=== PATIENT | female | born 1970 | race Two or more races ===

== ENCOUNTER 2018-04-19 11:31 | Inpatient (IN) | payer OTHER ==
[~2018-04-19] VITALS: Ht 167.6 cm; Wt 111.6 kg
[2018-04-19] MEDS ORDERED: IBUPROFEN 200 MG TABLET PO PRN (14:00)
[2018-04-19] MEDS ORDERED: ACETAMINOPHEN ES 500 MG TABLET PO PRN (14:00)
[2018-04-19] MEDS ORDERED: ZOLPIDEM TARTRATE 10 MG TABLET PO PRN (14:00)
[2018-04-19] MEDS ORDERED: MAGNESIUM HYDROXIDE 30 ML UDC PO PRN (14:00)
[2018-04-19] MEDS ORDERED: MAG HYDROX/AL HYDROX/SIMETH 30 ML UDC PO PRN (14:00)
[2018-04-19] MEDS ORDERED: LORAZEPAM 1 MG TABLET FOR AGITATION PO PRN (14:00)
--- NOTE | 2018-04-19 15:00 | NUR ---
MS RN NOTES ADMITTED 48 YEAR OLD FEMALE FROM OFFICE OF Dr. HERZOG. PATIENT AWAKE, ALERT AND ORIENTED X 4, VERBALLY RESPONSIVE AND RESPONDS TO VERBAL AND TACTILE STIMULI. BREATHING EVEN AND UNLABORED. DENIES ANY PAIN OR DISCOMFORT. NO CHANGES IN LOC NOTED AT THIS TIME. PATIETN CALM AND RELAXED. PATIENT FOR CLINICAL TRIAL, ADMITTED UNDER MEDICAL SUPERVISION OF DR. HERZOG, MADE AWARE OF PATIENT ARRIVAL. ADMITTING ORDERS NOTED AND CARRIED OUT. PATIENT ORIENTED TO UNIT, STAFF, ROOM, MEDICATIONS, MEAL TIME, MENU SYSTEM, PLAN OF CARE AND VERBALIZED UNDERSTANDING. 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 RISKS AND BENEFITS EXPLAINED BUT TO NO AVAIL. PATIENT VERBALIZED THAT HOSPITAL WILL NOT BE ACCOUNTABLE IF HER MONEY GETS MISSING. CHARGE NURSE AWARE. WILL CONTINUE TO MONITOR. BED LOCKED AND IN LOW POSITION. BILATERAL UPPER SIDE RAILS UP AND LOCKED. CALL LIGHT WITHIN EASY REACH
[2018-04-19] MEDS ORDERED: HYDR25TA4 PO (15:35)
[2018-04-19] MEDS ORDERED: AMLO10TA7 PO (15:35)
[2018-04-19 16:00] VITALS: BP 139/85
--- NOTE | 2018-04-19 19:04 | NUR ---
MS RN NOTES PATIENT RESTING INSIDE ROOM. AWAKE, ALERT AND ORIENTED, VERBALLY RESPONSIVE AND RESPONDS TO VERBAL AND TACTILE STIMULI. BREATHING EVEN AND UNLABORED. DENIES ANY PAIN OR DISCOMFORT. ALL NURSING NEEDS ATTENDED AND MET. PATIENT KEPT CLEAN, DRY AND COMFORTABLE. WILL ENDORSE TO INCOMING SHIFT FOR STEVE. BED LOCKED AND IN LOW POSITION. BILATERAL UPPER SIDE RAILS UP AND LOCKED. CALL LIGHT WITHIN EASY REACH
--- NOTE | 2018-04-19 19:35 | NUR ---
MS RN NOTES received PATIENT RESTING INSIDE ROOM. AWAKE, ALERT AND ORIENTED, VERBALLY RESPONSIVE AND RESPONDS TO VERBAL AND TACTILE STIMULI. BREATHING EVEN AND UNLABORED. DENIES ANY PAIN OR DISCOMFORT. ALL NURSING NEEDS ATTENDED AND MET. PATIENT KEPT CLEAN, DRY AND COMFORTABLE. BED LOCKED AND IN LOW POSITION. BILATERAL UPPER SIDE RAILS UP AND LOCKED. CALL LIGHT WITHIN EASY REACH. WILL CONTINUE TO MONITOR ACCORDINGLY.
[2018-04-19 20:23] VITALS: BP 112/72
--- NOTE | 2018-04-20 07:30 | NUR ---
received pt. this am alert and oriented x4-a little anxious.
--- NOTE | 2018-04-20 07:55 | NUR ---
RN NOTES ENDORSE TO AM NURSE FOR CONTINUITY OF CARE. NO DISTRESS THROUGHOUT THE SHIFT.
[2018-04-20 08:00] VITALS: BP 132/91
[2018-04-20] MEDS: NORVASC 10 MG PO SCH (09:27)
[2018-04-20] MEDS: HCTZ 25 MG PO SCH (09:28)
--- NOTE | 2018-04-20 11:30 | NUR ---
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 consent signed.
[2018-04-20 16:00] VITALS: BP 141/90
--- NOTE | 2018-04-20 17:00 | NUR ---
relocated to rm. 319.
--- NOTE | 2018-04-20 18:50 | NUR ---
up at desk-looking for radio message router.states she has no radio message router for her phone.
[2018-04-20 20:00] VITALS: BP 127/82
--- NOTE | 2018-04-20 20:00 | NUR ---
MS RN NOTES RECEIVED PATIENT AWAKE IN BED AND WATCHING TV WITH NO DISTRESS NOTED. NO C/O PAIN OR DISCOMFORT. PATIENT CALM AND COOPERATIVE. BED IN LOW LOCK SETTING. ROOM FREE OF CLUTTER AND BELONGINGS KEPT NEAR BEDSIDE. WILL CONTINUE TO MONITOR.
--- NOTE | 2018-04-21 06:04 | NUR ---
MS RN NOTES PATIENT ASLEEP IN BED. NO DISTRESS NOTED. NO C/O PAIN OR DISCOMFORT. PATIENT REMAINED CALM AND COMPLIANT WITH ALL NURSING CARE. ENCOURAGED USE OF CALL LIGHT FOR ASSISTANCE AND VERBALIZED GOOD UNDERSTANDING. BED IN LOW LOCK SETTING. ALL BELONGINGS KEPT NEAR BEDSIDE. WILL ENDORSE TO ONCOMING SHIFT.
--- NOTE | 2018-04-21 07:57 | NUR ---
RN NOTES PATIENT ASLEEP, BUT EASILY AWAKEN, BREATHING EVEN AND UNLABORED, NO DISTRESS NOTED, NEEDS ATTENDED, CALL LIGHT WITHIN REACH, WILL CONTINUE TO MONITOR.
[2018-04-21 08:00] VITALS: BP 116/78
[2018-04-21] MEDS: NORVASC 10 MG PO SCH (09:10)
[2018-04-21] MEDS: HCTZ 25 MG PO SCH (09:10)
[2018-04-21 16:00] VITALS: BP 121/68
--- NOTE | 2018-04-21 18:15 | NUR ---
RN NOTES PATIENT WITH NO SIGNIFICANT CHANGE, NO DISTRESS NOTED, DENIES HALLUCINATION, DENIES SI/HI AT THIS TIME. NEEDS ATTENDED AND MET, DENIES PAIN. CALL LIGHT WITHIN REACH, WILL ENDORSE TO DRAFTING LAYOUT WORKER FOR STEVE.
--- NOTE | 2018-04-21 19:50 | NUR ---
MS RN NOTES/CLINICAL TRIAL RECEIVED ON BED A/O,NO SALINE LOCK PER PSYCHIATRIC PROTOCOL.CALM,BALE TO VERBALIZED NEEDS,MEDS COMPLIANT.CALL LIGHT IN REACH,NEEDS ANTICIPATED.
[2018-04-21 20:00] VITALS: BP 130/75
--- NOTE | 2018-04-22 07:21 | NUR ---
MS RN NOTES CALM AND QUIET THRU OUT SHIFT,SLEPT WELL WITH NO PHARMACOLOGICAL INTERVENTION.ENDORSED.
--- NOTE | 2018-04-22 07:30 | NUR ---
MS RN Opening Notes 319 Patient awake, resting in bed. Alert and oriented x4. Respirations even and unlabored on room air, no acute distress noted. No peripheral IV access, MD aware per psychiatric protocol. Denies hallucinations, SI or HI at this time. Updated patient on current plan of care and safety measures. Safety and fall precautions in place: bed in lowest and locked position, side rails up x2, bed alarm on, call light and personal possessions within reach. Patient verbalized understanding. Will continue to monitor and intervene as needed.
[2018-04-22 08:11] VITALS: BP 139/82
[2018-04-22] MEDS: HCTZ 25 MG PO SCH (08:12)
[2018-04-22] MEDS: NORVASC 10 MG PO SCH (08:12)
[2018-04-22 08:25] VITALS: BP 139/82
[2018-04-22 15:54] VITALS: BP 126/85
--- NOTE | 2018-04-22 18:57 | NUR ---
MS RN Closing Notes 319 Patient awake, resting in bed. Alert and oriented x4. Respirations even and unlabored on room air, no acute distress noted. No peripheral IV access, MD aware per psychiatric protocol. Denies hallucinations, SI and HI at this time. Updated patient on current plan of care and safety measures. No acute changes and all needs attended to. Breaks taken as needed and patient accompanied to breaks as needed. Safety and fall precautions in place: bed in lowest and locked position, side rails up x2, bed alarm on, call light and personal possessions within reach. Patient verbalized understanding. Will endorse to evening or night nurse supervisor RN for continuity of care.
--- NOTE | 2018-04-22 19:30 | NUR ---
MS CLINICAL TRIAL RN NOTES RECEIVED SITTING ON EDGE OF BED,A/O X4,MED COMPLIANT,CALL LIGHT IN REACH,NEEDS ANTICIPATED.
[2018-04-22 20:00] VITALS: BP 122/72
--- NOTE | 2018-04-22 20:00 | NUR ---
MS RN NOTES WENT DOWN TO SMOKE ACCOMPANIED BY ANUJ RETANA.
[2018-04-22 20:55] VITALS: BP 122/72
--- NOTE | 2018-04-23 06:40 | NUR ---
MS RN NOTES SLEPT WELL AT NIGHT.INVESTIGATIONAL MED WILL START ON 04/27.GOES DOWN TO SMOKE.WILL ENDORSE TO DAY NURSE FOR STEVE.
--- NOTE | 2018-04-23 07:24 | NUR ---
RN OPENING NOTE/CLINICAL TRIAL PT WAS RECEIVED SLEEPING IN BED AT LOWEST AND LOCKED POSITION WITH SIDE RAILS UP X2, A/O X4, BREATHING EVEN AND UNLABORED ON RA, NO S/S OF PAIN OR DISTRESS CURRENTLY NOTED, NO IV NOTED PER PROTOCOL MD ARE AWARE, SAFETY PRECAUTIONS IN PLACE, CALL LIGHT WITHIN REACH, WILL MONITOR ACCORDINGLY.
[2018-04-23 08:00] VITALS: BP 145/96
[2018-04-23] MEDS: HCTZ 25 MG PO SCH (08:01)
[2018-04-23] MEDS: NORVASC 10 MG PO SCH (08:01)
[2018-04-23 16:00] VITALS: BP 114/63
--- NOTE | 2018-04-23 18:16 | NUR ---
RN CLOSING NOTE/CLINICAL TRIAL PT IN BED AT LOWEST AND LOCKED POSITION WITH SIDE RAILS UP X2, A/O X4, BREATHING EVEN AND UNLABORED ON RA, NO S/S OF PAIN OR DISTRESS CURRENTLY NOTED, NO IV NOTED PER PROTOCOL, ALL NEEDS ATTENDED TO, SAFETY PRECAUTIONS IN PLACE, CALL LIGHT WITHIN REACH, WILL ENDORSE TO CASE FINISHER FOR STEVE.
--- NOTE | 2018-04-23 19:35 | NUR ---
RN NOTES RECEIVED PATIENT AWAKE IN BED AT LOWEST AND LOCKED POSITION WITH SIDE RAILS UP X2, A/O X4, BREATHING EVEN AND UNLABORED ON RA, NO S/S OF PAIN OR DISTRESS CURRENTLY NOTED, NO IV NOTED PER PROTOCOL MD ARE AWARE, SAFETY PRECAUTIONS IN PLACE, CALL LIGHT WITHIN REACH, WILL MONITOR ACCORDINGLY.
[2018-04-23 20:00] VITALS: BP 135/72
[2018-04-23 20:40] VITALS: BP 135/72
--- NOTE | 2018-04-24 07:15 | NUR ---
RN NOTES PATIENT ASLEEP IN BED AT LOWEST AND LOCKED POSITION WITH SIDE RAILS UP X2, A/O X4, BREATHING EVEN AND UNLABORED ON RA, NO S/S OF PAIN OR DISTRESS CURRENTLY NOTED, NO IV NOTED PER PROTOCOL MD ARE AWARE, SAFETY PRECAUTIONS IN PLACE, CALL LIGHT WITHIN REACH, ENDORSED TO AM NURSE FOR CONTINUITY OF CARE.
--- NOTE | 2018-04-24 07:42 | NUR ---
MS/RN OPENING NOTE PATIENT IN BED IN STABLE CONDITION. A/O X 4. NO SIGNS OF ACUTE DISTRESS. NO COMPLAIN OF PAIN OR DISCOMFORT. ALL NEEDS ATTENDED TO. CALL LIGHT WITHIN REACH. WILL CONTINUE TO MONITOR TO ENSURE SAFETY.
[2018-04-24 08:00] VITALS: BP 126/78
[2018-04-24] MEDS: HCTZ 25 MG PO SCH (08:24)
[2018-04-24] MEDS: NORVASC 10 MG PO SCH (08:24)
[2018-04-24 16:00] VITALS: BP 140/82
--- NOTE | 2018-04-24 18:23 | NUR ---
MS/RN CLOSING NOTE PATIENT IN BED IN STABLE CONDITION. A/O X 4. NO SIGNS FO ACUTE DISTRESS. NO COMPLAIN OF PAIN OR DISCOMFORT. ALL NEEDS ATTENDED TO. CALL LIGHT WITHIN REACH. WILL ENDORSE TO NEXT SHIFT FOR CONTINUITY OF CARE.
[2018-04-24 20:00] VITALS: BP 120/74
--- NOTE | 2018-04-25 07:38 | NUR ---
MS RN OPENING NOTES RECEIVED PT LAYING IN BED, SLEEPING COMFORTABLY AND EASILY AROUSABLE. PT IS A/O X4, AFEBRILE. RESPIRATIONS ARE EVEN AND UNLABORED, NOT IN ANY ACUTE DISTRESS NOTED. DENIES ANY CHEST PAIN, SOB, N/V.NO IV ACCESS. SAFETY MEASURES ARE IN PLACE. INSTRUCTED PT TO USE CALL LIGHT WHEN ASSISTANCE IS NEEDED, CALL LIGHT IS LEFT WITHIN REACH. WILL MONITOR THROUGHOUT SHIFT FOR CONTINUITY OF CARE.
[2018-04-25 08:00] VITALS: BP 132/91
[2018-04-25] MEDS: HCTZ 25 MG PO SCH (09:52)
[2018-04-25] MEDS: NORVASC 10 MG PO SCH (09:52)
--- NOTE | 2018-04-25 13:31 | NUR ---
MS RN NOTES-- PT NOT IN ANY APPARENT DISTRESS NOTED. NEEDS MET. WILL CONTINUE TO MONITOR.
[2018-04-25 16:00] VITALS: BP 128/81
--- NOTE | 2018-04-25 18:38 | NUR ---
MS RN CLOSING NOTES NEEDS MET AND RENDERED. PT IS A/O X4, AFEBRILE. RESPIRATIONS ARE EVEN AND UNLABORED, NOT IN ANY ACUTE DISTRESS NOTED. PT DENIES ANY PAIN, DENIES ANY SOB, N/V. NO IV ACCESS NOTED. SAFETY MEASURES ARE IN PLACE. REMINDED PT TO USE CALL LIGHT WHEN ASSISTANCE IS NEEDED, CALL LIGHT IS LEFT WITHIN REACH. WILL ENDORSE TO NEXT SHIFT FOR CONTINUITY OF CARE.
[2018-04-25 20:00] VITALS: BP 126/84
--- NOTE | 2018-04-25 20:40 | NUR ---
RN INITIAL NOTES: RECEIVED RPEORT FROM JODI REDMOND, PT IS A CLINICAL TRIAL PT, UNDER DR VIDALES. NO IV ACCESS PER MD. PT AMBULATORY, A/O X3, DENIES ANY HALLUCINATION OR DELUSION, DENIES ANY PLANS OF HURTING HERSELF. BROUGHT TO [place] 2 ROOM 208-2, ALL BELONGING SENT WITH PT UPON TRANSFER. PER MD TO HOLD ATIVAN TOMORROW 04/26 AT 2200, AND MAY RESUME ON 04/27 AT 12NOON, PT WILL BE STARTED ON INVESTIGATIONAL MEDS ON 04/27. PT AWARE. COOPERATIVE, WITH SMOKING PRIVILEGES. SAFETY PRECAUTIONS FOR FALL INITIATED, CALL LIGHT IN REACH, WILL CONTINUE MONITORING PT.
[2018-04-25 21:00] VITALS: BP 126/84
--- NOTE | 2018-04-26 07:24 | NUR ---
RN CLOSING NOTES: PT REMAINS COOPERATIVE, CALM, DENIES ANY PLANS OF HURTING HERSELF. SLEPT FOR A TOTAL OF 6HRS. SAFETY PRECAUTIONS FOR FALL REMAINS ENGAGED, CALL LIGHT IN REACH, WILL ENDORSE TO DAY RN FOR STEVE.
--- NOTE | 2018-04-26 07:56 | NUR ---
MS RN NOTES PATIENT RECEIVED RESTING INSIDE ROOM, SLEEPING, EASILY AROUSABLE THROUGH VERBAL AND TACTILE STIMULI. BREATHING EVEN AND UNLABORED. NO ACUTE DISTRESS. DENIES ANY PAIN OR DISCOMFORT AT THIS TIME. PATIENT CALM AND RELAXED. NO CHANGES IN LOC NOTED. WILL CONTINUE TO MONITOR. BED LOCKED AND IN LOW POSITION. BILATERAL UPPER SIDE RAILS UP AND LOCKED. CALL LIGHT WITHIN EASY REACH
[2018-04-26] MEDS: NORVASC 10 MG PO SCH (08:08)
[2018-04-26] MEDS: HCTZ 25 MG PO SCH (08:08)
[2018-04-26 08:17] VITALS: BP 147/83
[2018-04-26 16:00] VITALS: BP 124/75
--- NOTE | 2018-04-26 19:07 | NUR ---
MS RN NOTES PATIENT RESTING INSIDE ROOM. AWAKE, ALERT AND ORIENTED, VERBALLY RESPONSIVE AND RESPONDS TO VERBAL AND TACTILE STIMULI. BREATHING EVEN AND UNLABORED. NO ACUTE DISTRESS AT THIS TIME. ALL NURSING NEEDS ATTENDED AND MET. PATIENT KEPT CLEAN, DRY AND COMFORTABLE. WILL ENDORSE TO INCOMING SHIFT FOR STEVE. BED LOCKED AND IN LOW POSITION. BILATERAL UPPER SIDE RAILS UP AND LOCKED. CALL LIGHT WITHIN EASY REACH
--- NOTE | 2018-04-26 19:45 | NUR ---
RN NOTES RECEIVED REPORT FROM [facility] NYLA MERINO. FOUND Pt AWAKE, RESTING IN BED. Pt IS A/OX4, VERBAL ABLE TO MAKE NEEDS KNOW. NO S/S OF ACUTE DISTRESS OR SOB NOTED. RESPIRATIONS ARE EVEN AND UNLABORED. NO IV ACCESS DUE TO CLINICAL TRIAL. SAFETY MEASURES IN PLACE. BED LOW, LOCKED, HOB ELEVATED, SIDE RAILS UP, CALL LIGHT AND BEDSIDE TABLE WITHIN REACH. WILL CONTINUE TO MONITOR Pt's CONDITION AND SAFETY THROUGHOUT THE NIGHT.
[2018-04-26 20:00] VITALS: BP 121/77
--- NOTE | 2018-04-26 20:00 | NUR ---
RN NOTES Pt HAS GONE DOWN WITH STAFF FOR A SMOKE.
--- NOTE | 2018-04-27 06:55 | NUR ---
RN CLOSING NOTES NO SIGNIFICANT CHANGES IN Pt's CONDITION. Pt REMAINS STABLE AT THIS TIME. Pt RESTING IN BED. RESPIRATIONS EVEN AND UNLABORED. NO S/S OF ACUTE DISTRESS OR SOB NOTED DURING THE NIGHT. ALL NEEDS MET AND ATTENDED TO. SAFETY MEASURES IN PLACE. BED LOW, LOCKED, HOB ELEVATED, SIDE RAILS UP, CALL LIGHT AND BEDSIDE TABLE WITHIN REACH. WILL ENDORSE TO DAYSHIFT RN FOR Pt's STEVE.
[2018-04-27 08:00] VITALS: BP 129/83
--- NOTE | 2018-04-27 08:00 | NUR ---
MS RN NOTES PATIENT RESTING INSIDE ROOM. AWAKE, ALERT AND ORIENTED, VERBALLY RESPONSIVE AND RESPONDS TO VERBAL AND TACTILE STIMULI. BREATHING EVEN AND UNLABORED. NO ACUTE DISTRESS AT THIS TIME. PATIENT KEPT CLEAN, DRY AND COMFORTABLE. BED LOCKED AND IN LOW POSITION. BILATERAL UPPER SIDE RAILS UP AND LOCKED. CALL LIGHT WITHIN EASY REACH
[2018-04-27] MEDS: NORVASC 10 MG PO SCH (08:52)
[2018-04-27] MEDS: HCTZ 25 MG PO SCH (08:53)
[2018-04-27] MEDS ORDERED: LORAZEPAM 1 MG TABLET FOR AGITATION PO PRN (12:00)
[2018-04-27 16:00] VITALS: BP 130/78
[2018-04-27] MEDS: INVESTIGATIONAL MED RGH-MD-24 1 CAP PO SCH (17:57)
--- NOTE | 2018-04-27 19:25 | NUR ---
PT RESTING IN BED DENYING ANY PAIN OR DISTRESS.CALL LIGHT PLACED WITHIN REACH.
--- NOTE | 2018-04-27 19:45 | NUR ---
MS RN NOTE RECEIVED PT IN A&O X4, ABLE TO MAKE NEEDS KNOWN. PT CURRENTLY IN BED WATCHING TV. NO SIGNS OF SOB OR DISTRESS. SAFETY MEASURES IN PLACE: BED LOW, LOCKED, UPPER RAILS IN PLACE AND CALL LIGHT WITHIN REACH. WILL CONT TO MONITOR.
[2018-04-27 20:00] VITALS: BP 125/82
--- NOTE | 2018-04-28 06:24 | NUR ---
MS RN NOTE PT IN STABLE CONDITION A&O X4, ABLE TO MAKE NEEDS KNOWN. PT CURRENTLY IN BED, RESTING. NO SIGNS OF SOB OR DISTRESS. SAFETY MEASURES IN PLACE: BED LOW, LOCKED, UPPER RAILS IN PLACE AND CALL LIGHT WITHIN REACH. WILL CONT TO MONITOR AND ENDORSE TO NEXT SHIFT FOR STEVE.
[2018-04-28 08:00] VITALS: BP 137/76
--- NOTE | 2018-04-28 08:00 | NUR ---
PATIENT IS A & O X4. PATIENT SHOWS NO SIGN OF SOB OR DISTRESS. PATIENT CLEAN, DRY, AND COMFORTABLE. SAFETY MEASURES ARE IN PLACE: BED LOW, LOCKED, UPPER RAILS IN PLACE, AND CALL LIGHT WITHIN REACH. ALL CURRENT NEEDS ARE MET AND WILL CONTINUE TO MONITOR.
[2018-04-28] MEDS: NORVASC 10 MG PO SCH (09:22)
[2018-04-28] MEDS: HCTZ 25 MG PO SCH (09:22)
--- NOTE | 2018-04-28 15:09 | NUR ---
PATIENT IS A & O X4. PATIENT SHOWS NO SIGN OF SOB OR DISTRESS. PATIENT CLEAN, DRY, AND COMFORTABLE. SAFETY MEASURES ARE IN PLACE: BED LOW, LOCKED, UPPER RAILS IN PLACE, AND CALL LIGHT WITHIN REACH. ALL CURRENT NEEDS ARE MET AND WILL CONTINUE TO MONITOR AND ENDORSE TO NEXT SHIFT FOR STEVE.
[2018-04-28 16:00] VITALS: BP 113/73
[2018-04-28] MEDS: INVESTIGATIONAL MED RGH-MD-24 1 CAP PO SCH (17:09)
--- NOTE | 2018-04-28 17:48 | NUR ---
PATIENT IS ALERT AND ORIENTED x4. NO SIGNS OF SOB, RESPIRATIONS ARE EVEN AND UNLABORED. PATIENT REMAINS STABLE AT THIS TIME. PATIENT HAS BEEN COOPERATIVE AND SOCIALIZING, ALL BEHAVIORS ARE APPROPRIATE. PATIENT IS RESTING IN BED AND ALL NEEDS HAVE BEEN MET AND ATTENDED TO. SAFETY MEASURES IN PLACE: BED LOW, LOCKED, HOB ELEVATED, SIDE RAILS UP, CALL LIGHT AND BEDSIDE TABLE WITHIN REACH. WILL ENDORSE TO HAND [employer] FOOD MAKER RN FOR Pt's STEVE.
--- NOTE | 2018-04-28 19:30 | NUR ---
MS RN NOTE RECEIVED PT IN STABLE CONDITION A&O X4, ABLE TO MAKE NEEDS KNOWN. NO SIGNS OF SOB OR DISTRESS. PT WITH STEADY GAIT, WALKING UP AND DOWN HALLWAY. NO NEGATIVE BEHAVIOR NOTED. SAFETY PRECAUTIONS IN PLACE: BED LOW, LOCKED, UPPER RAILS UP, AND CALL LIGHT WITHIN REACH. WILL CONT TO MONITOR.
[2018-04-28 20:36] VITALS: BP 139/89
--- NOTE | 2018-04-29 06:13 | NUR ---
MS RN NOTE PT REMAINS IN STABLE CONDITION A&O X4, ABLE TO MAKE NEEDS KNOWN. NO SIGNS OF SOB OR DISTRESS. PT WITH STEADY GAIT, WALKING UP AND DOWN HALLWAY. NO NEGATIVE BEHAVIOR NOTED. SAFETY PRECAUTIONS IN PLACE: BED LOW, LOCKED, UPPER RAILS UP, AND CALL LIGHT WITHIN REACH. WILL CONT TO MONITOR AND ENDORSE TO NEXT SHIFT FOR STEVE.
[2018-04-29 08:00] VITALS: BP 132/75
--- NOTE | 2018-04-29 08:00 | NUR ---
MS RN NOTES PATIENT RESTING INSIDE ROOM. AWAKE, ALERT AND ORIENTED, VERBALLY RESPONSIVE AND RESPONDS TO VERBAL AND TACTILE STIMULI. BREATHING EVEN AND UNLABORED. NO ACUTE DISTRESS AT THIS TIME. PATIENT KEPT CLEAN, DRY AND COMFORTABLE. BED LOCKED AND IN LOW POSITION.AMBULATES IN THE HALLWAY WITH SMOKING PRIVILEGES.COMPLIANT WITH MEDS AND PLEASANT WITH STAFF.CALL LIGHT WITHIN EASY REACH
[2018-04-29] MEDS: HCTZ 25 MG PO SCH (08:49)
[2018-04-29] MEDS: NORVASC 10 MG PO SCH (08:50)
--- NOTE | 2018-04-29 15:45 | NUR ---
PT'S HOME MEDS NORVASC 10 MG AND HCTZ 25 MG ARE ALREADY FINISHED AND NEEDS TO BE REFILLED.CALLED DR HERZOG AND MADE AWARE AND SPOKE TO RYAN OF DR HERZOG'S OFFICE WHO STATED THAT DR HERZOG WILL REFILL THEM AFTER SEEING THE PT.
[2018-04-29 15:48] VITALS: BP 114/56
[2018-04-29] MEDS: INVESTIGATIONAL MED RGH-MD-24 1 CAP PO SCH (17:25)
[2018-04-29] MEDS ORDERED: SENNOSIDES/DOCUSATE SODIUM 1 TAB TABLET PO PRN (19:00)
--- NOTE | 2018-04-29 19:25 | NUR ---
MS/RN NOTES RECEIVED PT. LYING IN BED. PT. IS CALM, AWAKE, ALERT AND ORIENTED X4. BREATHING EVEN AND UNLABORED ON ROOM AIR. NO SOB, RESPIRATORY DISTRESS OR COMPLAINTS OF PAIN NOTED AT THIS TIME. PT. REMAINS WITH NO IV ACCESS AT THIS TIME, MD AWARE. BED LOCKED AND IN LOWEST POSITION, SIDE RAILS UP X2, CALL LIGHT WITHIN REACH, WILL CONTINUE TO MONITOR.
[2018-04-29 20:00] VITALS: BP 137/88
--- NOTE | 2018-04-30 06:22 | NUR ---
MS/RN NOTES PT. IS LYING IN BED RESTING BREATHING EVEN AND UNLABORED ON ROOM AIR. NO SOB, RESPIRATORY DISTRESS OR COMPLAINTS OF PAIN NOTED AT THIS TIME AND THROUGHOUT SHIFT. PT. REMAINS WITH NO IV ACCESS AT THIS TIME, MD AWARE. ALL PT. NEEDS MET. BED LOCKED AND IN LOWEST POSITION, SIDE RAILS UP X2, CALL LIGHT WITHIN REACH, WILL ENDORSE TO DAYSHIFT NURSE FOR CONTINUITY OF CARE.
--- NOTE | 2018-04-30 07:25 | NUR ---
MS RN OPENING NOTES RECEIVED PT AWAKE IN BED IN NO ACUTE SIGNS OF DISTRESS. A/O X4. ABLE TO MAKE NEEDS KNOWN, NO C/O PAIN OR DISCOMFORTS VOICED AT THIS TIME. ON ROOM AIR, BREATHING EVEN AND UNLABORED. SAFETY MEASURES IN PLACE. BED IN LOW LOCKED POSITION WITH UPPER RAILS UP. CALL LIGHT WITHIN REACH. WILL CONTINUE TO MONITOR.
[2018-04-30 07:58] VITALS: BP 134/88
[2018-04-30] MEDS: HCTZ 25 MG PO SCH (08:25)
[2018-04-30] MEDS: NORVASC 10 MG PO SCH (08:26)
[2018-04-30 16:00] VITALS: BP 135/80
[2018-04-30] MEDS: INVESTIGATIONAL MED RGH-MD-24 1 CAP PO SCH (17:15)
--- NOTE | 2018-04-30 19:10 | NUR ---
MS RN CLOSING NOTES PT AWAKE IN BED WATCHING TV. A/O X4. ABLE TO MAKE NEEDS KNOWN. NO INAPPROPRIATE BEHAVIOR EXHIBITED ALL THROUGHOUT SHIFT. ALL NEEDS AND CARE ATTENDED WELL. ON ROOM AIR, BREATHING EVEN AND UNLABORED. SAFETY MEASURES IN PLACE. BED IN LOW LOCKED POSITION WITH UPPER RAILS UP. CALL LIGHT WITHIN REACH. WILL ENDORSE TO DIRECTOR REVENUE NURSE FOR STEVE.
--- NOTE | 2018-04-30 19:15 | NUR ---
MS/RN NOTES RECEIVED PT. SITTING UP IN BED. PT. IS CALM, AWAKE, ALERT AND ORIENTED X4. BREATHING EVEN AND UNLABORED ON ROOM AIR. NO SOB, RESPIRATORY DISTRESS OR COMPLAINTS OF PAIN NOTED AT THIS TIME. PT. REMAINS WITH NO IV ACCESS AT THIS TIME, MD AWARE. BED LOCKED AND IN LOWEST POSITION, SIDE RAILS UP X2, CALL LIGHT WITHIN REACH, WILL CONTINUE TO MONITOR.
[2018-04-30 20:00] VITALS: BP 138/77
--- NOTE | 2018-05-01 06:55 | NUR ---
MS/RN NOTES PT. IS LYING IN BED RESTING, EASILY AROUSABLE TO NAME. PT. IS CALM, AWAKE, ALERT AND ORIENTED X4. BREATHING EVEN AND UNLABORED ON ROOM AIR. NO SOB, RESPIRATORY DISTRESS OR COMPLAINTS OF PAIN NOTED AT THIS TIME. PT. REMAINS WITH NO IV ACCESS AT THIS TIME, MD AWARE. ALL PT. NEEDS MET. BED LOCKED AND IN LOWEST POSITION, SIDE RAILS UP X2, CALL LIGHT WITHIN REACH, WILL ENDORSE TO DAYSHIFT NURSE FOR CONTINUITY OF CARE.
--- NOTE | 2018-05-01 07:45 | NUR ---
RN OPENING NOTE PT WAS RECEIVED IN BED AT LOWEST AND LOCKED POSITION WITH SIDE RAILS UP X2, A/O X4, NOTED TO BE ON CLINICAL TRIAL, BREATHING IS EVEN AND UNLABORED, NO CURRENT COMPLAINTS OF PAIN, HAS NO IV SITE MD AWARE AND PER PROTOCOL, SAFETY PRECAUTIONS IN PLACE, CALL LIGHT WITHIN REACH, WILL MONITOR ACCORDINGLY.
[2018-05-01 08:00] VITALS: BP 124/80
[2018-05-01] MEDS: HCTZ 25 MG PO SCH (08:55)
[2018-05-01] MEDS: NORVASC 10 MG PO SCH (08:55)
[2018-05-01 16:00] VITALS: BP 119/83
[2018-05-01] MEDS: INVESTIGATIONAL MED RGH-MD-24 1 CAP PO SCH (16:26)
--- NOTE | 2018-05-01 18:40 | NUR ---
RN CLOSING NOTE PT IN BED AT LOWEST AND LOCKED POSITION WITH SIDE RAILS UP X2, A/O X4, BREATHING EVEN AND UNLABORED, NO CURRENT COMPLAINTS OF PAIN, SAFETY PRECAUTIONS IN PLACE, CALL LIGHT WITHIN REACH, WILL ENDORSE TO DRY ROOM ATTENDANT RN FOR STEVE.
[2018-05-01 20:00] VITALS: BP 133/71
--- NOTE | 2018-05-02 06:44 | NUR ---
MS RN NOTES AWAKE & RESPONSIVE. NOT IN ANY DISTRESS. NO SOB NOTED. DENIES ANY PAIN OR DISCOMFORT AT THIS TIME. MONITORED ACCORDINGLY. SLEPT FOR 5 HOURS. CALL LIGHT WITHIN REACH. BED IN LOWEST POSITION. SR UP X 2 FOR SAFETY. WILL ENDORSE TO NEXT SHIFT.
[2018-05-02 08:00] VITALS: BP 135/84
[2018-05-02] MEDS: NORVASC 10 MG PO SCH (09:28)
[2018-05-02] MEDS: HCTZ 25 MG PO SCH (09:29)
[2018-05-02 16:00] VITALS: BP 141/82
[2018-05-02] MEDS: INVESTIGATIONAL MED RGH-MD-24 1 CAP PO SCH (17:42)
--- NOTE | 2018-05-02 18:38 | NUR ---
RN CLOSING NOTES PATIENT IN STABLE CONDITION. ALL NEEDS ATTENDED AND PROVIDED. ALL DUE MEDICATIONS GIVEN ORDERED. ASSISTED WITH ADLS. KEPT PATIENT SAFE AND COMFORTABLE. BED IN LOW/LOCKED POSITION, SIDERAILS UP X2, CALL LIGHT IN REACH. WILL ENDORSED O NIGHT RN FOR STEVE.
--- NOTE | 2018-05-02 19:35 | NUR ---
RN OPENING NOTES PT WAS RECEIVED IN BED AT LOWEST AND LOCKED POSITION WITH SIDE RAILS UP X2, A/O X4, ON CLINICAL TRIAL, BREATHING IS EVEN AND UNLABORED, NO CURRENT COMPLAINTS OF PAIN, HAS NO IV SITE MD AWARE AND PER PROTOCOL, SAFETY PRECAUTIONS IN PLACE, CALL LIGHT WITHIN REACH, WILL MONITOR ACCORDINGLY.
[2018-05-02 20:38] VITALS: BP 133/76
--- NOTE | 2018-05-03 05:18 | NUR ---
RN NOTES: TRANSFERRED PT TO ROOM 317-2 ALL BELONGINGS SENT WITH THE PT UPON TRANSFER.
--- NOTE | 2018-05-03 06:46 | NUR ---
RN CLOSING NOTES: PT IN BED, SLEEPING, HRS OF SLEEP 8. REMAINS WITH NO IV ACCESS PER MD. FOR DC TODAY EXIT CARE COMPLETED. SAFETY PRECAUTIONS FOR FALL REMAINS ENGAGED, CALL LIGHT IN REACH. WILL ENDORSE TO DAY RN FOR CONTINUITY OF CARE.
[2018-05-03 08:00] VITALS: BP 136/98
[2018-05-03] MEDS: HCTZ 25 MG PO SCH (09:49)
[2018-05-03] MEDS: NORVASC 10 MG PO SCH (09:49)
--- NOTE | 2018-05-03 11:20 | NUR ---
pt given discharge instructions picked up by md office staff s/p clinical trials no pain no discomfort not in any distress, pt self responsible all needs met
== END 2018-05-03 12:06 | disposition home or self-care (01) | DRG 951 ==
LOC: MED 13:13 → MEDSG2 04-25 18:43 → MED 05-03 05:26
PROVIDERS: ADMIT Psychiatry & Neurology Psychiatry; ATTEND Psychiatry & Neurology Psychiatry
DX: Z00.6 Encounter for examination for normal comparison and control in clinical research program (principal); F20.0 Paranoid schizophrenia; I10 Essential (primary) hypertension; Z96.652 Presence of left artificial knee joint; J45.909 Unspecified asthma, uncomplicated; Z96.651 Presence of right artificial knee joint
CPT/HCPCS: 87081-TC; G0378

== ENCOUNTER 2019-01-12 12:46 | Inpatient (IN) | payer OTHER ==
[~2019-01-12] VITALS: Ht 170.2 cm; Wt 110.7 kg
[~2019-01-12 12:46] MED LIST: AMLO10TA7 PO; HYDR25TA4 PO
--- NOTE | 2019-01-12 15:00 | NUR ---
RN MS NOTES RECEIVED PT FOR CLINICAL TRIAL AT ROOM 320-2, AWAKE, ALERT AND ORIENTED, NO COMPLAINT OF PAIN, NOT IN DISTRESS, AMBULATES WITH STEADY GAIT, ASSISTED TO ROOM, ROOM SET UP ORIENTATION PROVIDED TO PT, VERBALIZED UNDERSTANDING, RECEIVED ADMITTING ORDERS FROM DR. HERZOG.
[2019-01-12] MEDS ORDERED: BENZTROPINE MESYLATE (1 MG) 1 MG TABLET PO PRN (15:30)
[2019-01-12] MEDS ORDERED: ACETAMINOPHEN ES 500 MG TABLET PO PRN (15:30)
[2019-01-12] MEDS ORDERED: MAGNESIUM HYDROXIDE 30 ML UDC PO PRN (15:30)
[2019-01-12] MEDS ORDERED: PROPRANOLOL HCL 10 MG TABLET PO PRN (15:30)
[2019-01-12] MEDS ORDERED: LORAZEPAM 1 MG TABLET FOR AGITATION PO PRN (15:30)
[2019-01-12] MEDS ORDERED: IBUPROFEN 200 MG TABLET PO PRN (15:30)
[2019-01-12] MEDS ORDERED: MAG HYDROX/AL HYDROX/SIMETH 30 ML UDC PO PRN (15:30)
[2019-01-12 16:00] VITALS: BP 128/100
--- NOTE | 2019-01-12 18:14 | NUR ---
RN MS NOTES PT IN BED, ASLEEP, EASY TO AROUSE, ALERT AND ORIENTED, DENIES PAIN, NOT IN DISTRESS, CALL LIGHT WITHIN REACH, ALL NEEDS ATTENDED.
--- NOTE | 2019-01-12 19:45 | NUR ---
MS RN OPENING NOTES RECEIVED PATIENT FROM MORNING SHIFT, ALERT AND ORIENTED X 4. BREATHING REGULAR AND UNLABORED ON ROOM AIR. NO IV ACCESS. NO COMPLAINTS OF PAIN/DISCOMFORT REPORTED OF THE TIME. AMBULATORY WITH BRP. BED LOW AND LOCKED ON SEMI FOWLERS POSITION. CALL LIGHT AND OTHER BELONGINGS IN REACH. WILL CONTINUE TO MONITOR.
[2019-01-12 19:56] VITALS: BP 143/94
[2019-01-12 22:00] VITALS: BP 143/94
--- NOTE | 2019-01-13 06:20 | NUR ---
MS RN CLOSING NOTES PATIENT IN BED ALERT AND ORIENTED X 3. AFEBRILE WITH NO S/S OF DISTRESS OBSERVED. NO COMPLAINTS OF PAIN/DISCOMFORT REPORTED WITHIN THE SHIFT. BED LOW AND LOCKED ON SEMI FOWLERS POSITION. CALL LIGHT IN REACH. WILL ENDORSE TO MORNING SHIFT FOR STEVE.
--- NOTE | 2019-01-13 07:30 | NUR ---
MS REDMOND AM NOTES RECEIVED PATIENT IN BED, ALERT AND ORIENTED X 4. BREATHING REGULAR AND UNLABORED ON ROOM AIR. NO IV ACCESS. NO COMPLAINTS OF PAIN/DISCOMFORT REPORTED OF THE TIME. AMBULATORY WITH BRP. BED LOW AND LOCKED ON SEMI FOWLERS POSITION. CALL LIGHT AND OTHER BELONGINGS IN REACH. WILL CONTINUE TO MONITOR.
[2019-01-13 08:00] VITALS: BP_SYST 160; BP_SYST 168; BP_DIAS 87
[2019-01-13] MEDS: HCTZ 25 MG PO SCH (09:03)
[2019-01-13] MEDS: NORVASC 10 MG PO SCH (09:03)
--- NOTE | 2019-01-13 09:30 | NUR ---
RN NOTES DUE MEDS GIVEN
[2019-01-13 16:00] VITALS: BP_SYST 155; BP_DIAS 101; BP_DIAS 90
--- NOTE | 2019-01-13 18:46 | NUR ---
MS RN CLOSING NOTES PATIENT RESTING IN BED, ALERT AND ORIENTED X 4. BREATHING REGULAR AND UNLABORED ON ROOM AIR. NO IV ACCESS. NO COMPLAINTS OF PAIN/DISCOMFORT REPORTED DURING THE WHOLE SHIFT. AMBULATORY WITH BRP. BED LOW AND LOCKED ON SEMI FOWLERS POSITION. CALL LIGHT AND OTHER BELONGINGS IN REACH. ALL NEEDS MET. WILL ENDORSE TO NEXT SHIFT FOR STEVE.
[2019-01-13 20:00] VITALS: BP 136/101
--- NOTE | 2019-01-13 20:30 | NUR ---
RN NOTES RECEIVED PT. FORM ANOTHER NURSE ... PT. IS CALM AND COOPERATIVE, CALL LIGHT WITHIN REACH, [id number], CONTINUE TO MONITOR
--- NOTE | 2019-01-14 06:44 | NUR ---
RN NOTES , CALM AND COOPERATIVE, NOT IN DISTRESS, PT. NEEDS ATTENDED
--- NOTE | 2019-01-14 07:32 | NUR ---
MS RN OPENING NOTES RECEIVED PATIENT IN BED RESTING COMFORTABLY IN MODERATE HIGH BACK REST, ALERT AND ORIENTED X 4. NOT IN ANY SIGNS OF DISTRESS. NO IV ACCESS. SAFETY MEASURES IN PLACE, BED IN LOW AND LOCKED POSITION. CALL LIGHT WITHIN REACH. WILL CONTINUE TO MONITOR.
[2019-01-14 08:00] VITALS: BP 148/100
[2019-01-14] MEDS: HCTZ 25 MG PO SCH (08:24)
[2019-01-14] MEDS: NORVASC 10 MG PO SCH (08:24)
[2019-01-14 16:00] VITALS: BP 131/84
--- NOTE | 2019-01-14 18:41 | NUR ---
MS RN CLOSING NOTES PATIENT IN BED RESTING COMFORTABLY IN MODERATE HIGH BACK REST, ALERT AND ORIENTED X 4. NOT IN ANY SIGNS OF DISTRESS THROUGHOUT THE SHIFT. NO IV ACCESS. SAFETY MEASURES IN PLACE, BED IN LOW AND LOCKED POSITION. CALL LIGHT WITHIN REACH. WILL ENDORSE TO [employer] MANAGER NURSE FOR STEVE.
--- NOTE | 2019-01-14 19:10 | NUR ---
RN NOTES: RECEIVED AWAKE ON BED, A/OX4, SHE IS USING HER LAP TOP LISTENING TO MUSIC, VERY COMFORTABLE NO PAIN OR DISCOMFORT, NO IV ACCESS, ON ROOM AIR.ORIENTED TO UNIT AND STAFF, FALL AND SAFETY PRECAUTION OBSERVED, SHE ASKED WHAT TIME SHE CAN GO DOWN TO SMOKE, PRODUCTION CONTROL COORDINATING CLERK HAVE GIVEN INSTRUCTION, BED LOW AND LOCKED, CALL LIGHT WITHIN EASY REACH.
[2019-01-14 20:00] VITALS: BP_SYST 124; BP_SYST 142; BP_DIAS 79
--- NOTE | 2019-01-15 01:34 | NUR ---
RN NOTES: AT 2030 ACCOMPANIED BY ANUJ TO GO DOWN AND CAME BACK. SHE CONTINUE TO USE HER LAPTOP AT AROUND 0100 ABLE TO SLEEP AND REST.
--- NOTE | 2019-01-15 07:17 | NUR ---
RN NOTES: SLEEP WELL IN THE NIGHT, NO SANCHEZ MADE, STABLE, ENDORSE FOR CONTINUITY OF CARE.
[2019-01-15 08:00] VITALS: BP 128/85
[2019-01-15] MEDS: HCTZ 25 MG PO SCH (08:15)
[2019-01-15] MEDS: NORVASC 10 MG PO SCH (08:15)
[2019-01-15 16:17] VITALS: BP 119/75
--- NOTE | 2019-01-15 18:47 | NUR ---
MS RN CLOSING NOTES PATIENT IN BED RESTING COMFORTABLY IN MODERATE HIGH BACK REST, ALERT AND ORIENTED X 4. NOT IN ANY SIGNS OF DISTRESS. NO IV ACCESS. SAFETY MEASURES IN PLACE, BED IN LOW AND LOCKED POSITION. CALL LIGHT WITHIN REACH. WILL ENDORSE TO ASW SPECIALIST NURSE FOR STEVE.
--- NOTE | 2019-01-15 19:05 | NUR ---
MS RN NOTES RECEIVED PT WALKING LAPS AROUND UNIT IN STABLE CONDITION. PT A/O X3 AND ABLE TO MAKE NEEDS KNOWN. PT WITH NO S/S OF ACUTE DISTRESS OR SOB NOTED. NO IV ACCESS AT THIS TIME. SAFETY MEASURES IN PLACE WITH BED IN LOWEST LOCKED POSITION WITH SIDE RAILS UP X2. CALL LIGHT WITHIN REACH. WILL CONTINUE TO MONITOR.
[2019-01-15 20:00] VITALS: BP 128/75
--- NOTE | 2019-01-16 07:40 | NUR ---
MS RN NOTES PT WALKING LAPS AROUND UNIT IN STABLE CONDITION. PT A/O X3 AND ABLE TO MAKE NEEDS KNOWN. PT WITH NO S/S OF ACUTE DISTRESS OR SOB NOTED THROUGHOUT SHIFT. PT BED CLEANED AND ITEMS CHANGED. NO IV ACCESS AT THIS TIME. SAFETY MEASURES IN PLACE WITH BED IN LOWEST LOCKED POSITION WITH SIDE RAILS UP X2. CALL LIGHT WITHIN REACH. WILL ENDORSE TO ONCOMING NURSE FOR STEVE.
[2019-01-16 08:11] VITALS: BP 137/93
[2019-01-16] MEDS: NORVASC 10 MG PO SCH (09:40)
[2019-01-16] MEDS: HCTZ 25 MG PO SCH (09:41)
[2019-01-16 16:05] VITALS: BP 129/71
--- NOTE | 2019-01-16 18:29 | NUR ---
MS RN CLOSING NOTES PATIENT IN BED RESTING COMFORTABLY IN MODERATE HIGH BACK REST, ALERT AND ORIENTED X 4. NOT IN ANY SIGNS OF DISTRESS. NO IV ACCESS. SAFETY MEASURES IN PLACE, BED IN LOW AND LOCKED POSITION. CALL LIGHT WITHIN REACH. WILL ENDORSE TO CLAY ROASTER NURSE FOR STEVE.
--- NOTE | 2019-01-16 19:05 | NUR ---
MS RN NOTES RECEIVED PT WALKING AROUND UNIT IN STABLE CONDITION. PT A/O X3 AND ABLE TO MAKE NEEDS KNOWN. PT WITH NO S/S OF ACUTE DISTRESS OR SOB NOTED. NO IV ACCESS AT THIS TIME. NO COMPLAINTS OF PAIN AT THIS TIME. SAFETY MEASURES IN PLACE WITH BED IN LOWEST LOCKED POSITION WITH SIDE RAILS UP X2. CALL LIGHT WITHIN REACH. WILL ENDORSE TO ONCOMING NURSE FOR STEVE.
[2019-01-16 20:00] VITALS: BP 130/83
[2019-01-17] MEDS: HCTZ 25 MG PO SCH (09:54)
[2019-01-17] MEDS: NORVASC 10 MG PO SCH (09:54)
[2019-01-17 16:00] VITALS: BP 134/95
--- NOTE | 2019-01-17 18:48 | NUR ---
MS RN CLOSING NOTES PATIENT IN BED RESTING COMFORTABLY IN MODERATE HIGH BACK REST, ALERT AND ORIENTED X 4. NOT IN ANY SIGNS OF DISTRESS. NO IV ACCESS. SAFETY MEASURES IN PLACE, BED IN LOW AND LOCKED POSITION. CALL LIGHT WITHIN REACH. WILL ENDORSE TO MACHINE MADE SHOE UNIT WORKER NURSE FOR STEVE.
--- NOTE | 2019-01-17 19:30 | NUR ---
MS RN OPENING NOTE RECEIVED PATIENT IN BED. A/O X3. TOLERATING ROOM AIR. RESPIRATIONS ARE EVEN AND UNLABORED. NO S/S SOB NOTED. DENIES PAIN AT THIS TIME. NO IV ACCESS, MD AWARE. BED IS LOW AND LOCKED, SIDE RAILS UP X2, HOB ELEVATED 45 DEGREES. CALL LIGHT WITHIN REACH. WILL CONTINUE TO MONITOR.
[2019-01-17 20:00] VITALS: BP 151/97
--- NOTE | 2019-01-18 06:49 | NUR ---
MS RN CLOSING NOTE PATIENT IN BED. A/O X3. REMAINS TOLERATING ROOM AIR. RESPIRATIONS REMAIN EVEN AND UNLABORED. NO SOB NOTED. NO C/O PAIN THROUGHOUT SHIFT. REMAINS WITH NO IV ACCESS, MD AWARE. BED REMAINS LOW AND LOCKED, SIDE RAILS UP X2, HOB ELEVATED 10 DEGREES. CALL LIGHT WITHIN REACH. WILL ENDORSE TO NEXT SHIFT
--- NOTE | 2019-01-18 07:30 | NUR ---
m/s tube drawer: initial assessment received pt in bed asleep with no distress noted. call light within reach. will continue to monitor.
[2019-01-18 10:00] VITALS: BP 132/65
--- NOTE | 2019-01-18 10:00 | NUR ---
m/s insemination worker: notes awake at this time. up and about. no c/o pain or any discomfort.
[2019-01-18] MEDS: NORVASC 10 MG PO SCH (10:57)
[2019-01-18] MEDS: HCTZ 25 MG PO SCH (10:58)
--- NOTE | 2019-01-18 12:00 | NUR ---
m/s game attendant: notes lunch served at this time. instructed to call for assistance.
[2019-01-18 16:00] VITALS: BP 139/91
--- NOTE | 2019-01-18 16:00 | NUR ---
m/s bookkeeping machine operator: notes ambulating in hallway. no distress noted.
--- NOTE | 2019-01-18 18:00 | NUR ---
m/s credit cashier: notes having dinner. needs attended. no distress noted.
--- NOTE | 2019-01-18 19:00 | NUR ---
m/s pension examiner: notes report given to lisseth (rn) for continuity of care.
--- NOTE | 2019-01-18 19:15 | NUR ---
MS CLINICAL TRIAL RN NOTES RECEIVED WALKING IN THE HALLWAYS WITH STEADY GAIT,A/O X4,ABLE TO MAKE NEEDS KNOWN,NO IV ACCESS.WILL CONTINUE TO MONITOR BEHAVIOR.
--- NOTE | 2019-01-18 20:00 | NUR ---
MS RN NOTES BLOOD PRESSURE ELEVATED THIS TIME,PATIENT JUST FINISHED PLENTY ROUND OF WALKING ON THE HALLWAYS.WILL RE CHECK IN AN HOUR
[2019-01-18 20:26] VITALS: BP 131/106
[2019-01-18 21:00] VITALS: BP 127/83
--- NOTE | 2019-01-18 21:00 | NUR ---
MS RN NOTES BLOOD PRESSURE RECHECK 127/83 THIS TIME
--- NOTE | 2019-01-18 21:26 | NUR ---
MS RN NOTES WENT DOWN TO SMOKE ACCOMPANIED BY ANUJ CROWDER
--- NOTE | 2019-01-19 06:50 | NUR ---
MS RN NOTES NO SIGNIFICANT CHANGE IN BEHAVIOR,FOLLOW SIMPLE INSTRUCTION.CLINICAL TRIALS MEDICATION WILL START 01/25.
--- NOTE | 2019-01-19 07:15 | NUR ---
MS RN RECEIVED ON BED, AWAKE,ALERT,ORIENTED X4,NOT IN ANY FORM OF DISTRESS, RESPIRATIONS EVEN AND UNLABORED,NO SOB NOTED, LUNGS ARE CLEAR,ABDOMEN SOFT,POSITIVE BOWEL SOUNDS, CLINICAL TRIAL PATIENT,DENIES PAIN AT THIS TIME,ALL NEEDS ATTENDED.
[2019-01-19 08:00] VITALS: BP 142/90
[2019-01-19] MEDS: NORVASC 10 MG PO SCH (09:15)
[2019-01-19] MEDS: HCTZ 25 MG PO SCH (09:16)
--- NOTE | 2019-01-19 10:00 | NUR ---
ms mills breakfast served, due meds given,tolerated well.
--- NOTE | 2019-01-19 15:30 | NUR ---
ms rn was seen by dr. page, no order at this time.
[2019-01-19 16:00] VITALS: BP 116/90
--- NOTE | 2019-01-19 17:59 | NUR ---
ms rn inside room,all needs attended.
--- NOTE | 2019-01-19 19:15 | NUR ---
MS RN PM NOTE REPORT RECIEVED FROM [place] PT RECEIVED IN BED, AWAKE,ALERT,ORIENTED X4,NOT IN ANY FORM OF APPARENT DISTRESS. RESPIRATIONS EVEN AND UNLABORED,NO APPARENT SOB, . PT REPORTS HAVING REGULAR BOWEL MOVEMENTS AND NO DIFFICULTY GOING TO BATHROOM PT HERE FOR CLINICAL TRIAL. DENIES PAIN AT THIS TIME. WILL CONT TO MONITOR.
[2019-01-19 20:00] VITALS: BP 110/79
--- NOTE | 2019-01-20 07:32 | NUR ---
RN OPENING NOTES RECEIVED PATIENT IN BED ASLEEP WITHOUT ANY FORM OF DISTRESS. RESPIRATIONS EVEN AND UNLABORED. NO IV ACCESS. A CLINICAL TRIAL PATIENT. SAFETY MEASURES IMPLEMENTED. BED IN LOW/LOCKED PSOITION, SIDERAILS UP X 2, CALL LIGHT IN REACH. WILL CONT TO MONIOTR ACCORDINGLY.
[2019-01-20 08:00] VITALS: BP 147/82
[2019-01-20] MEDS: HCTZ 25 MG PO SCH (08:49)
[2019-01-20] MEDS: NORVASC 10 MG PO SCH (08:50)
[2019-01-20 16:00] VITALS: BP 132/86
--- NOTE | 2019-01-20 19:00 | NUR ---
MS RN OPENING NOTES RECEIVED PATIENT SITTING UP IN BED, ALERT, ORIENTED X 4. BREATHING EVEN AND UNLABORED. NOT IN ANY DISTRESS. NO IV ACCESS. A CLINICAL TRIAL PATIENT. SAFETY MEASURES IN PLACE. CALL LIGHT WITHIN REACH. BED IN LOW, LOCKED POSITION. WILL CONTINUE TO MONITOR ACCORDINGLY
--- NOTE | 2019-01-20 19:04 | NUR ---
RN CLOSING NOTES PATIENT IN STABLE CONDITION. ALL NEEDS ATTENDED AND PROVIDED. ALL DUE MEDICATION GIVEN ORDERED. KEPT PATIENT SAFE AND COMFORTABLE. BED IN LOW/LOCKED POSITION. SIDERAILS UPX2, CALL LIGHT IN REACH. ENDORSED TO NIGHT RN FOR STEVE.
[2019-01-20 20:00] VITALS: BP 133/89
--- NOTE | 2019-01-21 02:00 | NUR ---
RN NOTES PATIENT SLEEPING- APPEARS COMFORTABLE
--- NOTE | 2019-01-21 06:30 | NUR ---
MS RN CLOSING NOTES PATIENT STILL SLEEPING IN BED. REMAINS STABLE. ALL NEEDS ATTENDED AND PROVIDED. KEPT PATIENT SAFE AND COMFORTABLE. PATIENT SLEPT FOR ABOUT 8 HRS. BED IN LOW/LOCKED POSITION. SIDE RAILS UPX2, CALL LIGHT IN REACH. WILL ENDORSE STEVE TO ONCOMING RN.
[2019-01-21 08:00] VITALS: BP 146/83
--- NOTE | 2019-01-21 08:00 | NUR ---
MS RN OPENING NOTES Received Patient awake and resting in bed. A/O x 4. VS stable with no acute distress. Breathing even and unlabored on room air with no respiratory distress. Denies pain. Safety precautions in place. Bed locked and set to lowest position. All needs rendered at this time. Call light within reach. Will continue to monitor.
[2019-01-21] MEDS: NORVASC 10 MG PO SCH (09:07)
[2019-01-21] MEDS: HCTZ 25 MG PO SCH (09:08)
[2019-01-21 16:00] VITALS: BP 131/83
--- NOTE | 2019-01-21 18:58 | NUR ---
MS RN CLOSING NOTES Patient awake and watching TV. A/O x 4. VS stable with no acute distress. Breathing even and unlabored on room air with no respiratory distress. Denies pain. Safety precautions in place. Bed locked and set to lowest position. All needs rendered at this time. Call light within reach. Will endorse plan of care to oncoming shift.
--- NOTE | 2019-01-21 19:43 | NUR ---
RECEIVE PT IN BED WATCHING TV A/O X 4 STABLE AND NOT IN DISTRESS. WILL CONT TO MTR
[2019-01-21 20:00] VITALS: BP 139/87
--- NOTE | 2019-01-22 06:08 | NUR ---
PT STABLE AND NOT IN DISTRESS, SLEPT WELL. NEEDS ATTENDED AND ANTICIPATED, KEPT CLEAN AND COMFORTABLE AT ALL TIMES. NO PSYCHIATRIC INSTABILITY. WILL ENDORSE POC.
[2019-01-22 08:00] VITALS: BP 138/85
[2019-01-22] MEDS: HCTZ 25 MG PO SCH (08:43)
[2019-01-22] MEDS: NORVASC 10 MG PO SCH (08:43)
[2019-01-22 16:00] VITALS: BP 132/90
--- NOTE | 2019-01-22 18:39 | NUR ---
Patient awake and watching TV. A/O x 4. VS stable with no acute distress. Breathing even and unlabored on room air with no respiratory distress. Safety precautions in place. Bed locked and set to lowest position. All needs attended. Call light within reach. Will endorse to next shift for STEVE .
--- NOTE | 2019-01-22 19:23 | NUR ---
RECEIVE PT AWAKE SITTING A/O X 4 STABLE AND NOT IN DISTRESS. WILL CONT TO MTR
[2019-01-22 20:00] VITALS: BP 135/85
--- NOTE | 2019-01-23 06:22 | NUR ---
ASLEEP AND EASILY AWAKEN, PT STABLE AND NOT IN DISTRESS, NO C/O OF PAIN, NEEDS ATTENDED AND ANTICIPATED. KEPT CLEAN, DRY & COMFORTABLE. NO PSYCHIATRIC INSTABILITY. ENDORSE NEXT SHIFT POC.
[2019-01-23 08:00] VITALS: BP 135/90
[2019-01-23] MEDS: HCTZ 25 MG PO SCH (08:38)
[2019-01-23] MEDS: NORVASC 10 MG PO SCH (08:39)
[2019-01-23 16:00] VITALS: BP 130/86
--- NOTE | 2019-01-23 18:41 | NUR ---
Patient awake and resting in bed. A/O x 4. VS stable with no acute distress. Breathing even and unlabored on room air with no respiratory distress. Safety precautions in place. Bed locked and set to lowest position. All needs attended. Call light within reach. Will endorse to next shift for STEVE .
--- NOTE | 2019-01-23 19:30 | NUR ---
MS RN NOTES RECEIVED PATIENT AWAKE IN BED WITH NO DISTRESS NOTED. CALL LIGHT WITHIN REACH. NO C/O PAIN OR DISCOMFORT. ENCOURAGED USE OF CALL LIGHT FOR ASSISTANCE AND VERBALIZED GOOD UNDERSTANDING. BED IN LOW LOCK SETTING. ROOM FREE OF CLUTTER AND BELONGINGS KEPT NEAR BEDSIDE. WILL CONTINUE TO MONITOR.
--- NOTE | 2019-01-23 20:10 | NUR ---
MS RN OPENING NOTES RECEIVED PATIENT ALERT AND ORIENTED X 4. AMBULATORY, VERBALLY RESPONSIVE AND ABLE TO FOLLOW DIRECTIONS. BREATHING REGULAR AND UNLABORED ON ROOM AIR. NO IV ACCESS. NO COMPLAINTS OF PAIN/DISCOMFORT REPORTED OF THE TIME. CALL LIGHT IN REACH. BED LOW AND LOCKED. WILL CONTINUE TO MONITOR.
[2019-01-23 20:22] VITALS: BP 125/78
--- NOTE | 2019-01-23 21:00 | NUR ---
MS RN NOTES WENT DOWN TO SMOKE, ACCOMPANIED BY HOT ROLLER. CAME BACK AFTER 15MINS ON STABLE CONDITION. WILL CONTINUE TO MONITOR.
[2019-01-23 22:00] VITALS: BP 125/78
--- NOTE | 2019-01-24 07:36 | NUR ---
MS RN NOTES PATIENT RECEIVED RESTING INSIDE ROOM. AWAKE, ALERT AND ORIENTED X 4, NO ACUTE DISTRESS. NO CHANGES IN LOC NOTED. PATIENT CALM AND RELAXED. DENIES SI/HI. SAFETY PRECAUTIONS IN PLACE. WILL CONTINUE TO MONITOR. BED LOCKED AND IN LOW POSITION. BILATERAL UPPER SIDE RAILS UP AND LOCKED. CALL LIGHT WITHIN EASY REACH
[2019-01-24 08:00] VITALS: BP 121/79
[2019-01-24] MEDS: HCTZ 25 MG PO SCH (09:49)
[2019-01-24] MEDS: NORVASC 10 MG PO SCH (09:49)
[2019-01-24 16:00] VITALS: BP 129/100
--- NOTE | 2019-01-24 18:41 | NUR ---
MS RN NOTES PATIENT RESTING INSIDE ROOM. AWAKE, ALERT AND ORIENTED X 4, NO ACUTE DISTRESS. NO CHANGES IN LOC NOTED. PATIENT DENIES SI/HI. WILL ENDORSE TO INCOMING SHIFT FOR STEVE. BED LOCKED AND IN LOW POSITION. BILATERAL UPPER SIDE RAILS UP AND LOCKED. CALL LIGHT WITHIN EASY REACH
--- NOTE | 2019-01-24 19:10 | NUR ---
MS/RN NOTES RECEIVED PT. LYING IN BED. PT. IS AWAKE, ALERT AND ORIENTED X4. BREATHING EVEN AND UNLABORED ON ROOM AIR. NO SOB, RESPIRATORY DISTRESS OR COMPLAINTS OF PAIN NOTED AT THIS TIME. PT. REMAINS WITH NO IV ACCESS, MD AWARE. PATIENT DENIES SI/HI AT THIS TIME. PT. WILL BE NPO AFTER 2100. PT. VERBALIZED UNDERSTANDING. BED LOCKED AND IN LOWEST POSITION, SIDE RAILS UP X2, CALL LIGHT WITHIN REACH, WILL CONTINUE TO MONITOR.
[2019-01-24 20:00] VITALS: BP 117/84
--- NOTE | 2019-01-25 06:50 | NUR ---
MS/RN NOTES PT. IS LYING IN BED RESTING. BREATHING EVEN AND UNLABORED ON ROOM AIR. NO SOB, RESPIRATORY DISTRESS OR COMPLAINTS OF PAIN NOTED AT THIS TIME AND THROUGHOUT SHIFT. PT. REMAINS WITH NO IV ACCESS, MD AWARE. PT. REMAINS NPO SINCE 2100 AWAITING LABS TO BE DRAWN. ALL PT. NEEDS MET. BED LOCKED AND IN LOWEST POSITION, SIDE RAILS UP X2, CALL LIGHT WITHIN REACH, WILL ENDORSE TO DAYSHIFT NURSE FOR CONTINUITY OF CARE.
--- NOTE | 2019-01-25 07:30 | NUR ---
ms rn patient not in the room at this time, they went to clinic for blood draw.
[2019-01-25] MEDS ORDERED: LORAZEPAM 1 MG TABLET PO PRN (12:00)
--- NOTE | 2019-01-25 12:30 | NUR ---
ms rn patient came back, awake,alert,not in any form of distress, due meds given,tolerated well.
[2019-01-25] MEDS: HCTZ 25 MG PO SCH (13:37)
[2019-01-25] MEDS: NORVASC 10 MG PO SCH (13:37)
[2019-01-25 16:00] VITALS: BP 133/83
--- NOTE | 2019-01-25 18:53 | NUR ---
ms rn no distress noted.
--- NOTE | 2019-01-25 19:35 | NUR ---
MS/RN NOTES RECEIVED PT. LYING IN BED. PT. IS AWAKE, ALERT AND ORIENTED X4. BREATHING EVEN AND UNLABORED ON ROOM AIR. NO SOB, RESPIRATORY DISTRESS OR COMPLAINTS OF PAIN NOTED AT THIS TIME. PT. REMAINS WITH NO IV ACCESS, MD AWARE. PATIENT DENIES SI/HI AT THIS TIME. BED LOCKED AND IN LOWEST POSITION, SIDE RAILS UP X2, CALL LIGHT WITHIN REACH, WILL CONTINUE TO MONITOR.
[2019-01-25 20:00] VITALS: BP 147/86
[2019-01-25] MEDS: [UNRECOGNIZED DRUG - OTHER] PO SCH (21:58)
--- NOTE | 2019-01-26 06:30 | NUR ---
MS/RN NOTES PT. IS LYING IN BED RESTING. BREATHING EVEN AND UNLABORED ON ROOM AIR. NO SOB, RESPIRATORY DISTRESS OR COMPLAINTS OF PAIN NOTED AT THIS TIME. PT. REMAINS WITH NO IV ACCESS, MD AWARE. PATIENT DENIES SI/HI AT THIS TIME. ALL PT. NEEDS MET. BED LOCKED AND IN LOWEST POSITION, SIDE RAILS UP X2, CALL LIGHT WITHIN REACH, WILL ENDORSE TO DAYSHIFT NURSE FOR CONTINUITY OF CARE.
--- NOTE | 2019-01-26 07:50 | NUR ---
MS RN RECEIVED ON BED, SLEEPING,CLINICAL TRIAL PATIENT, NOT IN ANY FORM OF DISTRESS, RESPIRATIONS EVEN AND UNLABORED,NO SOB NOTED, WILL MONITOR PATIENT.
[2019-01-26 08:00] VITALS: BP 141/84
[2019-01-26] MEDS: HCTZ 25 MG PO SCH (09:09)
[2019-01-26] MEDS: NORVASC 10 MG PO SCH (09:09)
--- NOTE | 2019-01-26 09:50 | NUR ---
MS NYLA HOROWITZ SERVED,DUE MEDS GIVEN,TOLERATED WELL.
[2019-01-26 16:00] VITALS: BP 140/70
--- NOTE | 2019-01-26 16:00 | NUR ---
ms rn was seen by ashlyn genao, no order at this time.
--- NOTE | 2019-01-26 19:00 | NUR ---
MS RN opening NOTES RECEIVED PATIENT SITTING UP IN BED. PATIENT IS AWAKE, ALERT AND ORIENTED X 4. BREATHING EVEN AND UNLABORED ON ROOM AIR. NO SOB, RESPIRATORY DISTRESS OR COMPLAINTS OF PAIN NOTED AT THIS TIME. PATIENT REMAINS WITH NO IV ACCESS, MD AWARE. PATIENT DENIES SI/HI AT THIS TIME. BED LOCKED AND IN LOWEST POSITION, SIDE RAILS UP X2, CALL LIGHT WITHIN REACH. WILL CONTINUE TO MONITOR ACCORDINGLY.
--- NOTE | 2019-01-26 19:02 | NUR ---
ms rn inside room, no distress noted.
[2019-01-26 20:00] VITALS: BP 140/81
[2019-01-26] MEDS: [UNRECOGNIZED DRUG - OTHER] PO SCH (23:09)
--- NOTE | 2019-01-27 06:42 | NUR ---
MS RN CLOSING NOTES PATIENT STILL SLEEPING IN BED. REMAINS STABLE. ALL NEEDS ATTENDED AND PROVIDED. KEPT PATIENT SAFE AND COMFORTABLE. PATIENT SLEPT well. BED IN LOW/LOCKED POSITION. SIDE RAILS UPX2, CALL LIGHT IN REACH. WILL ENDORSE STEVE TO ONCOMING RN.
[2019-01-27 08:00] VITALS: BP 121/85
--- NOTE | 2019-01-27 08:00 | NUR ---
ms rn received on bed, sleeping, no distress noted, patient does not want to be bothered till she is awake.
--- NOTE | 2019-01-27 09:00 | NUR ---
ms rn still sleeping a this time.
--- NOTE | 2019-01-27 11:00 | NUR ---
ms rn still sleeping at this time.
--- NOTE | 2019-01-27 12:20 | NUR ---
ms rn patient just woke up ,due meds given,tolerated well.
[2019-01-27] MEDS: NORVASC 10 MG PO SCH (12:23)
[2019-01-27] MEDS: HCTZ 25 MG PO SCH (12:24)
--- NOTE | 2019-01-27 14:30 | NUR ---
ms rn went down to smoke.
[2019-01-27 16:03] VITALS: BP 123/83
--- NOTE | 2019-01-27 17:35 | NUR ---
ms rn inside room, no distress noted.
--- NOTE | 2019-01-27 19:00 | NUR ---
RN medsurrogelio opening notes Received Pt from morning nurse. Pt is alert and orientedX4. Respiration is normal. No SOB. No nausea or vomiting. Pt denies any pain pain or discomfort. Pt does not IV have access. Pt denies SI/HI at this time. Instructed to call. Safety precautions is maintained. Bed at low position, brakes locked, side rails upx2 and call light is within reach. Will continue to monitor.
[2019-01-27 20:00] VITALS: BP 139/76
--- NOTE | 2019-01-27 20:44 | NUR ---
RN medsur notes Pt went down with ANUJ Urena to get some snack and smoke. Will continue to monitor.
--- NOTE | 2019-01-27 21:15 | NUR ---
RN filomena notes Pt is back and in the room. No S/S of distress noted. Instructed to call. Will continue to monitor.
[2019-01-27] MEDS: [UNRECOGNIZED DRUG - OTHER] PO SCH (21:31)
--- NOTE | 2019-01-28 07:00 | NUR ---
RN medsurg closing notes Pt is resting in bed comfortably. Awaken easily. Respiration is Normal. No SOB. No S/s of distress noted. Routine meds was given as ordered. Kept Pt clean, dry, warm and comfortable. Instructed to call. Safety precautions is maintained. Bed at low position, brakes locked, side rails upX2 and call light is within reach. Will endorse to morning nurse for STEVE.
--- NOTE | 2019-01-28 07:15 | NUR ---
MS RN OPENING NOTES RECEIVED PATIENT ASLEEP IN BED, AROUSABLE TO VERBAL AND TACTILE STIMULI. ON CLINICAL TRAILS WITHOUT ASE OBSERVED. BED IN LOWEST POSITION, LOCKED. CALL LIGHT WITHIN REACH. ABLE TO VERBALIZE NEEDS.
[2019-01-28] MEDS: HCTZ 25 MG PO SCH (08:14)
[2019-01-28] MEDS: NORVASC 10 MG PO SCH (08:14)
[2019-01-28 16:00] VITALS: BP 126/74
--- NOTE | 2019-01-28 18:55 | NUR ---
MS RN CLOSING NOTES PATIENT RESTING COMFORTABLY IN BED. AMBULATED ON UNIT WITH STEADY GAIT. DENIES ANY C/O PAIN NOR DISCOMFORT. NO SOB. ON CLINICAL TRIALS WITHOUT S/S OF COMPLICATIONS. IN NO APPARENT DISTRESS. BED IN LOWEST POSITION, LOCKED. CALL LIGHT WITHIN REACH. ABLE TO VERBALIZE NEEDS.
[2019-01-28 20:00] VITALS: BP 127/76
--- NOTE | 2019-01-28 20:00 | NUR ---
MSRN FULLY AWAKE, DENIES ANY DISCOMFORTS. BEHAVIOR GOOD. WENT DOWN WITH STAFF.
--- NOTE | 2019-01-28 21:00 | NUR ---
MSRN DUE MEDS ADMINISTERED ORDERED.
[2019-01-28] MEDS: [UNRECOGNIZED DRUG - OTHER] PO SCH (22:04)
--- NOTE | 2019-01-29 06:30 | NUR ---
MSRN REMAINS STABLE, NO OTHER NEEDS MADE.
--- NOTE | 2019-01-29 07:30 | NUR ---
ASLEEP-RESP. EVEN AND UNLABORED.DOES NOT WANT TO BE AWAKENED FOR VS OR FOOD. WILL MONITOR,AND RECHECK BP FOR MED ADM.SKIN WARM AND DRY.
[2019-01-29 10:00] VITALS: BP 139/100
[2019-01-29] MEDS: NORVASC 10 MG PO SCH (10:47)
[2019-01-29] MEDS: HCTZ 25 MG PO SCH (10:48)
[2019-01-29 16:00] VITALS: BP 144/99
[2019-01-29 20:00] VITALS: BP 116/86
--- NOTE | 2019-01-29 20:06 | NUR ---
RN NOTES PATIENT IN ROOM, UP ON THE CHAIR, ALERT AND ORIENTED X4, NO DISTRESS, CALM, REQUESTING TO SMOKE, AMBULATORY, INDEPENDENT WITH SELF CARE, WILL CONTINUE TO MONITOR
[2019-01-29 20:17] VITALS: BP 116/86
[2019-01-29] MEDS: [UNRECOGNIZED DRUG - OTHER] PO SCH (21:22)
--- NOTE | 2019-01-30 06:31 | NUR ---
RN NOTES PATIENT ALERT AND ORIENTED X4, ROOM AIR, INDEPENDENT WITH SELF CARE, AMBULATORY, ON CLINICAL TRIAL, MEDICATION GIVEN AT BEDTIME, NO BEHAVIOR DISTURBANCE, PLEASANT AND COMPLIANT WITH POLICIES, SMOKER, GOOD APPETITE. CONTINUE PLAN CARE, SEE SCHEDULE OF TREATMENT.
[2019-01-30 08:00] VITALS: BP 144/86
--- NOTE | 2019-01-30 08:00 | NUR ---
MS RN NOTES PATIENT SLEEPING UPON ARRIVAL. PATIENT ON ROOM AIR. NO SIGNS OF DISTRESS AND OR PAIN. VITAL SIGNS - BP: 144/86 HR: 74 RR: 18 TEMP: 98.0 SPO2: 98. WILL CONTINUE TO MONITOR.
[2019-01-30] MEDS: NORVASC 10 MG PO SCH (09:52)
[2019-01-30] MEDS: HCTZ 25 MG PO SCH (09:52)
--- NOTE | 2019-01-30 13:00 | NUR ---
MS RN NOTES PATIENT IN BED WATCHING TV. NO COMPLAINTS OF PAIN/DISCOMFORT. CALL LIGHT WITHIN PATIENT'S REACH. WILL CONTINUE TO MONITOR.
[2019-01-30 16:00] VITALS: BP 126/90
--- NOTE | 2019-01-30 18:36 | NUR ---
MS RN CLOSING NOTES PATIENT RESTING IN BED WATCHING TV. PATIENT ON ROOM AIR. NO SIGNS OF DISTRESS AND NO COMPLAINTS OF PAIN. CALL LIGHT WITHIN PATIENT'S REACH. WILL ENDORSE TO HISTORY DEPARTMENT CHAIR NURSE TO FOLLOW PLAN OF CARE.
--- NOTE | 2019-01-30 19:31 | NUR ---
MS RN NOTES PATIENT IS IN BED, ALERT AND ORIENTED X 4. BREATHING EVEN AND UNLABORED, PATIENT IN ROOM AIR. NO SIGNS ACUTE DISTRESS, NO COMPLAINTS OF PAIN. SAFETY PRECAUTIONS ON PLACE. BED LOWEST POSITION, LOCKED, AND CALL LIGHT KEPT WITHIN REACH. WILL CONTINUE TO MONITOR.
[2019-01-30 20:00] VITALS: BP_SYST 122; BP_DIAS 80; BP_DIAS 86
[2019-01-30] MEDS: [UNRECOGNIZED DRUG - OTHER] PO SCH (22:31)
--- NOTE | 2019-01-31 06:50 | NUR ---
MS RN NOTES PATIENT IN BED, ASLEEP, ALERT AND ORIENTED X 4. BREATHING EVEN AND UNLABORED. SHOWS NO SIGNS OF ACUTE DISTRESS, NO COMPLAINTS OF PAIN. NO IV. ATTENDED PATIENT NEEDS. SAFETY PRECAUTION IN PLACE. BED IN LOWEST POSITION, LOCKED, AND CALL LIGHT KEPT WITHIN REACH. WILL ENDORSE TO MORNING NURSE.
--- NOTE | 2019-01-31 07:45 | NUR ---
MS RN OPENING NOTES PATIENT SLEEPING IN BED, EASY TO AWAKEN. NO SIGNS OF DISTRESS OR COMPLAINTS OF PAIN. CALL LIGHT WITHIN PATIENT'S REACH. WILL CONTINUE TO MONITOR.
[2019-01-31 08:00] VITALS: BP 117/68
[2019-01-31 08:13] VITALS: BP 117/68
[2019-01-31] MEDS: NORVASC 10 MG PO SCH (10:26)
[2019-01-31] MEDS: HCTZ 25 MG PO SCH (10:26)
[2019-01-31 15:39] VITALS: BP 119/73
--- NOTE | 2019-01-31 18:53 | NUR ---
MS RN CLOSING NOTES PATIENT RESTING IN BED WATCHING TV. PATIENT ON ROOM AIR. NO SIGNS OF DISTRESS AND NO COMPLAINTS OF PAIN. CALL LIGHT WITHIN PATIENT'S REACH. WILL ENDORSE TO HUMAN RESOURCE STATISTICIAN NURSE TO FOLLOW PLAN OF CARE
[2019-01-31 19:30] VITALS: BP 139/86
--- NOTE | 2019-01-31 19:30 | NUR ---
MS RN NOTES PATIENT IN BED WATCHING TV. ALERT AND ORIENTED X 4. BREATHING EVEN AND UNLABORED RESPIRATIONS ON ROOM AIR. PATIENT DENIES ANY ACUTE PAIN, NO ACUTE RESPIRATORY DISTRESS. NO IV. SAFETY PRECAUTION IN PLACE. BED IN LOWEST POSITION, LOCKED, AND KEPT CALL LIGHT WITHIN REACH. WILL CONTINUE TO MONITOR.
[2019-01-31 20:00] VITALS: BP 139/86
[2019-01-31] MEDS: [UNRECOGNIZED DRUG - OTHER] PO SCH (22:08)
--- NOTE | 2019-02-01 06:17 | NUR ---
MS RN NOTES PATIENT IN BED, ASLEEP, ALERT AND ORIENTED X 4. BREATHING EVEN AND UNLABORED, ON ROOM AIR. PATIENT DENIES NO ACUTE RESPIRATORY DISTRESS, NO ACUTE PAIN. NO IV. SAFETY PRECAUTIONS IN PLACE. ATTENDED TO PATIENTS NEEDS. SAFETY PRECAUTION IN PLACE. BED IN LOWEST POSITION LOCKED, AND CALL LIGHT KEPT WITHIN REACH. WILL ENDORSE TO ONCOMING NURSE.
[2019-02-01 08:00] VITALS: BP 158/105
[2019-02-01] MEDS: NORVASC 10 MG PO SCH (09:02)
[2019-02-01] MEDS: HCTZ 25 MG PO SCH (09:04)
--- NOTE | 2019-02-01 09:10 | NUR ---
PT. TAKEN BY ONE OF DR. HERZOG'S EMPLOYEES TO HIS OFFICE.PLANS FOR PT. TO BE THERE FOR SEVERAL HRS.BP ELEVATED GIVEN MEDS BEFORE LEAVING.
[2019-02-01 16:00] VITALS: BP 127/83
--- NOTE | 2019-02-01 16:00 | NUR ---
NO UNUSUAL BEHAVIOR. SHIFT UNEVENTFUL.OFF FLOOR SEVERAL TIMES TO SMOKE.
--- NOTE | 2019-02-01 17:37 | NUR ---
DR. HERZOG IN TO VISIT.
--- NOTE | 2019-02-01 18:00 | NUR ---
OFFERED ATIVAN SEVERAL TIMES,PT. REFUSED.
--- NOTE | 2019-02-01 19:50 | NUR ---
MS RN NOTES PATIENT AWAKE AND CALM IN BED. NO DISTRESS NOTED. NO C/O PAIN OR DISCOMFORT. BED IN LOW LOCK SETTING. ROOM FREE OF CLUTTER AND BELONGINGS KEPT NEAR BEDSIDE. WILL CONTINUE TO MONITOR
[2019-02-01 20:00] VITALS: BP 107/57
[2019-02-01] MEDS: [UNRECOGNIZED DRUG - OTHER] PO SCH (21:57)
[2019-02-02] MEDS: ZOLPIDEM TARTRATE 10 MG TABLET PO PRN ×2 (00:54→23:20)
--- NOTE | 2019-02-02 06:57 | NUR ---
MS RN NOTES PATIENT ASLEEP IN BED WITH NO DISTRESS NOTED. CALL LIGHT WITHIN REACH. NO C/O PAIN OR DISCOMFORT. ALL DUE MEDS GIVEN ORDERED WITH NO ASE. NO CHANGES IN LOC. LAC PERIPHERAL LINE OCCLUDED AND WITH SWELLING, LINE REPLACED WITH RFA #22 GAUGE AND TOLERATED WELL. BED IN LOW LOCK SETTING. BELONGINGS NEAR BEDSIDE. BED ALARM ON AND FUNCTIONING PROPERLY. WILL ENDORSE TO ONCOMING SHIFT. Addendum: 02/02/19 at 0658 by KIMBERLY PEREZ RN ERROR, WRONG PATIENT
--- NOTE | 2019-02-02 06:59 | NUR ---
ME RN NOTES PATIENT ASLEEP IN BED WITH NO DISTRESS NOTED. CALL LIGHT WITHIN REACH. PATIENT CALM WITH NO BEHAVIORAL ISSUES NOTED DURING SHIFT. ALL DUE MEDS GIVEN ORDERED WITH NO ASE. AMBIEN GIVEN PER PATIENT REQUEST AND EFFECTIVE. BED IN LOW LOCK SETTING. ROOM FREE OF CLUTTER AND BELONGINGS KEPT NEAR BEDSIDE. WILL ENDORSE TO ONCOMING SHIFT
--- NOTE | 2019-02-02 07:31 | NUR ---
RN NOTES Patient remains on room air, no sob noted. Patient asleep comfortably in her room at this time. Bed at the lowest setting, call light within reach, side rails up x2.
[2019-02-02 08:00] VITALS: BP 122/76
[2019-02-02] MEDS: HCTZ 25 MG PO SCH (09:26)
[2019-02-02] MEDS: NORVASC 10 MG PO SCH (09:26)
[2019-02-02 16:00] VITALS: BP 130/70
--- NOTE | 2019-02-02 17:52 | NUR ---
RN closing notes Patient remains on room air, no sob noted, patient denies pain at this time. Patient comfortable in the unit, seen walking around in a good mood. Patient smokes occasionally. Bed at the lowest setting, call light within reach, side rails up x2. Patient's clinical trial medication delivered and is in the cassette. Will give report to NOC RN for STEVE bedside.
--- NOTE | 2019-02-02 19:20 | NUR ---
RN OPENING NOTES PATIENT AWAKE AND CALM IN BED. NO SIGNS OF RESPIRATORY DISTRESS. NO COMPLAINTS OF PAIN OR DISCOMFORT AT THIS TIME. INFORMED PATIENT TO CALL FOR THE DESIGNATED THERAPY TECH IF SHE WANTS TO GO DOWNSTAIRS, PATIENT UNDERSTANDS. SAFETY PRECAUTIONS IMPLEMENTED; CALL LIGHT WITHIN REACH, BED LOWEST POSITION, BED LOCKED, BILATERAL UPPER SIDE RAILS UP. ROOM FREE OF CLUTTER AND BELONGINGS KEPT NEAR BED SIDE. WILL CONTINUE TO MONITOR PATIENT.
[2019-02-02 20:00] VITALS: BP 135/82
[2019-02-02] MEDS: [UNRECOGNIZED DRUG - OTHER] PO SCH (21:26)
--- NOTE | 2019-02-03 06:24 | NUR ---
RN CLOSING NOTES PATIENT CURRENTLY ASLEEP, EASILY AROUSABLE TO VOICE. NO SIGNS OF RESPIRATORY DISTRESS. PATIENT REMAINS CALM WITH NO BEHAVIORAL ISSUES NOTED DURING THE SHIFT. PATIENT SEEN HAPPY, IN A GOOD MOOD WHEN AMBULATING AROUND THE UNIT AND GOING DOWNSTAIRS WITH LEGAL RECOVERY SPECIALIST. PATIENT REQUESTED AMBIEN LAST NIGHT FOR INSOMNIA, SLEPT FOR MOST OF THE NIGHT. ALL MEDICATION GIVEN ORDERED, NO ASE NOTED. ROOM FREE OF CLUTTER AND BELONGINGS KEPT NEAR BED SIDE. SAFETY PRECAUTIONS IMPLEMENTED; CALL LIGHT WITHIN REACH, BED LOWEST POSITION, BED LOCKED, BILATERAL UPPER SIDE RAILS UP. WILL CONTINUE TO MONITOR AND THEN WILL ENDORSE TO DAYSHIFT NURSE FOR CONTINUITY OF CARE.
--- NOTE | 2019-02-03 07:10 | NUR ---
MS/RN Patient received Patient received from manager shift, sleeping soundly, appears in no distress or discomfort. Safety measures in place, call light within reach. Will continue to monitor and ensure safety.
[2019-02-03 08:00] VITALS: BP 141/73
[2019-02-03 08:19] VITALS: BP 141/73
[2019-02-03] MEDS: NORVASC 10 MG PO SCH (08:24)
[2019-02-03] MEDS: HCTZ 25 MG PO SCH (08:24)
[2019-02-03 16:00] VITALS: BP 126/78
[2019-02-03 16:29] VITALS: BP 126/78
--- NOTE | 2019-02-03 18:19 | NUR ---
MS/RN End note Patient remains in stable condition, cooperative with paln of care and study rules. No behavior outbursts or need for any prn medications. 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
--- NOTE | 2019-02-03 19:33 | NUR ---
MS RN RECEIVE PT IN BED A/O X4, STABLE AND NOT IN DISTRESS, SAFETY MEASURES AT ALL TIMES. WILL CONT TO MTR.
[2019-02-03 20:00] VITALS: BP 124/75
[2019-02-03] MEDS: [UNRECOGNIZED DRUG - OTHER] PO SCH (21:16)
--- NOTE | 2019-02-04 06:22 | NUR ---
PT ASLEEP AND EASILY AWAKEN, SLEPT WELL 9 HOURS. RESPIRATIONS EVEN AND UNLABORED, NO C/O OF PAIN. NO PSYCHIATRIC INSTABILITY. NO S/S OF DISTRESS, KEPT CLEAN, DRY AND COMFORTABLE. SAFETY MEASURES AT ALL TIMES. WILL ENDORSE NEXT SHIFT POC.
[2019-02-04 08:00] VITALS: BP 130/76
--- NOTE | 2019-02-04 08:00 | NUR ---
MS RN NOTES PATIENT IN BED RESTING NO SOB OR ACUTE DISTRESS NOTED. BED IN LOW LOCKED POSITION. CALL LIGHT WITHIN REACH WILL CONTINUE TO MONITOR.
[2019-02-04] MEDS: HCTZ 25 MG PO SCH (09:54)
[2019-02-04] MEDS: NORVASC 10 MG PO SCH (09:54)
[2019-02-04 16:00] VITALS: BP 132/70
--- NOTE | 2019-02-04 18:21 | NUR ---
MS RN NOTES PATIENT IN BED RESTING NO SOB OR ACUTE DISTRESS NOTED. PATIENT CALM AND COOPERATIVE. SLEPT FOR 3 HOURS. PATIENT DID NOT ASK FOR ANY PRN MEDICATIONS. WILL ENDORSE CARE TO PM SHIFT.
[2019-02-04 20:00] VITALS: BP 115/74
--- NOTE | 2019-02-04 20:04 | NUR ---
MS/RN OPENING NOTES RECEIVED PATIENT IN BED, AWAKE, ALERT X3 WATCHING TV AND HAVING SOME SNACKS. ABLE TO AMBULATE AND DO SELF CARE. COMPLIANT TO MEDICATION FOR CLINICAL TRIAL . RECEIVED REPORT TO F/U WITH MD FOR MEDICATION HUMERA AM FOR NEXT DOSING. PATIENT MADE AWARE.
[2019-02-04] MEDS: [UNRECOGNIZED DRUG - OTHER] PO SCH (21:57)
--- NOTE | 2019-02-04 23:30 | NUR ---
MS/RN NOTES PATIENT OBSERVE WITH SOME MOOD BEHAVIOR CHANGE WHEN SHE COULD NOT GO FOR SMOKE BREAK AT LATER TIME. MADE AWARE OF TIME SCHEDULES.
--- NOTE | 2019-02-05 | NUR ---
MS/RN NOTES PATIENT PACING ACTING OUT AND SLAMMING DOOR TWICE. , PATIENT EXHIBITING BEHAVIOR DUE TO UNABLE TO FOLLOW SWAPNA PRIVELANICOLAS CHARGE NURSE DISCUSSED WITH PATIENT.UNABLE TO FOLLOW.
--- NOTE | 2019-02-05 01:14 | NUR ---
MS/RN NOTES' PATIENT KICKING DOOR AND THROWING FOOD IN FLOOR, PACING AND SLAMMING DOOR, CALLED SECURITY AND PATIENT WAS IN THE ROOM, ABLE TO CONROL SELF BUT REQUIRE MONITORING TO DISCUSS CARE WITH AM MD.
--- NOTE | 2019-02-05 06:42 | NUR ---
MS/RN NOTES PATIENT IN ROOM, ASLEEP AND ABLE TO VERBALIZE NEEDS, ABLE TO DO SELF CARE, WITH SMOKING PRIVILEGES, INSTRUCTED TO FOLLOW SCHEDULES, WITH SOME BEHAVIOR OBSERVED DURING THE SHIFT , WILL ENDORSE TO AM RN FOR STEVE.
--- NOTE | 2019-02-05 07:34 | NUR ---
MS REDMOND OPENING NOTE PATIENT IN BED RESTING COMFORTABLY. PATIENT IN NO ACUTE DISTRESS. NO SOB NOTED. PATIENT BREATHING IS EVEN AND UNLABORED. PATIENT NEEDS AND CONCERNS MET. PATIENT BED ALARM IS ON. SAFETY PRECAUTIONS IN PLACE. PATIENT BED IS LOCKED AND IN LOWEST POSITION. CALL LIGHT WITHIN REACH. WILL CONTINUE TO MONITOR. Addendum: 02/05/19 at 1832 by CANDY WOODRUFF RN NO NEED FOR BED ALARM, PATIENT AMBULATES WITH STEADY GAIT.
[2019-02-05 07:58] VITALS: BP 130/76
[2019-02-05] MEDS: HCTZ 25 MG PO SCH (08:05)
[2019-02-05] MEDS: NORVASC 10 MG PO SCH (08:05)
[2019-02-05 16:00] VITALS: BP 123/83
--- NOTE | 2019-02-05 18:30 | NUR ---
MS RN CLOSING NOTE PATIENT IN BED WATCHING TV. PATIENT IN NO ACUTE DISTRESS. NO SOB NOTED. PATIENT BREATHING IS EVEN AND UNLABORED. PATIENT NEEDS AND CONCERNS ADDRESSED. SAFETY PRECAUTIONS IN PLACE. PATIENT COOPERATIVE AND COMPLIANT. PATIENT BED IS LOCKED AND IN LOWEST POSITION. CALL LIGHT WITHIN REACH. Addendum: 02/05/19 at 1832 by CANDY WOODRUFF RN WILL ENDORSE CARE TO PM SHIFT FOR STEVE.
--- NOTE | 2019-02-05 19:38 | NUR ---
MS/RN OPENING NOTES RECEIVED PATIENT IN BED ASLEEP, RESTING COMFORTABLY IN BED, RECEIVED REPORT FROM AM RN FOR NO CHANGES IN BEHAVIOR, COMPLIANT TO CARE AND ABLE TO HAVE SMOKING PRIVILEGES , WILL MONITOR. FOR ANY CHANGES.
[2019-02-05 19:49] VITALS: BP 102/70
[2019-02-05 20:00] VITALS: BP 102/70
--- NOTE | 2019-02-06 06:43 | NUR ---
MS/RN CLOSING NORES PATIENT ALERT, ORIENTED X4 ABLE TO DO SELF CARE AND INDEPENDENT WITH AMBULATION, COMPLIANT TO CARE AND ADHERED TO SMOKING SCHEDULE. PROVIDED SNACK AND MONITORED FOR ANY CHANGES. WILL ENDORSE TO AM RN FOR STEVE.
--- NOTE | 2019-02-06 07:25 | NUR ---
MS/RN NOTE THE PATIENT IS ALERT AND ORIENTED X4. DENIES SOB. RESPIRATION REGULAR AND UNLABORED. THE PATIENT IS IN ROOM AIR. DENIES PAIN. PATIENT DENIES SI/HI. DENIES ANY TYPE OF HALLUCINATIONS. NO IV LINE. PATIENT IN NO APPARENT DISTRESS. WILL CONTINUE TO MONITOR.
[2019-02-06 08:00] VITALS: BP_SYST 128; BP_SYST 142; BP_DIAS 85; BP_DIAS 89
[2019-02-06] MEDS: HCTZ 25 MG PO SCH (09:06)
[2019-02-06] MEDS: NORVASC 10 MG PO SCH (09:06)
[2019-02-06 16:00] VITALS: BP 118/75
--- NOTE | 2019-02-06 18:04 | NUR ---
MS/RN NOTE THE PATIENT IS ALERT AND ORIENTED X4. PATIENT DENIES PAIN AT THIS TIME. IN ROOM AIR AND DENIES SOB. RESPIRATION REGULAR AND UNLABORED. PATIENT IN STABLE CONDITION. PATIENT DENIES VISUAL OR AUDITORY HALLUCINATIONS. DENIES SI, DENIES HI. PATIENT HAS NO IV LINE. WILL ENDORSE TO TOBACCO WAREHOUSE AGENT.
[2019-02-06 20:02] VITALS: BP 139/67
[2019-02-06 22:00] VITALS: BP 139/67
--- NOTE | 2019-02-07 07:40 | NUR ---
MS RN OPENING NOTES RECEIVED PATIENT IN BED RESTING COMFORTABLY IN MODERATE HIGH BACK REST, ALERT AND ORIENTED X 4. NO SIGNS OF DISTRESS NOTED AT THIS TIME. NO IV ACCESS. AMBULATORY WITH BRP. BED LOW AND LOCKED ON SEMI FOWLERS POSITION. CALL LIGHT AND OTHER BELONGINGS IN REACH. WILL CONTINUE TO MONITOR.
[2019-02-07 08:00] VITALS: BP 144/99
[2019-02-07] MEDS: HCTZ 25 MG PO SCH (08:04)
[2019-02-07] MEDS: NORVASC 10 MG PO SCH (08:04)
[2019-02-07 16:00] VITALS: BP 136/96
--- NOTE | 2019-02-07 18:32 | NUR ---
MS RN CLOSING NOTES PATIENT IN BED ALERT AND ORIENTED X4. NO S/S OF DISTRESS OBSERVED THROUGHOUT THE SHIFT. NO IV ACCESS. SAFETY MEASURES IN PLACE, BED LOW AND LOCKED ON SEMI FOWLERS POSITION. CALL LIGHT IN REACH. WILL ENDORSE TO INSTRUMENT AND CONTROL TECHNICIAN FOR STEVE.
--- NOTE | 2019-02-07 19:20 | NUR ---
MS RN OPENING NOTES RECEIVED PATIENT FROM MORNING SHIFT, ALERT AND ORIENTED X 4. VERBALLY RESPONSIVE AND ABLE TO FOLLOW DIRECTIONS. BREATHING REGULAR AND UNLABORED ON ROOM AIR. NO IV ACCESS. NO COMPLAINTS OF PAIN/DISCOMFORT REPORTED OF THE TIME. AMBULATORY WITH BRP. BED LOW AND LOCKED ON SEMI FOWLERS POSITION. CALL LIGHT AND OTHER BELONGINGS IN REACH. WILL CONTINUE TO MONITOR.
[2019-02-07 20:00] VITALS: BP 130/91
[2019-02-07 20:37] VITALS: BP 130/91
--- NOTE | 2019-02-08 07:25 | NUR ---
RN OPENING NOTES PATIENT IS SLEEPING AT THIS MOMENT. EASILY AWAKEN. NO SIGNS OF DISTRESS. PATIENT ON ROOM AIR BREATHING EVENLY WITH NO SOB. SAFETY MEASURES IN PLACE: BED IN LOW POSITION, CALL LIGHT WITHIN REACH, RAILS UP X 2.
[2019-02-08 08:00] VITALS: BP 123/67
[2019-02-08] MEDS: HCTZ 25 MG PO SCH (09:08)
[2019-02-08] MEDS: NORVASC 10 MG PO SCH (09:08)
--- NOTE | 2019-02-08 14:33 | NUR ---
RN NOTES RECEIVED CALL FROM PHARMACY TO INFORM PT THAT HER HOME MEDS HCTZ 25MG AND NORVASC 10MG HAS FEW TABLETS LEFT IN THEIR POSSESSION. INFORMED PT AND STATED THAT SHE WILL F/U WITH HER PRIMARY CARE PHYSICIAN FOR REFILL. WILL ENDORSE TO INCOMING NURSE.
[2019-02-08 16:00] VITALS: BP_SYST 125; BP_SYST 136; BP_DIAS 71; BP_DIAS 84
--- NOTE | 2019-02-08 18:42 | NUR ---
MS RN CLOSING NOTES PATIENT IN BED AWAKE AND WATCHING TV AT THIS TIME. ALERT AND ORIENTED X 4. ON ROOM AIR, NO S/S OF DISTRESS NOTED. PT REMAINS ON CLINICAL TRIAL, NO INAPPROPRIATE BEHAVIOR NOTED THROUGHOUT THE DAY. .NO COMPLAINTS OF PAIN/DISCOMFORT REPORTED DURING THE SHIFT. CALL LIGHT IN REACH. WILL ENDORSE TO FARMWORKER DAIRY NURSE FOR STEVE.
--- NOTE | 2019-02-08 19:24 | NUR ---
MS/RN CLINICAL TRIAL NOTES RECEVED PATIENT AWAKE, ALERT,AMBULATORY, CALM AND COOPERATIVE TO CARE, ABLE TO VERBALIZE NEEDS, RESPIRATIONS EVEN AND UNLABORED, DISCUSSED REFILL NEEDED FOR CLINICAL TRIAL MEDS WITH MD AND REPORTED WILL F/U HUMERA FOR REFILL. BED LOCKED, CALL LIGHTS WITHIN REACH. COMPLIANT TO CARE. WILL MONITOR.
[2019-02-08 20:00] VITALS: BP_SYST 129; BP_DIAS 77; BP_DIAS 78
[2019-02-08] MEDS: [UNRECOGNIZED DRUG - OTHER] PO SCH (22:28)
--- NOTE | 2019-02-09 07:32 | NUR ---
MS RN OPENING NOTE RECEIVED PATIENT IN BED SLEEPING COMFORTABLY. PATIENT IN NO ACUTE DISTRESS. NO SOB NOTED. PATIENT BREATHING IS EVEN AND UNLABORED. PATIENT BED IS LOCKED AND IN LOWEST POSITION. CALL LIGHT WITHIN REACH. WILL CONTINUE TO MONITOR.
[2019-02-09 08:00] VITALS: BP 113/75
[2019-02-09] MEDS: HCTZ 25 MG PO SCH (08:55)
[2019-02-09] MEDS: NORVASC 10 MG PO SCH (08:55)
[2019-02-09 16:00] VITALS: BP 113/70
--- NOTE | 2019-02-09 18:48 | NUR ---
MS RN CLOSING NOTE PATIENT IN BED RESTING COMFORTABLY, WATCHING TV. PATIENT IN NO ACUTE DISTRESS. NO SOB NOTED. PATIENT BREATHING IS EVEN AND UNLABORED. NEEDS AND CONCERNS ADDRESSED.PATIENT BED IS LOCKED AND IN LOWEST POSITION. CALL LIGHT WITHIN REACH. WILL ENDORSE CARE TO PM SHIFT FOR STEVE.
--- NOTE | 2019-02-09 19:00 | NUR ---
MS RN OPENING NOTES RECEIVED PATIENT ALERT AND ORIENTED X 4. VERBALLY RESPONSIVE AND ABLE TO FOLLOW DIRECTIONS. BREATHING REGULAR AND UNLABORED ON ROOM AIR. NO IV ACCESS. NO COMPLAINTS OF PAIN OR DISCOMFORT AT THIS TIME. AMBULATORY WITH BRP. SAFETY MEASURES IN PLACE; CALL LIGHT WITHIN REACH, BED LOW AND LOCKED POSITION. WILL CONTINUE TO MONITOR ACCORDINGLY.
[2019-02-09 20:00] VITALS: BP 118/68
[2019-02-09] MEDS: [UNRECOGNIZED DRUG - OTHER] PO SCH (22:10)
--- NOTE | 2019-02-10 02:00 | NUR ---
RN NOTES PATIENT SLEEPING COMFORTABLE IN BED. NO S/S OF DISTRESS NOTED
--- NOTE | 2019-02-10 06:58 | NUR ---
MS RN CLOSING NOTE PATIENT IN BED SLEEPING COMFORTABLY. PATIENT IN NO ACUTE DISTRESS. NO SOB NOTED. PATIENT BREATHING IS EVEN AND UNLABORED. NEEDS AND CONCERNS ADDRESSED. NO INAPPROPRIATE BEHAVIOR THROUGHOUT THE SHIFT. SAFETY MEASURES IN PLACE; BED IN LOWEST, LOCKED POSITION, CALL LIGHT WITHIN REACH. WILL ENDORSE STEVE TO ONCOMING RN
--- NOTE | 2019-02-10 07:50 | NUR ---
MS/RN NOTE THE PATIENT IS RECEIVED IN BED. ALERT AND ORIENTED X4. IN ROOM AIR AND DENIES SOB. RESPIRATION REGULAR AND UNLABORED. DENIES PAIN. THE PATIENT IN NO APPARENT DISTRESS. NO IV ACCESS. BED LOW AND LOCKED. SIDE RAILS UP X2. CALL LIGHT WITHIN REACH.WILL CONTINUE TO MONITOR.
[2019-02-10 08:00] VITALS: BP 142/78
[2019-02-10] MEDS: NORVASC 10 MG PO SCH (08:47)
[2019-02-10] MEDS: HCTZ 25 MG PO SCH (08:47)
--- NOTE | 2019-02-10 18:18 | NUR ---
MS/RN NOTE THE PATIENT IS ALERT AND ORIENTED X4. DENIES SOB. RESPIRATION REGULAR AND UNLABORED. PATIENT IS IN ROOM AIR. DENIES PAIN. THE PATIENT DENIES SI OR HI. DENIES VISUAL AND AUDITORY HALLUCINATIONS. THE PATIENT IS IN NO APPARENT DISTRESS. BED LOW AND LOCKED. SIDE RAILS UP X2. CALL LIGHT WITHIN REACH. WILL ENDORSE TO OBSERVER ELECTRICAL PROSPECTING.
--- NOTE | 2019-02-10 19:10 | NUR ---
CHANGE OF SHIRT REPORT Patient in bed, awake, A/O x4. Tolerating room air. Behavior calm, denies SI/HI. Independent with mobility. Instruction to use call light for assistance, verbalized understanding.
[2019-02-10 20:00] VITALS: BP 129/75
[2019-02-10 20:14] VITALS: BP 129/78
[2019-02-10] MEDS: [UNRECOGNIZED DRUG - OTHER] PO SCH (21:43)
--- NOTE | 2019-02-11 06:32 | NUR ---
END OF SHIFT REPORT Patient in bed, A/O x4 tolerating RA. Independent with activities, behavior calm. Denies SI/HI. Remains on Clinical Trial study under Dr. Will.
--- NOTE | 2019-02-11 07:34 | NUR ---
MS/RN Opening note Patient received resting bed, A/O x4, showing no signs of acute distress or SOB. Bed is in lowest position, side rails x2 in upright position, call light is within reach and patient is aware of how to call for assistance when needed. Patient is on Clinical Trial study with Dr. Will. Will continue with plan of care.
[2019-02-11 08:00] VITALS: BP 133/71
[2019-02-11] MEDS: HCTZ 25 MG PO SCH (09:17)
[2019-02-11] MEDS: NORVASC 10 MG PO SCH (09:17)
[2019-02-11 18:08] VITALS: BP 135/75
--- NOTE | 2019-02-11 19:15 | NUR ---
MS/RN Closing note Patient is resting in bed, showing no signs of acute distress or SOB. Vitals signs WNL. All patient needs met, all due meds given. Patient will continue with clinical trial with Dr. Will. Will endorse to security shift supervisor.
[2019-02-11 20:00] VITALS: BP 128/89
--- NOTE | 2019-02-11 20:00 | NUR ---
RN NOTES PATIENT ALERT AND ORIENTED X4, ROOM AIR, NO COMPLAIN OF PAIN, CLINICAL TRIAL FOR NEW MEDICATION. WILL CONTINUE TO MONITOR
[2019-02-11] MEDS: [UNRECOGNIZED DRUG - OTHER] PO SCH (21:30)
--- NOTE | 2019-02-12 06:46 | NUR ---
RN NOTES PATIENT ALERT AND ORIENTED X4, NO BEHAVIOR DISTURBANCE, STAYED IN ROOM DURING SHIFT.
[2019-02-12] MEDS: HCTZ 25 MG PO SCH (09:00)
[2019-02-12] MEDS: NORVASC 10 MG PO SCH (09:56)
--- NOTE | 2019-02-12 09:59 | NUR ---
MS RN NOTE PER PATIENT UNABLE TO RETRIEVE HOMEMED REFILL OF HCTZ TO BRING TO HOSPITAL. NOTIFIED PHARMACY. PER PHARMACY WILL CONTACT DR. HERZOG IF HOSPITAL CAN PROVIDE.
[2019-02-12 10:00] VITALS: BP 127/96
--- NOTE | 2019-02-12 11:48 | NUR ---
MS RN NOTE CONTACT DR. HERZOG MEDICAL OFFICES TO PAGE HIM FOLLOWING UP ON THE HCTZ REFILL. OFFICES CLOSED PER CALL, LEFT VOICEMAIL.
[2019-02-12 16:00] VITALS: BP 117/69
--- NOTE | 2019-02-12 18:23 | NUR ---
MS RN CLOSING NOTE PATIENT IN BED RESTING COMFORTABLY, WATCHING TV. PATIENT IN NO ACUTE DISTRESS. NO SOB NOTED. PATIENT BREATHING IS EVEN AND UNLABORED. PATIENT NEEDS AND CONCERNS ADDRESSED. PATIENT IS MED COMPLIANT. PATIENT KEPT CLEAN AND DRY. PATIENT BED IS LOCKED AND IN LOWEST POSITION. CALL LIGHT WITHIN REACH. WILL ENDORSE CARE TO PM SHIFT FOR STEVE.
--- NOTE | 2019-02-12 19:05 | NUR ---
RN OPENING NOTES RECEIVED PATIENT AWAKE IN BED. ALERT AND ORIENTED X 4. TOLERATING ROOM AIR. PATIENT IS CALM, DENIES SI/HI. PATIENT FULLY AMBULATORY STEADY GAIT. ON CLINICAL TRIAL STUDY UNDER DR. HERZOG. SAFETY PRECAUTIONS IMPLEMENTED; CALL LIGHT WITHIN REACH, BED LOCKED, BED LOWEST POSITION, BILATERAL UPPER SIDE RAILS UP. WILL CONTINUE TO MONITOR.
[2019-02-12 20:00] VITALS: BP 156/98
[2019-02-12 20:13] VITALS: BP 156/98
[2019-02-12] MEDS: [UNRECOGNIZED DRUG - OTHER] PO SCH (21:32)
--- NOTE | 2019-02-13 06:38 | NUR ---
RN CLOSING NOTES PATIENT IS CURRENTLY ASLEEP IN BED. PATIENT ALERT AND ORIENTED X 4 WHEN AWAKE, ABLE TO STATE NEEDS CLEARLY. NO BEHAVIOR PROBLEMS, PATIENT IS CALM, DENIES SI/HI. PATIENT REMAINS ON CLINICAL TRIAL STUDY. ALL MEDS GIVEN ORDERED. PATIENT KEPT SAFE. SAFETY PRECAUTIONS IMPLEMENTED; CALL LIGHT WITHIN REACH, BED LOCKED, BED LOWEST POSITION, BILATERAL UPPER SIDE RAILS UP. WILL CONTINUE TO MONITOR AND WILL ENDORSE TO DAYSHIFT NURSE FOR CONTINUITY OF CARE.
[2019-02-13 08:00] VITALS: BP 131/88
[2019-02-13] MEDS ORDERED: HYDROCHLOROTHIAZIDE 25 MG TABLET PO ONE (08:30)
[2019-02-13] MEDS: HCTZ 25 MG PO SCH (09:00)
[2019-02-13] MEDS: NORVASC 10 MG PO SCH (09:18)
--- NOTE | 2019-02-13 09:19 | NUR ---
MS RN NOTE PATIENT GIVEN [facility] HCTZ ONE TIME, SAME DOSE PATIENTS HOME MED. PATIENT WAS UNABLE TO PROVIDE REFILL FOR MEDICATION. PATIENT BP STEADILY RISING. CALLED DR. HERZOG AND NO RESPONSE TO PROVIDE UPDATE, LEFT VOICEMAIL AND PAGED.
[2019-02-13 16:00] VITALS: BP 130/80
--- NOTE | 2019-02-13 19:16 | NUR ---
MS RN CLOSING NOTE PATIENT IN BED RESTING COMFORTABLY, WATCHING TV. PATIENT IN NO ACUTE DISTRESS. NO SOB NOTED. PATIENT BREATHING IS EVEN AND UNLABORED. PATIENT NEEDS AND CONCERNS ADDRESSED. PATIENT IS MED COMPLIANT.INVESTIGATIONAL MED IN [facility], CHECKED WITH GRACE REDMOND. PATIENT KEPT CLEAN AND DRY. PATIENT BED IS LOCKED AND IN LOWEST POSITION. CALL LIGHT WITHIN REACH. WILL ENDORSE CARE TO PM SHIFT FOR STEVE.
[2019-02-13 20:00] VITALS: BP 110/67
[2019-02-13 21:25] VITALS: BP 110/67
[2019-02-13] MEDS: [UNRECOGNIZED DRUG - OTHER] PO SCH (21:44)
--- NOTE | 2019-02-14 06:41 | NUR ---
RN CLOSING NOTES PATIENT IS CURRENTLY ASLEEP IN BED. PATIENT ALERT AND ORIENTED X 4 WHEN AWAKE, ABLE TO STATE NEEDS CLEARLY. NO BEHAVIOR PROBLEMS, PATIENT IS CALM, DENIES SI/HI. PATIENT REMAINS ON CLINICAL TRIAL STUDY. ALL MEDS GIVEN ORDERED. PATIENT KEPT SAFE. PATIENT SLEPT WELL THROUGHOUT THE SHIFT. SAFETY PRECAUTIONS IMPLEMENTED; CALL LIGHT WITHIN REACH, BED LOCKED, BED LOWEST POSITION, BILATERAL UPPER SIDE RAILS UP. WILL CONTINUE TO MONITOR AND WILL ENDORSE TO DAYSHIFT NURSE FOR CONTINUITY OF CARE.
--- NOTE | 2019-02-14 07:24 | NUR ---
RN OPENING NOTES Patient remains in room at this time and does not want to be bothered. Will check again later. Bed at the lowest setting, call light within reach, side rails up x2.
[2019-02-14 08:00] VITALS: BP 117/70
[2019-02-14] MEDS: HCTZ 25 MG PO SCH (09:00)
[2019-02-14] MEDS: NORVASC 10 MG PO SCH (09:12)
--- NOTE | 2019-02-14 10:22 | NUR ---
rn notes HCTZ not available at this time. Pharmacy notified.
[2019-02-14 16:00] VITALS: BP 127/86
--- NOTE | 2019-02-14 18:12 | NUR ---
RN CLOSING NOTES Patient remains on room air, no sob noted, patient stated that she is comfortable at this time. All needs given and met. Patient seen walking around the hallway comfortably. Bed at the lowest setting, call light within reach and side rails up x2. Will give report to NOC RN for STEVE bedside.
[2019-02-14 20:00] VITALS: BP 125/76
--- NOTE | 2019-02-14 20:00 | NUR ---
Received alert and watching TV. speech clear requisting a sandwitch no c/o offered. smiling and is cooperative
[2019-02-14] MEDS: [UNRECOGNIZED DRUG - OTHER] PO SCH (22:28)
--- NOTE | 2019-02-15 05:54 | NUR ---
Closing Notes: Slept thru the night. Checked on Q2 hours and was asleep. She changes her own position. Friendly and cooperative.
--- NOTE | 2019-02-15 07:31 | NUR ---
MS/RN - Assessment Patient is alert and oriented x 4, denies pain, no apparent distress, calm and cooperative with care, ambulatory with steady gait, independent with ADLs. Patient here for clinical trial under the care of Dr. Will for Schizophrenia. Skin assessment done, no skin breakdown noted. Will continue to monitor and intervene as needed.
[2019-02-15 08:00] VITALS: BP 134/93
[2019-02-15] MEDS: NORVASC 10 MG PO SCH (08:24)
[2019-02-15] MEDS: HCTZ 25 MG PO SCH (08:24)
[2019-02-15 16:44] VITALS: BP 125/90
--- NOTE | 2019-02-15 17:28 | NUR ---
MS/RN - End of shift summary No new events seen, resting comfortably, no behavioral issues noted at this time. Will continue to monitor closely and endorse to night nurse accordingly.
--- NOTE | 2019-02-15 19:40 | NUR ---
MS/RN NOTES RECEIVED PT. SITTING IN BED. PT. IS AWAKE, ALERT AND ORIENTED X4. BREATHING EVEN AND UNLABORED ON ROOM AIR. NO SOB, RESPIRATORY DISTRESS OR COMPLAINTS OF PAIN NOTED AT THIS TIME. NO SI/HI NOTED AT THIS TIME. NO BEHAVIORAL ISSUES NOTED AT THIS TIME. BED LOCKED AND IN LOWEST POSITION, SIDE RAILS UP X2, CALL LIGHT WITHIN REACH, WILL CONTINUE TO MONITOR.
[2019-02-15 20:39] VITALS: BP 114/87
[2019-02-15] MEDS: [UNRECOGNIZED DRUG - OTHER] PO SCH (21:45)
--- NOTE | 2019-02-16 06:25 | NUR ---
MS/RN NOTES PT. IS LYING IN BED RESTING. BREATHING EVEN AND UNLABORED ON ROOM AIR. NO SOB, RESPIRATORY DISTRESS OR COMPLAINTS OF PAIN NOTED AT THIS TIME. NO BEHAVIORAL ISSUES NOTED AT THIS TIME. ALL PT. NEEDS MET. BED LOCKED AND IN LOWEST POSITION, SIDE RAILS UP X2, CALL LIGHT WITHIN REACH, WILL ENDORSE TO DAYSHIFT NURSE FOR CONTINUITY OF CARE.
--- NOTE | 2019-02-16 07:57 | NUR ---
MS RN NOTES PATIENT RECEIVED RESTING INSIDE ROOM. AWAKE, ALERT AND ORIENTED X 4. VERBALLY RESPONSIVE AND RESPONDS TO VERBAL AND TACTILE STIMULI. BREATHING EVEN AND UNLABORED. NO ACUTE DISTRESS. NO CHANGES IN LOC NOTED. PATIENT DENIES SI/HI AT THIS TIME. SAFETY PRECAUTIONS IN PLACE. WILL CONTINUE TO MONITOR. BED LOCKED AND IN LOW POSITION. BILATERAL UPPER SIDE RAILS UP AND LOCKED. CALL LIGHT WITHIN EASY REACH
[2019-02-16 08:00] VITALS: BP 120/85
[2019-02-16] MEDS: HCTZ 25 MG PO SCH (08:49)
[2019-02-16] MEDS: NORVASC 10 MG PO SCH (08:49)
[2019-02-16 16:00] VITALS: BP 148/98
--- NOTE | 2019-02-16 18:10 | NUR ---
MS RN NOTES PATIENT RESTING INSIDE ROOM. AWAKE, ALERT AND ORIENTED X 4. VERBALLY RESPONSIVE AND RESPONDS TO VERBAL AND TACTILE STIMULI. BREATHING EVEN AND UNLABORED. NO CHANGES IN LOC NOTED. DENIES SI/HI AT THIS TIME. WILL ENDORSE TO INCOMING SHIFT FOR STEVE. BED LOCKED AND IN LOW POSITION. BILATERAL UPPER SIDE RAILS UP AND LOCKED. CALL LIGHT WITHIN EASY REACH
[2019-02-16 21:24] VITALS: BP 116/72
--- NOTE | 2019-02-16 21:30 | NUR ---
MS RN NOTES PT UNABLE TO FIND IN OMNICELL/PYXIS. NOTIFIED RN SUP, IT, ADMITTING & PHARMACY. UNABLE TO FIX IT. MEDS TO BE OVERRIDDEN PER RN PMO MANAGER. WILL NOTIFY PHARMACY IN AM.
[2019-02-16] MEDS ORDERED: ACETAMINOPHEN ES 500 MG TABLET ONE (21:38)
[2019-02-16] MEDS: [UNRECOGNIZED DRUG - OTHER] PO SCH (21:39)
--- NOTE | 2019-02-16 21:39 | NUR ---
MS RN Notes pt c/o back pain, R flank pain. Tylenol given as ordered. Will continue to monitor.
[2019-02-17] MEDS ORDERED: IBUPROFEN 200 MG TABLET ONE (02:42)
--- NOTE | 2019-02-17 06:58 | NUR ---
MS RN NOTES AWAKE & RESPONSIVE. NOT IN ANY DISTRESS. NO SOB NOTED. DENIES ANY PAIN OR DISCOMFORT AT THIS TIME. SLEPT FOR 8 HOURS. MONITORED ACCORDINGLY. CALL LIGHT WITHIN REACH. BED IN LOWEST POSITION. SR UP X 2 FOR SAFETY. WILL ENDORSE TO NEXT SHIFT.
--- NOTE | 2019-02-17 07:52 | NUR ---
CLINICAL TRIAL PATIENT IN BED RESTING. BED IN LOW LOCKED POSITION, CALL LIGHT WITHIN REACH. PATIENT COOPERATIVE WILL CONTINUE TO MONITOR.
[2019-02-17 08:00] VITALS: BP 140/96
[2019-02-17] MEDS: NORVASC 10 MG PO SCH (08:57)
[2019-02-17] MEDS: HCTZ 25 MG PO SCH (08:57)
[2019-02-17 16:00] VITALS: BP 124/81
[2019-02-17] MEDS: IBUPROFEN 600 MG TABLET PO PRN (18:13)
[2019-02-17] MEDS ORDERED: IBUPROFEN 200 MG TABLET PO PRN (18:30)
--- NOTE | 2019-02-17 19:04 | NUR ---
MS RN NOTES PATIENT IN BED RESTING NO DISTRESS NOTED. PATIENT IS COOPERATIVE. NO BEHAVIORAL CHANGES.
--- NOTE | 2019-02-17 19:20 | NUR ---
RN NOTES/ASSESSMENT: PT RESTING, A/O X4, DENIES ANY PLANS OF HURTING HERSELF, DENIES ANY SI/HI. DENIES ANY PAIN OR DISCOMFORT AT THIS TIME, RESPIRATIONS EVEN AND UNLABORED. SAFETY PRECAUTIONS FOR FALL INITIATED, CALL LIGHT IN REACH, WILL CONTINUE MONITORING PT.
[2019-02-17 20:00] VITALS: BP 113/75
[2019-02-17 20:29] VITALS: BP 113/75
[2019-02-17] MEDS: [UNRECOGNIZED DRUG - OTHER] PO SCH (21:43)
--- NOTE | 2019-02-18 06:46 | NUR ---
RN CLOSING NOTES: PT SLEPT A TOTAL OF 6HRS. DENIES ANY SI/HI. REMAINS COOPERATIVE, CALM AND TAKEN MEDICATION SCHEDULED. SAFETY PRECAUTIONS FOR FALL REMAINS ENGAGED, CALL LIGHT IN REACH, WILL ENDORSE TO DAY RN FOR CONTINUITY OF CARE.
--- NOTE | 2019-02-18 07:25 | NUR ---
MS2/RN OPENING NOTES RECEIVED PATIENT IN BED SLEEPING COMFORTABLY. EASILY AROUSABLE. NO PAIN OR ACUTE DISTRESS AT THIS TIME. RESPIRATION EVEN AND UNLABORED. SKIN IS DRY WARM TO TOUCH. PATIENT IS ALERT AND ORIENTED X4, DENIES ANY PLANS OF HURTING HERSELF, DENIES ANY SI/HI. ALL NEEDS ANTICIPATED. CALL LIGHT WITHIN REACHED. BED LOCKED AND IN LOWEST POSITION. SAFETY MAINTAINED. PLAN OF CARE DISCUSSED WITH PATIENT. WILL CONTINUE TO MONITOR CLOSELY.
[2019-02-18 08:00] VITALS: BP 138/73
[2019-02-18] MEDS: NORVASC 10 MG PO SCH (08:32)
[2019-02-18] MEDS: HCTZ 25 MG PO SCH (08:32)
[2019-02-18 16:00] VITALS: BP 123/76
--- NOTE | 2019-02-18 19:15 | NUR ---
MS2/RN CLOSING NOTES PATIENT CONTINUES TO REMAIN IN STABLE CONDITION THROUGHOUT THE SHIFT. PROVIDED COMFORT AND SAFETY. PATIENT ABLE TO TOLERATE MEALS AND MEDS WELL. DENIES ANY PLANS OF HURTING HERSELF, DENIES ANY SI/HI. ALL NEEDS ANTICIPATED. CALL LIGHT WITHIN REACHED. BED LOCKED AND IN LOWEST POSITION. SAFETY MAINTAINED. WILL CONTINUE TO MONITOR CLOSELY. ENDORSED TO PM NURSE FOR STEVE.
--- NOTE | 2019-02-18 19:41 | NUR ---
MS RN RECEIVE PT IN BED WATCHING TV A/O X 3, NO C/O OF PAIN. STABLE AND NOT IN DISTRESS, SAFETY MEASURES AT ALL TIMES. WILL CONT TO MONITOR
[2019-02-18 20:00] VITALS: BP 126/87
[2019-02-18] MEDS: [UNRECOGNIZED DRUG - OTHER] PO SCH (21:30)
--- NOTE | 2019-02-19 06:29 | NUR ---
RN NOTES PT SLEPT WELL WELL 9 HOURS. NO SIGNIFICANT CHANGES THROUGHOUT THE SHIFT. PT COMPLIANT WITH MEDICATION NEEDS ATTENDED AND ANTICIPATED, NO C/O OF PAIN. KEPT CLEAN, DRY AND COMFORTABLE AT ALL TIMES. NO PSYCHIATRIC INSTABILITY NOTED.
[2019-02-19 07:56] VITALS: BP 142/77
[2019-02-19 08:00] VITALS: BP 142/77
[2019-02-19] MEDS: NORVASC 10 MG PO SCH (08:10)
[2019-02-19] MEDS: HCTZ 25 MG PO SCH (08:10)
[2019-02-19 16:00] VITALS: BP 117/75
--- NOTE | 2019-02-19 18:55 | NUR ---
MS RN END OF SHIFT SUMMARY Pt is a/ox4, afebrile. Respirations are even and unlabored, not in any acute distress noted. Pt denies any pain during shift, no c/o sob, n/v. pupils are reactive to light, bilateral hand sports equipment racker are strong and equal. Abdomen is soft and nondistended, bowel sounds are present in all 4 quadrants upon auscultation. Denies any bladder discomfort. No IV access. No skin issues noted. Tolerating po well. Denies any si/hi. Pt is ambulatory, able to make needs known. Safety measures are in place. Reminded pt to use call light when assistance is needed, call light is left within reach. Will endorse to next shift for STEVE.
--- NOTE | 2019-02-19 19:16 | NUR ---
MS RN RECEIVE PT IN BED A/O X 3, STABLE AND NOT IN DISTRESS, SAFETY MEASURES AT ALL TIMES. WILL CONT TO MONITOR.
[2019-02-19 20:00] VITALS: BP 119/72
[2019-02-19] MEDS: [UNRECOGNIZED DRUG - OTHER] PO SCH (21:03)
--- NOTE | 2019-02-20 06:18 | NUR ---
RN NOTES PT SLEPT WELL. NO CHANGES THROUGHOUT THE SHIFT. NO PSYCHIATRIC INSTABILITY. NO C/O PAIN AT THIS TIME. NEEDS ATTENDED AND ANTICIPATED, KEPT CLEAN, DRY AND COMFORTABLE AT ALL TIMES. SAFETY MEASURES AT ALL TIMES. WILL ENDORSE TO NEXT SHIFT POC.
--- NOTE | 2019-02-20 07:32 | NUR ---
RN OPENING NOTES RECEIVED PATIENT ON BED ASLEEP, EASILY AROUSABLE, A/O X4, RESPONSIVE TO ALL STIMULI. NO SOB NOTED. DENIES PAIN/DISCOMFORT. SKIN WARM TO TOUCH AND DRY. ABDOMEN SOFT AND NON DISTENDED WITH ACTIVE BOWEL SOUNDS, CONTINENT B&B, WITH BRP. NO IV SITE. ON CLINICAL TRIAL UNTIL 03/06/19. SMOKER. WILL CONTINUE TO MONITOR.
[2019-02-20 07:56] VITALS: BP 127/75
[2019-02-20] MEDS: HCTZ 25 MG PO SCH (08:27)
[2019-02-20] MEDS: NORVASC 10 MG PO SCH (08:27)
--- NOTE | 2019-02-20 08:30 | NUR ---
RN NOTES PT STILL ASLEEP STATED SHE "FEELS VERY TIRED:, WILL EAT BREAKFAST IN A WHILE. PT TOOK MEDICATION AND FEEL BACK TO SLEEP. WILL MONITOR.
--- NOTE | 2019-02-20 10:35 | NUR ---
RN NOTES PT SEEN AWAKE CLEANING HER THINGS IN THE ROOM. ATE BREAKFAST. NO S/SX SI/HI AND AH/VH. WILL CONTINUE TO MONITOR.
[2019-02-20 16:00] VITALS: BP 124/83
--- NOTE | 2019-02-20 18:32 | NUR ---
RN CLOSING NOTES PATIENT IN CLINICAL TRIAL. PT A/O X 4, RESPONSIVE TO ALL STIMULI. RESPIRATION EVEN AND NON LABORED WITH NO ACUTE RESPIRATORY DISTRESS. ABDOMEN SOFT AND NON DISTENDED WITH ACTIVE BOWEL SOUNDS. DENIES PAIN AND DISCOMFORT. SKIN WARM TO TOUCH AND DRY. BEHAVIOR CALM, NO PRESENCE OF SI/HI, AV/VH NOTED. COMPLIANT WITH MEDICATION. ALL CONCERNS ATTENDED. CALL LIGHT WITHIN REACH. ENDORSED PT CARE TO NEXT SHIFT.
[2019-02-20] MEDS: IBUPROFEN 600 MG TABLET PO PRN (20:12)
[2019-02-20 21:23] VITALS: BP 119/73
[2019-02-20] MEDS: [UNRECOGNIZED DRUG - OTHER] PO SCH (22:15)
[2019-02-20] MEDS ORDERED: ZOLPIDEM TARTRATE 10 MG TABLET ONE (22:41)
--- NOTE | 2019-02-20 22:41 | NUR ---
MS RN NOTES PT'S PROFILE MEDS NOT TRANSMITTING IN [employer]. NOTIFIED CRACKER DOUGH MIXER. MEDS OVERRIDDEN PER PT'S REQUEST. WILL NOTIFY PHARMACY IN AM.
[2019-02-20] MEDS: ZOLPIDEM TARTRATE 10 MG TABLET PO PRN (22:42)
--- NOTE | 2019-02-21 06:51 | NUR ---
MS RN NOTES AWAKE & RESPONSIVE. NOT IN ANY DISTRESS. NO SOB NOTED. DENIES ANY PAIN OR DISCOMFORT AT THIS TIME. MONITORED ACCORDINGLY. SLEPT FOR 8 HOURS. CALL LIGHT WITHIN REACH. BED IN LOWEST POSITION. SR UP X 2 FOR SAFETY. WILL ENDORSE TO NEXT SHIFT.
--- NOTE | 2019-02-21 07:15 | NUR ---
MS RN NOTES PATIENT IN BED EYES CLOSED, EASY TO AROUSE. RESPOND TO VERBAL AND TACTILE STIMULI. NO ACUTE DISTRESS NOTED. BREATHING UNLABORED. SAFETY MEASURES IN PLACE. CALL LIGHT WITHIN REACH. WILL CONTINUE TO MONITOR ACCORDINGLY.
[2019-02-21 08:00] VITALS: BP 120/81
[2019-02-21] MEDS: HCTZ 25 MG PO SCH (08:30)
[2019-02-21] MEDS: NORVASC 10 MG PO SCH (08:31)
[2019-02-21 16:00] VITALS: BP 126/86
--- NOTE | 2019-02-21 18:48 | NUR ---
MS RN NOTES PATIENT IN BED ALERT ORIENTED X 3. NO ACUTE DISTRESS NOTED. BREATHING UNLABORED. DUE MEDICATIONS GIVEN, NO ASE NOTED. NEEDS ATTENDED AND ANTICIPATED. SAFETY MEASURES IN PLACE. CALL LIGHT WITHIN REACH. WILL ENDORSE TO NIGHT NURSE FOR CONTINUITY OF CARE.
--- NOTE | 2019-02-21 19:45 | NUR ---
RN OPENING NOTES RECEIVED REPORT FROM KILO MORENO RN. Pt IS A CLINICAL TRIAL Pt. FOUND Pt ASLEEP, RESTING IN BED. EASILY AWAKENED BY NAME. NO S/S OF ACUTE DISTRESS OR SOB NOTED. RESPIRATIONS EVEN AND UNLABORED, WITH EQUAL CHEST RISE AND FALL. Pt IS A/OX4, VERBAL, ABLE TO MAKE NEEDS KNOWN. NO IV ACCESS DUE TO CLINICAL TRIAL PROTOCOL. SAFETY MEASURES IN PLACE. WILL CONTINUE TO MONITOR Pt's CONDITION AND SAFETY THROUGHOUT THE NIGHT.
[2019-02-21 20:00] VITALS: BP 107/61
--- NOTE | 2019-02-21 20:35 | NUR ---
RN NOTES WAS INFORMED BY COMMUNITY MARKETING MANAGER THAT Pt WAS FINE WITH NOT GOING DOWN FOR A SMOKE BREAK AT THIS TIME. INFORMED Pt TO CLARIFY THAT THERE WILL BE NO MORE SMOKE BREAKS AFTER 2029, THAT THIS IS THE LAST CALL FOR A SMOKE BREAK BEFORE BEDTIME, Pt UNDERSTOOD AND SAID THAT IS FINE, AND THAT SHE WAS TIRED ANYWAYS AND WANTS TO SLEEP.
[2019-02-21 20:49] VITALS: BP 107/61
[2019-02-21] MEDS: [UNRECOGNIZED DRUG - OTHER] PO SCH (21:42)
--- NOTE | 2019-02-22 08:10 | NUR ---
RN OPENING NOTE CLINICAL TRIAL PT WAS RECEIVED ASLEEP IN BED AT LOWEST AND LOCKED POSITION WITH SIDE RAILS UPX2, A/O X4 BREATHING EVEN AND UNLABORED ON RA WITH S/S OF ANY DISTRESS OR PAIN, AMBULATORY, NO IV IN PLACE, SAFETY PRECAUTIONS IN PLACE, CALL LIGHT IN REACH, WILL MONITOR ACCORDINGLY
[2019-02-22 08:35] VITALS: BP 128/72
[2019-02-22] MEDS: NORVASC 10 MG PO SCH (08:35)
[2019-02-22] MEDS: HCTZ 25 MG PO SCH (08:35)
[2019-02-22 16:00] VITALS: BP 110/66
--- NOTE | 2019-02-22 18:50 | NUR ---
RN CLOSING NOTE PT IN BED AT LOWEST AND LOCKED POSITION WITH SIDE RAILS UPX2, A/O X4 BREATHING EVEN AND UNLABORED ON RA WITH NO S/S OF ANY DISTRESS OR PAIN, AMBULATORY, NO IV IN PLACE, SAFETY PRECAUTIONS IN PLACE, CALL LIGHT IN REACH, ALL NEEDS ATTENDED TO, WILL ENDORSE TO NIGHT RN FOR STEVE.
--- NOTE | 2019-02-22 19:15 | NUR ---
RN NOTES/ASSESSMENT: PT RESTING, A/O X4, DENIES ANY PAIN OR DISCOMFORT AT THIS TIME, RESPIRATIONS EVEN AND UNLABORED. DENIES ANY PLANS OF HURTING HERSELF, DENIES ANY SI/HI.SAFETY PRECAUTIONS FOR FALL INITIATED, CALL LIGHT IN REACH, WILL CONTINUE MONITORING PT.
[2019-02-22 20:00] VITALS: BP 106/71
[2019-02-22] MEDS: [UNRECOGNIZED DRUG - OTHER] PO SCH (21:34)
--- NOTE | 2019-02-23 06:46 | NUR ---
RN CLOSING NOTES: NO SIGNIFICANT CHANGE NOTED. PT REMAINS COMPLIANT WITH MEDICATION. DENIES ANY PLAN OF HURTING HERSELF, DENIES ANY SE/AE FROM INVESTIGATIONAL MEDS. VS REMAINS STABLE, NEEDS ATTENDED. SAFETY PRECAUTIONS FOR FALL REMAINS ENGAGED, CALL LIGHT IN REACH, WILL ENDORSE TO DAY RN FOR CONTINUITYOF CARE.
[2019-02-23 08:00] VITALS: BP 130/96
[2019-02-23] MEDS: HCTZ 25 MG PO SCH (08:33)
[2019-02-23] MEDS: NORVASC 10 MG PO SCH (08:33)
[2019-02-23 15:54] VITALS: BP 136/80
--- NOTE | 2019-02-23 18:45 | NUR ---
RN CLOSING NOTES: NO SIGNIFICANT CHANGE NOTED. PT REMAINS COMPLIANT WITH MEDICATION. DENIES ANY PLAN OF HURTING HERSELF, DENIES ANY SE/AE FROM INVESTIGATIONAL MEDS. VS REMAINS STABLE, NEEDS ATTENDED. SAFETY PRECAUTIONS FOR FALL REMAINS ENGAGED, CALL LIGHT IN REACH, WILL ENDORSE TO DAY RN FOR CONTINUITY OF CARE.
--- NOTE | 2019-02-23 19:20 | NUR ---
MS/RN NOTES RECEIVED PT. SITTING UP IN BED. PT. IS AWAKE, ALERT AND ORIENTED X4. BREATHING EVEN AND UNLABORED ON ROOM AIR. NO SOB, RESPIRATORY DISTRESS OR COMPLAINTS OF PAIN NOTED AT THIS TIME. PT. DENIES ANY SI/HI THOUGHTS AT THIS TIME. NO BEHAVIORAL ISSUES NOTED AT THIS TIME. PT. HAS NO IV ACCESS MD AWARE. BED LOCKED AND IN LOWEST POSITION, SIDE RAILS UP X2, CALL LIGHT WITHIN REACH, WILL CONTINUE TO MONITOR.
[2019-02-23 20:00] VITALS: BP 111/65
[2019-02-23] MEDS: [UNRECOGNIZED DRUG - OTHER] PO SCH (22:40)
--- NOTE | 2019-02-24 06:23 | NUR ---
MS/RN NOTES PT. IS LYING IN BED RESTING. BREATHING EVEN AND UNLABORED ON ROOM AIR. NO SOB, RESPIRATORY DISTRESS OR COMPLAINTS OF PAIN NOTED AT THIS TIME. PT. DENIES ANY SI/HI THOUGHTS AT THIS TIME. NO BEHAVIORAL ISSUES NOTED AT THIS TIME AND THROUGHOUT SHIFT. BED LOCKED AND IN LOWEST POSITION, SIDE RAILS UP X2, CALL LIGHT WITHIN REACH, WILL ENDORSE TO DAYSHIFT NURSE FOR CONTINUITY OF CARE.
--- NOTE | 2019-02-24 08:00 | NUR ---
ms rn received on bed, sleeping,not in any form of distress, respirations even and unlabored, no sob noted, clinical trial patient.will monitor patient's condition.
[2019-02-24 08:21] VITALS: BP 156/85
--- NOTE | 2019-02-24 09:40 | NUR ---
ms mills breakfast served,due meds given,tolerated well.
[2019-02-24] MEDS: NORVASC 10 MG PO SCH (09:45)
[2019-02-24] MEDS: HCTZ 25 MG PO SCH (09:45)
--- NOTE | 2019-02-24 16:00 | NUR ---
ms rn inside room, no distress noted.
[2019-02-24 17:07] VITALS: BP 117/72
--- NOTE | 2019-02-24 19:30 | NUR ---
MS RN OPENING NOTE RECEIVED PATIENT IN BED. A/O X4. TOLERATING ROOM AIR. RR EVEN AND UNLABORED. NO S/S SOB NOTED. DENIES PAIN AT THIS TIME. NO IV ACCESS NOTED. IN NO APPARENT DISTRESS. BED IS LOW AND LOCKED, HOB FLAT, SIDE RAILS UP X2, CALL LIGHT WITHIN REACH. WILL CONTINUE TO MONITOR.
[2019-02-24 19:59] VITALS: BP 110/69
[2019-02-24 20:00] VITALS: BP 110/69
[2019-02-24] MEDS: [UNRECOGNIZED DRUG - OTHER] PO SCH (22:18)
--- NOTE | 2019-02-25 06:41 | NUR ---
MS RN CLOSING NOTE PATIENT IN BED. A/O X4. REMAINS TOLERATING ROOM AIR. RR EVEN AND UNLABORED. NO SOB NOTED. DENIES PAIN. REMAINS WITH NO IV ACCESS. NO DISTRESS THROUGHOUT SHIFT. BED REMAINS LOW AND LOCKED, HOB FLAT, SIDE RAILS UP X2, CALL LIGHT WITHIN REACH. NO SIGNIFICANT MOOD/BEHAVIORAL CHANGES NOTED. WILL ENDORSE TO NEXT SHIFT.
--- NOTE | 2019-02-25 07:10 | NUR ---
MS RN NOTES PATIENT IN BED ALERT ORIENTED X 3. NO ACUTE DISTRESS NOTED. SAFETY MEASURES IN PLACE. CALL LIGHT WITHIN REACH. WILL CONTINUE TO MONITOR ACCORDINGLY.
[2019-02-25 08:03] VITALS: BP 118/62
[2019-02-25] MEDS: NORVASC 10 MG PO SCH (08:26)
[2019-02-25] MEDS: HCTZ 25 MG PO SCH (08:27)
[2019-02-25 16:19] VITALS: BP 113/70
--- NOTE | 2019-02-25 18:45 | NUR ---
MS RN NOTES PATIENT IN BED ALERT ORIENTED X 3. NO ACUTE DISTRESS NOTED. BREATHING UNLABORED. SAFETY MEASURES IN PLACE. CALL LIGHT WITHIN REACH. WILL ENDORSE TO NIGHT NURSE FOR CONTINUITY OF CARE.
[2019-02-25 20:00] VITALS: BP 112/77
[2019-02-25] MEDS: [UNRECOGNIZED DRUG - OTHER] PO SCH (21:45)
[2019-02-26 08:00] VITALS: BP 122/84
[2019-02-26 09:00] VITALS: BP 122/84
[2019-02-26] MEDS: HCTZ 25 MG PO SCH (09:28)
[2019-02-26] MEDS: NORVASC 10 MG PO SCH (09:28)
[2019-02-26 16:00] VITALS: BP 118/70
--- NOTE | 2019-02-26 19:00 | NUR ---
MS RN NOTES PATIENT IN BED ALERT ORIENTED X 3. NO ACUTE DISTRESS NOTED. SAFETY MEASURES IN PLACE. NEEDS ATTENDED AND ANTICIPATED. CALL LIGHT WITHIN REACH. WILL ENDORSE TO NIGHT NURSE FOR CONTINUITY OF CARE.
[2019-02-26 20:00] VITALS: BP 118/74
--- NOTE | 2019-02-26 20:24 | NUR ---
MS/RN ON INITIAL ROUNDING AT 1930, PATIENT WAS IN BED AWAKE, ALERT, ORIENTED, COMFORTABLE, NO DISTRESS NOTED, CALL LIGHT IN REACH. WILL MONITOR.
[2019-02-26] MEDS: [UNRECOGNIZED DRUG - OTHER] PO SCH (21:56)
--- NOTE | 2019-02-27 00:16 | NUR ---
MS/RN PATIENT IS SLEEPING AT THIS TIME, APPEAR COMFORTABLE, NO DISTRESS NOTED, CALL LIGHT IN REACH. WILL CONTINUE TO MONITOR.
--- NOTE | 2019-02-27 06:36 | NUR ---
MS/RN PATIENT IS STILL SLEEPING AT THIS TIME, COMFORTABLE, NO DISTRESS NOTED, ALL NEEDS ATTENDED AT THIS TIME, WILL CONTINUE TO MONITOR.
--- NOTE | 2019-02-27 07:30 | NUR ---
PATIENT RECEIVED RESTING COMFORTABLY IN BED. NO S/S OR C/O PAIN OR DISTRESS NOTED. SIDE RAILS UP X2, CALL LIGHT LEFT WITHIN REACH. WILL CONTINUE PLAN OF CARE.
[2019-02-27 08:00] VITALS: BP 113/67
[2019-02-27] MEDS: NORVASC 10 MG PO SCH (09:55)
[2019-02-27] MEDS: HCTZ 25 MG PO SCH (09:55)
[2019-02-27 16:00] VITALS: BP 115/70
--- NOTE | 2019-02-27 18:47 | NUR ---
CHANGE OF SHIFT REPORT PT RESTING COMFORTABLY IN BED. NO S/S OR C/O PAIN OR DISTRESS NOTED. SIDE RAILS UP X2, CALL LIGHT LEFT WITHIN REACH. PT KEPT CLEAN DRY AND COMFORTABLE. NO SIGNIFICANT CHANGES SINCE PREVIOUS SHIFT. WILL GIVE REPORT TO TITI REDMOND.
--- NOTE | 2019-02-27 19:05 | NUR ---
RN MS OPENING NOTES RECEIVED PATIENT IN BED AWAKE ALERT AND ORIENTED X4, RESPIRATIONS EVEN AND UNLABORED WITH EQUAL RISE AND FALL OF CHEST, NO IV SITE MD AWARE CLINICAL TRIAL,DENIES ANY PAIN OR DISCOMFORT AT THIS TIME, NO SI OR HI AT THIS TIME, ORIENTED TO STAFF AND CALL LIGHT AND KEPT WITHIN REACH, SAFETY PRECAUTIONS IN PLACE, LOW BED AND LOCKED, REMAINS COMFORTABLE AT THIS TIME, WILL CONTINUE TO MONITOR BEHAVIOR , REMAINS FREE OF ANY ADVERSE REACTIONS AT THIS TIME.
[2019-02-27 20:00] VITALS: BP 107/65
[2019-02-27 20:40] VITALS: BP 107/65
[2019-02-27] MEDS: [UNRECOGNIZED DRUG - OTHER] PO SCH (21:54)
--- NOTE | 2019-02-28 06:35 | NUR ---
RN MS CLOSING NOTES PATIENT IN BED SLEEPING BUT EASILY AROUSABLE , ALERT AND ORIENTED X4, RESPIRATIONS EVEN AND UNLABORED WITH EQUAL RISE AND FALL OF CHEST, NO IV SITE MD AWARE CLINICAL TRIAL,DENIES ANY PAIN OR DISCOMFORT AT THIS TIME, NO SI OR HI AT THIS TIME, FLUIDS AND SNACKS OFFERED, CALL LIGHT KEPT WITHIN REACH, SAFETY PRECAUTIONS IN PLACE, LOW BED AND LOCKED, REMAINS COMFORTABLE AT THIS TIME, WILL CONTINUE TO MONITOR BEHAVIOR , REMAINS FREE OF ANY ADVERSE REACTIONS AT THIS TIME WILL ENDORSE TO NEXT SHIFT.
--- NOTE | 2019-02-28 07:30 | NUR ---
RN OPENING NOTES RECEIVED PATIENT IN BED WITHOUT ANY FORM OF DISTRESS. RESPIRATIONS EVEN AND UNLABORED. NO IV ACCESS. A CLINICAL TRIAL PATIENT. SAFETY MEASURES IMPLEMENTED. BED IN LOW/LOCKED POSITION, SIDERAILS UP X 2, CALL LIGHT IN REACH. WILL CONT TO MONIOTR ACCORDINGLY.
[2019-02-28 08:00] VITALS: BP 134/76
[2019-02-28] MEDS: NORVASC 10 MG PO SCH (09:26)
[2019-02-28] MEDS: HCTZ 25 MG PO SCH (09:26)
[2019-02-28 16:00] VITALS: BP 131/87
--- NOTE | 2019-02-28 19:05 | NUR ---
RN MS OPENING NOTES RECEIVED PATIENT IN BED AWAKE ALERT AND ORIENTED X4, RESPIRATIONS EVEN AND UNLABORED WITH EQUAL RISE AND FALL OF CHEST, NO IV SITE MD AWARE CLINICAL TRIAL,DENIES ANY PAIN OR DISCOMFORT AT THIS TIME, NO SI OR HI AT THIS TIME, ORIENTED TO STAFF AND CALL LIGHT AND KEPT WITHIN REACH, SAFETY PRECAUTIONS IN PLACE, LOW BED AND LOCKED, REMAINS COMFORTABLE AT THIS TIME, WILL CONTINUE TO MONITOR BEHAVIOR.
[2019-02-28 20:00] VITALS: BP 141/88
[2019-02-28 20:31] VITALS: BP 141/88
[2019-02-28] MEDS: [UNRECOGNIZED DRUG - OTHER] PO SCH (21:53)
--- NOTE | 2019-03-01 06:53 | NUR ---
RN MS CLOSING NOTES PATIENT IN BED AWAKE ALERT AND ORIENTED X4, RESPIRATIONS EVEN AND UNLABORED WITH EQUAL RISE AND FALL OF CHEST, NO IV SITE MD AWARE CLINICAL TRIAL,DENIES ANY PAIN OR DISCOMFORT AT THIS TIME, NO SI OR HI AT THIS TIME,CALL LIGHT AND KEPT WITHIN REACH, SAFETY PRECAUTIONS IN PLACE, LOW BED AND LOCKED, REMAINS COMFORTABLE AT THIS TIME, WILL CONTINUE TO MONITOR AND ENDORSE TO NEXT SHIFT.
[2019-03-01 08:00] VITALS: BP 117/84
[2019-03-01] MEDS: HCTZ 25 MG PO SCH (08:59)
[2019-03-01] MEDS: NORVASC 10 MG PO SCH (08:59)
--- NOTE | 2019-03-01 08:59 | NUR ---
RN NOTE PT TAKEN TO EYE EXAM AT THIS TIME
--- NOTE | 2019-03-01 10:51 | NUR ---
RN NOTE PT BACK FROM EYE EXAM AT THIS TIME
[2019-03-01 20:00] VITALS: BP 121/81
[2019-03-01] MEDS: [UNRECOGNIZED DRUG - OTHER] PO SCH (21:16)
--- NOTE | 2019-03-02 07:52 | NUR ---
RN MS NOTES PT IN BED, ASLEEP, EASY TO AROUSE, ALERT AND ORIENTED, NO COMPLAINT AT THIS TIME, RESPIRATIONS NORMAL, WENT BACK TO SLEEP.
[2019-03-02 08:11] VITALS: BP 158/74
[2019-03-02] MEDS: HCTZ 25 MG PO SCH (08:48)
[2019-03-02] MEDS: NORVASC 10 MG PO SCH (08:49)
--- NOTE | 2019-03-02 12:12 | NUR ---
RN MS NOTES PT AWAKE, IN HER ROOM EATING LUNCH, NO BEHAVIOR PROBLEM NOTED, NEEDS ATTENDED, WALKS ALONG THE HALLWAY IN STEADY GAIT.
[2019-03-02 16:25] VITALS: BP 123/74
--- NOTE | 2019-03-02 18:14 | NUR ---
RN MS NOTES PT IN HER ROOM, EATING DINNER, NO BEHAVIOR PROBLEM, COMPLIANT WITH NURSING CARE, NEEDS ATTENDED.
--- NOTE | 2019-03-02 19:05 | NUR ---
RN NOTES/ASSESSMENT: PT WATCHING TV, A/O X4, DENIES ANY PAIN OR DISCOMFORT AT THIS TIME, RESPIRATIONS EVEN AND UNLABORED. DENIES ANY PLANS OF HURTING HERSELF, DENIES ANY SI/HI. DENIES ANY ADVERSE REACTION OR SE FROM INVESTIGATIONAL MEDS. SAFETY PRECAUTIONS FOR FALL INITIATED, CALL LIGHT IN REACH, WILL CONTINUE MONITORING PT.
[2019-03-02 20:00] VITALS: BP 113/63
[2019-03-02] MEDS: [UNRECOGNIZED DRUG - OTHER] PO SCH (21:48)
--- NOTE | 2019-03-02 21:49 | NUR ---
rn notes: due meds administered. made sure patient will drink the medication. was present during the time pt is taking the meds. asked pt to open her mouth and stick out her to tongue to make sure med was swallowed, and not being pocketed/hide. all clear. pt swallow the medication.
--- NOTE | 2019-03-03 06:52 | NUR ---
EOSS: PT REMAINS CALM AND COOPERATIVE. NO PRN MEDS ADMINISTERED. DENIES ANY AE OR E FROM INVESTIGATIONAL MEDS. DENIES ANY SI/HI AT THIS TIME. NO UNTOWARD BEHAVIOR NOTED THROUGHOUT THE SHIFT. VS REMAINS STABLE, NEEDS ATTENDED. SAFETY PRECAUTIONS FOR FALL REMAINS ENGAGED, CALL LIGHT IN REACH, WILL ENDORSE TO DAY RN FOR CONTINUITY OF CARE.
[2019-03-03 08:00] VITALS: BP 119/70
--- NOTE | 2019-03-03 08:00 | NUR ---
MS RN NOTES PATIENT IN BED SLEEPING. WILL CONTINUE TO MONITOR.
[2019-03-03] MEDS: NORVASC 10 MG PO SCH (09:15)
[2019-03-03] MEDS: HCTZ 25 MG PO SCH (09:15)
--- NOTE | 2019-03-03 18:32 | NUR ---
MS RN NOTES PATIENT IN BED RESTING NO SOB OR ACUTE DISTRESS NOTED. PATIENT ALERT, ORIENTED X 3. NO ACUTE CHANGES NOTED DURING SHIFT. ALL DUE MEDICATIONS ADMINISTERED. ALL NEEDS MET. PATIENT COOPERATIVE. WILL ENDORSE STEVE TO PM SHIFT.
--- NOTE | 2019-03-03 19:20 | NUR ---
MS RN OPENING NOTES Received patient awake on bed, on RA, no complaint made at this time. No s/sx of discomfort noted. Discussed the POC within the shift, patient verbalized understanding. Kept on bed clean, dry comfortable. On fall and aspiration precautions. Call light within easy reach. Will continue to monitor accordingly.
[2019-03-03 20:00] VITALS: BP_SYST 121; BP_SYST 138; BP_DIAS 68; BP_DIAS 79
[2019-03-03] MEDS: [UNRECOGNIZED DRUG - OTHER] PO SCH (20:57)
--- NOTE | 2019-03-04 06:38 | NUR ---
MS RN CLOSING NOTES Patient asleep in her room, on RA, no SOB/respiratory distress noted. Denies any discomfort at this time. No new complaints made within the shift. No new unusualities noted. Endorsed to the next shift.
--- NOTE | 2019-03-04 07:15 | NUR ---
MS RN NOTES PATIENT IN BED ALERT ORIENTED X 3. NO ACUTE DISTRESS NOTED. BREATHING UNLABORED. NO SOB NOTED. SAFETY MEASURES IN PLACE. CALL LIGHT WITHIN REACH. WILL CONTINUE TO MONITOR ACCORDINGLY.
[2019-03-04 08:42] VITALS: BP 110/71
[2019-03-04] MEDS: HCTZ 25 MG PO SCH (09:46)
[2019-03-04] MEDS: NORVASC 10 MG PO SCH (09:46)
--- NOTE | 2019-03-04 18:52 | NUR ---
MS RN NOTES PATIENT IN BED ALERT ORIENTED X 3. NO ACUTE DISTRESS NOTED. BREATHING UNLABORED. NO SOB NOTED. NEEDS ATTENDED AND ANTICIPATED. SAFETY MEASURES IN PLACE. CALL LIGHT WITHIN REACH. WILL ENDORSE TO NIGHT NURSE FOR CONTINUITY OF CARE.
--- NOTE | 2019-03-04 19:46 | NUR ---
MS RN OPENING NOTES PATIENT RECEIVED IN BED A/O X4. NO ACUTE DISTRESS NOTED. NO COMPLAINTS OF SOB. STABLE ON ROOM AIR WITH BREATHING EVEN AND UNLABORED. NO COMPLAINTS OF PAIN OR DISCOMFORT. SAFETY PRECAUTIONS IN PLACE WITH BED IN LOWEST POSITION, BREAKS ON, AND CALL LIGHT WITHIN REACH. WILL CONTINUE TO MONITOR.
[2019-03-04 20:53] VITALS: BP 144/86
[2019-03-04] MEDS: [UNRECOGNIZED DRUG - OTHER] PO SCH (21:37)
--- NOTE | 2019-03-05 06:16 | NUR ---
MS RN CLOSING NOTES PATIENT CURRENTLY RESTING IN BED, A/O X4. ABLE TO MAKE ALL NEEDS KNOWN. STABLE ON RA, NO SOB NOTED. NO ACUTE DISTRESS NOTED AND NO COMPLAINTS OF DISCOMFORT OR PAIN. PATIENT IS AMBULATORY. SAFETY PRECAUTIONS IN PLACE WITH BED IN LOWEST POSITION, BREAKS ON, AND CALL LIGHT WITHIN REACH. ALL NEEDS WERE ATTENDED THROUGHOUT THE NIGHT. NO BEHAVIORAL ISSUES NOTED THROUGHOUT THE NIGHT. PATIENT KEPT TO HER ROOM. WILL ENDORSE TO ONCOMING SHIFT ABOUT STEVE.
[2019-03-05 08:00] VITALS: BP 138/78
--- NOTE | 2019-03-05 08:02 | NUR ---
RN OPENING NOTES CLINICAL TRIAL RECEIVED PATIENT ON BED, A/OX 4. ASSESSED NO ACUTE RESPIRATORY DISTRESS. ABD SOFT AND NON DISTENDED, CONTINENT B&B WITH BRP. DENIES PAIN AND DISCOMFORT. SKIN WARM TO TOUCH AND DRY. NO IV SITE. PT WITH CALM AND COOPERATIVE BEHAVIOR, NO SI/HI, VH/AH NOTED. PT CONCERNS ATTENDED. CALL LIGHT WITHIN REACH FOR SAFETY AND NEED
[2019-03-05] MEDS: HCTZ 25 MG PO SCH (09:37)
[2019-03-05] MEDS: NORVASC 10 MG PO SCH (09:37)
[2019-03-05 16:00] VITALS: BP 127/86
--- NOTE | 2019-03-05 18:43 | NUR ---
RN CLOSING NOTES CLINICAL TRIAL PT A/OX 4. NO PRESENCE OF ACUTE RESPIRATORY DISTRESS. ABD SOFT AND NON DISTENDED, CONTINENT B&B WITH BRP. DENIES PAIN AND DISCOMFORT. SKIN WARM TO TOUCH AND DRY, INTACT WITH NO NEW OPEN SKIN BREAKDOWN. NO IV SITE. PT BEHAVIOR OF CALM AND COOPERATIVE, NO SI/HI, VH/AH NOTED. ALL CARE ATTENDED. CALL LIGHT WITHIN REACH AT ALL TIMES. ENDORSED PT CARE TO NEXT SHIFT.
--- NOTE | 2019-03-05 19:40 | NUR ---
MS RN NOTE: PATIENT RESTING IN BED, NO ACUTE DISTRESS NOTED. BREATHING EVEN AND UNLABORED, NO SOB NOTED. PATIENT CALM AND COOPERATIVE AT THIS TIME, NO BEHAVIORAL ISSUES NOTED. BED LOCKED AND IN LOWEST POSITION, CALL LIGHT IN REACH. WILL CONTINUE TO MONITOR.
[2019-03-05 20:20] VITALS: BP 141/88
[2019-03-05] MEDS: [UNRECOGNIZED DRUG - OTHER] PO SCH (22:08)
--- NOTE | 2019-03-06 02:30 | NUR ---
MS RN NOTE: PATIENT RESTING IN BED, WATCHING TV. BREATHING EVEN AND UNLABORED, NO SOB NOTED. PATIENT CALM AND COOPERATIVE AT THIS TIME, PATIENT DENIES ANY BEHAVIORAL ISSUES. BED LOCKED AND IN LOWEST POSITION, CALL LIGHT IN REACH. WILL CONTINUE TO MONITOR.
--- NOTE | 2019-03-06 06:05 | NUR ---
MS RN NOTE: PATIENT RESTING IN BED, NO ACUTE DISTRESS NOTED. BREATHING EVEN AND UNLABORED, NO SOB NOTED. PATIENT CALM AND COOPERATIVE THROUGHOUT SHIFT, PATIENT DENIES ANY BEHAVIORAL ISSUES. BED LOCKED AND IN LOWEST POSITION, CALL LIGHT IN REACH. WILL ENDORSE TO DAY NURSE TO CONTINUE WITH PLAN OF CARE.
[2019-03-06 08:00] VITALS: BP 134/95
[2019-03-06] MEDS: NORVASC 10 MG PO SCH (09:35)
[2019-03-06] MEDS: HCTZ 25 MG PO SCH (09:35)
--- NOTE | 2019-03-06 18:37 | NUR ---
PT A/OX 4. BREATHING UNLABORED AND EVEN . ALL NEEDS ATTENDED. SAFETY PRECAUTIONS IN PLACE. CALL LIGHT WITHIN REACH AT ALL TIMES. WILL ENDORSE TO NEXT SHIFT FOR STEVE.
[2019-03-06 19:27] VITALS: BP 133/89
[2019-03-06 20:00] VITALS: BP 133/89
[2019-03-06] MEDS: [UNRECOGNIZED DRUG - OTHER] PO SCH (22:04)
--- NOTE | 2019-03-07 07:45 | NUR ---
RN MS NOTES PT IN BED, ASLEEP, EASY TO AROUSE, ALERT AND ORIENTED, NO COMPLAINT OF PAIN, NOT IN DISTRESS, CALL LIGHT WITHIN REACH, BREAKFAST SERVED.
[2019-03-07 08:00] VITALS: BP 130/70
[2019-03-07] MEDS: HCTZ 25 MG PO SCH (08:29)
[2019-03-07] MEDS: NORVASC 10 MG PO SCH (08:30)
[2019-03-07 16:00] VITALS: BP 127/69
--- NOTE | 2019-03-07 19:00 | NUR ---
RN MS NOTES PT IN HER ROOM, AWAKE, ALERT AND ORIENTED, NO COMPLAINT OF PAIN, NOT IN DISTRESS, COMPLIANT WITH CARE AND INTERVENTION, NO BEHAVIOR PROBLEM NOTED DURING THE SHIFT, TOLERATING CURRENT DIET, NEEDS ATTENDED.
[2019-03-07 20:00] VITALS: BP 114/76
[2019-03-07] MEDS: [UNRECOGNIZED DRUG - OTHER] PO SCH (21:55)
--- NOTE | 2019-03-08 07:59 | NUR ---
MS RN OPENING NOTE RECEIVED PATIENT IN BED SLEEPING COMFORTABLY. PATIENT IN NO ACUTE DISTRESS. NO SOB NOTED. PATIENT BREATHING IS EVEN AND UNLABORED. NO FACIAL GRIMACING NOTED. SAFETY PRECAUTIONS IN PLACE. PATIENT BED IS LOCKED AND IN LOWEST POSITION. CALL LIGHT WITHIN REACH. WILL CONTINUE TO MONITOR.
[2019-03-08 08:00] VITALS: BP 93/71
[2019-03-08 09:46] VITALS: BP 111/69
[2019-03-08] MEDS: NORVASC 10 MG PO SCH (09:50)
[2019-03-08] MEDS: HCTZ 25 MG PO SCH (09:50)
[2019-03-08 16:00] VITALS: BP 103/70
--- NOTE | 2019-03-08 18:30 | NUR ---
MS RN CLOSING NOTE PATIENT IN BED RESTING COMFORTABLY. PATIENT IN NO ACUTE DISTRESS. NO SOB NOTED. PATIENT BREATHING IS EVEN AND UNLABORED. NO FACIAL GRIMACING NOTED. NEEDS AND CONCERNS ADDRESSED. PATIENT KEPT CLEAN, DRY, AND COMFORTABLE THROUGHOUT SHIFT. SAFETY PRECAUTIONS IN PLACE. PATIENT BED IS LOCKED AND IN LOWEST POSITION. CALL LIGHT WITHIN REACH. WILL ENDORSE CARE TO PM SHIFT FOR STEVE.
--- NOTE | 2019-03-08 19:05 | NUR ---
RN MS OPENING NOTES RECEIVED PATIENT IN BED AWAKE ALERT AND ORIENTED X4, RESPIRATIONS EVEN AND UNLABORED WITH EQUAL RISE AND FALL OF CHEST, DENIES ANY PAIN OR DISCOMFORT AT THIS TIME, DENIES ANY SI/HI. COMPLAINT, ORIENTED TO STAFF AND CALL LIGHT AND KEPT WITHIN REACH, SAFETY PRECAUTIONS RENDERED, FLUIDS OFFERED, ALL NEEDS ATTENDED WILL CONTINUE TO MONITOR. APPEARS CALM AND PLEASANT AT THIS TIME.
[2019-03-08 20:00] VITALS: BP 112/75
[2019-03-08 20:15] VITALS: BP 112/75
[2019-03-08] MEDS: [UNRECOGNIZED DRUG - OTHER] PO SCH (21:21)
--- NOTE | 2019-03-09 06:43 | NUR ---
RN MS CLOSING NOTES PATIENT IN BED AWAKE ALERT AND ORIENTED X4, RESPIRATIONS EVEN AND UNLABORED WITH EQUAL RISE AND FALL OF CHEST, DENIES ANY PAIN OR DISCOMFORT AT THIS TIME, DENIES ANY SI/HI. COMPLAINT, SLEPT WELL, PATIENT MOSTLY STAYS IN ROOM, INTERACTIVE WHEN ENGAGED, CALL LIGHT KEPT WITHIN REACH, SAFETY PRECAUTIONS RENDERED, FLUIDS OFFERED, ALL NEEDS ATTENDED WILL CONTINUE TO MONITOR AND ENDORSE TO NEXT SHIFT. APPEARS CALM AND PLEASANT AT THIS TIME.
[2019-03-09 09:32] VITALS: BP 116/71
[2019-03-09] MEDS: NORVASC 10 MG PO SCH (09:34)
[2019-03-09] MEDS: HCTZ 25 MG PO SCH (09:34)
[2019-03-09 16:00] VITALS: BP 117/72
--- NOTE | 2019-03-09 18:39 | NUR ---
MS RN CLOSING NOTE PATIENT IN BED RESTING COMFORTABLY. PATIENT IN NO ACUTE DISTRESS. NO SOB NOTED. PATIENT BREATHING IS EVEN AND UNLABORED. NO FACIAL GRIMACING NOTED. NEEDS AND CONCERNS ADDRESSED. PATIENT KEPT CLEAN, DRY, AND COMFORTABLE THROUGHOUT SHIFT. SAFETY PRECAUTIONS IN PLACE. PATIENT BED IS LOCKED AND IN LOWEST POSITION. CALL LIGHT WITHIN REACH. WILL ENDORSE CARE TO PM SHIFT FOR STEVE. Addendum: 03/09/19 at 1845 by CANDY WOODRUFF RN MS RN CLOSING NOTE PATIENT IN BED RESTING COMFORTABLY. PATIENT IN NO ACUTE DISTRESS. NO SOB NOTED. PATIENT BREATHING IS EVEN AND UNLABORED. NO FACIAL GRIMACING NOTED. NEEDS AND CONCERNS ADDRESSED. PATIENT KEPT CLEAN, DRY, AND COMFORTABLE THROUGHOUT SHIFT. PATIENT AWARE OF NPO STATUS AFTER 2100 TONIGHT. SAFETY PRECAUTIONS IN PLACE. PATIENT BED IS LOCKED AND IN LOWEST POSITION. CALL LIGHT WITHIN REACH. WILL ENDORSE CARE TO PM SHIFT FOR STEVE.
--- NOTE | 2019-03-09 19:00 | NUR ---
RN MS OPENING NOTES RECEIVED PATIENT IN BED AWAKE ALERT AND ORIENTED X4, RESPIRATIONS EVEN AND UNLABORED WITH EQUAL RISE AND FALL OF CHEST, DENIES ANY PAIN OR DISCOMFORT AT THIS TIME, DENIES ANY SI/HI. COMPLAINT, ORIENTED TO STAFF AND CALL LIGHT AND KEPT WITHIN REACH, SAFETY PRECAUTIONS RENDERED, FLUIDS OFFERED, ALL NEEDS ATTENDED WILL CONTINUE TO MONITOR. APPEARS CALM AND PLEASANT AT THIS TIME. AWARE OF NPO STATUS ORDERED BY MD, VERBALLY UNDERSTANDS.
[2019-03-09 20:00] VITALS: BP 107/54
[2019-03-09 20:02] VITALS: BP 107/54
[2019-03-09] MEDS: [UNRECOGNIZED DRUG - OTHER] PO SCH (21:01)
--- NOTE | 2019-03-10 06:45 | NUR ---
RN MS CLOSING NOTES PATIENT IN BED SLEEPING BUT EASILY AROUSABLE, ALERT AND ORIENTED X4, RESPIRATIONS EVEN AND UNLABORED WITH EQUAL RISE AND FALL OF CHEST, DENIES ANY PAIN OR DISCOMFORT AT THIS TIME, DENIES ANY SI/HI. COMPLAINT, CALL LIGHT KEPT WITHIN REACH, SAFETY PRECAUTIONS RENDERED,ALL NEEDS ATTENDED WILL CONTINUE TO MONITOR. APPEARS CALM AND PLEASANT AT THIS TIME. REMAINED NPO STATUS ORDERED BY MD, VERBALLY UNDERSTANDS. WILL ENDORSE TO NEXT SHIFT.
--- NOTE | 2019-03-10 07:30 | NUR ---
RN MS NOTES PT IN BED, AWAKE, ALERT AND ORIENTED, NO COMPLAINT OF PAIN OR ANY DISCOMFORT, NOT IN DISTRESS, FOR BLOOD DRAW THIS MORNING, NPO FOR NOW, PLAN OF CARE DISCUSSED WITH PT, VERBALIZED UNDERSTANDING, CALL LIGHT WITHIN REACH, NEEDS ATTENDED.
[2019-03-10 08:00] VITALS: BP 120/69
[2019-03-10] MEDS: HCTZ 25 MG PO SCH (09:00)
[2019-03-10] MEDS: NORVASC 10 MG PO SCH (09:00)
--- NOTE | 2019-03-10 09:00 | NUR ---
RN MS NOTES 9AM MEDS NOT GIVEN, PT NPO, FOR BLOOD DRAW THIS MORNING. BP 120/69 HR 66.
[2019-03-10] MEDS ORDERED: LORAZEPAM 1 MG TABLET FOR AGITATION PO PRN (13:00)
--- NOTE | 2019-03-10 13:00 | NUR ---
RN MS NOTES PT BACK FROM HER BLOOD DRAW, LUNCH SERVED, NO COMPLAINT AT THIS TIME, RESPIRATIONS NORMAL, CALL LIGHT WITHIN REACH, NEEDS ATTENDED.
[2019-03-10 16:00] VITALS: BP 118/80
--- NOTE | 2019-03-10 19:00 | NUR ---
RN MS NOTES PT IN BED, RESTING, NO BEHAVIOR PROBLEM NOTED, NO COMPLAINT OF PAIN OR ANY DISCOMFORT, NEEDS ATTENDED.
--- NOTE | 2019-03-10 19:55 | NUR ---
RN OPENING NOTES RECEIVED REPORT FROM [facility] NYLA MAYEN. FOUND Pt AWAKE, RESTING IN BED, WATCHING TV. Pt IS A/OX4, VERBAL, ABLE TO MAKE NEEDS KNOWN. NO S/S OF ACUTE DISTRESS OR SOB NOTED. NO C/O PAIN OR SEVERE DISCOMFORT AT THIS TIME. Pt IS A CLINICAL TRIAL. SAFETY MEASURES IN PLACE. BED LOW, LOCKED, HOB ELEVATED, SIDE RAILS UP, CALL LIGHT AND BED SIDE TABLE WITHIN REACH. WILL CONTINUE TO MONITOR Pt's CONDITION AND SAFETY THROUGHOUT THE NIGHT.
[2019-03-10] MEDS: [UNRECOGNIZED DRUG - OTHER] PO SCH (21:35)
[2019-03-10 22:17] VITALS: BP 116/69
--- NOTE | 2019-03-11 06:55 | NUR ---
RN CLOSING NOTES NO SIGNIFICANT CHANGES IN Pt's CONDITION. Pt REMAINED STABLE PER BASELINE. NO S/S OF ACUTE DISTRESS OR SOB NOTED DURING THE NIGHT. ALL NEEDS MET AND ATTENDED TO. NO BEHAVIORAL PROBLEMS DURING THE SHIFT. Pt IS MED COMPLIANT. SAFETY MEASURES IN PLACE. WILL ENDORSE TO DAYSHIFT RN FOR Pt's STEVE.
--- NOTE | 2019-03-11 07:30 | NUR ---
RN OPENING NOTES RECEIVED PATIENT IN BED ASLEEP WITHOUT ANY FORM OF DISTRESS. RESPIRATIONS EVEN AND UNLABORED. NO IV ACCESS. A CLINICAL TRIAL PATIENT. SAFETY MEASURES IMPLEMENTED. BED IN LOW/LOCKED POSITION, SIDERAILS UP X 2, CALL LIGHT IN REACH. WILL CONTINUE TO MONITOR ACCORDINGLY.
[2019-03-11 08:24] VITALS: BP 109/69
[2019-03-11] MEDS: NORVASC 10 MG PO SCH (08:35)
[2019-03-11] MEDS: HCTZ 25 MG PO SCH (08:35)
[2019-03-11 17:13] VITALS: BP 123/73
--- NOTE | 2019-03-11 19:21 | NUR ---
RN CLOSING NOTES PATIENT IN STABLE CONDITION. ALL NEEDS ATTENDED AND PROVIDED. ALL DUE MEDICATIONS GIVEN ORDERED. KEPT PATIENT SAFE AND COMFORTABLE. BED IN LOW/LOCKED POSITION, SIDERAILS UPX2, CALL LIGHT IN REACH. ENDORSED TO NIGHT RN FOR STEVE.
--- NOTE | 2019-03-11 19:50 | NUR ---
RN OPENING NOTES RECEIVED REPORT FROM [facility] NYLA POLANCO. FOUND Pt AWAKE, SITTING UP IN BED, WATCHING TV & EATING CEREAL. Pt IS A CLINICAL TRIAL. Pt IS A/OX4, VERBAL, ABLE TO MAKE NEEDS KNOWN. NO S/S OF ACUTE DISTRESS OR SOB NOTED. NO C/O PAIN OR SEVERE DISCOMFORT AT THIS TIME. NO BEHAVIORAL PROBLEMS REPORTED DURING DAYSHIFT. Pt IS VERY PLEASANT AND MED COMPLIANT. SAFETY MEASURES IN PLACE. BED LOW, LOCKED, HOB ELEVATED, SIDE RAILS UP, CALL LIGHT AND BED SIDE TABLE WITHIN REACH. WILL CONTINUE TO MONITOR Pt's CONDITION AND SAFETY THROUGHOUT THE NIGHT.
[2019-03-11 20:00] VITALS: BP 122/76
[2019-03-11 20:30] VITALS: BP 122/76
[2019-03-11] MEDS: [UNRECOGNIZED DRUG - OTHER] PO SCH (21:30)
[2019-03-12 08:00] VITALS: BP 126/92
[2019-03-12] MEDS: HCTZ 25 MG PO SCH (09:07)
[2019-03-12] MEDS: NORVASC 10 MG PO SCH (09:07)
--- NOTE | 2019-03-12 19:10 | NUR ---
MS RN NOTE RECEIVED PT IN STABLE CONDITION A/O X4, CURRENTLY IN ROOM WATCHING TV. NO SIGNS OF SOB OR DISTRESS NO COMPLAINTS OF PAIN OR N/V. PT COOPERATIVE, AND IN CALM DEMEANOR. ALL CURRENT NEEDS ATTENDED TO. BED LOW, LOCKED, UPPER RAILS UP, AND CALL LIGHT WITHIN REACH. WILL CONT. TO MONITOR.
[2019-03-12] MEDS: [UNRECOGNIZED DRUG - OTHER] PO SCH (21:18)
--- NOTE | 2019-03-12 23:00 | NUR ---
MS RN NOTE PT'S ROOM NOTED TO BE SMELLING OF [place], WHEN PT ASSESSED, PT MISSING FROM ROOM. SECURITY CALLED, BUSINESS OPERATIONS MANAGER NOTIFIED. PT NOTED TO BE WALKING OUTSIDE. SECURITY TO ESCORT PT BACK TO ROOM.
--- NOTE | 2019-03-13 06:12 | NUR ---
MS RN NOTE PT REMAINS IN STABLE CONDITION A/O X4, CURRENTLY NOTED RESTING IN BED. NO SIGNS OF SOB OR DISTRESS NO COMPLAINTS OF PAIN OR N/V. ALL CURRENT NEEDS ATTENDED TO. BED LOW, LOCKED, UPPER RAILS UP, AND CALL LIGHT WITHIN REACH. WILL CONT. TO MONITOR AND ENDORSE TO NEXT SHIFT FOR STEVE.
--- NOTE | 2019-03-13 07:25 | NUR ---
MS RN NOTES PATIENT IN BED ALERT ORIENTED X 4. NO ACUTE DISTRESS NOTED. BREATHING UNLABORED. SAFETY MEASURES IN PLACE. CALL LIGHT WITHIN REACH. WILL CONTINUE TO MONITOR ACCORDINGLY.
--- NOTE | 2019-03-13 07:25 | NUR ---
MS NYLA NOTES PATIENT IN BED ALERT ORIENTED X 4. NO ACUTE DISTRESS NOTED. BREATHING UNLABORED. IV ACCESS PATENT AND INTACT, NO REDNESS OR SWELLING NOTED. SAFETY MEASURES IN PLACE. CALL LIGHT WITHIN REACH. WILL CONTINUE TO MONITOR ACCORDINGLY. Addendum: 03/13/19 at 1709 by RENUKA PAREKH RN DISREGARD ABOVE NOTES, WRONG PATIENT
[2019-03-13] MEDS: NORVASC 10 MG PO SCH (08:16)
[2019-03-13] MEDS: HCTZ 25 MG PO SCH (08:16)
--- NOTE | 2019-03-13 19:00 | NUR ---
MS RN NOTES PATIENT IN BED ALERT ORIENTED X 4. NO ACUTE DISTRESS NOTED. BREATHING UNLABORED. NEEDS ATTENDED AND ANTICIPATED. SAFETY MEASURES IN PLACE. CALL LIGHT WITHIN REACH. WILL ENDORSE TO NIGHT NURSE FOR CONTINUITY OF CARE.
[2019-03-13 20:00] VITALS: BP 113/58
--- NOTE | 2019-03-13 20:00 | NUR ---
MS RN NOTES RECEIVED PATIENT AWAKE AND CALM IN BED WITH NO DISTRESS NOTED. CALL LIGHT WITHIN REACH. NO C/O PAIN OR DISCOMFORT. ENCOURAGED USE OF CALL LIGHT FOR ASSISTANCE AND VERBALIZED GOOD UNDERSTANDING. BED IN LOW LOCK SETTING. ROOM FREE OF CLUTTER AND BELONGINGS KEPT NEAR BEDSIDE. WILL CONTINUE TO MONITOR.
[2019-03-13] MEDS: IBUPROFEN 600 MG TABLET PO PRN (20:30)
[2019-03-13] MEDS: [UNRECOGNIZED DRUG - OTHER] PO SCH (21:47)
--- NOTE | 2019-03-14 06:05 | NUR ---
MS RN NOTES PATIENT ASLEEP IN BED WITH NO DISTRESS NOTED. CALL LIGHT WITHIN REACH. ALL DUE MEDS GIVEN ORDERED WITH NO ASE. NO C/O PAIN OR DISCOMFORT. NO BEHAVIORAL PROBLEMS NOTED DURING SHIFT. BED IN LOW LOCK SETTING. ROOM FREE OF CLUTTER AND BELONGINGS KEPT NEAR BEDSIDE. WILL ENDORSE TO ONCOMING SHIFT.
--- NOTE | 2019-03-14 07:15 | NUR ---
MS RN NOTES PATIENT IN BED ALERT ORIENTED X 3. NO ACUTE DISTRESS NOTED. BREATHING UNLABORED. SAFETY MEASURES IN PLACE. CALL LIGHT WITHIN REACH. WILL CONTINUE TO MONITOR ACCORDINGLY.
[2019-03-14 08:00] VITALS: BP 143/90
[2019-03-14] MEDS: NORVASC 10 MG PO SCH (09:09)
[2019-03-14] MEDS: HCTZ 25 MG PO SCH (09:09)
[2019-03-14 16:00] VITALS: BP 140/89
--- NOTE | 2019-03-14 19:15 | NUR ---
MS RN NOTES PATIENT IN BED ALERT ORIENTED X 3. NO ACUTE DISTRESS NOTED. BREATHING UNLABORED. NEEDS ATTENDED AND ANTICIPATED. KEPT CLEAN DRY AND COMFORTABLE.SAFETY MEASURES IN PLACE. CALL LIGHT WITHIN REACH. WILL ENDORSE TO NIGHT NURSE FOR CONTINUITY OF CARE.
[2019-03-14 20:00] VITALS: BP 106/65
[2019-03-14] MEDS: [UNRECOGNIZED DRUG - OTHER] PO SCH (22:25)
--- NOTE | 2019-03-15 06:28 | NUR ---
MS RN NOTES PATIENT ASLEEP IN BED WITH NO DISTRESS NOTED. CALL LIGHT WITHIN REACH. ALL DUE MEDS GIVEN ORDERED WITH NO ASE. NO C/O PAIN OR DISCOMFORT. BED IN LOW LOCK SETTING. ROOM FREE OF CLUTTER AND BELONGINGS KEPT NEAR BEDSIDE. WILL ENDORSE TO ONCOMING SHIFT.
[2019-03-15 08:00] VITALS: BP 120/63
[2019-03-15] MEDS: NORVASC 10 MG PO SCH (09:00)
[2019-03-15] MEDS: HCTZ 25 MG PO SCH (09:10)
[2019-03-15 16:00] VITALS: BP 119/82
--- NOTE | 2019-03-15 19:20 | NUR ---
MS RN NOTE RECEIVED PT IN STABLE CONDITION A/O X4, CURRENTLY IN ROOM EATING CEREAL. NO SIGNS OF ACUTE DISTRESS NO PAIN. PT COMPLIANT WITH CARE. REMINDED TO LET STAFF KNOW IF WANTING TO LEAVE FLOOR, VERBALIZED UNDERSTANDING. ALL CURRENT NEEDS ATTENDED TO. SAFETY MEASURES IN PLACE. WILL CONT TO MONITOR.
[2019-03-15] MEDS: [UNRECOGNIZED DRUG - OTHER] PO SCH (21:03)
[2019-03-15 21:24] VITALS: BP 116/74
--- NOTE | 2019-03-16 06:14 | NUR ---
MS RN NOTE PT REMAINS IN STABLE CONDITION A/O X4, CURRENTLY RESTING IN BED. NO SIGNS OF ACUTE DISTRESS NO PAIN. PT COMPLIANT WITH CARE THROUGHOUT SHIFT. ALL CURRENT NEEDS ATTENDED TO. SAFETY MEASURES IN PLACE. WILL CONT TO MONITOR AND ENDORSE TO NEXT SHIFT FOR STEVE.
--- NOTE | 2019-03-16 08:00 | NUR ---
MS RN OPENING NOTES MS RN NOTE RECEIVED PT IN BED, AWAKE, ALERT AND ORIENTED X4, CURRENTLY IN ROOM EATING HER BREAKFAST. NO SIGNS OF ACUTE DISTRESS NO PAIN. NO CARDIAC OR RESPIRATORY DISTRESS NOTED. PT COMPLIANT WITH CARE. CALM AND COOPERATIVE. NO BEHAVIORAL ISSUES NOTED. REMINDED TO LET STAFF KNOW IF WANTING TO LEAVE FLOOR, PT VERBALIZES UNDERSTANDING. ALL CURRENT NEEDS ATTENDED TO. SAFETY MEASURES IN PLACE. WILL CONT TO MONITOR
[2019-03-16] MEDS: HCTZ 25 MG PO SCH (09:10)
[2019-03-16] MEDS: NORVASC 10 MG PO SCH (09:11)
[2019-03-16 15:47] VITALS: BP 143/90
[2019-03-16 16:38] VITALS: BP 143/90
--- NOTE | 2019-03-16 18:05 | NUR ---
MS RN CLOSING NOTES PT IN BED. AWAKE ALERT AND ORIENTED X4. O CARDIAC OR RESPIRATORY DISTRESS NOTED. NO COMPLAINTS OF PAIN OR DISCOMFORT. PT IS CALM AND COOPERATIVE WITH TXS. NO BEHAVIORAL ISSUES NOTED.
[2019-03-16 19:30] VITALS: BP 135/71
--- NOTE | 2019-03-16 19:58 | NUR ---
MS RN NOTES PATIENT IN BED, AWAKE, ALERT AND ORIENTED X 4. BREATHING EVEN AND UNLABORED ON ROOM AIR. SHOWS NO SIGNS OF ACUTE RESPIRATORY DISTRESS, NO ACUTE PAIN. NO IV SITE NOTED. PATIENT IS CALM AND COOPERATIVE, AND NO CHANGED IN BEHAVIOR. SAFETY PRECAUTION IN PLACE. WILL CONTINUE TO MONITOR.
[2019-03-16 20:00] VITALS: BP 135/71
[2019-03-16] MEDS: [UNRECOGNIZED DRUG - OTHER] PO SCH (22:03)
--- NOTE | 2019-03-17 06:35 | NUR ---
MS RN NOTES PATIENT IN BED, ASLEEP, ALERT AND ORIENTED X 4. BREATHING EVEN AND UNLABORED ON ROOM AIR. SHOWS NO SIGNS OF ACUTE RESPIRATORY DISTRESS, NO ACUTE PAIN. NO IV SITE NOTED. PATIENT IS CALM AND COOPERATIVE, AND NO CHANGES IN BEHAVIOR. SAFETY PRECAUTION IN PLACE. WILL ENDORSE TO ONCOMING NURSE.
[2019-03-17 08:00] VITALS: BP 139/90
--- NOTE | 2019-03-17 08:00 | NUR ---
S RN OPENING NOTES RECEIVED PT IN BED, AWAKE, ALERT AND ORIENTED X4, CURRENTLY IN ROOM EATING HER BREAKFAST. NO SIGNS OF ACUTE DISTRESS NO PAIN. NO CARDIAC OR RESPIRATORY DISTRESS NOTED. PT COMPLIANT WITH CARE. CALM AND COOPERATIVE. NO BEHAVIORAL ISSUES NOTED. REMINDED TO LET STAFF KNOW IF WANTING TO LEAVE FLOOR, PT VERBALIZES UNDERSTANDING. ALL CURRENT NEEDS ATTENDED TO. SAFETY MEASURES IN PLACE. PT SCHEDULED TO D/C THIS AM. PER PT SHE'LL WASH HER ;AUNDRY FIRST AND THEN WILL GO D/C.
[2019-03-17] MEDS: NORVASC 10 MG PO SCH (08:06)
[2019-03-17] MEDS: HCTZ 25 MG PO SCH (08:06)
--- NOTE | 2019-03-17 09:15 | NUR ---
MS/RN - Discharge Patient is alert and oriented x 4, discharged home in stable condition, remain afebrile, denies chest pain, not in any form of distress, ambulatory with steady gait, denies SI/HI, no c/o auditory or visual hallucinations at this time. Reviewed discharge instructions with patient and she verbalized full understanding of all teachings including medications and follow up with Dr. Will as scheduled. Patient was also intructed to call 911 or go to the nearest ER if ever she feels like hurting herself or others or having thoughts about taking her own life. [place] Suicide Prevention Lifeline number was also given . All belongings with patient and she deny any missing items. Patient refused photos to be taken of skin, no breakdown. Patient signed discharge paperwork and copies were given per protocol. Patient going to Dr. Will's office today, accompanied by clinic staff.
[2019-03-17] MEDS ORDERED: LORAZEPAM 1 MG TABLET PO PRN (12:00)
== END 2019-03-17 09:30 | disposition home or self-care (01) | DRG 951 ==
LOC: MED 14:37 → MEDSG2 02-11 22:55
PROVIDERS: ADMIT Psychiatry & Neurology Psychiatry; ATTEND Psychiatry & Neurology Psychiatry
DX: Z00.6 Encounter for examination for normal comparison and control in clinical research program (principal); F20.0 Paranoid schizophrenia; I10 Essential (primary) hypertension; Z79.899 Other long term (current) drug therapy; Z96.653 Presence of artificial knee joint, bilateral
CPT/HCPCS: 87081-TC; G0378

== ENCOUNTER 2020-06-21 09:39 | Inpatient (IN) | payer OTHER ==
[~2020-06-21] VITALS: Ht 170.2 cm; Wt 117.9 kg
[~2020-06-21 09:39] MED LIST changes: +AMLO-213 PO; -AMLO10TA7 PO
[2020-06-21] MEDS ORDERED: MAG HYDROX/AL HYDROX/SIMETH 30 ML UDC PO PRN (15:00)
[2020-06-21] MEDS ORDERED: LORAZEPAM 1 MG TABLET FOR AGITATION/ANXIETY PO PRN (15:00)
[2020-06-21] MEDS ORDERED: IBUPROFEN 200 MG TABLET PO PRN (15:00)
[2020-06-21] MEDS ORDERED: ZOLPIDEM TARTRATE 10 MG TABLET PO PRN (15:00)
[2020-06-21] MEDS ORDERED: ACETAMINOPHEN ES 500 MG TABLET PO PRN (15:00)
[2020-06-21] MEDS ORDERED: MAGNESIUM HYDROXIDE 30 ML UDC PO PRN (15:00)
[2020-06-21 16:00] VITALS: BP 132/102
--- NOTE | 2020-06-21 16:00 | NUR ---
ms rn received a new clinical trial patient of dr. page,50 year old female,awake,alert,oriented x4,not in any form of distress, resprations even and unlabored,no sob noted, lungs are clear,abdomen soft,positive bowel sounds,denies pain at this time, will monitor patient.
[2020-06-21] MEDS ORDERED: MAGN400O6 PO (17:56)
[2020-06-21] MEDS ORDERED: CALC355O18 PO (17:56)
[2020-06-21] MEDS ORDERED: LORA-259 PO (17:56)
[2020-06-21] MEDS ORDERED: ACET-2605 PO (17:56)
[2020-06-21] MEDS ORDERED: IBUP-1953 PO (17:56)
[2020-06-21] MEDS ORDERED: ZOLP5TAB8 PO (17:56)
--- NOTE | 2020-06-21 18:07 | NUR ---
ms rn inside room, eating dinner.
--- NOTE | 2020-06-21 19:30 | NUR ---
MS ALVARO NOTES' SEEN PATIENT BACK TO HER ROOM JUST CAME BACK FROM DOWNSTAIRS. STATED SHE JUS GOT SOMETHING IN VENDI MACHINE. DENIES ANY PAIN OR ANY DISCOMFORT. KEPT HER WARM AND COMFORTABLE AT ALL TIMES. PLACE CALL LIGHT AT REACH. WILL CONTINUE MONITORING.
[2020-06-21 20:00] VITALS: BP 130/80
--- NOTE | 2020-06-22 07:01 | NUR ---
ms supervisor roller printing closing notes patient slept well , stable throughout the shift . kept her warm and comfortable at all times. endorse to am nurse for continuity of care.
--- NOTE | 2020-06-22 07:59 | NUR ---
RN OPENING NOTE RECEIVED PATIENT IN BED, AO X 4, ABLE TO RESPONDS ALL STIMULI. DENIES PAIN OR DISTRESS, SKIN IS WARM TO TOUCH, KEEP CLEAN/DRY INTACT IV SITE. RESPIRATORY EVEN AND UNLABORED ON ROOM AIR. PATIENT IS ON CLINICAL TRIAL, KEEP MONITOR FOR SAFETY. KEPT ELEVATED HOB FOR ENSURE AIRWAY AND ASPIRATION PRECAUTION, ALSO LOWEST BED POSITION. CALL LIGHT WITHIN REACH, WILL CONTINUE TO MONITOR.
[2020-06-22 08:00] VITALS: BP 153/109
[2020-06-22] MEDS: NORVASC 10 MG PO SCH (09:45)
[2020-06-22] MEDS: HYDROCHLOROTHIAZIDE 25 MG PO SCH (09:46)
[2020-06-22 16:00] VITALS: BP 127/91
--- NOTE | 2020-06-22 18:28 | NUR ---
RN CLOSING NOTE PATIENT IN BED, REMAINS AO X 4, ABLE TO RESPONDS ALL STIMULI. SKIN IS WARM TO TOUCH, KEEP CLEAN/DRY. RESPIRATORY EVEN AND UNLABORED ON ROOM AIR. KEPT ELEVATED HOB FOR ENSURE AIRWAY AND ASPIRATION PRECAUTION ALSO LOWEST BED POSITION FOR SAFETY. WILL ENDORSE ENROLLMENT MANAGEMENT MANAGER.
--- NOTE | 2020-06-22 19:30 | NUR ---
MS RN OPENING NOTE PATIENT IN BED, AWAKE, A/O X 3. PATIENT CALM AND COOPERATIVE AT THIS TIME. PATIENT IS A CLINICAL TRIAL PATIENT OF DR. HERZOG. PATIENT AMBULATES WITH A WALKER. TOLERATING ROOM AIR. NO C/O PAIN OR DISCOMFORT. SAFETY PRECAUTIONS IN PLACE. CALL LIGHT WITHIN REACH. ENCOURAGED PATIENT TO CALL IF IN NEED. WILL CONTINUE TO MONITOR CLOSELY.
[2020-06-22 20:06] VITALS: BP 123/74
--- NOTE | 2020-06-23 06:14 | NUR ---
MS RN CLOSING NOTE PATIENT IN BED, RESTING, A/O X 3. PATIENT CALM AND COOPERATIVE AT THIS TIME. ABLE TO MAKE NEEDS KNOWN. PATIENT IS A CLINICAL TRIAL PATIENT OF DR. HERZOG. PATIENT AMBULATES WITH A WALKER. TOLERATING ROOM AIR. NO C/O PAIN OR DISCOMFORT. SAFETY PRECAUTIONS MAINTAINED, CALL LIGHT WITHIN REACH. ENCOURAGED PATIENT TO CALL IF IN NEED. ALL NEEDS MET AND ATTENDED. WILL ENDORSE TO DAY SHIFT NURSE FOR STEVE.
--- NOTE | 2020-06-23 07:28 | NUR ---
MsRN OPENING NOTE PATIENT IN BED, AWAKE, A/O X 3. PATIENT CALM AND COOPERATIVE AT THIS TIME. PATIENT IS A CLINICAL TRIAL PATIENT OF DR. HERZOG. PATIENT AMBULATES WITH A WALKER. TOLERATING ROOM AIR. NO C/O PAIN OR DISCOMFORT. SAFETY PRECAUTIONS IN PLACE. CALL LIGHT WITHIN REACH. ENCOURAGED PATIENT TO CALL IF IN NEEDED.
--- NOTE | 2020-06-23 07:30 | NUR ---
MS RN OPENING NOTE PATIENT IN BED, RESTING AND EYES CLOSED, A/O X 3. AROUSED EASILY. PATIENT CALM AND COOPERATIVE AT THIS TIME. PATIENT IS A CLINICAL TRIAL PATIENT OF DR. HERZOG. PATIENT AMBULATES WITH A WALKER. TOLERATING ROOM AIR. NO C/O PAIN OR DISCOMFORT. SAFETY PRECAUTIONS IN PLACE. CALL LIGHT WITHIN REACH. ENCOURAGED PATIENT TO CALL IF IN NEED. WILL CONTINUE TO MONITOR CLOSELY. Addendum: 06/23/20 at 2014 by CHACORTA SHAW RN WRONG TIME
[2020-06-23 08:00] VITALS: BP 138/87
[2020-06-23] MEDS: HYDROCHLOROTHIAZIDE 25 MG PO SCH (08:52)
[2020-06-23] MEDS: NORVASC 10 MG PO SCH (08:52)
--- NOTE | 2020-06-23 18:04 | NUR ---
MsRN CLOSING NOTE PATIENT IN BED, AWAKE, A/O X 3. PATIENT CALM AND COOPERATIVE AT THIS TIME. PATIENT IS A CLINICAL TRIAL PATIENT OF DR. HERZOG. PATIENT AMBULATES WITH A WALKER. TOLERATING ROOM AIR. NO C/O PAIN OR DISCOMFORT. SAFETY PRECAUTIONS IN PLACE. CALL LIGHT WITHIN REACH. ENCOURAGED PATIENT TO CALL IF IN NEEDED.
--- NOTE | 2020-06-23 19:30 | NUR ---
MS RN OPENING NOTE PATIENT IN BED, RESTING AND EYES CLOSED, A/O X 3. AROUSED EASILY. PATIENT CALM AND COOPERATIVE AT THIS TIME. PATIENT IS A CLINICAL TRIAL PATIENT OF DR. HERZOG. PATIENT AMBULATES WITH A WALKER. TOLERATING ROOM AIR. NO C/O PAIN OR DISCOMFORT. SAFETY PRECAUTIONS IN PLACE. CALL LIGHT WITHIN REACH. ENCOURAGED PATIENT TO CALL IF IN NEED. WILL CONTINUE TO MONITOR CLOSELY.
[2020-06-23 20:00] VITALS: BP 128/61
--- NOTE | 2020-06-24 06:14 | NUR ---
MS RN CLOSING NOTE PATIENT IN BED, RESTING AND EYES CLOSED, A/O X 3. AROUSED EASILY. PATIENT CALM AND COOPERATIVE AT THIS TIME. PATIENT AMBULATES WITH A WALKER. CURRENTLY TOLERATING ROOM AIR. NO C/O PAIN OR DISCOMFORT. SAFETY PRECAUTIONS MAINTAINED. CALL LIGHT WITHIN REACH. ENCOURAGED PATIENT TO CALL IF IN NEED. ALL NEEDS MET AND ATTENDED. WILL ENDORSE TO DAY SHIFT NURSE FOR STEVE.
[2020-06-24 08:00] VITALS: BP 183/128
[2020-06-24] MEDS: HYDROCHLOROTHIAZIDE 25 MG PO SCH (08:04)
[2020-06-24] MEDS: NORVASC 10 MG PO SCH (08:04)
[2020-06-24 16:00] VITALS: BP 182/113
--- NOTE | 2020-06-24 19:30 | NUR ---
MS RN OPENING NOTE PATIENT IN BED, AWAKE, A/O X 3. PATIENT CALM AND COOPERATIVE AT THIS TIME. PATIENT IS A CLINICAL TRIAL PATIENT OF DR. HERZOG. PATIENT AMBULATES WITH A WALKER. TOLERATING ROOM AIR, BREATHING EVEN AND UNLABORED. NO C/O PAIN OR DISCOMFORT. SAFETY PRECAUTIONS IN PLACE. CALL LIGHT WITHIN REACH. ENCOURAGED PATIENT TO CALL IF IN NEED. WILL CONTINUE TO MONITOR CLOSELY.
[2020-06-24 20:00] VITALS: BP 133/91
--- NOTE | 2020-06-25 07:00 | NUR ---
MS RN CLOSING NOTE PATIENT IN BED, RESTING A/O X 3. PATIENT CALM AND COOPERATIVE AT THIS TIME. AROUSED EASILY. TOLERATING ROOM AIR, BREATHING EVEN AND UNLABORED. NO C/O PAIN OR DISCOMFORT. SAFETY PRECAUTIONS MAINTAINED. CALL LIGHT WITHIN REACH. ENCOURAGED PATIENT TO CALL IF IN NEED. ALL NEEDS MET AND ATTENDED. WILL ENDORSE TO DAY SHIFT NURSE FOR STEVE.
[2020-06-25] MEDS: NORVASC 10 MG PO SCH (08:06)
[2020-06-25] MEDS: HYDROCHLOROTHIAZIDE 25 MG PO SCH (08:06)
[2020-06-25 16:25] VITALS: BP 135/92
--- NOTE | 2020-06-25 19:30 | NUR ---
MS/RN OPENING NOTE RECEIVED PATIENT SITTING IN BED WATCHING TV. AWAKE, ALERT AND ORIENTED X 4. ABLE TO MAKE NEEDS KNOWN. NO COMPLAINTS OF PAIN AT THIS TIME. NO IV ACCESS NOTED. CONTINUES ON REGULAR DIET. CONTINUES ON HOME MEDICATIONS. CALL LIGHT WITHIN REACH. ASPIRATION, FALL AND SAFETY PRECAUTIONS MAINTAINED. WILL CONTINUE TO MONITOR.
[2020-06-25 20:00] VITALS: BP 132/83
--- NOTE | 2020-06-26 06:15 | NUR ---
MS/RN CLOSING NOTE PATIENT CURRENTLY RESTING IN BED. ALERT AND ORIENTED X 4. ABLE TO MAKE NEEDS KNOWN. NO IV ACCESS NOTED. NO COMPLAINTS OF PAIN AT THIS TIME. CONTINUES ON CLINICAL TRIAL. CONTINUES ON REGULAR DIET. INVESTIGATIONAL MEDICATION TO START 07/02. CALL LIGHT WITHIN REACH. ASPIRATION, FALL AND SAFETY PRECAUTIONS MAINTAINED. WILL ENDORSE PLAN OF CARE TO ONCOMING SHIFT
[2020-06-26 08:00] VITALS: BP 134/96
[2020-06-26] MEDS: NORVASC 10 MG PO SCH (10:00)
[2020-06-26] MEDS: HYDROCHLOROTHIAZIDE 25 MG PO SCH (10:01)
--- NOTE | 2020-06-26 18:23 | NUR ---
RN MS NOTES Patient alert and oriented, responsive to care. Walks with a walker around unit. No behavior problems this shift. Tolerating diet. Vital signs remain stable.
[2020-06-26 20:00] VITALS: BP 127/74
--- NOTE | 2020-06-26 20:17 | NUR ---
MS RN OPENING NOTE PATIENT IS CURRENTLY AWAKE IN BED. PT IS ALERT AND ORIENTED X3. PT IS ABLE TO MAKE HER NEEDS KNOWN. PATIENT IS ON ROOM AIR AND IN NO RESPIRATORY DISTRESS. SAFETY PRECAUTIONS IN PLACE: BED IS LOCKED AND CALL LIGHT IS WITHIN REACH. PT AMBULATES WITH A WALKER. WILL CONTINUE TO MONITOR THE PATIENT.
--- NOTE | 2020-06-27 07:58 | NUR ---
MS RN CLOSING NOTES PATIENT IS CURRENTLY AWAKE IN BED. PT IS ALERT AND ORIENTED X3. PT IS ABLE TO MAKE HER NEEDS KNOWN. PATIENT IS ON ROOM AIR AND IN NO RESPIRATORY DISTRESS. SAFETY PRECAUTIONS IN PLACE: BED IS LOCKED AND CALL LIGHT IS WITHIN REACH. PT AMBULATES WITH A WALKER. WILL CONTINUE TO MONITOR THE PATIENT.
[2020-06-27] MEDS: NORVASC 10 MG PO SCH (08:34)
[2020-06-27] MEDS: HYDROCHLOROTHIAZIDE 25 MG PO SCH (08:34)
[2020-06-27 09:00] VITALS: BP 136/68
--- NOTE | 2020-06-27 09:24 | NUR ---
MS RN OPENING NOTES. Patient in room awake and oriented. Calm and cooperative. Tolerating diet well. No complaints at this time.
--- NOTE | 2020-06-27 18:09 | NUR ---
MS RN CLOSING NOTES Patient awake, alert, and oriented. Tolerated diet, due medications, and plan of care. Noted to be up and walking around unit with walker -gait steady. No c/o pain or discomfort. Able to verbalize needs. All needs met by staff.
--- NOTE | 2020-06-27 19:52 | NUR ---
RECEIVED IN BED PRONE POSITION ASLEEP ROOM DARK RESP EVEN AND UNLABORED
[2020-06-27 20:14] VITALS: BP 135/62
[2020-06-27 20:18] VITALS: BP 135/62
--- NOTE | 2020-06-28 05:04 | NUR ---
ENDING NOTES: SLEPT 10 HOURS OF THIS 12 HOUR SHIFT CHANGING POSITIONS PRONE TO LYING ON SIDES SNORES LOUDLY APPEARS ASLEEP AT THIS TIME
--- NOTE | 2020-06-28 07:20 | NUR ---
MS OPENING NOTE PATIENT RESTING IN BED, A/O X 4. NO ACUTE DISTRESS OR SHORTNESS OF BREATH NOTED. PATIENT ABLE TO MAKE NEEDS KNOW. SAFETY PRECAUTIONS IN PLACE, BED LOCKED IN LOWEST POSITION AND CALL LIGHT WITHIN REACH. WILL CONTINUE TO MONITOR
[2020-06-28 08:00] VITALS: BP 140/89
[2020-06-28] MEDS: HYDROCHLOROTHIAZIDE 25 MG PO SCH (09:37)
[2020-06-28] MEDS: NORVASC 10 MG PO SCH (09:37)
[2020-06-28 16:00] VITALS: BP 118/79
--- NOTE | 2020-06-28 18:55 | NUR ---
MS RN CLOSING NOTE PATIENT RESTING IN ROOM, ALERT AND ORIENTED X 4. NO ACUTE DISTRESS OR SHORTNESS OF BREATH NOTED. PATIENT BEHAVIORS APPROPRIATE THROUGHOUT SHIFT. NEEDS ATTENDED AND ANTICIPATED. SAFETY MEASURES IN PLACE, BED LOCKED IN LOWEST POSITION AND CALL LIGHT WITHIN REACH. WILL ENDORSE TO SUPERVISOR BLASTING NURSE FOR CONTINUITY OF CARE
--- NOTE | 2020-06-28 19:48 | NUR ---
MS RN OPENING NOTES PATIENT IN BED, TALKING ON THE PHONE. A/OX4. NO S/S OF DISTRESS. NO C/O PAIN AT THE MOMENT. SAFETY IN PLACE: BED IN LOWEST, LOCKED POSITION. CALL LIGHT WITHIN REACH. WILL MONITOR PATIENT.
[2020-06-28 20:00] VITALS: BP 123/73
[2020-06-28 20:39] VITALS: BP 123/73
--- NOTE | 2020-06-29 06:46 | NUR ---
MS RN CLOSING NOTES PATIENT IN BED WITH EYES CLOSED. ABLE TO MAKE NEEDS KNOWN. NO S/S OF DISTRESS. NO C/O PAIN AT THE MOMENT. ALL NEEDS ATTENDED. NO INVESTIGATIONAL DRUGS WERE SCHEDULED JUST YET. SAFETY KEPT IN PLACE THE WHOLE SHIFT. BED IN LOWEST, LOCKED POSITION, CALL LIGHT WITHIN REACH. WILL ENDORSE CARE TO MORNING SHIFT NURSE.
[2020-06-29] MEDS: HYDROCHLOROTHIAZIDE 25 MG PO SCH (08:05)
[2020-06-29] MEDS: NORVASC 10 MG PO SCH (08:05)
[2020-06-29 08:08] VITALS: BP 163/108
--- NOTE | 2020-06-29 19:00 | NUR ---
MS RN CLOSING NOTE PATIENT RESTING IN ROOM, ALERT AND ORIENTED X 4. NO ACUTE DISTRESS OR SHORTNESS OF BREATH NOTED. PATIENT BEHAVIORS APPROPRIATE THROUGHOUT SHIFT. NEEDS ATTENDED AND ANTICIPATED. SAFETY MEASURES IN PLACE, BED LOCKED IN LOWEST POSITION AND CALL LIGHT WITHIN REACH. WILL ENDORSE TO X RAY DEVELOPING MACHINE OPERATOR NURSE FOR CONTINUITY OF CARE
[2020-06-29 20:00] VITALS: BP 119/76
[2020-06-30 00:15] VITALS: BP 112/76
--- NOTE | 2020-06-30 05:30 | NUR ---
RN notes In bed, awake alert and oriented. Verbally able to communicate needs. Temperature was high at 20:00 101.8. cooling measures provided. Went down to 98.7. Continuous monitoring done. Temperature went up again to 100.8. Tylenol given and went down to 99.7. Last temp taken was 99.5. Complaining of generalized pain, morphine 1 mg administered with a little relief. Patient is awake all night. Very anxious, always asking when the next dose will be. Gave 2 doses of ativan. Called MD and ordered to just give ativan every 4 hours. Being monitored for alcohol withdrawal. No episode of fall, injury or seizures. Kept clean and dry. Will endorse to next shift for continuity of care.
--- NOTE | 2020-06-30 05:44 | NUR ---
RN notes In bed resting, awake alert and oriented. Verbally able to communicate needs. No complaint of pain. Breathing even and unlabored. Room air well tolerated. Vital signs wnl. Patient is agitated and refused to do ADL. Offerred 3 x but becomes more angrier and agitated each time. Ambulatory. Uses bathroom. No significant change of condition. Will endorse to next shift for continuity of care.
[2020-06-30 08:00] VITALS: BP_SYST 132; BP_SYST 134; BP_DIAS 93
--- NOTE | 2020-06-30 08:37 | NUR ---
MS RN OPENING NOTES Patient visualized in room. Alert and oriented. VSS. Uses walker to walk around room. Able to make needs known.
[2020-06-30] MEDS: NORVASC 10 MG PO SCH (09:15)
[2020-06-30] MEDS: HYDROCHLOROTHIAZIDE 25 MG PO SCH (09:15)
[2020-06-30 16:00] VITALS: BP 136/97
--- NOTE | 2020-06-30 18:07 | NUR ---
MS RN closing notes Patient alert and oriented x4. Cooperative with care. No behaviors noted. Up and walking with walker. Good appetite. No c/o pain or discomfort.
[2020-06-30 20:00] VITALS: BP 141/92
--- NOTE | 2020-06-30 20:08 | NUR ---
MS RN OPENING NOTE - CLINICAL TRIAL PATIENT A/OX4; ABLE TO MAKE NEEDS KNOWN. ON ROOM AIR; TOLERATING WELL WITH NO SOB. DENIES PAIN OR DISCOMFORT AT THIS TIME. NO IV ACCESS NOTED. SAFETY MEASURES IN PLACE: BED IN LOWEST LOCKED POSITION, SIDE RAILS UP X2 CALL LIGHT WITHIN EASY REACH. WILL CONTINUE PLAN OF CARE.
--- NOTE | 2020-07-01 06:35 | NUR ---
MS RN CLOSING NOTE - CLINICAL TRIAL PATIENT A/OX4; ABLE TO MAKE NEEDS KNOWN. ON ROOM AIR; TOLERATING WELL WITH NO SOB. DENIES PAIN OR DISCOMFORT AT THIS TIME. NO IV ACCESS NOTED. SAFETY MEASURES IN PLACE: BED IN LOWEST LOCKED POSITION, SIDE RAILS UP X2, CALL LIGHT WITHIN EASY REACH. WILL ENDORSE PLAN OF CARE TO ONCOMING MORNING RN.
[2020-07-01 08:00] VITALS: BP 141/89
--- NOTE | 2020-07-01 08:00 | NUR ---
RN OPENING NOTE RECEIVED PATIENT IN BED SLEEPING, AO X 4, ABLE TO RESPONDS ALL STIMULI. SKIN IS WARM TO TOUCH, KEEP CLEAN/DRY, INTACT IV SITE. RESPIRATORY EVEN AND UNLABORED ON ROOM AIR. KEPT ELEVATED HOB FOR ENSURE AIRWAY AND ASPIRATION PRECAUTION, ALSO LOWEST BED POSITION FOR SAFETY. CALL LIGHT WITHIN REACH, WILL CONTINUE TO MONITOR.
[2020-07-01] MEDS: HYDROCHLOROTHIAZIDE 25 MG PO SCH (09:32)
[2020-07-01] MEDS: NORVASC 10 MG PO SCH (09:32)
--- NOTE | 2020-07-01 18:06 | NUR ---
RN CLOSE NOTE PATIENT IN ROOM, NO SI/HI OBSERVED DURING DAY SHIFT AND DOES NO APPEARS DISTRESS OR PAIN. SKIN IS WARM TO TOUCH, KEEP CLEAN/DRY. RESPIRATORY EVEN AND UNLABORED ON ROOM AIR. KEPT ELEVATED HOB FOR ENSURE AIRWAY AND ASPIRATION PRECAUTION AND LOWEST BED POSITION FOR SAFETY. CALL LIGHT WITHIN REACH, WILL CONTINUE TO MONITOR.
[2020-07-01 20:00] VITALS: BP 125/77
--- NOTE | 2020-07-01 20:09 | NUR ---
MS RN OPENING NOTE PATIENT A/OX4; ABLE TO MAKE NEEDS KNOWN. ON ROOM AIR; TOLERATING WELL WITH NO SOB. DENIES PAIN OR DISCOMFORT AT THIS TIME. NO IV ACCESS NOTED. SAFETY MEASURES IN PLACE: BED IN LOWEST LOCKED POSITION, SIDE RAILS UP X2 CALL LIGHT WITHIN EASY REACH. WILL CONTINUE PLAN OF CARE
--- NOTE | 2020-07-02 06:42 | NUR ---
MS RN OPENING NOTE PATIENT A/OX4; ABLE TO MAKE NEEDS KNOWN. ON ROOM AIR; TOLERATING WELL WITH NO SOB. DENIES PAIN OR DISCOMFORT AT THIS TIME. NO IV ACCESS NOTED. SAFETY MEASURES IN PLACE: BED IN LOWEST LOCKED POSITION, SIDE RAILS UP X2 CALL LIGHT WITHIN EASY REACH. WILL ENDORSE PLAN OF CARE TO ONCOMING MORNING RN.
--- NOTE | 2020-07-02 07:05 | NUR ---
MS RN OPENING NOTES RECEIVED PT AWAKE IN BED AT THIS TIME. AOX4. PT ABLE TO MAKE NEEDS KNOWN. NO SOB NOTED, NO C/O PAIN AT THIS TIME, NO S/O OF ANY ACUTE DISTRESS NOTED. PT IS STABLE ON RA. NO IV ACCESS NOTED. PT DENIES SI/HI. PT DENIES VISUAL/AUDITORY HALLUCINATION. SAFETY PRECAUTIONS IN PLACE AND MAINTAINED AT ALL TIMES. BED IN LOWEST LOCKED POSITION, HOB ELEVATED, SIDE RAILS UP X2, CALL LIGHT AND TABLE WITHIN REACH. WILL CONTINUE TO MONITOR
[2020-07-02 08:00] VITALS: BP 139/99
[2020-07-02] MEDS: HYDROCHLOROTHIAZIDE 25 MG PO SCH (09:16)
[2020-07-02] MEDS: NORVASC 10 MG PO SCH (09:16)
--- NOTE | 2020-07-02 19:06 | NUR ---
MS RN CLOSING NOTES PT AWAKE IN BED AT THIS TIME. PT REMAINED STABLE THROUGHOUT SHIFT. ALL CARE, NEEDS, MEDICATIONS AND TREATMENT ADMINISTERED ANTICIPATED PER ORDER. PT DENIES SI/HI. PT DENIES VISUAL/AUDITORY HALLUCINATIONS. SAFETY PRECAUTIONS IN PLACE AND MAINTAINED AT ALL TIMES. BED IN LOWEST LOCKED POSITION, HOB ELEVATED, SIDE RAILS UPX2, CALL LIGHT AND TABLE WITHIN REACH. WILL ENDORSE TO SENIOR NURSE MANAGER NURSE FOR STEVE
[2020-07-02 20:00] VITALS: BP 129/72
[2020-07-03 08:00] VITALS: BP 154/100
[2020-07-03] MEDS: NORVASC 10 MG PO SCH (08:57)
[2020-07-03] MEDS: HYDROCHLOROTHIAZIDE 25 MG PO SCH (08:57)
[2020-07-03] MEDS ORDERED: LORAZEPAM 1 MG TABLET FOR AGITATION/ANXIETY PO PRN (13:00)
--- NOTE | 2020-07-03 18:18 | NUR ---
MS RN OPENING NOTE PATIENT IS IN BED RESTING, PATIENT IS IN NO ACUTE DISTRESS. PATIENT IS ON ROOM AIR, TOLERATING WELL, NO SOB NOTED. SAFETY PRECAUTIONS ARE ON, BED IS LOCKED IN THE LOWEST POSITION, SIDE RAILS ARE UP, CALL LIGHT WITHIN REACH. WILL CONTINUE TO MONITOR CLOSELY.
--- NOTE | 2020-07-03 18:19 | NUR ---
MS RN CLOSING NOTE PATIENT IS IN BED RESTING, PATIENT IS IN NO ACUTE DISTRESS. PATIENT IS ON ROOM AIR, TOLERATING WELL, NO SOB NOTED. SAFETY PRECAUTIONS ARE ON, BED IS LOCKED IN THE LOWEST POSITION, SIDE RAILS ARE UP, CALL LIGHT WITHIN REACH. ENDORSE PATIENT TO MARKET ASSET PROTECTION MANAGER NURSE FOR STEVE.
[2020-07-03 20:00] VITALS: BP 137/94
[2020-07-04 08:00] VITALS: BP 152/95
[2020-07-04] MEDS: HYDROCHLOROTHIAZIDE 25 MG PO SCH (08:24)
[2020-07-04] MEDS: NORVASC 10 MG PO SCH (08:25)
[2020-07-04] MEDS: [UNRECOGNIZED DRUG - MIXTURE] PO SCH ×2 (09:54→22:29)
--- NOTE | 2020-07-04 18:10 | NUR ---
MS RN NOTE PATIENT RESTING IN BED. A/O X4. AMBULATORY WITH WALKER. ON ROOM AIR, TOLERATING WELL. NO SOB NOTED. NO S/S OF RESPIRATORY DISTRESS. DENIES ANY PAIN OR DISCOMFORT AT THIS TIME. REMINDED NOT TO EAT 1 HR BEFORE AND 2-3 HRS AFTER MEAL, MEDS MUST BE GIVEN ON AN EMPTY STOMACH. NO SIGNS OF [place] NOTED. ALL NEEDS HAVE BEEN MET AND ATTENDED. SAFETY MEASURES MAINTAINED. BED IN LOWEST POSITION, BRAKES LOCKED. SIDE RAILS UP X2. CALL LIGHT WITHIN REACH. WILL ENDORSE CONTINUITY OF CARE TO ONCOMING SHIFT.
--- NOTE | 2020-07-04 19:15 | NUR ---
MS RN: CONTINUITY OF CARE Patient is A/O x4. Independent with ADL's and mobility, no c/o pain. On Clinical Trial study drug. Patient is under the care of Dr. Will. Addendum: 07/04/20 at 2142 by [place]OR[place] DASILVA RN CLARIFICATION NOTES ABOVE: NYLA Galvan Error documentation placed under NYLA Burnham
[2020-07-04 20:00] VITALS: BP 133/82
--- NOTE | 2020-07-05 06:26 | NUR ---
END OF SHIFT REPORT Hours of sleep 7. Independent with ADL and mobility, no c/o pain. Calm and cooperative. Continue with Clinical Trial study drug as planned. Will endorse to oncoming RN.
[2020-07-05 08:00] VITALS: BP 149/66
--- NOTE | 2020-07-05 08:14 | NUR ---
RN-NOTES RECEIVED PATIENT SLEEPING WITH BREATHING EVEN AND NONLABORED EASILY AROUSED,NO ACUTE DISTRESS NOTED.
--- NOTE | 2020-07-05 08:35 | NUR ---
RN-NOTES PATIENT OFF THE UNIT FOR SMOKING.
--- NOTE | 2020-07-05 09:14 | NUR ---
RN-NOTES PATIENT BACK IN THE UNIT FROM SMOKING ,NO ACUTE DISTRESS NOTED.
[2020-07-05] MEDS: NORVASC 10 MG PO SCH (09:28)
[2020-07-05] MEDS: HYDROCHLOROTHIAZIDE 25 MG PO SCH (09:33)
--- NOTE | 2020-07-05 10:00 | NUR ---
RN-NOTES PATIENT OFF THE UNIT FOR SMOKING AMBULATORY USING WALKER.NO ACUTE DISTRESS NOTED.
[2020-07-05] MEDS: [UNRECOGNIZED DRUG - MIXTURE] PO SCH ×2 (10:42→22:18)
--- NOTE | 2020-07-05 11:02 | NUR ---
RN-NOTES PATIENT BACK IN THE UNIT FROM SMOKING ,NO ACUTE DISTRESS NOTED.
--- NOTE | 2020-07-05 11:03 | NUR ---
RN-NOTES PATIENT OFF THE UNIT FOR SMOKING AMBULATORY USING WALKER.NO ACUTE DISTRESS NOTED.
--- NOTE | 2020-07-05 14:15 | NUR ---
RN-NOTES PATIENT BACK IN THE UNIT ,NO ACUTE DISTRESS NOTED.
--- NOTE | 2020-07-05 15:30 | NUR ---
RN-NOTES PATIENT OFF THE UNIT FOR SMOKING AMBULATORY USING WALKER.NO ACUTE DISTRESS NOTED.
[2020-07-05 16:00] VITALS: BP 126/79
--- NOTE | 2020-07-05 16:30 | NUR ---
RN-NOTES PATIENT BACK IN THE UNIT ,NO ACUTE DISTRESS NOTED.
--- NOTE | 2020-07-05 18:47 | NUR ---
RN-CLOSING NOTES PATIENT SLEEPING IN BED WITH BREATHING EVEN AND NONLABORED ,EASILY AROUSED,NO ACUTE DISTRESS NOTED.PATIENT AMBULATORY WITH WALKER . DENIES ANY PAIN OR DISCOMFORT AT THIS TIME. ALL NEEDS ATTENDED AND MET. CALL LIGHT WITHIN REACH.WILL ENDORSE TO INCOMING NURSE FOR CONTINUITY OF CARE.
--- NOTE | 2020-07-05 19:00 | NUR ---
MS/RN OPENING NOTE RECEIVED PATIENT RESTING IN BED WATCHING TV. AWAKE, ALERT AND ORIENTED X 4. ABLE TO MAKE NEEDS KNOWN. NO COMPLAINTS OF PAIN AT THIS TIME. NO S/SX OF RESPIRATORY DISTRESS NOTED. NO IV ACCESS NOTED. CONTINUES ON CLINICAL TRIAL AND INVESTIGATIONAL MEDICATION. CALL LIGHT WITHIN REACH. ASPIRATION, FALL AND SAFETY PRECAUTIONS MAINTAINED. WILL CONTINUE TO MONITOR.
[2020-07-05 20:00] VITALS: BP 113/75
--- NOTE | 2020-07-06 06:43 | NUR ---
MS/RN CLOSING NOTE PATIENT CURRENTLY SLEEPING IN BED. ALERT AND ORIENTED X 4. ABLE TO MAKE NEEDS KNOWN. NO COMPLAINTS OF PAIN AT THIS TIME. NO S/SX OF RESPIRATORY DISTRESS NOTED. NO IV ACCESS NOTED. CONTINUES ON CLINICAL TRIAL AND INVESTIGATIONAL MEDICATION. CALL LIGHT WITHIN REACH. ASPIRATION, FALL AND SAFETY PRECAUTIONS MAINTAINED. WILL ENDORSE PLAN OF CARE TO ONCOMING SHIFT.
--- NOTE | 2020-07-06 07:59 | NUR ---
RN Opening Notes: Received pt. awake in her room, standing, responsive to staff no distress and no agitation noted. Breathing is even and unlabored and no pain reported. Will continue to monitor for safety.
[2020-07-06 08:00] VITALS: BP 133/95
[2020-07-06] MEDS: HYDROCHLOROTHIAZIDE 25 MG PO SCH (08:42)
[2020-07-06] MEDS: NORVASC 10 MG PO SCH (08:42)
[2020-07-06] MEDS: [UNRECOGNIZED DRUG - MIXTURE] PO SCH ×2 (10:08→22:02)
--- NOTE | 2020-07-06 13:03 | NUR ---
Pt. received a package of [employer]™. Gluing Crew Leader opened the package infront of the patient.
--- NOTE | 2020-07-06 14:45 | NUR ---
m/s coreroom foundry laborer: notes received pt pacing in her room and hallway. no distress noted. will continue to monitor.
--- NOTE | 2020-07-06 16:14 | NUR ---
m/s carburizing furnace operator: notes report given to andrés (rn) for continuity of care.
--- NOTE | 2020-07-06 18:49 | NUR ---
MS/RN CLOSING NOTE PATIENT CURRENTLY AWAKE IN BED. ALERT AND ORIENTED X 4. ABLE TO MAKE NEEDS KNOWN. NO COMPLAINTS OF PAIN AT THIS TIME. NO S/SX OF RESPIRATORY DISTRESS NOTED. NO IV ACCESS NOTED. CONTINUES ON CLINICAL TRIAL AND INVESTIGATIONAL MEDICATION. CALL LIGHT WITHIN REACH. ASPIRATION, FALL AND SAFETY PRECAUTIONS MAINTAINED. WILL ENDORSE PLAN OF CARE TO ONCOMING SHIFT.
[2020-07-06 20:00] VITALS: BP 109/63
--- NOTE | 2020-07-07 06:29 | NUR ---
MS RN CLOSING NOTE PATIENT A/OX4; ABLE TO MAKE NEEDS KNOWN. ON ROOM AIR; TOLERATING WELL WITH NO SOB. DENIES PAIN OR DISCOMFORT AT THIS TIME. NO IV ACCESS NOTED. SAFETY MEASURES IN PLACE: BED IN LOWEST LOCKED POSITION, SIDE RAILS UP X2, CALL LIGHT WITHIN EASY REACH. WILL ENDORSE PLAN OF CARE TO ONCOMING MORNING RN.
[2020-07-07 09:33] VITALS: BP 128/69
[2020-07-07] MEDS: NORVASC 10 MG PO SCH (10:29)
[2020-07-07] MEDS: HYDROCHLOROTHIAZIDE 25 MG PO SCH (10:29)
[2020-07-07] MEDS: [UNRECOGNIZED DRUG - MIXTURE] PO SCH ×2 (10:31→22:38)
[2020-07-07 20:00] VITALS: BP_SYST 125; BP_DIAS 77; BP_DIAS 99
--- NOTE | 2020-07-07 20:09 | NUR ---
RECEIVED PATIENT ALERT AND ORIENTATED CALL LIGHT WITHIN HER REACH
--- NOTE | 2020-07-08 04:31 | NUR ---
ENDING NOTES: >SLEPT THRU THE NIGHT. GOING TO BED 2300. >AMBULATES WITH THE WALKER STEADY ON HER LEGS >COOPERATIVE FRIENDLY >AWARE SHE NEEDS TO TAKE INVESTIGATIONAL DRUGS ON AN EMPTY STOMACH >NO HALLUCINATIONS
--- NOTE | 2020-07-08 07:35 | NUR ---
MSRN OPENING NOTE PATIENT A/OX4; ABLE TO MAKE NEEDS KNOWN. ON ROOM AIR; TOLERATING WELL WITH NO SOB. DENIES PAIN OR DISCOMFORT AT THIS TIME. NO IV ACCESS. SAFETY MEASURES IN PLACE: BED IN LOWEST LOCKED POSITION, SIDE RAILS UP X2, CALL LIGHT WITHIN EASY REACH.
[2020-07-08 08:00] VITALS: BP 136/83
[2020-07-08] MEDS: [UNRECOGNIZED DRUG - MIXTURE] PO SCH ×2 (10:28→22:50)
[2020-07-08] MEDS: HYDROCHLOROTHIAZIDE 25 MG PO SCH (10:29)
[2020-07-08] MEDS: NORVASC 10 MG PO SCH (10:29)
[2020-07-08 20:00] VITALS: BP 113/39
--- NOTE | 2020-07-08 20:00 | NUR ---
MS RN OPENING NOTES PATIENT ALERT & ORIENTED X 4. NO SIGNS OF DISTRESS OR SHORTNESS OF BREATH NOTED. PATIENT ON ROOM AIR AND TOLERATING WELL. NO REPORTS OF PAIN AT THIS TIME. PATIENT ABLE TO MAKE NEEDS KNOWN. SAFETY MEASURES IN PLACE, BED LOCKED IN LOWEST POSITION AND CALL LIGHT WITHIN REACH. WILL CONTINUE TO MONITOR
--- NOTE | 2020-07-09 06:42 | NUR ---
MS RN CLOSING NOTES PATIENT SLEEPING. NO SIGNS OF DISTRESS OR SHORTNESS OF BREATH NOTED. PATIENT ON ROOM AIR AND TOLERATING WELL. PATIENT ABLE TO MAKE NEEDS KNOWN. ALL MEDICATIONS GIVEN ORDERED. NEEDS ANTICIPATED AND ATTENDED TO. SAFETY MEASURES IN PLACE, BED LOCKED IN LOWEST POSITION AND CALL LIGHT WITHIN REACH. WILL ENDORSE TO DAY SHIFT NURSE FOR CONTINUITY OF CARE.
[2020-07-09 08:00] VITALS: BP 129/84
[2020-07-09] MEDS: NORVASC 10 MG PO SCH (10:02)
[2020-07-09] MEDS: HYDROCHLOROTHIAZIDE 25 MG PO SCH (10:02)
[2020-07-09] MEDS: [UNRECOGNIZED DRUG - MIXTURE] PO SCH ×2 (10:02→21:57)
--- NOTE | 2020-07-09 17:21 | NUR ---
MSRN CLOSING NOTE PATIENT A/OX4; ABLE TO MAKE NEEDS KNOWN. ON ROOM AIR; TOLERATING WELL WITH NO SOB. DENIES PAIN OR DISCOMFORT AT THIS TIME. NO IV ACCESS. SAFETY MEASURES IN PLACE: BED IN LOWEST LOCKED POSITION, SIDE RAILS UP X2, CALL LIGHT WITHIN EASY REACH.
--- NOTE | 2020-07-09 19:25 | NUR ---
MS RN OPENING NOTES: PATIENT WENT DOWNSTAIRS, AMBULATORY WITH THE WALKER, STEADY. NO S/S OF DISTRESS NOTED.
--- NOTE | 2020-07-09 21:45 | NUR ---
PATIENT IS NOT BACK YET FORM DOWNSTAIRS, INFORMED THE CHARGE NURSE SHERIE.
--- NOTE | 2020-07-09 21:53 | NUR ---
PATIENT CAME BACK FROM DOWNSTAIRS.
[2020-07-09 21:57] VITALS: BP 115/58
--- NOTE | 2020-07-10 07:15 | NUR ---
MS RN NOTES PATIENT IN BED ALERT ORIENTED X 4. NO ACUTE DISTRESS NOTED. BREATHING UNLABORED. NO SOB NOTED. SAFETY MEASURES IN PLACE. CALL LIGHT WITHIN REACH. WILL CONTINUE TO MONITOR ACCORDINGLY
[2020-07-10 08:00] VITALS: BP 140/98
[2020-07-10] MEDS: NORVASC 10 MG PO SCH (08:45)
[2020-07-10] MEDS: HYDROCHLOROTHIAZIDE 25 MG PO SCH (08:46)
[2020-07-10] MEDS: [UNRECOGNIZED DRUG - MIXTURE] PO SCH ×2 (10:53→21:55)
[2020-07-10 16:00] VITALS: BP 129/91
--- NOTE | 2020-07-10 19:00 | NUR ---
MS RN NOTES PATIENT IN BED ALERT ORIENTED X 4. NO ACUTE DISTRESS NOTED. BREATHING UNLABORED. NO SOB NOTED. NEEDS ATTENDED AND ANTICIPATED. SAFETY MEASURES IN PLACE. CALL LIGHT WITHIN REACH. WILL ENDORSE TO NIGHT NURSE FOR CONTINUITY OF CARE.
--- NOTE | 2020-07-10 19:56 | NUR ---
MS RN OPENING NOTE PATIENT NOT IN THE UNIT AT THIS TIME. WILL ASSESS PATIENT WHEN SHE COMES BACK TO ROOM.
[2020-07-10 20:00] VITALS: BP 122/85
--- NOTE | 2020-07-10 20:45 | NUR ---
MS RN NOTE PATIENT RETURNED FROM ROOM: PATIENT A/OX4; ABLE TO MAKE NEEDS KNOWN. ON ROOM AIR; TOLERATING WELL WITH NO SOB. DENIES PAIN OR DISCOMFORT AT THIS TIME. NO IV ACCESS NOTED. EDUCATED PATIENT NOT TO EAT BEFORE OR AFTER INVESTIGATIONAL MED. SAFETY MEASURES IN PLACE: BED IN LOWEST LOCKED POSITION, SIDE RAILS UP X2 CALL LIGHT WITHIN EASY REACH. WILL CONTINUE PLAN OF CARE
[2020-07-11] MEDS: ZOLPIDEM TARTRATE 10 MG TABLET PO PRN (00:16)
--- NOTE | 2020-07-11 00:16 | NUR ---
MS RN NOTE - SLEEP PATIENT C/O NOT BEING ABLE TO FALL ASLEEP. ADMINISTERED AMBIEN ORDERED. WILL CONTINUE TO ASSESS PATIENT FOR SLEEP.
[2020-07-11 08:00] VITALS: BP 147/97
[2020-07-11] MEDS: NORVASC 10 MG PO SCH (08:30)
[2020-07-11] MEDS: HYDROCHLOROTHIAZIDE 25 MG PO SCH (08:30)
[2020-07-11] MEDS: [UNRECOGNIZED DRUG - MIXTURE] PO SCH ×2 (10:07→21:32)
[2020-07-11 16:00] VITALS: BP 111/87
--- NOTE | 2020-07-11 18:38 | NUR ---
MS RN CLOSING NOTE PATIENT A/OX4; ABLE TO MAKE NEEDS KNOWN. ON ROOM AIR; TOLERATING WELL WITH NO SOB. DENIES PAIN OR DISCOMFORT AT THIS TIME. NO IV ACCESS NOTED. PATIENT IS ON CLINICAL TRIAL WITH DR HERZOG. PATIENT TOOK MEDICATION AND LABS WERE DRAWN. SAFETY MEASURES IN PLACE: BED IN LOWEST LOCKED POSITION, SIDE RAILS UP X2, CALL LIGHT WITHIN EASY REACH. WILL ENDORSE PLAN OF CARE TO ONCOMING MORNING RN.
--- NOTE | 2020-07-11 19:10 | NUR ---
PATIENT IS NOT IN THE ROOM AT THIS TIME.
[2020-07-11 20:00] VITALS: BP 126/76
--- NOTE | 2020-07-11 20:51 | NUR ---
PATIENT CAME BACK FROM DOWNSTAIRS. PATIENT REMINDED REGARDING THE BLOOD DRAW TONIGHT AT 2130, VERBALIZED UNDERSTANDING.
[2020-07-11] MEDS: LIDOCAINE 5% (PATCH) 1 EA PATCH TP PRN (21:32)
--- NOTE | 2020-07-12 00:05 | NUR ---
PATIENT CAME BACK FROM DOWNSTAIRS, AMBULATORY WITH THE WALKER, STEADY GAIT. NO COMPLAIN OF PAIN. WITH RIGHT SHOULDER LIDOCAIN PATCH, TO BE REMOVED TOMORROW MORNING, WILL ENDORSE TO THE NEXT SHIFT RN.
--- NOTE | 2020-07-12 07:30 | NUR ---
MS RN OPENING NOTES: RESIDENT WASNOT IN THE ROOM DURING ENDORSEMENT, CAME BACK AT 0830, PATIENT IS ALERT AND ORIENTE, NO COMPLAIN OF PAIN AND DISCOMFORT, NO SOB NOTED AND OBSERVED, PATIENT IS ABLE TO EXPRESS NEEDS, MEDICATION COMPLAINCE, WILL CONTINUE TO MONITOR.
[2020-07-12] MEDS: NORVASC 10 MG PO SCH (08:40)
[2020-07-12] MEDS: HYDROCHLOROTHIAZIDE 25 MG PO SCH (08:40)
[2020-07-12] MEDS: [UNRECOGNIZED DRUG - MIXTURE] PO SCH ×2 (10:06→22:11)
[2020-07-12 16:00] VITALS: BP 113/70
--- NOTE | 2020-07-12 18:14 | NUR ---
RN CLOSING NOTES: RESIDENT WAS IN THE ROOM, ALERT AND ORIENTED X 4, NO COMPLAIN OF PAIN AND DISCOMFORT, ABLE TO EXPRESS NEEDS, NO SIGN OF SOB, OR ANY RESP. DISTRESS, AMBULATORY WITH ASSISTANCE, ALL NEEDS MET, WILL ENDORSE IT TO THE MORNING SHIFT.
[2020-07-12 20:00] VITALS: BP 114/61
[2020-07-12] MEDS: ZOLPIDEM TARTRATE 10 MG TABLET PO PRN (22:16)
--- NOTE | 2020-07-13 06:00 | NUR ---
MS RN NOTES PT SLEEPING. EASILY AROUSABLE. NOT IN ANY DISTRESS. NO SOB NOTED. DENIES ANY PAIN OR DISCOMFORT AT THIS TIME. MONITORED ACCORDINGLY. CALL LIGHT WITHIN REACH. BED IN LOWEST POSITION. SR UP X2 FOR SAFETY. SLEPT FOR 8 HOURS. WILL ENDORSE TO NEXT SHIFT.
[2020-07-13 08:00] VITALS: BP 124/72
--- NOTE | 2020-07-13 08:05 | NUR ---
MS RN OPENING NOTE PATIENT IS IN BED SLEEPING, PATIENT IS NO ACUTE DISTRESS, PATIENT IS ON ROOM AIR TOLERATING WELL. SAFETY PRECAUTIONS ARE ON, BED IS LOCKED AND IN THE LOWEST POSITION, WITH SIDE RAILS UP, CALL LIGHT WITHIN REACH. WILL CONTINUE TO MONITOR THROUGHOUT THE SHIFT.
[2020-07-13] MEDS: NORVASC 10 MG PO SCH (08:58)
[2020-07-13] MEDS: HYDROCHLOROTHIAZIDE 25 MG PO SCH (08:58)
[2020-07-13] MEDS: [UNRECOGNIZED DRUG - MIXTURE] PO SCH ×2 (10:08→22:29)
[2020-07-13 16:00] VITALS: BP 126/70
--- NOTE | 2020-07-13 18:38 | NUR ---
MS RN CLOSING NOTE PATIENT IS IN BED RESTING, PATIENT IS NO ACUTE DISTRESS, PATIENT IS ON ROOM AIR TOLERATING WELL. SAFETY PRECAUTIONS ARE ON, BED IS LOCKED AND IN THE LOWEST POSITION, WITH SIDE RAILS UP, CALL LIGHT WITHIN REACH. ENDORSE PATIENT TO SENIOR PRODUCT ENGINEER NURSE FOR STEVE.
[2020-07-13 20:00] VITALS: BP 129/88
--- NOTE | 2020-07-13 20:04 | NUR ---
MS/TELE/RN PATIENT JUST CAME FROM DOWNSTAIRS, PATIENT IS AWAKE, ALERT, ORIENTED, COMFORTABLE, NO C/O PAIN, NO DISTRESS NOTED. PATIENT IS AWARE NOT TO EAT OR DRINK 2 HOURS BEFORE AND AFTER SHE TOOK THE INVESTIGATIONAL MEDICATION AT 2200. WILL MONITOR.
[2020-07-13] MEDS: LIDOCAINE 5% (PATCH) 1 EA PATCH TP PRN (22:42)
--- NOTE | 2020-07-14 06:27 | NUR ---
MS/TELE/RN PATIENT IS STILL SLEEPING AT THIS TIME, APPEAR COMFORTABLE, NO SIGNS OF DISTRESS NOTED, GOOD SLEEP NOTED DURING THE SHIFT, ALL NEEDS ATTENDED AT THIS TIME, WILL CONTINUE TO MONITOR.
--- NOTE | 2020-07-14 07:43 | NUR ---
MS RN OPENING NOTE RECEIVED PATIENT IN BED. A/O X4. ON ROOM AIR, TOLERATING WELL. NO SOB NOTED. IN NO APPARENT DISTRESS. DENIES ANY PAIN OR DISCOMFORT AT THIS TIME. SAFETY MEASURES MAINTAINED. BED IN LOWEST POSITION, BRAKES LOCKED. SIDE RAILS UP X2. CALL LIGHT WITHIN REACH. WILL CONTINUE PLAN OF CARE.
[2020-07-14 08:00] VITALS: BP 137/76
[2020-07-14] MEDS: NORVASC 10 MG PO SCH (08:24)
[2020-07-14] MEDS: HYDROCHLOROTHIAZIDE 25 MG PO SCH ×2 (08:24→09:59)
[2020-07-14] MEDS: [UNRECOGNIZED DRUG - MIXTURE] PO SCH ×2 (09:34→21:59)
--- NOTE | 2020-07-14 18:02 | NUR ---
MS RN CLOSING NOTE PATIENT IN BED. A/O X4. AMBULATORY WITH WALKER. ON ROOM AIR, SATURATING WELL AT 97. NO SOB NOTED. NO S/S OF RESPIRATORY DISTRESS. NO REPORTS OF PAIN OR DISCOMFORT AT THIS TIME. ALL MEDS WERE GIVEN ORDERED. ALL NEEDS HAVE BEEN MET AND ATTENDED. NO REPORTS OF [place] AND TREMORS. SAFETY MEASURES MAINTAINED. BED IN LOWEST POSITION, BRAKES LOCKED. SIDE RAILS UP X2. CALL LIGHT WITHIN REACH. WILL ENDORSE CONTINUITY OF CARE TO ONCOMING SHIFT.
[2020-07-14 20:00] VITALS: BP 135/99
--- NOTE | 2020-07-15 06:34 | NUR ---
MS/TELE/RN PATIENT IS STILL SLEEPING, APPEAR COMFORTABLE, NO SIGNS OF DISTRESS NOTED, ALL NEEDS ATTENDED AT THIS TIME, WILL CONTINUE TO MONITOR.
--- NOTE | 2020-07-15 07:48 | NUR ---
MS RN OPENING NOTES PATIENT RECEIVED AWAKE AND SITTING IN BED. A/O X4. ABLE TO MAKE NEEDS KNOWN, DENIES PAIN OR ANY DISCOMFORTS AT THIS TIME. ON ROOM AIR, TOLERATING WELL, NO SOB NOTED. SAFETY MEASURES IN PLACE: BED IS LOCKED AND IN THE LOWEST POSITION, SIDE RAILS UP X2 AND CALL LIGHT WITHIN REACH. WILL CONTINUE TO MONITOR THROUGHOUT THE SHIFT.
[2020-07-15 08:00] VITALS: BP 148/86
[2020-07-15] MEDS: HYDROCHLOROTHIAZIDE 25 MG PO SCH (09:03)
[2020-07-15] MEDS: NORVASC 10 MG PO SCH (09:03)
[2020-07-15] MEDS: [UNRECOGNIZED DRUG - MIXTURE] PO SCH ×2 (10:00→22:07)
[2020-07-15 16:00] VITALS: BP 138/75
--- NOTE | 2020-07-15 18:39 | NUR ---
MS RN CLOSING NOTES PATIENT WALKING IN THE HALLWAYS WITH HER WALKER AT THIS TIME. A/O X4. ABLE TO MAKE NEEDS KNOWN. ON ROOM AIR, TOLERATING WELL, NO SOB NOTED. ALL DUE MEDS GIVEN AND TOLERATED WITH NO ILL EFFECTS NOTED. NO INAPPROPRIATE BEHAVIOR EXHIBITED DURING THE DAY. ALL NEEDS ATTENDED WELL. WILL ENDORSE PLAN OF CARE TO MOTOR VEHICLE ESCORT DRIVER NURSE. .
--- NOTE | 2020-07-15 19:31 | NUR ---
MS RN NOTES PATIENT WALKING IN THE HALLWAYS WITH HER WALKER AT THIS TIME. A/O X4. ABLE TO MAKE NEEDS KNOWN.ON ROOM AIR, TOLERATING WELL WITH UNLABORED BREATHING AND EQUAL RISE AND FALL OF CHEST. NO RESPIRATORY DISTRESS NOTED OR REPORTED NO PAIN OR DISCOMFORT REPORTED OR NOTED AT THIS TIME. ALL NURSING NEEDS MET AT THIS TIME NEEDS ATTENDED AT THIS TIME. WILL CONTINUE TO MONITOR.
[2020-07-15 21:40] VITALS: BP 126/87
[2020-07-16 08:00] VITALS: BP 122/75
--- NOTE | 2020-07-16 08:06 | NUR ---
RN OPENING NOTES RECEIVED PT AWAKE IN BED AT THIS TIME. AOX4. PT ABLE TO COMMUNICATE NEEDS. NO SOB NOTED, NO C/O PAIN AT THIS TIME, NO S/S OF ANY APPARENT DISTRESS NOTED. PT IS STABLE ON RA. NO IV ACCESS NOTED. PT DENIES SI/HI. PT DENIES VISUAL/AUDITORY HALLUCINATION. SAFETY PRECAUTIONS IN PLACE AND MAINTAINED AT ALL TIMES. BED IN LOWEST LOCKED POSITION, HOB ELEVATED, SIDE RAILS UP X2, CALL LIGHT AND TABLE WITHIN REACH. WILL CONTINUE TO MONITOR
[2020-07-16] MEDS: NORVASC 10 MG PO SCH (09:49)
[2020-07-16] MEDS: HYDROCHLOROTHIAZIDE 25 MG PO SCH (09:49)
[2020-07-16] MEDS: [UNRECOGNIZED DRUG - MIXTURE] PO SCH ×2 (12:14→22:12)
--- NOTE | 2020-07-16 12:15 | NUR ---
MS RN NOTES ADMINISTERED INVESTIGATIONAL MED AT THIS TIME DUE TO PT NOT ON UNIT IN ROOM AT MED SCHEDULED TIME.
--- NOTE | 2020-07-16 12:30 | NUR ---
PATIENT TRANSPORTED FOR CARDIAC CATH BY BED AT THIS TIME BY TWO COUNTER CUTTER RNS WITH ACLS PROTOCOLS IN PLACE. WILL CONTINUE WITH PLAN OF CARE. Addendum: 07/16/20 at 1700 by MAYELIN BEYER RN DISREGARD NOTE ABOVE. ERROR-WRONG PATIENT.
[2020-07-16 16:00] VITALS: BP 126/85
--- NOTE | 2020-07-16 16:54 | NUR ---
PATIENT S/P CARDIAC CATH PROCEDURE. REPORT CALLED TO NYLA VELAZQUEZ AT ICU AT THIS TIME. Addendum: 07/16/20 at 1701 by MAYELIN BEYER RN DISREGARD-NOTES NOT MEANT FOR THIS PATIENT.
--- NOTE | 2020-07-16 19:05 | NUR ---
RN CLOSING NOTES PT AWAKE IN BED AT THIS TIME. PT REMAINED STABLE THROUGHOUT SHIFT. ALL NEEDS MET. PT DENIES SI/HI, VISUAL AND AUDITORY HALLUCINATION. SAFETY PRECAUTIONS IN PLACE AND MAINTAINED AT ALL TIMES. BED IN LOWEST LOCKED POSITION, HOB ELEVATED, SIDE RAILS UP X 2. CALL LIGHT AND TABLE WITHIN REACH. WILL ENDORSE TO PUBLICATIONS INSPECTOR NURSE FOR STEVE
--- NOTE | 2020-07-16 19:45 | NUR ---
MS RN OPENING NOTE PATIENT ALERT AND ORIENTED X 4. NO SIGNS OF DISTRESS OR SHORTNESS OF BREATH NOTED. PATIENT ABLE TO MAKE NEEDS KNOWN. NO REPORTS OF PAIN AT THIS TIME. SAFETY MEASURES IN PLACE, BED LOCKED IN LOWEST POSITION, SIDE RAILS UP X 2, AND CALL LIGHT WITHIN REACH. WILL CONTINUE TO MONITOR
[2020-07-16 20:00] VITALS: BP 150/94
--- NOTE | 2020-07-17 07:00 | NUR ---
MS RN CLOSING NOTE PATIENT SLEEPING IN ROOM, NO SIGNS OF DISTRESS OR SHORTNESS OF BREATH NOTED. MEDICATIONS GIVEN ORDERED. PATIENT NEEDS MET THROUGHOUT SHIFT. SAFETY MEASURES IN PLACE, BED LOCKED IN LOWEST POSITION AND CALL LIGHT WITHIN REACH. WILL ENDORSE TO DAY SHIFT NURSE FOR CONTINUITY OF CARE
--- NOTE | 2020-07-17 07:49 | NUR ---
MS JOHN Opening Note: Patient received in bed A&O x 4, patient on room air with no s/s of respiratory distress. Tremors noted, IV access intact and patent. Mild discomfort on right side noted, reposition for comfort. Skin warm and dry to touch. Safety precaution implemented with bed locked, bed in lowest position , bilateral side rails up and call light within easy reach. Will continue to monitor patient. Addendum: 07/17/20 at 0800 by MEGHANA KELLER LVN WRONG PATIENT NOTE, PLEASE DISREGARD
[2020-07-17 08:00] VITALS: BP 131/86
--- NOTE | 2020-07-17 08:02 | NUR ---
MS TOPPER PRESS OPERATOR Opening Note: Patient received in bed alert and orientated x4, on room air with no s/s of respiratory distress with even non-labored breathing. Skin warm and dry to touch, patient reports no pain or discomfort at this time. Safety precautions implemented with bed locked, bed in lowest position , bilateral side rails up and call light within easy reach. Will continue to monitor patient.
[2020-07-17] MEDS: NORVASC 10 MG PO SCH (09:00)
[2020-07-17] MEDS: HYDROCHLOROTHIAZIDE 25 MG PO SCH (09:00)
[2020-07-17] MEDS: [UNRECOGNIZED DRUG - MIXTURE] PO SCH ×2 (10:30→22:00)
[2020-07-17 10:37] VITALS: BP 105/58
--- NOTE | 2020-07-17 18:02 | NUR ---
MED SURG ARMATURE BALANCER CLOSING NOTES: PATIENT IS ALERT AND ORIENTATED X 4, PATIENT, PATIENT IS ON ROOM AIR AND SATURATED WELL THROUGHOUT SHIFT. MET ALL OF PATIENT'S NEEDS NO COMPLAINTS OF PAIN OR DISCOMFORT AT THIS TIME. SKIN KEPT CLEAN, WARM AND DRY TO TOUCH. SAFETY PRECAUTIONS IMPLEMENTED WITH BED LOCKED, BED IN LOWEST POSITION, BILATERAL SIDE RAILS UP AND CALL LIGHT WITHIN EASY REACH. WILL ENDORSE PLAN OF CARE TO UPCOMING RN.
--- NOTE | 2020-07-17 19:15 | NUR ---
RN ms opening notes Received Pt from morning nurse. Pt is sitting in bed comfortably talking on her cellphone. Pt is alert and orientedX4. Respiration is normal in room air. No SOB. No S/S of distress noted. Informed and explained about the important taking meds ontime at 2200. Pt verbalize understanding. Safety precautions is maintained. Bed at low position, brakes locked, side rails upX2, hob elevated and call light is within reach. Will continue to monitor.
[2020-07-17 20:00] VITALS: BP 111/79
--- NOTE | 2020-07-18 06:40 | NUR ---
RN ms closing notes Pt is resting in bed comfortably. Pt is alert and orientedX4. Respiration is normal in room air. No SOB. No S/S of distress noted. VS is stable. Afebrile. Kept Pt clean, dry and comfortable. All needs met and attended. Safety precautions is maintained. Bed at low position, brakes locked, side rails upX2, hob elevated and call light is within reach. Will endorse to morning nurse for STEVE.
--- NOTE | 2020-07-18 07:25 | NUR ---
ms rn received patient on bed, awake,alert,oriented x4, clinical trial patient,no distress noted, will monitor patient.
[2020-07-18 08:00] VITALS: BP 140/91
[2020-07-18] MEDS: NORVASC 10 MG PO SCH (09:00)
[2020-07-18] MEDS: HYDROCHLOROTHIAZIDE 25 MG PO SCH (09:00)
--- NOTE | 2020-07-18 09:00 | NUR ---
ms rn patient "s meds given, tolerated well.
[2020-07-18] MEDS: [UNRECOGNIZED DRUG - MIXTURE] PO SCH ×2 (10:00→22:00)
[2020-07-18 16:00] VITALS: BP 124/83
--- NOTE | 2020-07-18 18:06 | NUR ---
MS RN NOTES Patient is A&Ox4. At baseline. No adverse side effects from clinical trial medication. Patient reports no pain or discomfort. Patient able to verbalize needs. No issues.
--- NOTE | 2020-07-18 19:04 | NUR ---
MS RN OPENING NOTES PATIENT WAS SEEN AWAKE SITTING ON HER BED. PATIENT IS ALERT AND ORIENTED X3. PATIENT IS ON ROOM AIR WITH NO RESPIRATORY DISTRESS AT THIS TIME. PATIENT IS ABLE TO AMBULATE WITH A WALKER. SAFETY PRECAUTIONS ARE IN PLACE: BED IS LOCKED AND CALL LIGHT IS WITHIN REACH OF THE PATIENT. WILL CONTINUE TO MONITOR THE PATIENT.
[2020-07-18 20:00] VITALS: BP_SYST 138; BP_SYST 90; BP_DIAS 63; BP_DIAS 86
[2020-07-18] MEDS: ZOLPIDEM TARTRATE 10 MG TABLET PO PRN (22:12)
--- NOTE | 2020-07-19 07:47 | NUR ---
MS RN CLOSING NOTES PATIENT WAS SEEN SLEEPING ON HER BED. PATIENT IS ALERT AND ORIENTED X3. PATIENT IS ON ROOM AIR WITH NO RESPIRATORY DISTRESS AT THIS TIME. PATIENT IS ABLE TO AMBULATE WITH A WALKER. SAFETY PRECAUTIONS ARE IN PLACE: BED IS LOCKED AND CALL LIGHT IS WITHIN REACH OF THE PATIENT. ENDORSED CARE TO DAY SHIFT NURSE.
[2020-07-19 08:00] VITALS: BP 135/95
--- NOTE | 2020-07-19 08:00 | NUR ---
RN OPENING NOTE RECEIVED PATIENT IN BED, UNDER CT, AO X4, ABLE TO RESPONDS ALL STIMULI. SKIN IS WARM TO TOUCH, KEEP CLEAN/DRY. RESPIRATORY EVEN AND UNLABORED ON ROOM. KEPT ELEVATED HOB FOR ENSURE AIRWAY AND ASPIRATION PRECAUTION, ALSO LOWEST BED POSITION. CALL LIGHT WITHIN REACH, WILL CONTINUE TO MONITOR.
[2020-07-19] MEDS: HYDROCHLOROTHIAZIDE 25 MG PO SCH (10:09)
[2020-07-19] MEDS: NORVASC 10 MG PO SCH (10:09)
[2020-07-19] MEDS: [UNRECOGNIZED DRUG - MIXTURE] PO SCH ×2 (10:10→21:56)
--- NOTE | 2020-07-19 18:35 | NUR ---
RN CLOSING NOTE PATIENT IN BED RESTING, REMAINS AO X 4, DENIES PAIN OR DISCOMFORT. SKIN IS WARM TO TOUCH, KEEP CLEAN/DRY. RESPIRATORY EVEN AND UNLABORED ON ROOM AIR. KEPT ELEVATED HOB FOR ENSURE AIRWAY AND ASPIRATION PRECAUTION, ALSO LOWEST BED POSITION FOR SAFETY. CALL LIGHT WITHIN REACH, WILL ENDORSE COMIC BOOK DESIGNER
--- NOTE | 2020-07-19 19:35 | NUR ---
MS RN NOTES PATIENT IN BED RESTING, REMAINS AO X 4, DENIES PAIN OR DISCOMFORT. SKIN IS WARM TO TOUCH, KEEP CLEAN/DRY. RESPIRATORY EVEN AND UNLABORED ON ROOM AIR. KEPT ELEVATED HOB FOR ENSURE AIRWAY AND ASPIRATION PRECAUTION, ALSO LOWEST BED POSITION FOR SAFETY. CALL LIGHT WITHIN REACH, WILL CONTINUE TO MONITOR.
[2020-07-19 20:00] VITALS: BP 108/53
--- NOTE | 2020-07-19 23:05 | NUR ---
MS REDMOND NOTES PT EXPERIENCING EPISODE OF N/V MAALOX PROVIDED WILL CONTINUE TO MONITOR. Addendum: 07/19/20 at 2311 by CHRIS WELSH RN EMESIS X 1
--- NOTE | 2020-07-20 06:52 | NUR ---
MS RN NOTES PATIENT IN BED RESTING, REMAINS AO X 4, DENIES PAIN OR DISCOMFORT. SKIN IS WARM TO TOUCH, KEEP CLEAN/DRY. RESPIRATORY EVEN AND UNLABORED ON ROOM AIR. KEPT ELEVATED HOB FOR ENSURE AIRWAY AND ASPIRATION PRECAUTION, ALSO LOWEST BED POSITION FOR SAFETY. CALL LIGHT WITHIN REACH, WILL ENDORSE CARE TO DAY SHIFT NURSE.
--- NOTE | 2020-07-20 08:00 | NUR ---
RN OPENING NOTE RECEIVED PATIENT IN ROOM, AO X4, ABLE TO RESPONDS ALL STIMULI. DENIES DISTRESS OR DISCOMFORT AT THIS TIME. SKIN IS WARM TO TOUCH, KEEP CLEAN/DRY, INTACT IV SITE. RESPIRATORY EVEN AND UNLABORED ON ROOM. KEPT ELEVATED HOB FOR ENSURE AIRWAY AND ASPIRATION PRECAUTION, ALSO LOWEST BED POSITION. CALL LIGHT WITHIN REACH, WILL CONTINUE TO MONITOR.
[2020-07-20 08:01] VITALS: BP 140/74
[2020-07-20] MEDS: NORVASC 10 MG PO SCH (09:41)
[2020-07-20] MEDS: HYDROCHLOROTHIAZIDE 25 MG PO SCH (09:41)
[2020-07-20] MEDS: [UNRECOGNIZED DRUG - MIXTURE] PO SCH ×2 (11:16→21:56)
[2020-07-20 15:50] VITALS: BP 118/62
--- NOTE | 2020-07-20 18:29 | NUR ---
RN CLOSING NOTE PATIENT IN BED RESTING, REMAINS AO X 4. SKIN IS WARM TO TOUCH, KEEP CLEAN/DRY. RESPIRATORY EVEN AND UNLABORED ON ROOM AIR. KEPT ELEVATED HOB FOR ENSURE AIRWAY AND ASPIRATION PRECAUTION, ALSO LOWEST BED POSITION FOR SAFETY. REMINDER PATIENT TO BE EMPTY STOMACH ONE HOUR BEFORE OR 2-3 HOURS AFTER MEAL FOR TAKE MEDICATIONS. CALL LIGHT WITHIN REACH, WILL ENDORSE CYBER INSTRUCTOR.
[2020-07-20 20:00] VITALS: BP 111/81
--- NOTE | 2020-07-21 06:16 | NUR ---
MS RN CLOSING NOTES: PATIENT INSIDE THE BATHROOM. NO COMPLAIN OF PAIN DURING SHIFT. NO S/S OF DISTRESS NOTED. CALL LIGHT WITHIN REACH. BED IN LOWEST AND LOCKED POSITION. AMBULATORY.
--- NOTE | 2020-07-21 07:30 | NUR ---
PT IN BED RESTING AOX4 , SKIN IS WARM AND DRY TO TOUCH , BREATHING EVEN AND UNLABORED, KEEP HOB ELEVATED , BED LOWEST POSITION FOR SAFETY , REMIND PATIENT TO BE ON EMPTY STOMACH 1 HOUR BEFORE OR 2-3 HRS AFTER MEDS. CALL LIGHT WITHIN REACH
[2020-07-21 08:00] VITALS: BP 137/76
[2020-07-21] MEDS: HYDROCHLOROTHIAZIDE 25 MG PO SCH (08:17)
[2020-07-21] MEDS: NORVASC 10 MG PO SCH (08:17)
[2020-07-21] MEDS: [UNRECOGNIZED DRUG - MIXTURE] PO SCH ×2 (10:19→21:56)
[2020-07-21 16:00] VITALS: BP 126/76
--- NOTE | 2020-07-21 19:00 | NUR ---
MS RN OPENING NOTES: PATIENT WAS NOT IN THE ROOM AT THIS MOMENT. WILL CHECK AGAIN LATER.
[2020-07-21 20:00] VITALS: BP 117/71
[2020-07-21 22:00] VITALS: BP 117/71
[2020-07-22] MEDS: NORVASC 10 MG PO SCH (08:38)
[2020-07-22] MEDS: HYDROCHLOROTHIAZIDE 25 MG PO SCH (08:38)
[2020-07-22] MEDS: [UNRECOGNIZED DRUG - MIXTURE] PO SCH ×2 (11:05→22:00)
[2020-07-22 20:00] VITALS: BP 135/73
--- NOTE | 2020-07-22 20:00 | NUR ---
PATIENT RETURNED TO UNIT. REVIEWED CLINICAL TRIAL PLAN. PT CONFIRMED SHE WILL BE NPO UNTIL 2200 IN PREPARATION FOR STUDY MEDICATION.
--- NOTE | 2020-07-22 20:11 | NUR ---
REPORT RECIEVED FROM JULI REDMOND PATIENT OFF UNIT. PT CLINICAL TRIAL ALLOWED TO LEAVE UNIT UNSUPERVISED WILL AWAIT THEIR RETURN. Addendum: 07/22/20 at 2016 by SHAYNE VALENZUELA RN CORRECT TIME SHOULD BE 1930
--- NOTE | 2020-07-23 07:30 | NUR ---
RN OPENING NOTE PT IN BED RESTING AOX4. PATIENT IS ON ROOM AIR. BREATHING EVEN AND UNLABORED. PATIENT ON CLINICAL TRIAL. SAFETY PRECAUTIONS IMPLEMENTED, SIDE RAILS UP X2, BED LOCKED IN LOWEST POSITION. CALL LIGHT WITHIN REACH. PATIENT TO BE ON EMPTY STOMACH 1 HOUR BEFORE OR 2-3 HRS AFTER INVESTIGATIONAL MED. WILL CONTINUE TO MONITOR AND PROVIDE CARE THROUGHOUT SHIFT.
[2020-07-23 08:00] VITALS: BP 144/84
[2020-07-23] MEDS: NORVASC 10 MG PO SCH (09:00)
[2020-07-23] MEDS: HYDROCHLOROTHIAZIDE 25 MG PO SCH (09:00)
[2020-07-23] MEDS: [UNRECOGNIZED DRUG - MIXTURE] PO SCH ×2 (10:07→23:01)
--- NOTE | 2020-07-23 13:54 | NUR ---
investigational drug administered 2 hours after meal as prescribed.
[2020-07-23 16:00] VITALS: BP 137/84
--- NOTE | 2020-07-23 19:53 | NUR ---
RN CLOSING NOTE PT IN BED RESTING AOX4. PATIENT IS ON ROOM AIR. BREATHING EVEN AND UNLABORED. PATIENT ON CLINICAL TRIAL. SAFETY PRECAUTIONS IMPLEMENTED, SIDE RAILS UP X2, BED LOCKED IN LOWEST POSITION. CALL LIGHT WITHIN REACH. PATIENT TO BE ON EMPTY STOMACH 1 HOUR BEFORE OR 2-3 HRS AFTER INVESTIGATIONAL MED. WILL ENDORSE CARE TO UPCOMING SHIFT.
[2020-07-23 20:00] VITALS: BP 106/76
--- NOTE | 2020-07-23 22:19 | NUR ---
CLINICAL TRIAL MEDICATION NOT IN [place]ET[place]. VAT TENDER PHARMACIST PAGED TO DELIVER MEDICATION. DR. HERZOG CALLED AND LEFT VOICE MESSAGE TO CELL PHONE INFORMING HIM OF DELAY IN ADMINISTRATION. Addendum: 07/23/20 at 2237 by SHAYNE VALENZUELA RN DR. HERZOG CALLED BACK. INFORMED OF SITUATION THAT MEDCATION MISSING. THAT TAPE RULES PRINTING MACHINE OPERATOR IS AWARE. VAT TENDER PHARMACIST TO COME IT TO DISPENSE ANOTHER MEDICATION. DR. RIDER WANTS MEDICATION ADMINISTERED TONIGHT WHEN AVAILABLE. PATIENT INFOMRED OF SITUATION AND VERBALIZED SHE WILL REMAIN NPO UNTIL TAKING MEDICATION.
--- NOTE | 2020-07-23 23:01 | NUR ---
INVESTIGATIONAL MEDICATION ADMINISTERED. PT CONFIRMED NPO STATUS. Addendum: 07/24/20 at 0357 by SHAYNE VALENZUELA RN [id number] DYNAMOMETER TESTER PHARMACIST CAME AND SEARCHED MED ROOM SAID HE HAD NO MORE MEDICATION TO DISPENSE AND REVIEWED WHOM MEDICATION WAS ISSUED TO DURING THE DAY TIME. [id number] PREVIOUS NURSE MARIA M REDMOND CONTACTED AND CAME BACK TO THE UNIT AND SHOWED WHERE MEDICATION WAS HE FORGOT TO PLACE MEDICATION IN THE CASSETTE; MEDICATION WAS FOUND AND ADMINISTERED AT DOCUMENTED TIME ON EMAR.
--- NOTE | 2020-07-24 07:08 | NUR ---
RN OPENING NOTES RECEIVED PT RESTING IN BED AT THIS TIME. AOX4. PT ABLE TO MAKE NEEDS KNOWN. NO SOB NOTED, NO C/O PAIN AT THIS TIME, NO S/S OF ANY APPARENT DISTRESS NOTED. PT IS STABLE ON RA. NO IV ACCESS NOTED. PT DENIES SI/HI. PT DENIES VISUAL/AUDITORY HALLUCINATION. SAFETY PRECAUTIONS IN PLACE AND MAINTAINED AT ALL TIMES. BED IN LOWEST LOCKED POSITION, HOB ELEVATED, SIDE RAILS UP X2, CALL LIGHT AND TABLE WITHIN REACH. WILL CONTINUE TO MONITOR
[2020-07-24 08:00] VITALS: BP 140/100
[2020-07-24] MEDS: HYDROCHLOROTHIAZIDE 25 MG PO SCH (08:51)
[2020-07-24] MEDS: NORVASC 10 MG PO SCH (08:51)
--- NOTE | 2020-07-24 09:10 | NUR ---
RECEIVED ORDERS FROM DR HERZOG FOR ATIVAN 2MG PO TID, ORDERS READ BACK AND CARRIED OUT. WILL CONTINUE WITH PLAN OF CARE
[2020-07-24] MEDS: LORAZEPAM 1 MG TABLET PO SCH ×3 (09:45→17:00)
[2020-07-24] MEDS: [UNRECOGNIZED DRUG - MIXTURE] PO SCH ×2 (11:57→22:00)
[2020-07-24] MEDS ORDERED: LORAZEPAM 1 MG TABLET FOR AGITATION/ANXIETY PO PRN (13:00)
--- NOTE | 2020-07-24 19:13 | NUR ---
RN CLOSING NOTES PT OUT OF ROOM/DEPARTMENT AT THIS TIME. PT REMAINED STABLE THROUGHOUT SHIFT. ALL NEEDS, MEDICATIONS, AND CARE ADMINISTERED ANTICIPATED PER ORDER. PT DENIES SI/HI, VISUAL AND AUDITORY HALLUCINATION. SAFETY PRECAUTIONS IN PLACE AND MAINTAINED AT ALL TIMES. BED IN LOWEST LOCKED POSITION, HOB ELEVATED, SIDE RAILS UP X 2. CALL LIGHT AND TABLE WITHIN REACH. WILL ENDORSE TO METAL EXPEDITER NURSE FOR STEVE
--- NOTE | 2020-07-24 19:30 | NUR ---
MSRN PATIENT NOT IN THE ROOM. CLARIFIED WITH DR. HERZOG REGARDING NPO STATUS TONIGHT. STATED NOT NPO AND MAY RESUME USUAL MEDS ORDERED. PATIENT HAD HER BLOOD DRAWN EARLIER TODAY.
[2020-07-24 20:00] VITALS: BP 139/89
--- NOTE | 2020-07-24 20:10 | NUR ---
LYNN BACK TO HER ROOM. EATING LATE DINNER. REMINDED STUDY ELIZABETH OAKLEY.
--- NOTE | 2020-07-24 21:35 | NUR ---
MSRN GOES UP AND DOWN FOR SMOKE. ABLE TO TAKE HER STUDY MEDS ON TIME.
--- NOTE | 2020-07-25 06:29 | NUR ---
MSRN REMAINS UNCHANGED, STAYS IN HER ROOM MOST OF THE TIME POST MIDNIGHT.
--- NOTE | 2020-07-25 07:20 | NUR ---
ms rn patient still sleeping, no distress noted,will monitor patient.
[2020-07-25 08:00] VITALS: BP 128/69
--- NOTE | 2020-07-25 09:00 | NUR ---
ms gene warren served,due meds given,tolerated well.
[2020-07-25] MEDS: HYDROCHLOROTHIAZIDE 25 MG PO SCH (09:01)
[2020-07-25] MEDS: NORVASC 10 MG PO SCH (09:01)
[2020-07-25] MEDS: LORAZEPAM 1 MG TABLET PO SCH ×3 (09:03→17:04)
[2020-07-25] MEDS: [UNRECOGNIZED DRUG - MIXTURE] PO SCH ×2 (10:05→22:00)
[2020-07-25] MEDS ORDERED: ZOLPIDEM TARTRATE 10 MG TABLET PO PRN (13:00)
--- NOTE | 2020-07-25 16:00 | NUR ---
ms rn just came back from downstairs,no distress noted.
--- NOTE | 2020-07-25 19:50 | NUR ---
MS RN OPENING NOTES PATIENT WAS SEEN SLEEPING IN BED. PATIENT IS ALERT AND ORIENTED X3. PATIENT IS ABLE TO MAKE HER NEEDS KNOWN. PATIENT IS ON ROOM AIR WITH NO RESPIRATORY DISTRESS NOTED. SAFETY PRECAUTIONS IN PLACE: BED LOCKED, SIDE RAILS UP X2, AND CALL LIGHT WITHIN REACH OF THE PATIENT.
[2020-07-25 20:00] VITALS: BP 130/93
--- NOTE | 2020-07-26 07:34 | NUR ---
MS RN CLOSING NOTES PATIENT WAS SEEN AWAKE SITTING ON HER BED. PATIENT IS ALERT AND ORIENTED X3. PATIENT IS ABLE TO MAKE HER NEEDS KNOWN. PATIENT IS ON ROOM AIR WITH NO RESPIRATORY DISTRESS NOTED. SAFETY PRECAUTIONS IN PLACE: BED LOCKED, SIDE RAILS UP, AND CALL LIGHT WITHIN REACH OF THE PATIENT. ENDORSED CARE TO DAY SHIFT NURSE.
--- NOTE | 2020-07-26 07:40 | NUR ---
ms rn received on bed,sleeping,not in any form of distress, respirations even and unlabored,no sob noted, will monitor patient.
[2020-07-26 08:00] VITALS: BP 160/95
--- NOTE | 2020-07-26 09:00 | NUR ---
ms [facility] breakfast served,due meds given, refused breakfast at this time
[2020-07-26] MEDS: NORVASC 10 MG PO SCH (09:04)
[2020-07-26] MEDS: HYDROCHLOROTHIAZIDE 25 MG PO SCH (09:04)
[2020-07-26] MEDS: LORAZEPAM 1 MG TABLET PO SCH ×3 (09:05→17:03)
[2020-07-26] MEDS: [UNRECOGNIZED DRUG - MIXTURE] PO SCH ×2 (10:15→22:17)
--- NOTE | 2020-07-26 13:00 | NUR ---
ms rn on bed,due meds given.
[2020-07-26 16:00] VITALS: BP 136/93
--- NOTE | 2020-07-26 17:24 | NUR ---
ms rn patient went out at this time.
--- NOTE | 2020-07-26 19:30 | NUR ---
MS RN OPENING NOTE RECEIVED REPORT FROM MORNING RN. PATIENT IS NOT IN ROOM AT THE MOMENT.
--- NOTE | 2020-07-26 22:17 | NUR ---
MS RN NOTE CALLED PATIENT'S CELL PHONE TO RETURN TO ROOM FOR INVESTIGATIONAL MEDICATIONS X2, BUT NO RESPONSE. PATIENT RETURNED TO ROOM AROUND 2215. ADMINISTERED MEDICATION AT 2217 AND EDUCATED PATIENT TO RETURN TO ROOM PRIOR TO MEDICATION ADMINISTRATION AND NOT TO EAT PRIOR AND AFTER MEDICATIONS. PATIENT A/OX4; ABLE TO MAKE NEEDS KNOWN. TOLERATING ROOM WELL WITH NO SOB. CHARGE NURSE AWARE.
[2020-07-26 22:44] VITALS: BP 137/93
[2020-07-27 08:00] VITALS: BP 144/89
--- NOTE | 2020-07-27 09:40 | NUR ---
MS RN NOTES PATIENT NOT ON IN ROOM/UNIT TO GIVE INVESTIGATIONAL MEDICATION. WILL TRY AGAIN AT LATER TIME.
[2020-07-27] MEDS: HYDROCHLOROTHIAZIDE 25 MG PO SCH (09:48)
[2020-07-27] MEDS: NORVASC 10 MG PO SCH (09:49)
[2020-07-27] MEDS: LORAZEPAM 1 MG TABLET PO SCH ×4 (09:50→17:26)
[2020-07-27] MEDS: [UNRECOGNIZED DRUG - MIXTURE] PO SCH ×2 (11:31→22:19)
--- NOTE | 2020-07-27 11:32 | NUR ---
MS RN NOTES PATIENT BACK IN ROOM. INVESTIGATIONAL MED GIVEN, STRESSED IMPORTANCE OF TIME TO BE GIVEN AT SPECIFIC TIME.
[2020-07-27 16:00] VITALS: BP 145/95
--- NOTE | 2020-07-27 19:18 | NUR ---
MS RN NOTES REPORT GIVEN TO NYLA KELLER FOR CONTINUITY OF CARE.
--- NOTE | 2020-07-27 19:30 | NUR ---
RN OPENING NOTE PATIENT NOT IN THE ROOM AT THIS TIME, BUT IS WALKING AROUND THE UNIT WITH WALKER. PATIENT DOES NOT REPORT ANY PAIN AT THIS TIME, BREATHING EVEN AND UNLABORED. REMINDED PATIENT NOT TO DRINK OR EAT ANYTHING 2.5 HOURS BEFORE AND AFTER MED ADMINISTRATION. SAFETY MEASURES IMPLEMENTED. WILL MONITOR PATIENT CLOSELY.
[2020-07-27 20:00] VITALS: BP 148/94
--- NOTE | 2020-07-27 22:00 | NUR ---
PATIENT NOT IN THE ROOM AT THIS TIME, CHARGE NURSE CALLED PATIENT ON CELL PHONE AND LEFT VOICEMAIL. WILL GIVE INVESTIGATIONAL DRUG SOON PATIENT GETS BACK.
--- NOTE | 2020-07-28 07:10 | NUR ---
MS RN OPENING NOTE RECEIVED PATIENT IN BED. A/O X4. ON ROOM AIR, TOLERATING WELL. NO SOB NOTED. IN NO APPARENT DISTRESS. DENIES ANY PAIN OR DISCOMFORT AT THIS TIME. SAFETY PRECAUTIONS MAINTAINED. BED IN LOWEST POSITION, BRAKES LOCKED. CALL LIGHT WITHIN REACH. WILL CONTINUE PLAN OF CARE.
--- NOTE | 2020-07-28 07:32 | NUR ---
RN CLOSING NOTE NOT IN ANY APPARENT DISTRESS. NO COMPLAINS OF PAIN. ALL NEEDS MET AND ATTENDED. ENDORSED TO DAY SHIFT NURSE FOR STEVE.
[2020-07-28 08:00] VITALS: BP 109/83
[2020-07-28] MEDS: NORVASC 10 MG PO SCH (08:25)
[2020-07-28] MEDS: HYDROCHLOROTHIAZIDE 25 MG PO SCH (08:25)
[2020-07-28] MEDS: LORAZEPAM 1 MG TABLET PO SCH ×3 (08:25→17:00)
[2020-07-28] MEDS: [UNRECOGNIZED DRUG - MIXTURE] PO SCH ×2 (09:39→22:08)
[2020-07-28 16:00] VITALS: BP 110/64
--- NOTE | 2020-07-28 17:50 | NUR ---
MS RN NOTE PATIENT REFUSED ATIVAN 1 MG PO AT 1300 AND 1700. WHEN ASKED OF REASON FOR REFUSAL, PT SAID SHE WANTS TO SKIP WITH ATIVAN TODAY.
--- NOTE | 2020-07-28 18:22 | NUR ---
MS RN CLOSING NOTE PATIENT RESTING IN BED. A/O X4. ON ROOM AIR, TOLERATING WELL. NO SOB NOTED. NO S/S OF RESPIRATORY DISTRESS. STILL DENIES ANY PAIN OR DISCOMFORT AT THIS TIME. ALL DUE MEDS WERE GIVEN ORDERED. ALL NEEDS HAVE BEEN MET AND ATTENDED. NO REPORTS OF TREMORS AND AKATHISIA. SAFETY PRECAUTIONS MAINTAINED. BED IN LOWEST POSITION, BRAKES LOCKED. CALL LIGHT WITHIN REACH. WILL ENDORSE CONTINUITY OF CARE TO ONCOMING SHIFT.
--- NOTE | 2020-07-28 19:17 | NUR ---
pATIENT SIGNING THE BOOK TO GO OUT AT THIS TIME. ALERT AND ORIENTATED . STEADY GAIT SMILING GOOD EYE CONTACT WHEN SPEAKING
[2020-07-28 20:00] VITALS: BP_SYST 132; BP_DIAS 76; BP_DIAS 96
--- NOTE | 2020-07-29 04:30 | NUR ---
SHE STATED WHEN SHE GOES OUTSIDE SHE WATCHES THE TRAFFIC ON [employer] AND TALKS TO THE GUARDS. SHE WAS IN HER ROOM BY 10PM FOR THE MEDICATION ORDERED. SHE IS FREINDLY AND PLEASENT. SHE IS COOPERATIVE. NO UNUSUAL BEHAVIOR NOTED NO TRMORS. SHE ORDERED PIZZA AT 2330 LATER WENT TOT BED AT 0200
--- NOTE | 2020-07-29 07:18 | NUR ---
MS RN OPENING NOTES PATIENT RECEIVED ASLEEP IN BED, EASILY AROUSABLE. A/O X4. ABLE TO MAKE NEEDS KNOWN, DENIES PAIN OR ANY DISCOMFORTS AT THIS TIME. ON ROOM AIR, TOLERATING WELL, NO SOB NOTED. SAFETY MEASURES IN PLACE: BED IS LOCKED AND IN THE LOWEST POSITION, SIDE RAILS UP X2 AND CALL LIGHT WITHIN REACH. WILL CONTINUE TO MONITOR PT ACCORDINGLY.
[2020-07-29 08:00] VITALS: BP 129/103
[2020-07-29] MEDS: NORVASC 10 MG PO SCH (09:13)
[2020-07-29] MEDS: HYDROCHLOROTHIAZIDE 25 MG PO SCH (09:13)
[2020-07-29] MEDS: LORAZEPAM 1 MG TABLET PO SCH ×3 (09:14→17:00)
[2020-07-29] MEDS: [UNRECOGNIZED DRUG - MIXTURE] PO SCH ×2 (10:16→22:00)
--- NOTE | 2020-07-29 19:29 | NUR ---
CT RN CLOSING NOTES PATIENT STILL NOT BACK FROM SMOKING OUTSIDE, ENDORSED TO FABRIC AND TEXTILE FACTORY WORKER NURSE CLINT TO FOLLOW UP IF PATIENT IS NOT BACK YET AT 8PM.
--- NOTE | 2020-07-29 19:34 | NUR ---
RN NOTES PATIENT JUST CAME BACK TO UNIT FROM SMOKING. NIGHT NURSE GAURI AWARE.
[2020-07-29 20:00] VITALS: BP 118/82
--- NOTE | 2020-07-29 20:00 | NUR ---
MS RN OPENING NOTE RECEIVED PT AWAKE IN BED. A/O X4. PT IS STABLE ON ROOM AIR. NO SOB NOTED. NO S/S OF RESPIRATORY DISTRESS. PT IS AMBULATORY WITH [facility]. PT HAS NO C/O PAIN OR DISCOMFORT AT THIS TIME. NO IV ACCESS NOTED. SAFETY MEASURES MAINTAINED. BED IN LOWEST LOCKED POSITION, HOB ELEVATED, SIDE RAILS UP X2. CALL LIGHT AND TABLE WITHIN REACH. WILL CONTINUE WITH PLAN OF CARE.
--- NOTE | 2020-07-30 06:34 | NUR ---
MS RN CLOSING NOTE PT IS AWAKE IN BED AT THIS TIME. A/O X4. PT IS STABLE ON ROOM AIR. NO SOB NOTED. NO S/S OF RESPIRATORY DISTRESS. PT IS AMBULATORY WITH [facility]P. PT HAS NO C/O PAIN OR DISCOMFORT AT THIS TIME. NO IV ACCESS NOTED. ALL NEEDS HAVE BEEN MET. SAFETY MEASURES MAINTAINED AT ALL TIMES. BED IN LOWEST LOCKED POSITION, HOB ELEVATED, SIDE RAILS UP X2. CALL LIGHT AND TABLE WITHIN REACH. WILL ENDORSE TO ONCOMING NURSE FOR CONTINUITY OF CARE.
--- NOTE | 2020-07-30 07:01 | NUR ---
MS RN OPENING NOTE RECEIVED PT AWAKE IN BED. A/O X4. PT IS STABLE ON ROOM AIR. NO SOB NOTED. NO S/S OF RESPIRATORY DISTRESS. PT IS AMBULATORY WITH [facility]. PT HAS NO C/O PAIN OR DISCOMFORT AT THIS TIME. NO IV ACCESS NOTED. SAFETY MEASURES MAINTAINED. BED IN LOWEST LOCKED POSITION, HOB ELEVATED, SIDE RAILS UP X2. CALL LIGHT AND TABLE WITHIN REACH.
[2020-07-30 08:00] VITALS: BP 136/75
[2020-07-30] MEDS: NORVASC 10 MG PO SCH (10:11)
[2020-07-30] MEDS: [UNRECOGNIZED DRUG - MIXTURE] PO SCH ×2 (10:11→22:00)
[2020-07-30] MEDS: HYDROCHLOROTHIAZIDE 25 MG PO SCH (10:11)
[2020-07-30] MEDS: LORAZEPAM 1 MG TABLET PO SCH ×3 (10:13→16:05)
--- NOTE | 2020-07-30 12:28 | NUR ---
RN MS NOTE PT HAD INVESTIGATIONAL MEDICATION DUE AT [address] HERZOG , PT LEFT HOSPITAL AT 0900 NOT PRESENT IN ROOM. FOUND PATIENT. BROUGHT BACK TO ROOM AT 1030, INFORMED PATIENT MEDICATIONS NEED TO BE GIVEN WITHOUT DELAY EXACTLY ON TIME, MEDICATION ADMINISTERED.
--- NOTE | 2020-07-30 18:22 | NUR ---
MS RN CLOSING NOTE RECEIVED PT AWAKE IN BED. A/O X4. PT IS STABLE ON ROOM AIR. NO SOB NOTED. NO S/S OF RESPIRATORY DISTRESS. PT IS AMBULATORY WITH [facility]. PT HAS NO C/O PAIN OR DISCOMFORT AT THIS TIME. NO IV ACCESS NOTED. SAFETY MEASURES MAINTAINED. BED IN LOWEST LOCKED POSITION, HOB ELEVATED, SIDE RAILS UP X2. CALL LIGHT AND TABLE WITHIN REACH.
--- NOTE | 2020-07-30 19:30 | NUR ---
MS RN NOTE RECEIVED CALL FROM DR. HERZOG. PER DR. HERZOG PATIENT WILL HAVE AM LAB DRAW AT 9 AM, GIVE INVESTIGATIONAL MEDS AFTER LAB DRAW
--- NOTE | 2020-07-30 19:30 | NUR ---
MS RN NOTE PATIENT ALERT/ORIENTED X 4. PATIENT STABLE ON ROOM AIR, NO S/S OF DISTRESS OR SHORTNESS OF BREATH NOTED. PATIENT ABLE TO MAKE NEEDS KNOWN, NO COMPLAINTS OF PAIN AT THIS TIME. SAFETY MEASURES IN PLACE, BED LOCKED IN LOWEST POSITION, CALL LIGHT WITHIN REACH. WILL CONTINUE TO MONITOR, WILL CONTINUE PLAN OF CARE
[2020-07-30 20:00] VITALS: BP 121/74
--- NOTE | 2020-07-31 07:03 | NUR ---
MS RN CLOSING NOTES PATIENT SLEEPING IN BED. PATIENT STABLE ON ROOM AIR, NO S/S OF DISTRESS OR SHORTNESS OF BREATH NOTED. MEDICATIONS GIVEN ORDERED. PATIENT NEEDS MET THROUGHOUT SHIFT. SAFETY MEASURES IN PLACE, BED LOCKED IN LOWEST POSITION, CALL LIGHT WITHIN REACH. WILL ENDORSE TO DAY SHIFT NURSE FOR CONTINUITY OF CARE
--- NOTE | 2020-07-31 07:40 | NUR ---
MS/RN OPENING NOTE RECEIVED PT AWAKE IN BED. A/O X4. PT IS STABLE ON ROOM AIR. NO SOB NOTED. NO S/S OF RESPIRATORY DISTRESS. PT IS AMBULATORY WITH [facility]. PT HAS NO C/O PAIN OR DISCOMFORT AT THIS TIME. NO IV ACCESS NOTED. SAFETY MEASURES MAINTAINED. BED IN LOWEST LOCKED POSITION, HOB ELEVATED, SIDE RAILS UP X2. CALL LIGHT AND TABLE WITHIN REACH. WILL CONTINUE TO MONITOR.
[2020-07-31] MEDS: NORVASC 10 MG PO SCH (09:07)
[2020-07-31] MEDS: HYDROCHLOROTHIAZIDE 25 MG PO SCH (09:07)
[2020-07-31] MEDS: LORAZEPAM 1 MG TABLET PO SCH ×3 (09:10→17:19)
[2020-07-31] MEDS: [UNRECOGNIZED DRUG - MIXTURE] PO SCH ×2 (09:59→22:02)
--- NOTE | 2020-07-31 10:35 | NUR ---
MS/RN NOTES PATIENT OUT WITH THE SITTER FOR A LAB DRAW. PATIENT AMBULATORY WITH A WALKER.
--- NOTE | 2020-07-31 12:05 | NUR ---
MS/RN NOTES PER MD ORDER (DR. HERZOG) HOLD ATIVAN PO DOSE.
--- NOTE | 2020-07-31 19:23 | NUR ---
MS/RN CLOSING NOTE PATIENT IN BED AWAKE IN BED. A/O X4. PT IS STABLE ON ROOM AIR. PATIENT IS A CLINICAL TRIAL. NO SOB NOTED. NO S/S OF RESPIRATORY DISTRESS. PT IS AMBULATORY WITH [facility]. PT HAS NO C/O PAIN OR DISCOMFORT AT THIS TIME. NO IV ACCESS NOTED. SAFETY MEASURES MAINTAINED. BED IN LOWEST LOCKED POSITION, HOB ELEVATED, SIDE RAILS UP X2. CALL LIGHT AND TABLE WITHIN REACH. WILL ENDORSE TO THE NEXT SHIFT FOR CONTINUITY OF CARE.
--- NOTE | 2020-07-31 19:30 | NUR ---
MS RN OPENING NOTES PATIENT ALERT/ORIENTED X 4. PATIENT STABLE ON ROOM AIR, NO S/S OF DISTRESS OR SHORTNESS OF BREATH NOTED. PATIENT ABLE TO MAKE NEEDS KNOWN, NO COMPLAINTS OF PAIN AT THIS TIME. PATIENT AMBULATES WITH WALKER. SAFETY MEASURES IN PLACE, BED LOCKED IN LOWEST POSITION, CALL LIGHT WITHIN REACH. WILL CONTINUE TO MONITOR, WILL CONTINUE PLAN OF CARE
[2020-07-31 20:00] VITALS: BP 126/76
--- NOTE | 2020-08-01 07:35 | NUR ---
MS RN OPENING NOTES PATIENT RECEIVED ASLEEP COMFORTABLY IN BED, EASY TO AROUSE. ALERT AND ORIENTED X4. NO SIGNS OR SYMPTOMS OF DISTRESS NOTED. ABLE TO MAKE NEEDS KNOWN, DENIES PAIN OR ANY DISCOMFORTS AT THIS TIME. ON ROOM AIR, TOLERATING WELL, NO SOB NOTED. SAFETY MEASURES IN PLACE, BED IS LOCKED AND IN THE LOWEST POSITION, SIDE RAILS UP X2 AND CALL LIGHT WITHIN REACH. WILL CONTINUE TO MONITOR THROUGHOUT THE SHIFT.
[2020-08-01 08:00] VITALS: BP 111/76
[2020-08-01] MEDS: LORAZEPAM 1 MG TABLET PO SCH ×3 (09:02→17:56)
[2020-08-01] MEDS: HYDROCHLOROTHIAZIDE 25 MG PO SCH (09:02)
[2020-08-01] MEDS: NORVASC 10 MG PO SCH (09:02)
[2020-08-01] MEDS: [UNRECOGNIZED DRUG - MIXTURE] PO SCH ×2 (10:00→22:01)
--- NOTE | 2020-08-01 18:30 | NUR ---
MS RN CLOSING NOTES PATIENT SLEEPING IN BED. PATIENT STABLE ON ROOM AIR, NO SIGNS AND SYMPTOMS OF DISTRESS OR SHORTNESS OF BREATH NOTED. MEDICATIONS GIVEN ORDERED. PATIENT NEEDS MET THROUGHOUT SHIFT. SAFETY MEASURES IN PLACE, BED LOCKED IN LOWEST POSITION, CALL LIGHT WITHIN REACH. WILL ENDORSE TO [facility] SHIFT NURSE FOR CONTINUITY OF CARE
--- NOTE | 2020-08-01 19:46 | NUR ---
MS RN OPENING PATIENT NOT IN THE ROOM DURING STEVE REPORT.
[2020-08-01 20:00] VITALS: BP 144/88
--- NOTE | 2020-08-01 20:00 | NUR ---
MS RN NOTES PATIENT CAME BACK FROM UNIT, AMBULATING. A/OX4. REMINDED THE PATIENT ABOUT HER INVESTIGATIONAL DRUG @2200 PATIENT STATE ACKNOWLEDGEMENT. NO S/S OF DISTRESS. NO C/O PAIN AT THE MOMENT. SAFETY PRECAUTIONS IN PLACE: BED IN LOWEST, LOCKED POSITION. WILL CONTINUE TO MONITOR.
[2020-08-01 21:41] VITALS: BP 144/88
--- NOTE | 2020-08-01 21:47 | NUR ---
MS RN NOTES PATIENT'S ROOM SMELLS OF MARIJUANA. EYES RED SHUT. MADE CHARGE NURSE KNOWN.
--- NOTE | 2020-08-01 22:01 | NUR ---
MS RN NOTES PATIENT GIVEN INVESTIGATIONAL DRUG @[address]. JUST SCANNED 1 MIN LATE BECAUSE PATIENT LOST HER ID BAND.
--- NOTE | 2020-08-01 22:21 | NUR ---
MS RN NOTES PATIENT SIGNED OFF TO GO OUTSIDE. REMINDED PATIENT TO STAY WITHIN HOSPITAL PARAMETERS ONLY. STATED ACKNOWLEDGEMENT.
--- NOTE | 2020-08-02 06:31 | NUR ---
MS RN CLOSING 319 PATIENT IN. A/OX4. AMBULATORY WITH WALKER. NO S/S OF DISTRESS. NO C/O PAIN MESERET. INVESTIGATIONAL DRUG GIVEN ON TIME. PATIENT DID NOT EXHIBIT ANY S/S OF EPS, AKATHISIA, TREMORS. SAFETY KEPT IN PLACE THE WHOLE SHIFT: BED IN LOWEST, LOCKED POSITION; CALL LIGHT WITHIN REACH. WILL ENDORSE CARE TO MORNING RN.
--- NOTE | 2020-08-02 07:10 | NUR ---
MS RN OPENING NOTE RECEIVED PATIENT IN BED, ALERT AND ORIENTED X 4. PATIENT IS AMBULATORY WITH WALKER. PATIENT WITH EVEN AND UNLABORED BREATHING ON ROOM AIR WITH NO SIGNS OF DISTRESS. NO COMPLAINT OF PAIN OR DISCOMFORT AT THIS TIME. SAFETY MEASURES ENSURED AND COMFORT MEASURES PROVIDED. BED AT LOWEST BED POSITION AND LOCKED FOR SAFETY. CALL LIGHT AND TABLE WITHIN REACH AT ALL TIMES. PROVIDED WITH CALM AND QUIET ENVIRONMENT. WILL CONTINUE TO MONITOR PATIENT.
[2020-08-02 08:00] VITALS: BP 130/78
[2020-08-02] MEDS: LORAZEPAM 1 MG TABLET PO SCH ×3 (09:27→17:00)
[2020-08-02] MEDS: HYDROCHLOROTHIAZIDE 25 MG PO SCH (09:27)
[2020-08-02] MEDS: NORVASC 10 MG PO SCH (09:27)
[2020-08-02] MEDS: [UNRECOGNIZED DRUG - MIXTURE] PO SCH ×2 (10:01→22:00)
[2020-08-02 16:00] VITALS: BP 135/89
--- NOTE | 2020-08-02 17:42 | NUR ---
MS RN CLOSING NOTE PATIENT AWAKE ON BED ALERT AND ORIENTED. PATIENT DENIES ANY PAIN OR DISCOMFORT. WITH NO SIGNS OF DISTRESS THROUGHOUT THE SHIFT. COMFORT MEASURES PROVIDED. PROVIDED WITH CALM AND QUIET ENVIRONMENT. NO SIGNS AND SYMPTOMS OF AKATHISIA, TREMORS OR EPS NOTED THROUGHOUT THE SHIFT. BED MAINTAINED ON LOWEST POSITION AND LOCKED. CALL LIGHT AND BEDSIDE TABLE WITHIN REACH AT ALL TIMES. WILL ENDORSE TO MEDICAL CODER FOR CONTINUITY OF CARE.
--- NOTE | 2020-08-02 19:15 | NUR ---
MS/RN OPENING NOTE RECEIVED PATIENT SLEEPING IN BED. ALERT AND ORIENTED X 4. ABLE TO MAKE NEEDS KNOWN. NO COMPLAINTS OF PAIN AT THIS TIME. CONTINUES ON ROOM AIR WITH NO S/SX OF RESPIRATIONS DISTRESS NOTED. NO IV ACCESS NOTED. CONTINUES ON CLINICAL TRIAL AND INVESTIGATIONAL MEDICATION. CALL LIGHT WITHIN REACH. ASPIRATION, FALL AND SAFETY PRECAUTIONS MAINTAINED. WILL CONTINUE TO MONITOR.
--- NOTE | 2020-08-03 06:10 | NUR ---
MS/RN CLOSING NOTE PATIENT CURRENTLY SLEEPING IN BED. ALERT AND ORIENTED X 4. ABLE TO MAKE NEEDS KNOWN. NO COMPLAINTS OF PAIN AT THIS TIME. CONTINUES ON ROOM AIR WITH NO S/SX OF RESPIRATIONS DISTRESS NOTED. NO IV ACCESS NOTED. CONTINUES ON CLINICAL TRIAL AND INVESTIGATIONAL MEDICATION. CALL LIGHT WITHIN REACH. ASPIRATION, FALL AND SAFETY PRECAUTIONS MAINTAINED. WILL ENDORSE PLAN OF CARE TO ONCOMING SHIFT.
--- NOTE | 2020-08-03 07:44 | NUR ---
MS/RN OPENING NOTE RECEIVED PT AWAKE IN BED. A/O X4. IS A CLINICAL TRIAL PATIENT. PT IS STABLE ON ROOM AIR. NO SOB NOTED. NO S/S OF RESPIRATORY DISTRESS. PT IS AMBULATORY WITH BRP. PT HAS NO C/O PAIN OR DISCOMFORT AT THIS TIME. NO IV ACCESS NOTED. SAFETY MEASURES MAINTAINED. BED IN LOWEST LOCKED POSITION, HOB ELEVATED, SIDE RAILS UP X2. CALL LIGHT AND TABLE WITHIN REACH. WILL CONTINUE TO MONITOR.
[2020-08-03 08:00] VITALS: BP 114/87
[2020-08-03] MEDS: LORAZEPAM 1 MG TABLET PO SCH ×3 (08:24→17:53)
[2020-08-03] MEDS: HYDROCHLOROTHIAZIDE 25 MG PO SCH (08:24)
[2020-08-03] MEDS: NORVASC 10 MG PO SCH (08:25)
[2020-08-03] MEDS: [UNRECOGNIZED DRUG - MIXTURE] PO SCH ×2 (10:10→22:00)
--- NOTE | 2020-08-03 19:00 | NUR ---
MS/RN CLOSING NOTE PT IN BED. A/O X4. IS A CLINICAL TRIAL PATIENT. PT IS STABLE ON ROOM AIR. NO SOB NOTED. NO S/S OF RESPIRATORY DISTRESS. PT IS AMBULATORY WITH BRP. PT HAS NO C/O PAIN OR DISCOMFORT AT THIS TIME. NO IV ACCESS NOTED. SAFETY MEASURES MAINTAINED. BED IN LOWEST LOCKED POSITION, HOB ELEVATED, SIDE RAILS UP X2. CALL LIGHT AND TABLE WITHIN REACH. WILL ENDORSE TO THE NEXT SHIFT FOR CONTINUITY OF CARE.
--- NOTE | 2020-08-03 19:30 | NUR ---
MS/RN OPENING NOTES RECEIVED PATIENT IN BED RESTING. PATIENT IS ALERT AND ORIENTED X 4. PATIENT BREATHING IS EVEN AND UNLABORED, NO SIGNS OF RESPIRATORY DISTRESS NOTED. NO ACUTE DISTRESS NOTED. SAFETY MEASURES ARE IN PLACE, BED LOCKED AND PLACED IN LOW POSITION, SIDE RAIL UP X 2, CALL LIGHT WITHIN REACH. WILL CONTINUE WITH PATIENT PLAN OF CARE.
[2020-08-03 20:00] VITALS: BP 135/90
--- NOTE | 2020-08-04 06:50 | NUR ---
MS/RN CLOSING NOTES PATIENT IN BED RESTING. PATIENT IS ALERT AND ORIENTED X 4. PATIENT BREATHING IS EVEN AND UNLABORED, NO SIGNS OF RESPIRATORY DISTRESS NOTED. NO ACUTE DISTRESS NOTED. ALL NEEDS HAVE BEEN MET DURING SHIFT. SAFETY MEASURES ARE IN PLACE, BED LOCKED AND PLACED IN LOW POSITION, SIDE RAIL UP X 2, CALL LIGHT WITHIN REACH. WILL ENDORSE CARE TO DAY SHIFT NURSE.
--- NOTE | 2020-08-04 08:00 | NUR ---
RN OPENING NOTE PT AWAKE IN BED RESTING. A/O X3 AND TAJIK SPEAKING. NO COMPLAINT OF PAIN OR NAUSEA. CURRENTLY ON RA WITH NO SOB OR RESPIRATORY DISTRESS PRESENT. SELF AMBULATORY WITH WALKER ASSIST AND BATHROOM PRIVILEGES. SMOKE BREAKS ALLOWED. SKIN IS INTACT. NO EDEMA PRESENT. NO IV LINES PRESENT. INVESTIGATIONAL MED RECEIVED. SAFETY MEASURES IN PLACE. SIDE RAILS RAISED. BED LOWERED. CALL LIGHT WITHIN REACH. WILL CONTINUE TO MONITOR.
[2020-08-04] MEDS: LORAZEPAM 1 MG TABLET PO SCH ×4 (08:46→16:06)
[2020-08-04] MEDS: NORVASC 10 MG PO SCH (08:46)
[2020-08-04] MEDS: HYDROCHLOROTHIAZIDE 25 MG PO SCH (08:46)
[2020-08-04] MEDS: [UNRECOGNIZED DRUG - MIXTURE] PO SCH ×2 (10:00→22:09)
--- NOTE | 2020-08-04 10:00 | NUR ---
RN NOTE PT GIVEN INVESTIGATIONAL DRUG. CONFIRMED NPO STATUS PRIOR TO ADMINISTRATION. WILL CONTINUE TO MONITOR.
[2020-08-04 16:00] VITALS: BP 120/78
--- NOTE | 2020-08-04 19:33 | NUR ---
RN CLOSING NOTE PT AWAKE IN BED RESTING. A/O X3 AND MALAY SPEAKING. NO COMPLAINT OF PAIN OR NAUSEA. CURRENTLY ON RA WITH NO SOB OR RESPIRATORY DISTRESS PRESENT. SELF AMBULATORY WITH WALKER ASSIST AND BATHROOM PRIVILEGES. SMOKE BREAKS ALLOWED. SKIN IS INTACT. NO EDEMA PRESENT. NO IV LINES PRESENT. INVESTIGATIONAL MED RECEIVED. SAFETY MEASURES IN PLACE. SIDE RAILS RAISED. BED LOWERED. CALL LIGHT WITHIN REACH. REPORT GIVEN TO NIGHT NURSE FOR STEVE.
--- NOTE | 2020-08-04 20:00 | NUR ---
MS RN OPENING NOTE PATIENT ALERT AND ORIENTED X 4, PATIENT ABLE TO MAKE NEEDS KNOWN. PATIENT STABLE ON ROOM AIR, NO S/S OF SHORTNESS OF BREATH OR DISTRESS NOTED. NO COMPLAINTS OF PAIN AT THIS TIME. PATIENT INDEPENDENTLY AMBULATORY WITH WALKER. SAFETY MEASURES IN PLACE, CALL LIGHT WITHIN REACH AND BED LOCKED IN LOWEST POSITION. WILL CONTINUE TO MONITOR. WILL CONTINUE PLAN OF CARE
--- NOTE | 2020-08-05 07:22 | NUR ---
MS/RN OPENING NOTE RECEIVED PATIENT SLEEPING IN BED. ALERT AND ORIENTED X 4. ABLE TO MAKE NEEDS KNOWN. NO COMPLAINTS OF PAIN AT THIS TIME. CONTINUES ON ROOM AIR WITH NO S/SX OF RESPIRATIONS DISTRESS NOTED. NO IV ACCESS NOTED. PATIENT IS AMBULATORY WITH WALKER. CONTINUES ON CLINICAL TRIAL AND INVESTIGATIONAL MEDICATION. BED LOW, LOCKED AND CALL LIGHT WITHIN REACH. ASPIRATION, FALL AND SAFETY PRECAUTIONS MAINTAINED. WILL CONTINUE TO MONITOR
--- NOTE | 2020-08-05 07:23 | NUR ---
MS RN CLOSING NOTES PATIENT SLEEPING IN BED, EASILY AWAKENED, A/O X 4. PATIENT ABLE TO MAKE NEEDS KNOWN, NO COMPLAINTS OF PAIN AT THIS TIME. NO S/S OF DISTRESS OR SHORTNESS OF BREATH NOTED. MEDICATIONS GIVEN ORDERED. PATIENT NEEDS MET THROUGHOUT SHIFT. SAFETY MEASURES IN PLACE, BED LOCKED IN LOWEST POSITION AND CALL LIGHTS WITHIN REACH. WILL ENDORSE TO DAY SHIFT NURSE FOR CONTINUITY OF CARE
[2020-08-05] MEDS: NORVASC 10 MG PO SCH (08:14)
[2020-08-05] MEDS: LORAZEPAM 1 MG TABLET PO SCH ×3 (08:14→16:03)
[2020-08-05] MEDS: HYDROCHLOROTHIAZIDE 25 MG PO SCH (08:14)
[2020-08-05 08:40] VITALS: BP 152/98
[2020-08-05] MEDS: [UNRECOGNIZED DRUG - MIXTURE] PO SCH ×2 (09:59→22:05)
--- NOTE | 2020-08-05 18:37 | NUR ---
MS RN CLOSING NOTE PATIENT RESTING IN BED. ALERT AND ORIENTED X 4. ABLE TO MAKE NEEDS KNOWN. NO COMPLAINTS OF PAIN AT THIS TIME. CONTINUES ON ROOM AIR WITH NO S/SX OF RESPIRATIONS DISTRESS NOTED. NO IV ACCESS NOTED. PATIENT IS AMBULATORY WITH WALKER. CONTINUES ON CLINICAL TRIAL AND INVESTIGATIONAL MEDICATION. MEDICATION GIVEN ORDERED. BED LOW, LOCKED AND CALL LIGHT WITHIN REACH. ASPIRATION, FALL AND SAFETY PRECAUTIONS MAINTAINED. WILL ENDORSE TO ONCOMING SHIFT.
[2020-08-05 20:00] VITALS: BP 134/93
--- NOTE | 2020-08-06 07:00 | NUR ---
MS RN CLOSING NOTES PATIENT AWAKE IN BED, A/O X 4. PATIENT ABLE TO MAKE NEEDS KNOWN, NO COMPLAINTS OF PAIN AT THIS TIME. NO S/S OF DISTRESS OR SHORTNESS OF BREATH NOTED. MEDICATIONS GIVEN ORDERED. PATIENT NEEDS MET THROUGHOUT SHIFT. SAFETY MEASURES IN PLACE, BED LOCKED IN LOWEST POSITION AND CALL LIGHTS WITHIN REACH. WILL ENDORSE TO DAY SHIFT NURSE FOR CONTINUITY OF CARE
[2020-08-06 08:49] VITALS: BP 125/76
[2020-08-06] MEDS: LORAZEPAM 1 MG TABLET PO SCH ×3 (09:07→17:07)
[2020-08-06] MEDS: NORVASC 10 MG PO SCH (09:07)
[2020-08-06] MEDS: HYDROCHLOROTHIAZIDE 25 MG PO SCH (09:07)
[2020-08-06] MEDS: [UNRECOGNIZED DRUG - MIXTURE] PO SCH ×2 (09:54→22:00)
--- NOTE | 2020-08-06 19:20 | NUR ---
MS RN OPENING NOTE PATIENT A/OX4; ABLE TO MAKE NEEDS KNOWN. PATIENT IN THE HALLWAY ABOUT TO LEAVE THE UNIT. ON ROOM AIR; TOLERATING WELL WITH NO SOB. DENIES PAIN OR DISCOMFORT AT THIS TIME. NO IV ACCESS NOTED. EDUCATED PATIENT NOT TO EAT BEFORE OR AFTER INVESTIGATIONAL MED. SAFETY MEASURES IN PLACE: BED IN LOWEST LOCKED POSITION, SIDE RAILS UP X2 CALL LIGHT WITHIN EASY REACH. WILL CONTINUE PLAN OF CARE
[2020-08-06 20:00] VITALS: BP 127/94
--- NOTE | 2020-08-06 21:57 | NUR ---
MS RN NOTE PATIENT RETURNED TO THE UNIT. A/OX4 ABLE TO MAKE NEEDS KNOWN.
--- NOTE | 2020-08-07 07:30 | NUR ---
RN OPENING NOTE RECEIVED PATIENT IN BED AWAKE, A/OX4; ABLE TO MAKE NEEDS KNOWN. ON ROOM AIR; TOLERATING WELL WITH NO SOB. DENIES PAIN OR DISCOMFORT AT THIS TIME. NO IV LINE NOTED. EDUCATED PATIENT NOT TO EAT BEFORE OR AFTER INVESTIGATIONAL MED. SAFETY MEASURES IN PLACE: BED IN LOWEST LOCKED POSITION, SIDE RAILS UP X2 CALL LIGHT WITHIN EASY REACH. NO AKATISHA, NO TREMORS, EPS, OR INAPPROPRIATE BEHAVIOR NOTED. WILL CONTINUE TO MONITOR PATIENT'S CURRENT STATUS
[2020-08-07 08:00] VITALS: BP 130/61
[2020-08-07] MEDS: NORVASC 10 MG PO SCH (09:05)
[2020-08-07] MEDS: LORAZEPAM 1 MG TABLET PO SCH ×4 (09:05→17:00)
--- NOTE | 2020-08-07 09:05 | NUR ---
RN NOTES PATIENT WENT TO SEE DR. HERZOG ACCOMPANIED BY CLINIC STAFF AT 0910 AM.
[2020-08-07] MEDS: HYDROCHLOROTHIAZIDE 25 MG PO SCH (09:06)
--- NOTE | 2020-08-07 10:00 | NUR ---
RN NOTES PATIENT NOT BACK YET FROM DR. HERZOG'S CLINIC.
[2020-08-07] MEDS: [UNRECOGNIZED DRUG - MIXTURE] PO SCH ×2 (12:04→22:00)
--- NOTE | 2020-08-07 13:00 | NUR ---
RN NOTES PATIENT NOT ABLE TO TAKE ATIVAN DOSE AT 1300. PATIENT NOT PRESENT IN DEPARTMENT DESPITE INSTRUCTIONS TO COME BACK FOR HER DUE MEDICATIONS.
--- NOTE | 2020-08-07 14:00 | NUR ---
RN NOTES CALLED PATIENT'S CELLPHONE NUMBER TWICE, NO ANSWER, LEFT A MESSAGE INSTEAD.
--- NOTE | 2020-08-07 14:51 | NUR ---
RN NOTES PATIENT WENT BACK AT 1440, ATIVAN DUE AT 1300 GIVEN AT 1444 PER MD ORDER.
[2020-08-07 15:57] VITALS: BP 146/72
--- NOTE | 2020-08-07 18:39 | NUR ---
RN CLOSING NOTES PATIENT IS AWAKE, ALERT AND ORIENTED X 4. NOT IN ANY FORM OF ACUTE DISTRESS NOTED. NO COMPLAINTS OF PAIN AT THIS TIME. NO IV ACCESS NOTED. NO AKATISHA, TREMORS, EPS, OR INAAPROPRIATE BEHAVIOR NOTED. SAFETY MEASURES IN PLACE, OBSERVED AND MAINTAINED DURING THE SHIFT: BED IN LOWEST LOCKED POSITION, SIDE RAILS UP X2, CALL LIGHT WITHIN EASY REACH. ENDORSED TO INTERIOR ASSEMBLIES DEVELOPER PROVER RN FOR CONTINUITY OF CARE.
--- NOTE | 2020-08-07 19:20 | NUR ---
MS RN OPENING NOTES: RECEIVED PATIENT WALKING IN THE HALLWAY WITH HER OWN WALKER, A/O X4. NO S/S OF DISTRESS NOTED. REMINDED PT NO FOOD ONE HOUR BEFORE AND 2-3 HOURS AFTER MEDS TAKEN,PATIENT VERBALIZED UNDERSTANDING.
[2020-08-07 20:00] VITALS: BP 125/77
--- NOTE | 2020-08-07 21:50 | NUR ---
INFORMED CHARGE NURSE SHERIE RE: INVESTIGATIONAL MEDS ARE NOT IN THE PATIENT'S CASSETTE IN THE MED ROOM. CHECKED ALL THE CASSETTES, NOT FOUND. CHARGE NURSE CALLED THE BENCH WORKER HOLLOW HANDLE THIEN.
[2020-08-07] MEDS ORDERED: KEY,NONCONTROL,TO KEEP IN PYXI 1 EA MC ONE (22:02)
--- NOTE | 2020-08-07 23:19 | NUR ---
RECEIVED A CALL FROM THE PHARMACIST EARLIER STATING THAT THERE'S NO INVESTIGATIONAL MEDS TO BE GIVEN TONIGHT.
--- NOTE | 2020-08-08 07:30 | NUR ---
ms rn received on bed, awake,alert,oriented x4,not in any form of distress, respirations even and unlabored,no sob noted, clinical trial patient, no distress ,will monitor patient.
[2020-08-08 08:00] VITALS: BP 133/96
--- NOTE | 2020-08-08 09:00 | NUR ---
ms mills breakfast served, due meds given,tolerated well.
[2020-08-08] MEDS: LORAZEPAM 1 MG TABLET PO SCH ×3 (09:10→16:51)
[2020-08-08] MEDS: NORVASC 10 MG PO SCH (09:10)
[2020-08-08] MEDS: HYDROCHLOROTHIAZIDE 25 MG PO SCH (09:10)
--- NOTE | 2020-08-08 10:00 | NUR ---
ms rn called and left message on patient's cell phone, needs to come for her medications.
[2020-08-08 10:39] VITALS: BP 133/96
[2020-08-08] MEDS: INVEST MED Kar XT OR PLACEBO 50/20 MG PO SCH ×2 (12:02→22:01)
--- NOTE | 2020-08-08 13:00 | NUR ---
ms rn patient only came back now, gave the meds right away.instructed not to do it again ,to come back at right time for med.
[2020-08-08 16:00] VITALS: BP 122/89
--- NOTE | 2020-08-08 18:57 | NUR ---
ms rn on bed,no distress noted,all needs attended, will endorse to member services representative for jaja.
[2020-08-08 20:00] VITALS: BP 128/63
--- NOTE | 2020-08-08 20:00 | NUR ---
RN OPENING NOTE PATIENT NOW BACK IN THE ROOM. PATIENT DOES NOT SEEM TO BE IN ANY APPARENT DISTRESS, BREATHING EVEN AND UNLABORED. AMBULATORY WITH THE WALKER. PATIENT SEEMS TO BE CALM AND COOPERATIVE AT THIS TIME, ABLE TO MAKE NEEDS KNOWN. REMINDED PATIENT NOT TO EAT OR DRINK 2.5 HOURS BEFORE AND AFTER STUDY MED IS GIVEN. SAFETY MEASURES IN PLACE: BED IN LOCKED AND LOWEST POSITION, SIDE RAILS UP, CALL LIGHT WITHIN REACH, AND WALKER WITHIN REACH. WILL MONITOR PATIENT CLOSELY.
[2020-08-08 22:00] VITALS: BP 128/63
--- NOTE | 2020-08-09 06:47 | NUR ---
RN CLOSING NOTE PATIENT DID NOT HAVE ANY SIGNIFICANT CHANGES DURING THE SHIFT. STILL TOLERATING ROOM AIR, BREATHING EVEN AND UNLABORED. AMBULATORY WITH THE WALKER. DID NOT PRESENT WITH ANY ADVERSE EFFECTS OR INAPPROPRIATE BEHAVIOR. SAFETY MEASURES MAINTAINED: BED IN LOCKED AND LOWEST POSITION, SIDE RAILS UP, CALL LIGHT WITHIN REACH, AND WALKER WITHIN REACH. ALL NEEDS MET AND ATTENDED, ALL ORDERS CARRIED OUT. WILL ENDORSE TO DAY SHIFT NURSE FOR STEVE
[2020-08-09 08:00] VITALS: BP 158/85
[2020-08-09] MEDS: NORVASC 10 MG PO SCH (08:47)
[2020-08-09] MEDS: HYDROCHLOROTHIAZIDE 25 MG PO SCH (08:47)
[2020-08-09] MEDS: LORAZEPAM 1 MG TABLET PO SCH ×3 (08:47→16:07)
[2020-08-09] MEDS: INVEST MED Kar XT OR PLACEBO 50/20 MG PO SCH ×2 (09:50→23:07)
[2020-08-09 16:11] VITALS: BP 139/90
--- NOTE | 2020-08-09 20:13 | NUR ---
MS RN: CONTINUITY OF CARE 19:11 Patient in bed, sleeping with loud snore, arouses easily. During rounds, found 2 packs of cigarette, a frame polisher, and "vaping" Removed them all and placed in the nurse station. Informed Charge nurse. Unable to leave message to Dr. Will's voice mail. Patient refused V/S check, wants to be left alone inside the room and not to wake her up from sleep.
--- NOTE | 2020-08-09 22:32 | NUR ---
MS RN: UNABLE TO ADMINISTER DUE MEDS Patient appears in deep sleep, respond verbally when asked but goes back to sleep immediately. Unable to give due meds at this time. Fall precaution maintained.
[2020-08-09 23:00] VITALS: BP 109/50
--- NOTE | 2020-08-09 23:10 | NUR ---
MS RN: ROUNDING Patient more awake now, A/O x3, irritated behavior, uncooperative with V/S. Education/Plan of care explained to patient. Agreed to V/S. Due meds given. No c/o pain at this time.
--- NOTE | 2020-08-09 23:40 | NUR ---
MS RN: NOTIFIED 20:35 Dr. Will informed on patient condition, per MD not to hold Study drug. Patient remains on Clinical Trial study drug.
--- NOTE | 2020-08-10 03:25 | NUR ---
MS RN: AGGRESSIVE BEHAVIOR 03:09 Per FLATCAR WHACKER, patient gave her a jar of Marijuana and told her to throw it away in the bag. FLATCAR WHACKER replied to patient that she will bring it to the Nurses station. Patient walked in to the Nurses station verbally aggressive looking for her Marijuana and Cigarette. Explained to patient, Marijuana is not permitted inside and outside the hospital. Declined education, became more aggressive and started breaking things, hitting 2 wall phones and computer to the ground. Pacing in hallway and yelling profanities. Called security. Notified Dr. Will. Per will see and talk to patient in am. Escalated to cutting and boning supervisor. House sup spoke with the patient regarding Hospital policy and procedure.
--- NOTE | 2020-08-10 06:23 | NUR ---
MS RN: END OF SHIFT REPORT Patient is in the room, calm at this time. Hours of sleep 7. Remains on Clinical Trial Study. MD to see and speak to patient today, patient is aware. Will endorse to oncoming RN.
--- NOTE | 2020-08-10 08:20 | NUR ---
MS RN OPENING NOTES PATIENT IN THE ROOM AT THIS MOMENT, WATCHING TV. WAITING FOR MD TO COME SEE THE PATIENT.
[2020-08-10] MEDS: LORAZEPAM 1 MG TABLET PO SCH ×3 (08:56→16:55)
[2020-08-10] MEDS: NORVASC 10 MG PO SCH (08:58)
[2020-08-10] MEDS: HYDROCHLOROTHIAZIDE 25 MG PO SCH (08:59)
--- NOTE | 2020-08-10 09:01 | NUR ---
MS RN NOTES CHECKED BP AT 0900 128/73 HR 89
[2020-08-10] MEDS: [UNRECOGNIZED DRUG - MIXTURE] PO SCH ×2 (10:10→22:01)
--- NOTE | 2020-08-10 18:50 | NUR ---
MS RN CLOSING NOTES PATIENT IS AWAKE IN BED. STABLE ON ROOM AIR, NO SIGNS AND SYMPTOMS OF DISTRESS OR SHORTNESS OF BREATH NOTED. MEDICATIONS GIVEN ORDERED. PATIENT WAS SEEN BY DR. HERZOG TODAY. PATIENT NEEDS MET THROUGHOUT SHIFT. SAFETY MEASURES IN PLACE, BED LOCKED IN LOWEST POSITION, CALL LIGHT WITHIN REACH. WILL ENDORSE TO [facility] SHIFT NURSE FOR CONTINUITY OF CARE.
--- NOTE | 2020-08-10 19:57 | NUR ---
MS/TELE/RN PATIENT NOT IN ROOM AT THIS TIME.
[2020-08-10 20:00] VITALS: BP 150/86
--- NOTE | 2020-08-10 20:33 | NUR ---
MS/TELE/RN PATIENT BACK IN THE ROOM AT 2014.
--- NOTE | 2020-08-11 06:06 | NUR ---
MS/TELE/RN PATIENT IS STILL SLEEPING AT THIS TIME, EASILY AROUSABLE, APPEAR COMFORTABLE, NO SIGNS OF DISTRESS NOTED, CALL LIGHT IN REACH, ALL NEEDS ATTENDED AT THIS TIME, WILL CONTINUE TO MONITOR.
--- NOTE | 2020-08-11 07:15 | NUR ---
ms rn received on bed, awake,alert,oriented x4,not in any form of distress,respirations even and unlabored,no sob noted, clinical trial patient, loretta at this time,will continue to monitor, patient.
[2020-08-11 08:00] VITALS: BP 137/100
[2020-08-11] MEDS: HYDROCHLOROTHIAZIDE 25 MG PO SCH (08:41)
[2020-08-11] MEDS: NORVASC 10 MG PO SCH (08:41)
[2020-08-11] MEDS: LORAZEPAM 1 MG TABLET PO SCH ×3 (08:41→17:10)
--- NOTE | 2020-08-11 08:43 | NUR ---
ms rn due meds given,tolerated well.
--- NOTE | 2020-08-11 09:50 | NUR ---
ms rn called patient 2x on her cell phone for the investigational drugs to be given, was told that she is coming.
[2020-08-11] MEDS: [UNRECOGNIZED DRUG - MIXTURE] PO SCH ×2 (11:38→22:01)
--- NOTE | 2020-08-11 12:25 | NUR ---
ms mills was seen by dr. calabrese ,waiting for orders. Addendum: 08/11/20 at 1226 by RANGEL CONTRERAS RN wrong patient entry.
--- NOTE | 2020-08-11 18:01 | NUR ---
ms rn patient went down again w/ her patient friend,reminded her to come back for her pm meds,all needs attended.
--- NOTE | 2020-08-11 19:42 | NUR ---
MS/TELE/RN PATIENT IS NOT IN ROOM AT THIS TIME.
[2020-08-11 20:30] VITALS: BP 126/79
--- NOTE | 2020-08-12 06:37 | NUR ---
MS/TELE/RN PATIENT IS STILL SLEEPING AT THIS TIME, APPEAR COMFORTABLE, NO SIGNS OF DISTRESS NOTED, ALL NEEDS ATTENDED AT THIS TIME, WILL CONTINUE TO MONITOR.
[2020-08-12 08:00] VITALS: BP 128/93
[2020-08-12] MEDS: NORVASC 10 MG PO SCH (09:05)
[2020-08-12] MEDS: HYDROCHLOROTHIAZIDE 25 MG PO SCH (09:05)
[2020-08-12] MEDS: LORAZEPAM 1 MG TABLET PO SCH ×3 (09:06→17:36)
[2020-08-12] MEDS: [UNRECOGNIZED DRUG - MIXTURE] PO SCH ×2 (10:00→22:00)
--- NOTE | 2020-08-12 18:58 | NUR ---
MS RN CLOSING NOTE PATIENT AWAKE ON BED ALERT AND ORIENTED. PATIENT DENIES ANY PAIN OR DISCOMFORT. WITH NO SIGNS OF DISTRESS THROUGHOUT THE SHIFT. COMFORT MEASURES PROVIDED. PROVIDED WITH CALM AND QUIET ENVIRONMENT. NO SIGNS AND SYMPTOMS OF AKATHISIA, TREMORS OR EPS NOTED THROUGHOUT THE SHIFT. BED MAINTAINED ON LOWEST POSITION AND LOCKED. CALL LIGHT AND BEDSIDE TABLE WITHIN REACH AT ALL TIMES. WILL ENDORSE TO LICENSED CLUB MANAGER FOR CONTINUITY OF CARE.
--- NOTE | 2020-08-12 19:45 | NUR ---
MS/RN OPENING NOTE RECEIVED PATIENT RESTING IN BED. AWAKE, ALERT AND ORIENTED X 4. ABLE TO MAKE NEEDS KNOWN. NO COMPLAINTS OF PAIN AT THIS TIME. NO IV ACCESS NOTED. CONTINUES ON REGULAR DIET. AMBULATES WITH WALKER. CONTINUES ON INVESTIGATIONAL MEDICATION AND CLINICAL TRIAL. NO S/SX OF AKATHASIA, TREMORS OR EPS. CALL LIGHT WITHIN REACH. ASPIRATION, FALL AND SAFETY PRECAUTIONS MAINTAINED. WILL CONTINUE TO MONITOR.
[2020-08-12 20:33] VITALS: BP 131/87
--- NOTE | 2020-08-13 06:33 | NUR ---
MS/RN CLOSING NOTE PATIENT CURRENTLY SLEEPING IN BED. ALERT AND ORIENTED X 4. ABLE TO MAKE NEEDS KNOWN. NO COMPLAINTS OF PAIN AT THIS TIME. NO IV ACCESS NOTED. CONTINUES ON REGULAR DIET. AMBULATES WITH WALKER. CONTINUES ON INVESTIGATIONAL MEDICATION AND CLINICAL TRIAL. NO S/SX OF AKATHASIA, TREMORS OR EPS. CALL LIGHT WITHIN REACH. ASPIRATION, FALL AND SAFETY PRECAUTIONS MAINTAINED. WILL ENDORSE PLAN OF CARE TO ONCOMING SHIFT.
[2020-08-13 08:20] VITALS: BP_SYST 122; BP_SYST 142; BP_DIAS 72; BP_DIAS 82
--- NOTE | 2020-08-13 08:20 | NUR ---
MS RN NOTES RECEIVED A CALL FROM DR. HERZOG ASKING HOW THE PATIENT IS. I RELAYED TO DR HERZOG THAT THE PATIEN IS IN [facility] [employer] SINCE SHE WOKE UP AND WAS VERY ENGAGING IN THE CONSERSATIONS WE HAD. WILL CONTINUE TO MONITOR PATIENT.
[2020-08-13] MEDS: LORAZEPAM 1 MG TABLET PO SCH ×3 (09:08→17:30)
[2020-08-13] MEDS: NORVASC 10 MG PO SCH (09:08)
[2020-08-13] MEDS: HYDROCHLOROTHIAZIDE 25 MG PO SCH (09:08)
[2020-08-13] MEDS: [UNRECOGNIZED DRUG - MIXTURE] PO SCH ×2 (10:15→21:58)
[2020-08-13 16:20] VITALS: BP 146/90
--- NOTE | 2020-08-13 19:31 | NUR ---
MS RN CLOSING NOTE PATIENT AWAKE ON BED ALERT AND ORIENTED. PATIENT DENIES ANY PAIN OR DISCOMFORT. WITH NO SIGNS OF DISTRESS THROUGHOUT THE SHIFT. COMFORT MEASURES PROVIDED. PROVIDED WITH CALM AND QUIET ENVIRONMENT. NO SIGNS AND SYMPTOMS OF AKATHISIA, TREMORS OR EPS NOTED THROUGHOUT THE SHIFT. BED MAINTAINED ON LOWEST POSITION AND LOCKED. CALL LIGHT AND BEDSIDE TABLE WITHIN REACH AT ALL TIMES. WILL ENDORSE TO HOME HEALTH ADMINISTRATOR FOR CONTINUITY OF CARE.
--- NOTE | 2020-08-13 19:45 | NUR ---
MS NYLA MIKE NOTES RECEIVED PATIENT AWAKE IN ROOM AMBULATORY A/O X4 NO COMPLAIN OF PAIN AND DISCOMFORT ON TRIAL MEDICATION, ON ROOM AIR WITH NO SOB NOTED, ALL NEEDDS ATTENDED REMND THE RESIDENT TO USE THE CALL LIGHTS WHEN NEED ASSITANCE, PATIENT KEPT CLENA AND DRY, WILL CONTINUE TO MONITOR.
[2020-08-13 20:00] VITALS: BP 121/73
--- NOTE | 2020-08-14 07:50 | NUR ---
RN CLOSING NOTES PATIENT WAS IN BED AROUSABLE TO STIMULI NO COMPLAIN OF PAIN AND DISCOMFORT, ON INVESTIGATIONAL MEDICATION, AMBULATORY WITH SUPERVISION, NO SOB NOTED ENDORSE TO INCOMING SHIFT.
[2020-08-14 08:00] VITALS: BP 139/97
[2020-08-14] MEDS: HYDROCHLOROTHIAZIDE 25 MG PO SCH (08:23)
[2020-08-14] MEDS: LORAZEPAM 1 MG TABLET PO SCH ×3 (08:23→17:16)
[2020-08-14] MEDS: NORVASC 10 MG PO SCH (08:23)
[2020-08-14] MEDS: [UNRECOGNIZED DRUG - MIXTURE] PO SCH ×2 (10:00→21:58)
--- NOTE | 2020-08-14 14:28 | NUR ---
m/s production graphic designer: notes pt still absent from dept. ativan 1mg not given, next dose at 1700.
--- NOTE | 2020-08-14 15:30 | NUR ---
m/s electrician chief: notes pt came back at this time. no distress noted.
[2020-08-14 16:00] VITALS: BP 122/85
--- NOTE | 2020-08-14 18:53 | NUR ---
m/s cpo: notes pt visiting room 316 and having a pizza at this time. needs attended. will continue to monitor.
--- NOTE | 2020-08-14 19:30 | NUR ---
MS RN OPENING NOTES: RECEIVED PATIENT AWAKE IN ROOM AMBULATORY WITH SUPERVISION,, NO COMPPALIN OF PAIN AND DISCOMFORT AT THIS TIME, ON CLINICAL TRIAL, BED IN LOW POSITION, CALL LIGHTS WITHIN REACH, WILL CONTINUE TO MONITOR.
[2020-08-14 20:17] VITALS: BP 125/77
--- NOTE | 2020-08-15 06:19 | NUR ---
MS RN CLOSING NOTES: RECEIVED PATIENT SLEEP IN BED COMFORTABLY, BED IN LOW POSITION, CALL LIGHTS WITHIN REACH, NO COMPLAIN OF PAIN AND DISCOMFORT AT THIS TTIME, PATIENT IS A/OX4, AMBULATORY WITH ASSISTANCE AND ABLE TO K=MAKE NEEDS KNOWN, ON CLINICAL TRIAL, ALL MEDS TAKEN KEPT CLEAN AND DRY, WILL CONTIINUE TO MONITOR.
--- NOTE | 2020-08-15 07:39 | NUR ---
MS RN OPENING NOTES RECEIVED PATIENT COMFORTABLY ASLEEP IN BED, EASILY AWAKENS. A/O X 4. ABLE TO MAKE NEEDS KNOWN, DENIES ANY PAIN OR DISCOMFORT AT THIS TIME. ON ROOM AIR, TOLERATING WELL WITH NO SIGNS OF DISTRESS NOTED. SAFETY MEASURES IN PLACE: BED AT LOWEST POSITION AND LOCKED, SIDE-RAILS UP X2 AND CALL LIGHT WITHIN REACH. WILL CONTINUE TO MONITOR PATIENT
[2020-08-15 08:00] VITALS: BP 155/63
[2020-08-15] MEDS: LORAZEPAM 1 MG TABLET PO SCH ×3 (08:49→17:31)
[2020-08-15] MEDS: NORVASC 10 MG PO SCH (08:49)
[2020-08-15] MEDS: HYDROCHLOROTHIAZIDE 25 MG PO SCH (08:49)
[2020-08-15] MEDS: [UNRECOGNIZED DRUG - MIXTURE] PO SCH ×2 (10:05→22:00)
--- NOTE | 2020-08-15 13:45 | NUR ---
RN NOTES ATIVAN 1 MG TABLET NOT GIVEN, PATIENT ABSENT FROM UNIT.
[2020-08-15 17:45] VITALS: BP 126/88
--- NOTE | 2020-08-15 18:51 | NUR ---
MS/RN CLOSING NOTES PATIENT CURRENTLY OUTSIDE SITTING ON A CHAIR OUTSIDE OF THE HOSPITAL LOBBY. ALERT AND ORIENTED X 4. ABLE TO MAKE NEEDS KNOWN AND AMBULATES WITH WALKER. CONTINUES ON INVESTIGATIONAL/ CLINICAL TRIAL MED, NO S/SX OF AKATHISIA, TREMORS OR EPS OBSERVED DURING SHIFT. WILL ENDORSE PLAN OF CARE TO CARTOGRAPHIC DRAFTER NURSE.
--- NOTE | 2020-08-15 19:30 | NUR ---
MS RN NOTES RECEIVED IN THE ROOM.SITTING ON EDGE OF BED,TALKING TO SOMEBODY ON HER CELL PHONE.ALERT,ORIENTED X4,AMBULATE WITH WALKER AT TIMES,ON CLINICAL TRIAL,WILL MONITOR FOR ANY SIDE EFFECTS OF MEDICATIONS LIKE AKATHISIA.CALL LIGHT IN REACH,NEEDS ANTICIPATED.
[2020-08-15 20:00] VITALS: BP 146/98
--- NOTE | 2020-08-15 22:00 | NUR ---
MS RN NOTES IN ROOM,DUE INVESTIGATIONAL DRUG GIVEN SCHEDULED.PATIENT KNOWS NO FOOD TWO HOURS BEFORE AND AFTER TAKING MEDICATIONS.
--- NOTE | 2020-08-16 06:40 | NUR ---
MS RN NOTES NO BEHAVIORAL SYMPTOMS NOTED,MED COMPLIANT,FOLLOW DIRECTIONS.WILL ENDORSE TO DAY NURSE FOR STEVE.
--- NOTE | 2020-08-16 07:19 | NUR ---
MS RN OPENING NOTES RECEIVED PATIENT AWAKE IN BED IN NO ACUTE SIGNS OF DISTRESS. A/O X 4. ABLE TO MAKE NEEDS KNOWN, DENIES ANY PAIN OR DISCOMFORT AT THIS TIME. ON ROOM AIR, TOLERATING WELL WITH NO SOB NOTED. SAFETY MEASURES IN PLACE: BED IN LOWEST POSITION AND LOCKED, SIDE-RAILS UP X2 AND CALL LIGHT AND BEDSIDE TABLE WITHIN EASY REACH OF PT. WILL CONTINUE TO MONITOR PATIENT ACCORDINGLY.
[2020-08-16 08:00] VITALS: BP 146/97
[2020-08-16] MEDS: NORVASC 10 MG PO SCH (08:08)
[2020-08-16] MEDS: HYDROCHLOROTHIAZIDE 25 MG PO SCH (08:09)
[2020-08-16] MEDS: LORAZEPAM 1 MG TABLET PO SCH ×3 (08:42→17:00)
--- NOTE | 2020-08-16 08:43 | NUR ---
RN NOTES PATIENT REFUSED TO TAKE ATIVAN, RISK AND BENEFITS EXPLAINED SEVERAL TIMES. STILL REFUSED.
--- NOTE | 2020-08-16 09:32 | NUR ---
RN NOTES BLOOD WORKS DONE, SPECIMEN WAS TAKEN BY DR. HERZOG'S LOW HEEL BUILDER TO CLINIC.
[2020-08-16] MEDS: [UNRECOGNIZED DRUG - MIXTURE] PO SCH ×2 (09:58→22:03)
--- NOTE | 2020-08-16 19:01 | NUR ---
MS/RN CLOSING NOTES PATIENT CURRENTLY OUTSIDE SITTING ON A CHAIR OUTSIDE OF THE HOSPITAL LOBBY. ALERT AND ORIENTED X 4. ABLE TO MAKE NEEDS KNOWN AND AMBULATES WITH WALKER. CONTINUES ON INVESTIGATIONAL/ CLINICAL TRIAL MED, NO S/SX OF AKATHISIA, TREMORS OR EPS OBSERVED DURING SHIFT. WILL ENDORSE PLAN OF CARE TO PROCESSOR HELPER NURSE.
--- NOTE | 2020-08-16 19:45 | NUR ---
MS RN NOTES IN ROOM A/O X4,AMBULATE WITH WALKER,NO FALL, WILL CONTINUE TO MONITOR BEHAVIOR.
[2020-08-16 20:00] VITALS: BP 137/89
--- NOTE | 2020-08-17 06:16 | NUR ---
MS RN NOTES IN ROOM,SLEPT WITH INTERVALS,NO VIOLENT BEHAVIOR NOTED.MED COMPLIANT,POSSIBLE D/C TODAY.WILL ENDORSE TO DAY NURSE FOR STEVE.
--- NOTE | 2020-08-17 07:30 | NUR ---
RN MS NOTES PT AWAKE, ALERT AND ORIENTED, WALKING ALONG THE HALLWAY, NO COMPLAINT OF PAIN OR ANY DISCOMFORT, CALL LIGHT WITHIN REACH, DISCHARGE PLAN TODAY.
[2020-08-17 08:00] VITALS: BP 127/93
[2020-08-17] MEDS: NORVASC 10 MG PO SCH (09:16)
[2020-08-17] MEDS: LORAZEPAM 1 MG TABLET PO SCH (09:16)
[2020-08-17] MEDS: HYDROCHLOROTHIAZIDE 25 MG PO SCH (09:17)
--- NOTE | 2020-08-17 10:02 | NUR ---
RN MS NOTES PT STATES THAT SHE HAS SOME CLOTHES AT THE [facility] BUT SHE IS GOING TO LEAVE IT.
--- NOTE | 2020-08-17 10:02 | NUR ---
RN MS NOTES PT AWAKE, ALERT AND ORIENTED, NO COMPLAINT OF PAIN OR ANY DISCOMFORT, RESPIRATIONS NORMAL, AMBULATES ALONG THE HALLWAY WITH STEADY GAIT, AM MEDS GIVEN, DISCHARGE ORDER RECEIVED FROM DR. HERZOG, DISCHARGE AND MEDICAITON INSTRUCTIONS PROVIDED TO PT, VERBALIZED UNDERSTANDING, PT SIGNED BELONGINGS LIST, DISCHARGED IN STABLE CONDITION.
== END 2020-08-17 10:00 | disposition home or self-care (01) | DRG 951 ==
LOC: MED 14:35
PROVIDERS: ADMIT Psychiatry & Neurology Psychiatry; ATTEND Psychiatry & Neurology Psychiatry
DX: Z00.6 Encounter for examination for normal comparison and control in clinical research program (principal); F20.0 Paranoid schizophrenia; I10 Essential (primary) hypertension; E66.01 Morbid (severe) obesity due to excess calories; J45.909 Unspecified asthma, uncomplicated; F14.11 Cocaine abuse, in remission; F12.11 Cannabis abuse, in remission; Z96.653 Presence of artificial knee joint, bilateral; G47.00 Insomnia, unspecified; Z79.899 Other long term (current) drug therapy
CPT/HCPCS: G0378

== ENCOUNTER 2022-03-06 14:16 | Inpatient (IN) | payer OTHER ==
[~2022-03-06] VITALS: Ht 170.2 cm; Wt 120.2 kg
--- NOTE | 2022-03-06 13:10 | NUR ---
RN-ADMISSION NOTES ADMITTED A 52 Y.O FEMALE CLINICAL TRIAL PATIENT OF DR. HERZOG. PATIENT WAS BROUGHT IN BY DR. HERZOG STAFF VIA WHEEL CHAIR. UPON FACE TO FACE ASSESSMENT PATIENT IS A/O X4, CALM ,COOPERATIVE DENIES SI/HI/AVH AT THIS TIME.PATIENT STATED THAT SOME TIMES SHE'S HEARING VOICES BUT NOT COMMAND. PATIENT SIGN ALL ADMISSION PAPERS. PATIENT WAS ORIENTED IN THE ROOM /UNIT AND UNIT POLICIES. PATIENT ON WHEEL CHAIR SHE STATED THAT SHE TWISTED HER ANKLE FEW WEEKS AGO BUT SHE ABLE TO WHEEL ,TRANSFER HER SELF FROM BED TO WHEEL CHAIR AND VISE VERSA. ALL ORDERS OF DR. HERZOG WAS FAXED TO THE PHARMACY.
[~2022-03-06 14:16] MED LIST changes: +ACET-2605 PO; +CALC355O18 PO; +IBUP-1953 PO; +LORA-259 PO; +MAGN400O6 PO; +ZOLP5TAB8 PO
[2022-03-06 15:30] VITALS: BP 140/73
--- NOTE | 2022-03-06 15:45 | NUR ---
RN-NOTES PATIENT OFF THE UNIT FOR SMOKING IN STABLE CONDITION.
--- NOTE | 2022-03-06 17:30 | NUR ---
RN-NOTES PATIENT BACK IN THE UNIT ,NO ACUTE DISTRESS NOTED.
[2022-03-06] MEDS ORDERED: MAG HYDROX/AL HYDROX/SIMETH 30 ML UDC PO PRN (18:00)
[2022-03-06] MEDS ORDERED: MAGNESIUM HYDROXIDE 30 ML UDC PO PRN (18:00)
[2022-03-06] MEDS ORDERED: ZOLPIDEM TARTRATE 10 MG TABLET PO PRN (18:00)
[2022-03-06] MEDS ORDERED: LORAZEPAM 1 MG TABLET FOR AGITATION PO PRN (18:00)
--- NOTE | 2022-03-06 19:30 | NUR ---
GPS RN NOTE, RECEIVED PATIENT AWAKE AND IN BED, NO S/S OR COMPLAINTS OF PAIN AT THIS TIME. PATIENT IS DISPLAYING NO S/S OF APPARENT DISTRESS AT THIS TIME. PATIENT BREATHING IS UNLABORED WITH EQUAL RISE AND FALL OF THE CHEST. PATIENT IS ALERT AND ORIENTED X 4 ON ROOM AIR WITH A SPO2 96%. PATIENT IS COMPLIANT WITH MEDICATIONS, ANXIOUS, PARANOID, GUARDED, POLITE, AND COOPERATIVE. PATIENT IS RESPONDING TO INTERNAL STIMULI. PATIENT DENIES SUICIDAL AND HOMICIDAL IDEATIONS AT THIS TIME. PATIENT ASSISTED WITH TURNING AND REPOSITIONING Q2HR AND PRN FOR COMFORT AND CIRCULATION. PATIENT HAS NO NEEDS AT THIS TIME. PATIENT EDUCATED ON THE USE OF THE CALL JEFFERSON. PATIENT BED SIDE RAILS UP X 2 FOR SAFETY. PATIENT BED IS LOCKED AND LOW. WILL CONTINUE TO MONITOR THIS PATIENT Q15 MINUTES WITH THE HELP OF STAFF TO MAINTAIN SAFETY.
[2022-03-06 20:00] VITALS: BP 145/92
[2022-03-06] MEDS: RISPERDAL 2 MG PO SCH ×2 (21:36→21:45)
--- NOTE | 2022-03-06 21:46 | NUR ---
GPS RN NOTE, PATIENT REFUSED RISPERDAL 2MG PO HS. OFFERED THREE TIMES AND STILL PATIENT REFUSED STATING," NO I'M ON STUDY MEDICATION ". EDUCATED PATIENT ON THE RISKS AND BENEFITS OF TAKING AND REFUSING AFOREMENTIONED MEDICATION. WILL MAKE DR HERZOG AWARE. WILL CONTINUE TO MONITOR THIS PATIENT WITH THE HELP OF STAFF.
--- NOTE | 2022-03-06 22:17 | NUR ---
GPS RN NOTE, PATIENT REFUSED RISPERDAL 2MG PO HS. DR HERZOG MADE AWARE. WILL CONTINUE TO MONITOR THIS PATIENT WITH THE HELP OF STAFF.
[2022-03-07 08:00] VITALS: BP 162/111
[2022-03-07] MEDS: HYDROCHLOROTHIAZIDE 25 MG PO SCH ×2 (09:00→17:04)
[2022-03-07] MEDS: AMLODIPINE 10 MG PO SCH (09:00)
[2022-03-07 16:00] VITALS: BP 141/94
--- NOTE | 2022-03-07 19:30 | NUR ---
GPS RN NOTE, PATIENT IS NOT IN ROOM AND IS OUT SMOKING.
--- NOTE | 2022-03-07 21:00 | NUR ---
GPS RN NOTE, RECEIVED PATIENT AWAKE AND IN BED, NO S/S OR COMPLAINTS OF PAIN AT THIS TIME. PATIENT IS DISPLAYING NO S/S OF APPARENT DISTRESS AT THIS TIME. PATIENT BREATHING IS UNLABORED WITH EQUAL RISE AND FALL OF THE CHEST. PATIENT IS ALERT AND ORIENTED X 4 ON ROOM AIR WITH A SPO2 97%. PATIENT IS COMPLIANT WITH MEDICATIONS, ANXIOUS, PARANOID, GUARDED, POLITE, AND COOPERATIVE. PATIENT IS RESPONDING TO INTERNAL STIMULI. PATIENT DENIES SUICIDAL AND HOMICIDAL IDEATIONS AT THIS TIME. PATIENT ASSISTED WITH TURNING AND REPOSITIONING Q2HR AND PRN FOR COMFORT AND CIRCULATION. PATIENT HAS NO NEEDS AT THIS TIME. PATIENT EDUCATED ON THE USE OF THE CALL JEFFERSON. PATIENT BED SIDE RAILS UP X 2 FOR SAFETY. PATIENT BED IS LOCKED AND LOW. WILL CONTINUE TO MONITOR THIS PATIENT Q15 MINUTES WITH THE HELP OF STAFF TO MAINTAIN SAFETY.
[2022-03-07] MEDS: RISPERDAL 2 MG PO SCH (21:32)
[2022-03-08 08:00] VITALS: BP 159/99
[2022-03-08] MEDS: HYDROCHLOROTHIAZIDE 25 MG PO SCH ×2 (08:01→16:32)
[2022-03-08] MEDS: AMLODIPINE 10 MG PO SCH (08:01)
[2022-03-08 16:00] VITALS: BP 151/98
[2022-03-08 20:14] VITALS: BP 149/98
[2022-03-08] MEDS: RISPERDAL 2 MG PO SCH (21:00)
--- NOTE | 2022-03-08 21:25 | NUR ---
RN note: Received patient in bed awake,appears to be guarded and paranoid,compliant with medications.No s/s of acute distress noted.Will continue to monitor q15 min rounds for safety.
[2022-03-09] MEDS: HYDROCHLOROTHIAZIDE 25 MG PO SCH ×2 (07:58→16:41)
[2022-03-09] MEDS: AMLODIPINE 10 MG PO SCH (07:58)
[2022-03-09 08:00] VITALS: BP 122/72
[2022-03-09 16:00] VITALS: BP 160/99
[2022-03-09] MEDS: RISPERDAL 2 MG PO SCH (21:50)
[2022-03-10] MEDS: AMLODIPINE 10 MG PO SCH (08:20)
[2022-03-10] MEDS: HYDROCHLOROTHIAZIDE 25 MG PO SCH ×2 (08:20→16:17)
--- NOTE | 2022-03-10 09:00 | NUR ---
RN NOTE- RECEIVED PATIENT AWAKE AND IN BED,NO S/S OF APPARENT DISTRESS AT THIS TIME. PATIENT IS COMPLIANT WITH MEDICATIONS, PATIENT DENIES SUICIDAL AND HOMICIDAL IDEATIONS AT THIS TIME. WILL CONTINUE TO MONITOR THIS PATIENT Q15 MIN FOR SAFETY AND BEHAVIOR
[2022-03-10 16:00] VITALS: BP 145/89
[2022-03-10] MEDS ORDERED: RISPERDAL 2 MG PO ONE (22:00)
--- NOTE | 2022-03-11 06:48 | NUR ---
RN note: Patient appears to be depressed,blunted affect ,disheveled and unkempt.Patient goes out for smoke break.No s/s of acute distress noted.Will continue to monitor q15 min rounds for safety.
[2022-03-11] MEDS: HYDROCHLOROTHIAZIDE 25 MG PO SCH ×2 (09:00→16:19)
[2022-03-11] MEDS: AMLODIPINE 10 MG PO SCH (09:23)
--- NOTE | 2022-03-11 09:27 | NUR ---
RN-CO: PATIENT IS RESTING IN HER BED, NO S/S OF APPARENT DISTRESS AT THIS TIME NOTED. PATIENT IS COMPLIANT WITH MEDICATIONS, PATIENT DENIES SUICIDAL AND HOMICIDAL IDEATIONS AT THIS TIME. WILL CONTINUE TO MONITOR THIS PATIENT Q15 MIN FOR SAFETY AND BEHAVIOR
--- NOTE | 2022-03-11 19:58 | NUR ---
RN note: Patient is not on the unit during change of shift .Patient came back from smoking outside at 20:00.Patient appears to be depressed,blunted affect,preoccupied to her own thought process .No s/s of acute distress noted.Will continue to monitor q15 min rounds for safety.
[2022-03-11 20:25] VITALS: BP 142/78
--- NOTE | 2022-03-12 06:50 | NUR ---
RN note: Patient went out to smoke outside.No s/s of acute distress noted.
--- NOTE | 2022-03-12 08:05 | NUR ---
NURSE NOTE: PT LEFT THE FLOOR AT THIS TIME. WILL CONT TO MONITOR.
[2022-03-12] MEDS: HYDROCHLOROTHIAZIDE 25 MG PO SCH ×2 (08:50→16:59)
[2022-03-12] MEDS: AMLODIPINE 10 MG PO SCH (08:51)
--- NOTE | 2022-03-12 10:25 | NUR ---
NURSE NOTE: PT RETURNED TO FLOOR AT THIS TIME. WILL CONT TO MONITOR.
--- NOTE | 2022-03-12 15:00 | NUR ---
NURSE NOTE: PT LEFT THE FLOOR AT THIS TIME. WILL CONT TO MONITOR.
--- NOTE | 2022-03-12 16:15 | NUR ---
NURSE NOTE: PT RETURNED TO FLOOR. WILL CONT TO MONITOR.
--- NOTE | 2022-03-12 17:30 | NUR ---
NURSE NOTE: PT LEFT THE FLOOR AT THIS TIME. WILL CONT TO MONITOR.
--- NOTE | 2022-03-12 22:00 | NUR ---
Reminded pt she is NPO after 2200. Pt receptive to instructions. Pt states, "Ok, i wont eat or drink after 10 pm". Will continue to monitor.
[2022-03-13 08:00] VITALS: BP 154/88
[2022-03-13] MEDS: AMLODIPINE 10 MG PO SCH (08:24)
[2022-03-13] MEDS: HYDROCHLOROTHIAZIDE 25 MG PO SCH ×2 (08:25→16:48)
--- NOTE | 2022-03-13 10:02 | NUR ---
RN Notes: Received pt. asleep in bed, breathing is even and unlabored. Pt. is on NPO and took her due meds. Pt. went out in the unit to smoke. No distress and no agitation noted. Needs attended and will continue to monitor for safety.
[2022-03-13] MEDS ORDERED: LORAZEPAM 1 MG TABLET FOR AGITATION PO PRN (12:00)
[2022-03-13] MEDS ORDERED: ZOLPIDEM TARTRATE 10 MG TABLET PO PRN (12:00)
[2022-03-13 15:00] VITALS: BP 138/89
[2022-03-13 16:00] VITALS: BP 138/89
[2022-03-13 20:06] VITALS: BP 132/59
--- NOTE | 2022-03-13 20:07 | NUR ---
RN NOTES: PATIENT IS RESTING IN HER BED, NO S/S OF APPARENT DISTRESS AT THIS TIME NOTED. PATIENT IS COMPLIANT WITH MEDICATIONS, GUARDED , PATIENT DENIES SUICIDAL AND HOMICIDAL IDEATIONS AT THIS TIME. WILL CONTINUE TO MONITOR THIS PATIENT Q15 MIN FOR SAFETY AND BEHAVIOR .
[2022-03-13 20:30] VITALS: BP 137/69
[2022-03-13] MEDS: INVEST MED MK-8189-008-02 MISC 1 DOSE PO SCH (20:53)
--- NOTE | 2022-03-13 23:00 | NUR ---
RN NOTES: PT. TOOK 1ST DOSE OF INVESTIGATION DRUG, TOLERATED WELL , NO ACUTE DISTRESS OR ADVERSE REACTION NOTED, WILL CONTINUITY WITH CARE.
--- NOTE | 2022-03-14 07:30 | NUR ---
RN-NOTES PATIENT IN BED SLEEPING WITH BREATHING EVEN AND NONLABORED EASILY AROUSED, A/OX3,GUARDED,NO ACUTE DISTRESS NOTED.COMPLIANT WITH MEDICATIONS. ABLE TO WHEEL SELF AROUND THE UNIT.
[2022-03-14 08:00] VITALS: BP 156/86
[2022-03-14] MEDS: HYDROCHLOROTHIAZIDE 25 MG PO SCH ×2 (08:51→16:27)
[2022-03-14] MEDS: AMLODIPINE 10 MG PO SCH (08:51)
--- NOTE | 2022-03-14 14:56 | NUR ---
RN-NOTES PATIENT BACK IN THE UNIT IN STABLE CONDITION,A/OX4.
[2022-03-14 16:00] VITALS: BP 141/96
--- NOTE | 2022-03-14 18:26 | NUR ---
RN-NOTES RECEIVED T.O ORDER FROM DR. HERZOG OF BACITRACIN OINT APPLY TO RIGHT LOWER LEG WOUND X7 DAYS. NOTED AND CARRIED OUT.
--- NOTE | 2022-03-14 19:38 | NUR ---
RN-NOTES PATIENT VISIBLE IN THE UNIT A/OX3,GUARDED,QUIET,NO ACUTE DISTRESS NOTED.COMPLIANT WITH MEDICATIONS.COMPLIANT WITH MEDICATIONS. ABLE TO WHEEL SELF IN THE UNIT . PATIENT OFF THE UNIT SEVERAL TIMES THIS SHIFT FOR SMOKING.ALL NEEDS ATTENDED AND ANTICIPATED. WILL CONT. MONITORING FOR SAFETY AND BEHAVIOR. WILL ENDORSE TO INCOMING NURSE FOR CONTINUITY OF CARE.
--- NOTE | 2022-03-14 20:00 | NUR ---
RN NOTES: PATIENT IS RESTING IN HER BED, NO S/S OF APPARENT DISTRESS AT THIS TIME NOTED. PATIENT IS COMPLIANT WITH MEDICATIONS, GUARDED , PATIENT DENIES SUICIDAL AND HOMICIDAL IDEATIONS AT THIS TIME. PT. TOOK SHOWER ,WILL CONTINUE TO MONITOR THIS PATIENT Q15 MIN FOR SAFETY AND BEHAVIOR .
[2022-03-14] MEDS: INVEST MED MK-8189-008-02 MISC 1 DOSE PO SCH (20:10)
[2022-03-14] MEDS: BACI/NEOM/POLY B OINT PKT 1 UDPKT PACKET TP SCH (20:49)
[2022-03-15 01:08] VITALS: BP 137/82
[2022-03-15 08:00] VITALS: BP 144/93
[2022-03-15] MEDS: HYDROCHLOROTHIAZIDE 25 MG PO SCH ×2 (08:09→16:35)
[2022-03-15] MEDS: AMLODIPINE 10 MG PO SCH (08:10)
[2022-03-15] MEDS ORDERED: BACI/NEOM/POLY B OINT PKT 1 UDPKT PACKET TP SCH (09:00)
--- NOTE | 2022-03-15 09:17 | NUR ---
RN Notes: Received pt. asleep in bed, breathing is even and unlabored. Ate 100% for breakfast and compliant on meds. No distress and no agitation noted, needs attended and will continue to monitor for safety.
[2022-03-15] MEDS: BACI/NEOM/POLY B OINT PKT 1 UDPKT PACKET TP SCH (15:29)
--- NOTE | 2022-03-15 15:48 | NUR ---
Dressing done for the wound on the left ankle and applied with the Neosporin ointment.
[2022-03-15 17:01] VITALS: BP 120/74
--- NOTE | 2022-03-15 19:30 | NUR ---
GPS RN NOTE, PATIENT IS NOT IN ROOM AND IS OUT SMOKING. LEFT FLOOR AT 1745 AND HAS NOT RETURNED YET.
--- NOTE | 2022-03-15 19:55 | NUR ---
GPS RN NOTE, RECEIVED PATIENT AWAKE AND IN BED, HAS A COMPLAINT OF CHRONIC LEFT SHOULDER PAIN AT 7 OUT OF 10 ON THE PAIN SCALE. PATIENT IS TAKING PAIN MEDICATION FOR THIS PAIN. PATIENT IS DISPLAYING NO S/S OF APPARENT DISTRESS AT THIS TIME. PATIENT BREATHING IS UNLABORED WITH EQUAL RISE AND FALL OF THE CHEST. PATIENT IS ALERT AND ORIENTED X 4 ON ROOM AIR WITH A SPO2 95%. PATIENT IS COMPLIANT WITH MEDICATIONS, ANXIOUS, PARANOID, GUARDED, POLITE, AND COOPERATIVE. PATIENT IS RESPONDING TO INTERNAL STIMULI. PATIENT DENIES SUICIDAL AND HOMICIDAL IDEATIONS AT THIS TIME. PATIENT ASSISTED WITH TURNING AND REPOSITIONING Q2HR AND PRN FOR COMFORT AND CIRCULATION. PATIENT HAS NO NEEDS AT THIS TIME. PATIENT EDUCATED ON THE USE OF THE CALL JEFFERSON. PATIENT BED SIDE RAILS UP X 2 FOR SAFETY. PATIENT BED IS LOCKED AND LOW. WILL CONTINUE TO MONITOR THIS PATIENT Q15 MINUTES WITH THE HELP OF STAFF TO MAINTAIN SAFETY.
[2022-03-15 20:00] VITALS: BP 115/65
[2022-03-15] MEDS: INVEST MED MK-8189-008-02 MISC 1 DOSE PO SCH (20:25)
[2022-03-15] MEDS: IBUPROFEN 200 MG TABLET PO PRN (21:33)
--- NOTE | 2022-03-15 21:33 | NUR ---
GPS RN NOTE, PATIENT HAS A COMPLAINT OF CHRONIC LEFT SHOULDER PAIN AT 7 OUT OF 10 ON THE PAIN SCALE REQUESTING LEFT SHOULDER X-RAY AND PAIN MEDICATION AT THIS TIME. PAGED DR HERZOG AND INFORMED HIM OF MY FINDINGS. DR HERZOG GAVE NO NEW ORDER AT THIS TIME. PATIENT VITAL SIGNS ARE STABLE. GAVE MOTRIN 600MG PO Q8HR PRN ORDERED. WILL REASSESS PAIN AND I WILL CONTINUE TO MONITOR THIS PATIENT WITH THE HELP OF STAFF.
[2022-03-16] MEDS: HYDROCHLOROTHIAZIDE 25 MG PO SCH ×2 (09:42→16:26)
[2022-03-16] MEDS: AMLODIPINE 10 MG PO SCH (09:42)
--- NOTE | 2022-03-16 09:47 | NUR ---
RN-CO: PATIENT WAS SMOKING OUTSIDE WHEN I CAME. SHE CAME BACK AT 0930 AM. DENIED PAIN AND DISCOMFORTS. AFFECT IS BRIGHT.SHE ALSO DEIED AH/VH AT THIS TIME.
--- NOTE | 2022-03-16 19:20 | NUR ---
RN NOTE PATIENT WENT OUT OF THE UNIT TO SMOKE. ALERT AND ORIENTED X3-4, ABLE TO MAKE NEEDS KNOWN. IN NO APPARENT DISTRESS NOTED. PATIENT REMAINS NEEDY, GUARDED, UNKEMPT, DISHEVELED, ANXIOUS AT TIMES, BRIGHT AFFECT. PATIENT IS ON INVESTIGATIONAL MEDS WITH NO ADVERSE REACTION NOTED. DENIES SI/HI/AVH AT THIS TIME. SAFETY PRECAUTIONS MAINTAINED. WILL CONTINUE TO MONITOR Q15MIN ROUNDS FOR SAFETY AND BEHAVIOR.
[2022-03-16] MEDS: INVEST MED MK-8189-008-02 MISC 1 DOSE PO SCH (20:08)
[2022-03-16 20:25] VITALS: BP 147/70
[2022-03-16] MEDS: BACI/NEOM/POLY B OINT PKT 1 UDPKT PACKET TP SCH (22:04)
[2022-03-17] MEDS: IBUPROFEN 200 MG TABLET PO PRN (01:12)
[2022-03-17 08:00] VITALS: BP 155/86
[2022-03-17] MEDS: AMLODIPINE 10 MG PO SCH (09:03)
[2022-03-17] MEDS: HYDROCHLOROTHIAZIDE 25 MG PO SCH ×2 (09:03→17:28)
--- NOTE | 2022-03-17 09:33 | NUR ---
WOUND CARE CONSULT: PT PRESENTS WITH RT ANKLE WOUND, PRESENT ON ADMISSION. DR AGUIRRE CALLED FOR DPM CONSULT. PT IS INDEPENDENT WITH BED MOBILITY AND IS CONTINENT. IN AGREEMENT WITH PLAN OF CARE.
[2022-03-17 19:30] VITALS: BP 133/89
[2022-03-17] MEDS: INVEST MED MK-8189-008-02 MISC 1 DOSE PO SCH (20:09)
--- NOTE | 2022-03-17 20:44 | NUR ---
RN note: Patient went out to smoke after taking her investigational medications.No c/o of adverse reaction of the medications.Alert,oriented x4,no s/s of acute distress noted.Will continue to monitor q15 min rounds for safety.
[2022-03-18] MEDS: IBUPROFEN 200 MG TABLET PO PRN (00:38)
--- NOTE | 2022-03-18 07:00 | NUR ---
DELILAH BAER RN NOTES: RECEIVED PT IN BED ASLEEP, EASILY AROUSED WITH STIMULI. NO SOB OR CARDIAC DISTRESS NOTED, DENIES PAIN AT THIS TIME, NO EPISODES OF BEHAVIORAL CHANGES. RESIDENT IS USING HER WHEELCHAIR, SHE'S ABLE TO STAND UP AND WALK FEW STEPS. WOUND NOTED ON HER RIGHT ANKLE. WILL DO WOUND CARE LATER TODAY PER PT'S REQUEST. WILL MONITOR ACCORDINGLY. SAFETY MEASURES MAINTAINED:BED LOCKED AND IN LOWEST POSITION, SIDE RAILS UP X 2. CALL LIGHT IN EASY REACH.
[2022-03-18 08:00] VITALS: BP 138/76
[2022-03-18] MEDS: HYDROCHLOROTHIAZIDE 25 MG PO SCH ×2 (08:31→16:33)
[2022-03-18] MEDS: AMLODIPINE 10 MG PO SCH (08:31)
[2022-03-18 16:00] VITALS: BP 138/95
[2022-03-18] MEDS: INVEST MED MK-8189-008-02 MISC 1 DOSE PO SCH (20:02)
[2022-03-19] MEDS: ACETAMINOPHEN ES 500 MG TABLET PO PRN ×2 (00:01→20:11)
--- NOTE | 2022-03-19 00:03 | NUR ---
RN note: patient c/o right shoulder pain 6,requested and given Tylenol ES 1000mg PO.Will continue to monitor the effectiveness within 1 hr.
--- NOTE | 2022-03-19 06:06 | NUR ---
RN note: Patient appears to be depressed,blunted affect,pleasant upon approach,no s/s of acute distress noted.Will continue to monitor q15 min rounds for safety.
[2022-03-19 08:00] VITALS: BP 136/93
--- NOTE | 2022-03-19 08:00 | NUR ---
RN NOTE- PT IN CLINICAL TRIAL W DR HERZOG. MED COMPLIANT, NEEDS ATTENDED, NO EPS OR BEHAVIORAL ISSUES.
[2022-03-19] MEDS: AMLODIPINE 10 MG PO SCH (08:45)
[2022-03-19] MEDS: HYDROCHLOROTHIAZIDE 25 MG PO SCH ×2 (08:45→16:32)
--- NOTE | 2022-03-19 15:33 | NUR ---
RN NOTE- WOUND CARE LT ANKLE PER ORDERS. TOLERATED WELL.
--- NOTE | 2022-03-19 17:02 | NUR ---
RN NOTE- CONSENT FOR RT ANKLE DEBRIDEMENT SIGNED AND PLACED IN CHART. #15 SURGICAL BLADE AND SUTURE REMOVAL KIT PLACED IN PTS CASSETTE IN MED ROOM FOR MD USE. MARIJUANA AND PIPE REMOVED FROM PTS POSSESSION AND LOCKED IN CONTRABAND PER DR HERZOG. PT COMPLIED
--- NOTE | 2022-03-19 19:00 | NUR ---
GPS RN NOTES RECEIVED OUT OF THE UNIT, WENT TO SMOKE.
--- NOTE | 2022-03-19 19:20 | NUR ---
GPS RN NOTES BACK FROM SMOKING PER WHEELCHAIR,A/O X4,DRESSING INTACT AND DRY ON RIGHT FOOT.COOPERATIVE,MED COMPLIANT.NO COMPLAINTS AT THE MOMENT.WILL CONTINUE TO MONITOR BEHAVIOR.
[2022-03-19 19:59] VITALS: BP 122/74
[2022-03-19] MEDS: INVEST MED MK-8189-008-02 MISC 1 DOSE PO SCH (20:03)
--- NOTE | 2022-03-19 20:11 | NUR ---
GPS RN NOTES C/O RIGHT SHOULDER PAIN,TYLENOL ES 1GM PO GIVEN ORDERED .
--- NOTE | 2022-03-20 07:23 | NUR ---
GPS RN OPENING NOTE- ON CLINICAL TRIAL UNDER DR HERZOG, AOX4, COOPERATIVE, ABLE TO MAKE NEEDS KNOWN. NOT IN ANY FORM OF RESPIRATORY DISTRESS. WILL CONTINUE TO MONITOR FOR BEHAVIORAL CHANGES DURING MY SHIFT.
[2022-03-20 08:00] VITALS: BP 150/98
[2022-03-20] MEDS: AMLODIPINE 10 MG PO SCH (08:03)
[2022-03-20] MEDS: HYDROCHLOROTHIAZIDE 25 MG PO SCH ×2 (08:03→17:14)
--- NOTE | 2022-03-20 08:10 | NUR ---
GPS RN NOTES - PATIENT WENT OUT TO SMOKE.
--- NOTE | 2022-03-20 09:05 | NUR ---
GPS RN NOTES - PATIENT WENT BACK FROM SMOKING.
[2022-03-20] MEDS ORDERED: LORAZEPAM 1 MG TABLET FOR AGITATION PO PRN (12:00)
[2022-03-20] MEDS ORDERED: ZOLPIDEM TARTRATE 10 MG TABLET PO PRN (12:00)
--- NOTE | 2022-03-20 12:05 | NUR ---
GPS RN NOTES - PATIENT WENT OUT TO SMOKE/GET LUNCH
--- NOTE | 2022-03-20 13:00 | NUR ---
GPS RN NOTES - WOUND CARE - PT WANTED TO DO IT IN THE EVENING AFTER SHOWER. WILL ENDORSE TO TEXTILE MACHINE MECHANIC.
--- NOTE | 2022-03-20 13:05 | NUR ---
GPS RN NOTES - PATIENT REPORTED BACK WITH LUNCH BAG.
[2022-03-20 16:28] VITALS: BP 148/96
--- NOTE | 2022-03-20 18:52 | NUR ---
[facility]PS RN CLOSING NOTES - PATIENT IS SITTING IN WHEELCHAIR, TALKING TO SOMEONE OVER THE PHONE, CALM, AOX4, NO S/SX OF RESPIRATORY DISTRESS, NO COMPLAINTS OF PAIN NOR ANY DISCOMFORT. ALL NEEDS MET, ALL MEDS GIVEN. WILL ENDORSE TO OPERATIONAL COMMUNICATION CHIEF NURSE.
[2022-03-20] MEDS: INVEST MED MK-8189-008-02 MISC 1 DOSE PO SCH (20:00)
--- NOTE | 2022-03-20 20:00 | NUR ---
[facility]PS INITIAL NOTES SEEN PATIENT JUST BACK TO HER ROOM CAME FROM OUTSIDE, THEN SHE READY TO TAKE SHOWERS RIGHT AWAY AND ASKING TO CHANGE THE DRESSING AFTER HER SHOWER. DENIES ANY PAIN OR ANY DISCOMFORT. WILL CONTINUE MONITORING,
[2022-03-20 20:40] VITALS: BP 148/98
[2022-03-21 08:00] VITALS: BP 137/92
[2022-03-21] MEDS: AMLODIPINE 10 MG PO SCH (08:29)
[2022-03-21] MEDS: HYDROCHLOROTHIAZIDE 25 MG PO SCH ×2 (08:29→17:56)
[2022-03-21 16:00] VITALS: BP 143/79
[2022-03-21 20:00] VITALS: BP 141/93
[2022-03-21] MEDS: INVEST MED MK-8189-008-02 MISC 1 DOSE PO SCH (20:20)
--- NOTE | 2022-03-22 05:41 | NUR ---
END OF SHIFT REPORT Patient slept most of the night. No acute distress during the shift. Wound dressing done to right lower leg, denies pain. Good appetite. Compliant with medication. On Clinical Trial study, cont plan of care. Will endorse to oncoming RN.
[2022-03-22 08:00] VITALS: BP 159/89
[2022-03-22] MEDS: HYDROCHLOROTHIAZIDE 25 MG PO SCH ×2 (10:26→18:54)
[2022-03-22] MEDS: AMLODIPINE 10 MG PO SCH (12:01)
[2022-03-22 16:06] VITALS: BP 145/97
[2022-03-22] MEDS: BACI/NEOM/POLY B OINT PKT 1 UDPKT PACKET TP SCH (19:37)
[2022-03-22 20:00] VITALS: BP 135/80
[2022-03-22] MEDS: INVEST MED MK-8189-008-02 MISC 1 DOSE PO SCH (20:03)
--- NOTE | 2022-03-22 20:06 | NUR ---
RN NOTES: PATIENT IS RESTING IN HER BED,A/OX4 NO S/S OF APPARENT DISTRESS AT THIS TIME NOTED. PATIENT IS COMPLIANT WITH MEDICATIONS, GUARDED , LISTING TO MUSIC PATIENT DENIES SUICIDAL AND HOMICIDAL IDEATIONS AT THIS TIME.WILL CONTINUE TO MONITOR THIS PATIENT Q15 MIN FOR SAFETY AND BEHAVIOR .
--- NOTE | 2022-03-23 07:00 | NUR ---
GPS RN OPENING NOTES PATIENT IS RESTING IN HER BED,A/OX4 NO S/S OF DISTRESS. PATIENT IS COMPLIANT WITH MEDICATIONS, WILL CONTINUE TO MONITOR THIS PATIENT Q15 MIN FOR SAFETY AND BEHAVIOR.
[2022-03-23 08:00] VITALS: BP 148/93
[2022-03-23] MEDS: HYDROCHLOROTHIAZIDE 25 MG PO SCH ×2 (09:00→17:00)
[2022-03-23] MEDS: AMLODIPINE 10 MG PO SCH (09:00)
[2022-03-23 16:00] VITALS: BP 154/97
[2022-03-23] MEDS: INVEST MED MK-8189-008-02 MISC 1 DOSE PO SCH (20:00)
--- NOTE | 2022-03-24 05:57 | NUR ---
RN note: Patient alert,oriented x 4,appears to be depressed,blunted affect,preoccupied to her own thought process,no s/s of acute distress noted.Compliant with medications .Will continue to monitor q15 min rounds for safety.
[2022-03-24 08:00] VITALS: BP 144/93
[2022-03-24] MEDS: AMLODIPINE 10 MG PO SCH (08:49)
[2022-03-24] MEDS: HYDROCHLOROTHIAZIDE 25 MG PO SCH ×2 (08:49→16:52)
--- NOTE | 2022-03-24 15:17 | NUR ---
RN-CO:NURSE NOTE: PT AWAKE AND IN BED, BREATHING EVEN AND UNLABORED. NO DISTRESS NOTED AT THIS TIME. PT MED COMPLIANT. DENIES SI/HI AT THIS TIME. PT IN STABLE COND AT THIS TIME. WILL CONT TO MONITOR FOR SAFETY AND BEHAVIOR , GOES OUT TO SMOKE, DENIED BAD SIDE EFFECTS FRO THE INVESTIGATIONAL MEDICATIONS.
[2022-03-24 16:00] VITALS: BP 139/87
[2022-03-24 20:00] VITALS: BP 137/91
[2022-03-24] MEDS: INVEST MED MK-8189-008-02 MISC 1 DOSE PO SCH (20:08)
--- NOTE | 2022-03-25 02:48 | NUR ---
RN note: Patient was noted to be depressed,blunted affect,no verbalization of thoughts and feelings.No s/s of acute distress noted.Will continue to monitor q15 min rounds for safety.
[2022-03-25 08:00] VITALS: BP 134/81
[2022-03-25] MEDS: HYDROCHLOROTHIAZIDE 25 MG PO SCH ×2 (09:11→16:15)
[2022-03-25] MEDS: AMLODIPINE 10 MG PO SCH (09:11)
[2022-03-25] MEDS: BACI/NEOM/POLY B OINT PKT 1 UDPKT PACKET TP SCH (13:17)
[2022-03-25 16:00] VITALS: BP 145/79
[2022-03-25] MEDS: INVEST MED MK-8189-008-02 MISC 1 DOSE PO SCH (20:00)
[2022-03-25 20:02] VITALS: BP 148/87
--- NOTE | 2022-03-26 02:55 | NUR ---
RN note: Patient compliant with medications,no s/s of acute distress noted.No c/o adverse of the medications she's taking.Patient appears to be blunted affect and depressed upon assessment at 20:00.Will continue to monitor q15 min rounds for safety.
[2022-03-26 08:00] VITALS: BP 129/81
[2022-03-26] MEDS: HYDROCHLOROTHIAZIDE 25 MG PO SCH ×2 (09:08→17:14)
[2022-03-26] MEDS: AMLODIPINE 10 MG PO SCH (09:08)
[2022-03-26 16:00] VITALS: BP 150/91
[2022-03-26] MEDS: INVEST MED MK-8189-008-02 MISC 1 DOSE PO SCH (19:47)
[2022-03-26 20:00] VITALS: BP 135/90
[2022-03-26 20:01] VITALS: BP 135/98
[2022-03-27 08:00] VITALS: BP 138/76
[2022-03-27] MEDS: AMLODIPINE 10 MG PO SCH (08:52)
[2022-03-27] MEDS: HYDROCHLOROTHIAZIDE 25 MG PO SCH ×2 (08:52→16:23)
[2022-03-27 16:00] VITALS: BP 127/84
[2022-03-27 20:00] VITALS: BP 143/90
[2022-03-27] MEDS: INVEST MED MK-8189-008-02 MISC 1 DOSE PO SCH (20:22)
--- NOTE | 2022-03-27 20:30 | NUR ---
RN NOTES: PATIENT IS RESTING IN HER BED,A/OX3, NO S/S OF APPARENT DISTRESS AT THIS TIME NOTED. PATIENT IS COMPLIANT WITH MEDICATIONS, GUARDED , LISTING TO MUSIC AND WATCHING MOVIE ,PATIENT DENIES SUICIDAL AND HOMICIDAL IDEATIONS AT THIS TIME. SAFETY PRECAUTIONS MAINTAIN ,WILL CONTINUE TO MONITOR THIS PATIENT Q15 MIN FOR SAFETY AND BEHAVIOR .
--- NOTE | 2022-03-28 07:00 | NUR ---
RN OPENING NOTES: PT IN BED ASLEEP. EASILY AROUSED WITH STIMULI. A/OX3 AND ABLE TO MAKE NEEDS KNOWN. NO SOB OR CARDIAC DISTRESS NOTED,, DENIES PAIN AT THIS TIME. NO IV ACCES. SAFETY MEASURES MAINTAINED: BED LOCKED AND IN LOWEST POSITION, SIDE RAILS UP X 2. CALL LIGHT AND BED SIDE TABLE IN EASY REACH FOR HELP AND WILL MONITOR ACCORDINGLY.
[2022-03-28 08:00] VITALS: BP 149/102
--- NOTE | 2022-03-28 09:00 | NUR ---
RN NOTES: PATIENT IS UNAVAILABLE AT THIS TIME, WENT OUTSIDE TO SMOKE.
[2022-03-28] MEDS: HYDROCHLOROTHIAZIDE 25 MG PO SCH ×2 (10:09→16:55)
[2022-03-28] MEDS: AMLODIPINE 10 MG PO SCH (10:09)
--- NOTE | 2022-03-28 19:47 | NUR ---
RN NOTES: -AWAKE,A/OX4, SHE GET UP AND USE THE BATHROOM, AMBULATORY,ORIENTED TO UNIT AND STAFF, SHE ASKED FOR A SNACK BUT PRIOR TO THAT SHE REQUEST TO GO OUT FOR A SMOKE AT AROUND 8PM, SHE WANT TO TAKE HER MEDICATION WHEN SHE COME BACK FROM OUTSIDE.
[2022-03-28 20:00] VITALS: BP 145/93
--- NOTE | 2022-03-28 20:51 | NUR ---
RN NOTES: AWAITING TO RETURN BACK INSIDE, DUE FOR HER 2000 MEDICATION, SHE IS AWARE AND SHE REQUEST TO TAKE IT UPON RETURNING BACK.
[2022-03-28] MEDS: INVEST MED MK-8189-008-02 MISC 1 DOSE PO SCH (21:38)
--- NOTE | 2022-03-28 21:39 | NUR ---
RN NOTES GIVEN MEDICATION UPON COMING BACK FROM OUTSIDE PER PATIENT REQUEST
[2022-03-29 08:00] VITALS: BP 147/68
--- NOTE | 2022-03-29 08:20 | NUR ---
RN-NOTES PATIENT OFF THE UNIT SMOKING.
[2022-03-29] MEDS: HYDROCHLOROTHIAZIDE 25 MG PO SCH ×2 (10:18→16:41)
[2022-03-29] MEDS: AMLODIPINE 10 MG PO SCH (10:19)
--- NOTE | 2022-03-29 10:20 | NUR ---
RN-NOTES PATIENT BACK IN THE UNIT IN STABLE CONDITION.
--- NOTE | 2022-03-29 12:15 | NUR ---
RN-NOTES PATIENT OFF THE UNIT FOR SMOKING.
--- NOTE | 2022-03-29 15:23 | NUR ---
RN-NOTES PATIENT BACK IN THE UNIT IN STABLE CONDITION.
[2022-03-29 16:00] VITALS: BP 150/90
--- NOTE | 2022-03-29 17:34 | NUR ---
RN-NOTES RECEIVED VISIBLE IN THE UNIT,CALM,NO ACUTE DISTRESS NOTED.COMPLIANT WITH MEDICATION AND CARE. PATIENT ABLE TO WHEEL SELF AROUND THE UNIT. WOUND TREATMENT DONE ORDERED.PATIENT OFF THE UNIT SEVERAL TIMES FOR SMOKING THIS SHIFT.ALL NEEDS ATTENDED AND ANTICIPATED.WILL CONT. MONITORING FOR SAFETY AND BEHAVIOR. WILL ENDORSE TO INCOMING NURSE FOR CONTINUITY OF CARE.
[2022-03-29] MEDS: INVEST MED MK-8189-008-02 MISC 1 DOSE PO SCH (19:58)
--- NOTE | 2022-03-29 20:01 | NUR ---
COMPLIANT WITH STUDY MEDICATION Patient up in her electric wheelchair. Right leg dressing C/D/I. Compliant with medication, given study drug medication, swallowed with glass of water.
[2022-03-29 20:02] VITALS: BP 151/92
--- NOTE | 2022-03-30 05:52 | NUR ---
END OF SHIFT REPORT Patient in bed, calm and cooperative. Adequate sleep. Denies pain. Independent with ADL's, electric wheelchair to move around. On Clinical trial study medication. Patient compliant with medication and treatment plan. Will endorse to oncoming RN.
[2022-03-30 08:00] VITALS: BP 144/93
[2022-03-30] MEDS: AMLODIPINE 10 MG PO SCH (09:20)
[2022-03-30] MEDS: HYDROCHLOROTHIAZIDE 25 MG PO SCH ×2 (09:21→16:42)
[2022-03-30] MEDS: INVEST MED MK-8189-008-02 MISC 1 DOSE PO SCH (20:01)
[2022-03-30 20:41] VITALS: BP 150/99
[2022-03-31 08:00] VITALS: BP 148/97
[2022-03-31] MEDS: AMLODIPINE 10 MG PO SCH (08:41)
[2022-03-31] MEDS: HYDROCHLOROTHIAZIDE 25 MG PO SCH ×3 (08:41→16:40)
--- NOTE | 2022-03-31 08:43 | NUR ---
RN-CO: PT REFUSED HYDROCHLORTIAZIDE " TOO MANY TIMES I AM URINATING."
--- NOTE | 2022-03-31 09:31 | NUR ---
RN-CO: NO S/S OF INFECTION ON HER ANKLE WOUND.
--- NOTE | 2022-03-31 09:31 | NUR ---
RN-CO: Patient A/O x4. Indenpendent with ADL's. Calm and cooperative. On CLinical Trial study medication. Compliant. SHE REFUSED HER HCTZ THIS MORNING BECAUSE SHE KEEPS ON GOING TO THE BATHROOM. DENIED PAIN AND DISCOMFORTS. I WILL CONTINUE TO MONITOR. DENIED S/E FROM ONVESTIGATIONAL MEDICATION.
[2022-03-31 16:00] VITALS: BP 118/84
--- NOTE | 2022-03-31 19:15 | NUR ---
RN NOTE PATIENT WENT OUT OF THE UNIT TO SMOKE. ALERT AND ORIENTED X3-4, ABLE TO MAKE NEEDS KNOWN. IN NO APPARENT DISTRESS NOTED. PATIENT REMAINS COOPERATIVE TO CARE, GUARDED, UNKEMPT, DISHEVELED, ANXIOUS AT TIMES, BRIGHT AFFECT. PATIENT IS ON INVESTIGATIONAL MEDS WITH NO ADVERSE REACTION NOTED. DENIES SI/HI/AVH AT THIS TIME. DENIES PAIN OR DISCOMFORT AT THIS TIME. SAFETY PRECAUTIONS MAINTAINED. WILL CONTINUE TO MONITOR Q15MIN ROUNDS FOR SAFETY AND BEHAVIOR.
[2022-03-31 20:01] VITALS: BP 168/92
[2022-03-31] MEDS: INVEST MED MK-8189-008-02 MISC 1 DOSE PO SCH (20:05)
[2022-04-01 08:00] VITALS: BP 157/99
[2022-04-01] MEDS: HYDROCHLOROTHIAZIDE 25 MG PO SCH ×2 (09:17→16:04)
[2022-04-01] MEDS: AMLODIPINE 10 MG PO SCH (09:17)
--- NOTE | 2022-04-01 10:50 | NUR ---
RN NOTES PATIENT CAME FROM OUTSIDE AROUND 1045 AND 0900 AM MEDS WAS DAVY
[2022-04-01 16:00] VITALS: BP 158/103
--- NOTE | 2022-04-01 17:50 | NUR ---
RN-NOTES PATIENT IS VISIBLE IN THE UNIT,CALM,NO ACUTE DISTRESS NOTED.COMPLIANT WITH MEDICATION AND CARE. PATIENT ABLE TO WHEEL SELF AROUND THE UNIT. WOUND TREATMENT DONE ORDERED.PATIENT OFF THE UNIT SEVERAL TIMES FOR SMOKING THIS SHIFT.ALL NEEDS ATTENDED AND ANTICIPATED.WILL CONT. MONITORING FOR SAFETY AND BEHAVIOR. WILL ENDORSE TO INCOMING NURSE FOR CONTINUITY OF CARE.
[2022-04-01 19:45] VITALS: BP 147/96
[2022-04-01] MEDS: INVEST MED MK-8189-008-02 MISC 1 DOSE PO SCH (20:00)
--- NOTE | 2022-04-02 06:16 | NUR ---
RN note: Patient appears to be depressed,blunetd affect,compliant with medications,no c/o adverse effect of medications.No s/s of acute distress noted.Will continue to monitor q15 min rounds for safety.
[2022-04-02 08:00] VITALS: BP 135/90
[2022-04-02] MEDS: HYDROCHLOROTHIAZIDE 25 MG PO SCH ×2 (08:41→16:55)
[2022-04-02] MEDS: AMLODIPINE 10 MG PO SCH (08:41)
[2022-04-02 16:00] VITALS: BP 138/90
[2022-04-02] MEDS: INVEST MED MK-8189-008-02 MISC 1 DOSE PO SCH (20:03)
[2022-04-02 20:12] VITALS: BP 142/89
--- NOTE | 2022-04-02 21:51 | NUR ---
Reminded pt to be NPO after 2200. Pt receptive to instructions and states, " ok, i will not eat or drink after 10pm." Pt stable and calm at present moment. Took 2100 meds po and tolerated well. No s/s of any kind of distress. Respiration even and unlabored without SOB noted. Will continue to monitor. Frequent visual check done for safety. Will endorse to next shift.
[2022-04-03 08:00] VITALS: BP 151/91
[2022-04-03] MEDS: HYDROCHLOROTHIAZIDE 25 MG PO SCH ×2 (08:51→16:06)
[2022-04-03] MEDS: AMLODIPINE 10 MG PO SCH (08:51)
--- NOTE | 2022-04-03 09:10 | NUR ---
RN-NOTES PATIENT WHEELED SELF OFF THE UNIT GOING TO DR. HERZOG'S OFFICE . A/O X4 NO ACUTE DISTRESS NOTED.
[2022-04-03] MEDS ORDERED: ZOLPIDEM TARTRATE 10 MG TABLET PO PRN (12:00)
[2022-04-03] MEDS ORDERED: LORAZEPAM 1 MG TABLET FOR AGITATION PO PRN (12:00)
--- NOTE | 2022-04-03 12:15 | NUR ---
RN-NOTES PATIENT WHEELED BACK IN THE UNIT IN STABLE CONDITION A/O X4,NO ACUTE DISTRESS NOTED.
--- NOTE | 2022-04-03 12:57 | NUR ---
RN-NOTES PATIENT WHEELED SELF OFF THE UNIT FOR SMOKING . A/O X4 NO ACUTE DISTRESS NOTED.
--- NOTE | 2022-04-03 13:40 | NUR ---
RN-NOTES PATIENT STILL OFF THE UNIT FOR SMOKING,ENDORSE TO THE CHARGE NURSE.
--- NOTE | 2022-04-03 13:50 | NUR ---
RN-NOTES AROUND 0910 AM ACTIVITY STAFF FOUND AT PATIENT'S TABLE A 3 RED CAPSULES AND 2 BLUE AND WHITE TABS.CHARGE NURSE MADE AWARE AND OFFICE OF DR. HERZOG MADE AWARE , THEY WILL SEND A STAFF TO TAKE THE SAID MEDICATIONS.
--- NOTE | 2022-04-03 14:20 | NUR ---
RN NOtes: Assumed care: Pt. is still out from the unit at this time.
[2022-04-03 16:00] VITALS: BP 134/94
--- NOTE | 2022-04-03 19:30 | NUR ---
GPS RN NOTE, RECEIVED PATIENT AWAKE AND IN BED, HAS A COMPLAINT OF CHRONIC LEFT SHOULDER PAIN AT 2 OUT OF 10 ON THE PAIN SCALE. PATIENT IS TAKING PAIN MEDICATION FOR THIS PAIN. PATIENT IS DISPLAYING NO S/S OF APPARENT DISTRESS AT THIS TIME. PATIENT BREATHING IS UNLABORED WITH EQUAL RISE AND FALL OF THE CHEST. PATIENT IS ALERT AND ORIENTED X 4 ON ROOM AIR WITH A SPO2 99%. PATIENT IS COMPLIANT WITH MEDICATIONS, ANXIOUS, PARANOID, GUARDED, POLITE, AND COOPERATIVE. PATIENT DENIES SUICIDAL AND HOMICIDAL IDEATIONS AT THIS TIME. PATIENT ASSISTED WITH TURNING AND REPOSITIONING Q2HR AND PRN FOR COMFORT AND CIRCULATION. PATIENT HAS NO NEEDS AT THIS TIME. PATIENT EDUCATED ON THE USE OF THE CALL JEFFERSON. PATIENT BED SIDE RAILS UP X 2 FOR SAFETY. PATIENT BED IS LOCKED AND LOW. WILL CONTINUE TO MONITOR THIS PATIENT Q15 MINUTES WITH THE HELP OF STAFF TO MAINTAIN SAFETY.
[2022-04-03 19:57] VITALS: BP 149/98
[2022-04-03] MEDS: INVEST MED MK-8189-008-02 MISC 1 DOSE PO SCH (20:04)
[2022-04-04 08:00] VITALS: BP 137/98
[2022-04-04] MEDS: HYDROCHLOROTHIAZIDE 25 MG PO SCH ×2 (08:04→17:40)
[2022-04-04] MEDS: AMLODIPINE 10 MG PO SCH (08:04)
[2022-04-04 16:00] VITALS: BP 138/99
--- NOTE | 2022-04-04 17:52 | NUR ---
RN-NOTES PATIENT IS VISIBLE IN THE UNIT,CALM,COOPERATIVE WITH THE STAFF,NO ACUTE DISTRESS NOTED.COMPLIANT WITH MEDICATION AND CARE. PATIENT ABLE TO WHEEL SELF AROUND THE UNIT. WOUND TREATMENT DONE ORDERED.PATIENT OFF THE UNIT SEVERAL TIMES FOR SMOKING THIS SHIFT.ALL NEEDS ATTENDED AND ANTICIPATED.WILL CONT. MONITORING FOR SAFETY AND BEHAVIOR. WILL ENDORSE TO INCOMING NURSE FOR CONTINUITY OF CARE.
--- NOTE | 2022-04-04 19:30 | NUR ---
GPS RN NOTE, RECEIVED PATIENT AWAKE AND IN BED, HAS A COMPLAINT OF CHRONIC LEFT SHOULDER PAIN AT 2 OUT OF 10 ON THE PAIN SCALE. PATIENT IS TAKING PAIN MEDICATION FOR THIS PAIN. PATIENT IS DISPLAYING NO S/S OF APPARENT DISTRESS AT THIS TIME. PATIENT BREATHING IS UNLABORED WITH EQUAL RISE AND FALL OF THE CHEST. PATIENT IS ALERT AND ORIENTED X 4 ON ROOM AIR WITH A SPO2 98%. PATIENT IS COMPLIANT WITH MEDICATIONS, ANXIOUS, PARANOID, GUARDED, POLITE, AND COOPERATIVE. PATIENT DENIES SUICIDAL AND HOMICIDAL IDEATIONS AT THIS TIME. PATIENT ASSISTED WITH TURNING AND REPOSITIONING Q2HR AND PRN FOR COMFORT AND CIRCULATION. PATIENT HAS NO NEEDS AT THIS TIME. PATIENT EDUCATED ON THE USE OF THE CALL JEFFERSON. PATIENT BED SIDE RAILS UP X 2 FOR SAFETY. PATIENT BED IS LOCKED AND LOW. WILL CONTINUE TO MONITOR THIS PATIENT Q15 MINUTES WITH THE HELP OF STAFF TO MAINTAIN SAFETY.
[2022-04-04 20:00] VITALS: BP 148/101
[2022-04-04] MEDS: INVEST MED MK-8189-008-02 MISC 1 DOSE PO SCH (20:03)
[2022-04-05 08:00] VITALS: BP 148/64
[2022-04-05] MEDS: HYDROCHLOROTHIAZIDE 25 MG PO SCH ×2 (08:00→17:08)
[2022-04-05] MEDS: AMLODIPINE 10 MG PO SCH (08:00)
[2022-04-05 16:00] VITALS: BP 144/98
--- NOTE | 2022-04-05 19:30 | NUR ---
GPS RN NOTE, RECEIVED PATIENT AWAKE AND IN BED, HAS A COMPLAINT OF CHRONIC LEFT SHOULDER PAIN AT 1 OUT OF 10 ON THE PAIN SCALE. PATIENT IS TAKING PAIN MEDICATION FOR THIS PAIN. PATIENT IS DISPLAYING NO S/S OF APPARENT DISTRESS AT THIS TIME. PATIENT BREATHING IS UNLABORED WITH EQUAL RISE AND FALL OF THE CHEST. PATIENT IS ALERT AND ORIENTED X 4 ON ROOM AIR WITH A SPO2 98%. PATIENT IS COMPLIANT WITH MEDICATIONS, ANXIOUS, PARANOID, GUARDED, POLITE, AND COOPERATIVE. PATIENT DENIES SUICIDAL AND HOMICIDAL IDEATIONS AT THIS TIME. PATIENT ASSISTED WITH TURNING AND REPOSITIONING Q2HR AND PRN FOR COMFORT AND CIRCULATION. PATIENT HAS NO NEEDS AT THIS TIME. PATIENT EDUCATED ON THE USE OF THE CALL JEFFERSON. PATIENT BED SIDE RAILS UP X 2 FOR SAFETY. PATIENT BED IS LOCKED AND LOW. WILL CONTINUE TO MONITOR THIS PATIENT Q15 MINUTES WITH THE HELP OF STAFF TO MAINTAIN SAFETY.
[2022-04-05 20:23] VITALS: BP 132/74
[2022-04-05] MEDS: INVEST MED MK-8189-008-02 MISC 1 DOSE PO SCH (20:27)
[2022-04-06] MEDS: AMLODIPINE 10 MG PO SCH (08:11)
[2022-04-06] MEDS: HYDROCHLOROTHIAZIDE 25 MG PO SCH ×2 (08:11→16:16)
--- NOTE | 2022-04-06 14:18 | NUR ---
RN-CO: Patient, has a bright affect, went outside for almost 4 hours. She is cooperative to staff, she denied side effects fro the investigational medication. I will continue to monitor.
[2022-04-06 16:00] VITALS: BP 127/91
[2022-04-06] MEDS: INVEST MED MK-8189-008-02 MISC 1 DOSE PO SCH (20:02)
[2022-04-06 21:12] VITALS: BP 138/92
--- NOTE | 2022-04-07 00:44 | NUR ---
RN note: Patient appears to be depressed,blunted affect,preoccupied to her own thought process.No s/s of acute distress noted.Compliant with medications.
[2022-04-07 08:00] VITALS: BP 124/69
[2022-04-07] MEDS: HYDROCHLOROTHIAZIDE 25 MG PO SCH ×2 (09:15→16:56)
[2022-04-07] MEDS: AMLODIPINE BESYLATE 10 MG TABLET PO SCH (10:00)
--- NOTE | 2022-04-07 10:11 | NUR ---
RN-CO: Patient took her anti hypertensive medications, left the unit to smoke. Her affect is appropriate, friendly to staff, she denied pain and discomforts. No side effects from investigational medications. We will continue to monitor.
--- NOTE | 2022-04-07 11:32 | NUR ---
VISUAL DISPLAY MANAGER NOTE PATIENT RETURNED TO UNIT FROM SMOKE BREAK.
[2022-04-07 16:00] VITALS: BP 144/87
[2022-04-07 19:39] VITALS: BP 135/94
[2022-04-07 20:00] VITALS: BP 117/55
[2022-04-07] MEDS: INVEST MED MK-8189-008-02 MISC 1 DOSE PO SCH (20:03)
--- NOTE | 2022-04-08 05:01 | NUR ---
pt given trial medication on time as schedule.pt v/s and assessment done same stable ,no signs of distress noted,
[2022-04-08 06:33] VITALS: BP 135/93
[2022-04-08 08:00] VITALS: BP 131/77
--- NOTE | 2022-04-08 08:44 | NUR ---
EQUIPMENT APPLICATION SPECIALIST NOTE PATIENT STEPPED OUT OF UNIT AT 0844.
[2022-04-08] MEDS: HYDROCHLOROTHIAZIDE 25 MG PO SCH ×2 (09:00→16:27)
[2022-04-08] MEDS: AMLODIPINE BESYLATE 10 MG TABLET PO SCH (09:00)
--- NOTE | 2022-04-08 11:00 | NUR ---
TUBE WASHER NOTE PATIENT IS STILL OUT OF THE UNIT AT THIS TIME.
--- NOTE | 2022-04-08 12:05 | NUR ---
Patient has returned to unit. Patient stated she was out for a long time because she was getting medical information over to [facility].
--- NOTE | 2022-04-08 13:10 | NUR ---
PATIENT HAS STEPPED OUT OF UNIT.
--- NOTE | 2022-04-08 15:55 | NUR ---
INFUSION RN NOTE PATIENT HAS RETURNED TO UNIT.
--- NOTE | 2022-04-08 18:09 | NUR ---
IMPROVEMENT COORDINATOR NOTE PATIENT HAS STEPPED OUT OF UNIT.
--- NOTE | 2022-04-08 19:50 | NUR ---
RN NOTE PATIENT WENT OUT OF THE UNIT TO SMOKE. ALERT AND ORIENTED X3-4, ABLE TO MAKE NEEDS KNOWN. IN NO APPARENT DISTRESS NOTED. PATIENT IS COOPERATIVE TO CARE, GUARDED, UNKEMPT, APPEARS TO BE DEPRESSED, DISHEVELED, ANXIOUS AT TIMES, BRIGHT AFFECT. PATIENT IS ON INVESTIGATIONAL MEDS WITH NO ADVERSE REACTION NOTED. DENIES SI/HI/AVH AT THIS TIME. SAFETY PRECAUTIONS MAINTAINED. WILL CONTINUE TO MONITOR Q15MIN ROUNDS FOR SAFETY AND BEHAVIOR.
[2022-04-08] MEDS: INVEST MED MK-8189-008-02 MISC 1 DOSE PO SCH (20:00)
[2022-04-09 08:00] VITALS: BP 128/95
[2022-04-09] MEDS: HYDROCHLOROTHIAZIDE 25 MG PO SCH ×2 (09:33→16:37)
[2022-04-09] MEDS: AMLODIPINE BESYLATE 10 MG TABLET PO SCH (10:06)
--- NOTE | 2022-04-09 12:25 | NUR ---
RN NOTE PATIENT WENT OUT OF THE UNIT TO SMOKE, IN STABLE CONDITION.
--- NOTE | 2022-04-09 13:35 | NUR ---
RN NOTE PT BACK TO THE UNIT, IN STABLE CONDITION.
[2022-04-09 16:00] VITALS: BP 150/93
--- NOTE | 2022-04-09 16:40 | NUR ---
RN NOTE PATIENT WENT OUT OFF THE UNIT TO SMOKE VIA MOTORIZED CHAIR, IN STABLE CONDITION.
--- NOTE | 2022-04-09 19:35 | NUR ---
NOC RN OPENING NOTE RECEIVED PATIENT IN BED, AWAKE, ALERT AND ORIENTED X4. PLEASANT AND PATIENT IS WATCHING TV. ABLE TO COMMUNICATE NEEDS WITH THE STAFFS. AFEBRILE AND NOT IN ANY FORM OF ACUTE DISTRESS. BREATHING EVEN AND NON LABORED. NO BEHAVIOR ISSUE NOTED AT THIS TIME. SAFETY MEASURES IN PLACE. KEPT BED IN LOCKED AND IN LOW POSITION. SIDE RAILS UP X2.
[2022-04-09] MEDS: INVEST MED MK-8189-008-02 MISC 1 DOSE PO SCH (20:01)
--- NOTE | 2022-04-10 07:30 | NUR ---
RN-NOTES RECEIVED PATIENT SLEEPING WITH BREATHING EVEN AND NONLABORED EASILY AROUSED, NO ACUTE DISTRESS NOTED.
[2022-04-10 08:00] VITALS: BP 146/81
[2022-04-10] MEDS: HYDROCHLOROTHIAZIDE 25 MG PO SCH ×2 (09:55→16:28)
[2022-04-10] MEDS: AMLODIPINE 10 MG PO SCH (09:55)
--- NOTE | 2022-04-10 10:30 | NUR ---
RN-NOTES PATIENT OFF THE UNIT FOR SMOKING IN STABLE CONDITION.
[2022-04-10] MEDS ORDERED: LORAZEPAM 1 MG TABLET FOR AGITATION PO PRN (12:00)
[2022-04-10] MEDS ORDERED: ZOLPIDEM TARTRATE 10 MG TABLET PO PRN (12:00)
[2022-04-10 16:00] VITALS: BP 136/84
--- NOTE | 2022-04-10 19:30 | NUR ---
GPS RN NOTE, RECEIVED PATIENT AWAKE AND IN BED, HAS A COMPLAINT OF CHRONIC LEFT SHOULDER PAIN AT 2 OUT OF 10 ON THE PAIN SCALE. PATIENT IS TAKING PAIN MEDICATION FOR THIS PAIN. PATIENT IS DISPLAYING NO S/S OF APPARENT DISTRESS AT THIS TIME. PATIENT BREATHING IS UNLABORED WITH EQUAL RISE AND FALL OF THE CHEST. PATIENT IS ALERT AND ORIENTED X 4 ON ROOM AIR WITH A SPO2 97%. PATIENT IS COMPLIANT WITH MEDICATIONS, ANXIOUS, PARANOID, GUARDED, POLITE, AND COOPERATIVE. PATIENT DENIES SUICIDAL AND HOMICIDAL IDEATIONS AT THIS TIME. PATIENT ASSISTED WITH TURNING AND REPOSITIONING Q2HR AND PRN FOR COMFORT AND CIRCULATION. PATIENT HAS NO NEEDS AT THIS TIME. PATIENT EDUCATED ON THE USE OF THE CALL JEFFERSON. PATIENT BED SIDE RAILS UP X 2 FOR SAFETY. PATIENT BED IS LOCKED AND LOW. WILL CONTINUE TO MONITOR THIS PATIENT Q15 MINUTES WITH THE HELP OF STAFF TO MAINTAIN SAFETY.
[2022-04-10] MEDS: INVEST MED MK-8189-008-02 MISC 1 DOSE PO SCH (20:11)
[2022-04-11 08:00] VITALS: BP 125/68
[2022-04-11] MEDS: AMLODIPINE 10 MG PO SCH (09:04)
[2022-04-11] MEDS: HYDROCHLOROTHIAZIDE 25 MG PO SCH ×2 (09:04→18:14)
--- NOTE | 2022-04-11 19:40 | NUR ---
GPS RN OPENING NOTE RECEIVED PATIENT UP IN HER ELECTRIC WHEELCHAIR, AWAKE, ALERT AND ORIENTED X4. PLEASANT AND COOPERATIVE. ABLE TO COMMUNICATE NEEDS WITH THE STAFFS. AFEBRILE AND NOT IN ANY FORM OF ACUTE DISTRESS. BREATHING EVEN AND NON LABORED. NO BEHAVIOR ISSUE NOTED AT THIS TIME. SAFETY MEASURES IN PLACE. KEPT BED IN LOCKED AND IN LOW POSITION. SIDE RAILS UP X2.
[2022-04-11 20:00] VITALS: BP 156/104
[2022-04-11] MEDS: INVEST MED MK-8189-008-02 MISC 1 DOSE PO SCH (20:07)
--- NOTE | 2022-04-11 20:08 | NUR ---
RN NOTE PATIENT WENT OUT OF THE UNIT FOR SMOKE BREAK.
--- NOTE | 2022-04-11 20:35 | NUR ---
RN NOTE PATIENT CAME BACK TO THE UNIT.
[2022-04-12 08:00] VITALS: BP 143/68
[2022-04-12] MEDS: HYDROCHLOROTHIAZIDE 25 MG PO SCH ×2 (08:03→16:22)
[2022-04-12] MEDS: AMLODIPINE 10 MG PO SCH (08:03)
[2022-04-12 16:00] VITALS: BP 108/64
--- NOTE | 2022-04-12 19:30 | NUR ---
GPS RN NOTE, RECEIVED PATIENT AWAKE AND IN BED, NO S/S OR COMPLAINTS OF PAIN AT THIS TIME. PATIENT IS DISPLAYING NO S/S OF APPARENT DISTRESS AT THIS TIME. PATIENT BREATHING IS UNLABORED WITH EQUAL RISE AND FALL OF THE CHEST. PATIENT IS ALERT AND ORIENTED X 4 ON ROOM AIR WITH A SPO2 98%. PATIENT IS COMPLIANT WITH MEDICATIONS, CALM, GUARDED, POLITE, AND COOPERATIVE. PATIENT DENIES SUICIDAL AND HOMICIDAL IDEATIONS AT THIS TIME. PATIENT ASSISTED WITH TURNING AND REPOSITIONING Q2HR AND PRN FOR COMFORT AND CIRCULATION. PATIENT HAS NO NEEDS AT THIS TIME. PATIENT EDUCATED ON THE USE OF THE CALL JEFFERSON. PATIENT BED SIDE RAILS UP X 2 FOR SAFETY. PATIENT BED IS LOCKED AND LOW. WILL CONTINUE TO MONITOR THIS PATIENT Q15 MINUTES WITH THE HELP OF STAFF TO MAINTAIN SAFETY.
[2022-04-12 20:00] VITALS: BP 149/96
[2022-04-12] MEDS: INVEST MED MK-8189-008-02 MISC 1 DOSE PO SCH (20:17)
--- NOTE | 2022-04-12 23:25 | NUR ---
GPS RN NOTE PATIENT TRANSFERRED TO [facility], ALL BELONGINGS TRANSFERRED WITH PATIENT, AND REPORT GIVEN TO NYLA POWERS FOR CONTINUATION OF CARE.
--- NOTE | 2022-04-12 23:30 | NUR ---
GPS OVERFLOW/CLINICAL TRIAL RECEIVED TRANSFER FROM GPS USING HER MOTORIZED WHEELCHAIR,ALERT,ORIENTED X4,CALM, ABLE TO COMMUNICATE HER NEEDS,RIGHT FOOT PREVIOUS SURGERY SHOWS SCAR,ABLE TO WALK WITH WALKER,NO SALINE LOCK PER GPS PROTOCOL.WILL CONTINUE TO MONITOR BEHAVIOR.
[2022-04-13] VITALS: BP 142/89
--- NOTE | 2022-04-13 06:10 | NUR ---
GPS OV/CLINICAL TRIAL FAIRLY RESTED SINCE SHE WAS TRANSFERRED FROM GPS,CALM AND COOPERATIVE,VERBALIZED NEEDS,IN NO ACUTE DISTRESS.CALL LIGHT IN REACH,NEEDS ATTENDED.
--- NOTE | 2022-04-13 07:19 | NUR ---
GPS RN OPENING NOTE RECEIVED PATIENT ASLEEP BUT EASILY WOKEN UP, PATIENT IS ALERT AND ORIENTED X4. ABLE TO COMMUNICATE NEEDS. SHE IS ON ROOM AIR, ON EQUAL AND UNLABORED BREATHING. NO BEHAVIOR ISSUE NOTED AT THIS TIME. SAFETY MEASURES IN PLACE. KEPT BED IN LOCKED AND IN LOW POSITION. SIDE RAILS UP X2. WILL CONTINUE WITH PLAN OF CARE.
[2022-04-13 09:00] VITALS: BP 148/68
[2022-04-13] MEDS: HYDROCHLOROTHIAZIDE 25 MG PO SCH ×2 (09:05→16:54)
[2022-04-13] MEDS: AMLODIPINE 10 MG PO SCH (09:05)
--- NOTE | 2022-04-13 10:00 | NUR ---
GPS NOTE PATIENT WENT OUT TO SMOKE AND DO HER LAUNDRY. IN STABLE CONDITION.
--- NOTE | 2022-04-13 11:35 | NUR ---
GPS NOTE BACK FROM SMOKING AND DOING THE LAUNDRY. IN STABLE CONDITION.
--- NOTE | 2022-04-13 18:34 | NUR ---
GPS RN CLOSING NOTE PATIENT IS ALERT AND ORIENTED X4. ABLE TO COMMUNICATE NEEDS. SHE IS ON ROOM AIR, ON EQUAL AND UNLABORED BREATHING. NO BEHAVIOR ISSUE NOTED DURING THE ENTIRE SHIFT. WITH PLEASANT DISPOSITION. SAFETY MEASURES IN PLACE. KEPT BED IN LOCKED AND IN LOW POSITION. SIDE RAILS UP X2. WILL ENDORSE TO NEXT SHIFT FOR CONTINUITY OF CARE.
--- NOTE | 2022-04-13 19:30 | NUR ---
MS RN OPENING NOTES RECEIVED PATIENT IN BED AWAKE, ALERT AND ORIENTED. A/O X 4. NO S/S OF PAIN NOTED AT THIS TIME. ON ROOM AIR, BREATHING EVEN AND UNLABORED. NO DISTRESS OR SHORTNESS OF BREATH NOTED. SAFETY MEASURES GIVEN WITH BED ON LOWEST AND LOCKED POSITION. CALL LIGHT AND TRAY WITHIN REACH. WILL CONTINUE WITH THE PLAN OF CARE.
[2022-04-13] MEDS: INVEST MED MK-8189-008-02 MISC 1 DOSE PO SCH (19:50)
[2022-04-13 20:00] VITALS: BP 128/85
--- NOTE | 2022-04-14 07:09 | NUR ---
MS RN CLOSING NOTES PATIENT IN BED AWAKE, ALERT AND ORIENTED. A/O X 4. NO S/S OF PAIN NOTED AT THIS TIME. ON ROOM AIR, BREATHING EVEN AND UNLABORED. NO DISTRESS OR SHORTNESS OF BREATH NOTED. SAFETY MEASURES GIVEN WITH BED ON LOWEST AND LOCKED POSITION. MEDICATIONS GIVEN SCHEDULED. CALL LIGHT AND TRAY WITHIN REACH. WILL ENDORSE TO THE NEXT SHIFT FOR STEVE..
--- NOTE | 2022-04-14 07:15 | NUR ---
GPS RN OPENING NOTE RECEIVED PATIENT ASLEEP BUT EASY T WAKE UP. PATIENT IS ALERT AND ORIENTED X4. ABLE TO COMMUNICATE NEEDS. SHE IS ON ROOM AIR, ON EQUAL AND UNLABORED BREATHING. WILL MONITOR FOR ANY UNTOWARD BEHAVIOR OR MEDICAL SYMPTOMS. WITH PLEASANT DISPOSITION. SAFETY MEASURES IN PLACE. KEPT BED IN LOCKED AND IN LOW POSITION. SIDE RAILS UP X2. WILL CONTINUE WITH PLAN OF CARE.
[2022-04-14 08:00] VITALS: BP 152/94
[2022-04-14] MEDS: AMLODIPINE 10 MG PO SCH (09:03)
[2022-04-14] MEDS: HYDROCHLOROTHIAZIDE 25 MG PO SCH ×2 (09:03→16:31)
--- NOTE | 2022-04-14 09:30 | NUR ---
MS RN NOTE PATIENT SAID SHE WILL GO OUT TO CLAIM HER PACKAGE. PATIENT WITH PRIVILEDGE TO GO OUT. IN STABLE DISPOSITION.
--- NOTE | 2022-04-14 10:45 | NUR ---
MS RN NOTE PATIENT BACK TO UNIT. IN STABLE CONDITION.
[2022-04-14 16:00] VITALS: BP 108/60
--- NOTE | 2022-04-14 18:32 | NUR ---
MS RN CLOSING NOTE PATIENT ALERT AND ORIENTED X4. ABLE TO COMMUNICATE NEEDS. SHE IS ON ROOM AIR, ON EQUAL AND UNLABORED BREATHING. NO UNTOWARD BEHAVIOR OR MEDICAL SYMPTOMS NOTED. WITH PLEASANT DISPOSITION. SAFETY MEASURES IN PLACE. KEPT BED IN LOCKED AND IN LOW POSITION. SIDE RAILS UP X2. WILL ENDORSE TO NEXT SHIFT FOR CONTINUITY OF CARE.
--- NOTE | 2022-04-14 19:30 | NUR ---
received in her motorized filler block inserter remover alert and orientated x4 smiling and joking no c/o
[2022-04-14 20:00] VITALS: BP 138/98
[2022-04-14] MEDS: INVEST MED MK-8189-008-02 MISC 1 DOSE PO SCH (20:37)
[2022-04-15 07:00] VITALS: BP 145/100
--- NOTE | 2022-04-15 07:42 | NUR ---
MS RN OPENING NOTE RECEIVED PATIENT ON BED ASLEEP BUT AROUSABLE , ALERT AND ORIENTED X4. ABLE TO COMMUNICATE NEEDS. SHE IS ON ROOM AIR, WITH NO SOB OR DISTRESS NOTED . ON CLINICAL TRIAL AND NO UNTOWARD BEHAVIOR OR MEDICAL SYMPTOMS NOTED. SAFETY MEASURES IN PLACE. KEPT BED IN LOCKED AND IN LOW POSITION. SIDE RAILS UP X2. WILL CONTINUE TO MONITOR FOR ANY CHANGES
[2022-04-15] MEDS: AMLODIPINE 10 MG PO SCH (09:24)
[2022-04-15] MEDS: HYDROCHLOROTHIAZIDE 25 MG PO SCH ×2 (09:25→17:12)
--- NOTE | 2022-04-15 18:45 | NUR ---
MS RN CLOSING NOTE PATIENT ON BED AWAKE , ALERT AND ORIENTED X4. ABLE TO COMMUNICATE NEEDS. SHE IS ON ROOM AIR, WITH NO SOB OR DISTRESS NOTED . ON CLINICAL TRIAL AND NO UNTOWARD BEHAVIOR OR MEDICAL SYMPTOMS NOTED. ALL DUE MEDS GIVEN ORDERED , SAFETY MEASURES IN PLACE. KEPT BED IN LOCKED AND IN LOW POSITION. SIDE RAILS UP X2. WILL ENDORSED TO NEXT SHIFT
--- NOTE | 2022-04-15 19:30 | NUR ---
MS RN OPENING NOTE RECEIVED PATIENT IN HALLWAY AWAKE. PT ALERT AND ORIENTED X 4. NO C/O OF PAIN OR DISCOMFORT AT THIS TIME. ON ROOM AIR, BREATHING EVEN AND UNLABORED. NO RESPIRATORY DISTRESS OR SHORTNESS OF BREATH NOTED. SAFETY MEASURES IMPLEMENTED: BED ON LOWEST AND LOCKED POSITION. CALL LIGHT AND TRAY WITHIN REACH, SR UP X2. WILL CONTINUE TO MONITOR PT THROUGHOUT SHIFT.
[2022-04-15] MEDS: INVEST MED MK-8189-008-02 MISC 1 DOSE PO SCH (20:29)
--- NOTE | 2022-04-16 06:40 | NUR ---
MS RN OPENING NOTE LEFT PT SLEEPING. PT ALERT AND ORIENTED X 4. NO C/O OF PAIN OR DISCOMFORT AT THIS TIME. ON ROOM AIR, BREATHING EVEN AND UNLABORED. NO RESPIRATORY DISTRESS OR SHORTNESS OF BREATH NOTED. SAFETY MEASURES IMPLEMENTED: BED ON LOWEST AND LOCKED POSITION. CALL LIGHT AND TRAY WITHIN REACH, SR UP X2. WILL ENDORSE PT TO AM SHIFT RN FOR STEVE.
--- NOTE | 2022-04-16 07:30 | NUR ---
MS RN OPENING NOTE RECEIVED PT AWAKE AND RESTING IN BED. PT IS UNDER CLINICAL TRIAL. PT IS A/OX4, ABLE TO MAKE NEEDS ATTENDED. PT IS ON ROOM AIR, TOLERATING WELL. NO SOB NOTED. NOT IN ANY SIGN OF RESPIRATORY DISTRESS. PT HAS NO IV ACCESS. SAFETY MEASURES IN PLACE: BED IN LOWEST AND LOCKED POSITION, SIDE RAILS UPX2, AND CALL LIGHT WITHIN REACH. WILL CONTINUE TO MONITOR PT.
[2022-04-16 08:00] VITALS: BP 129/91
[2022-04-16] MEDS: AMLODIPINE 10 MG PO SCH (08:45)
[2022-04-16] MEDS: HYDROCHLOROTHIAZIDE 25 MG PO SCH ×2 (08:48→16:14)
[2022-04-16 16:00] VITALS: BP 127/86
--- NOTE | 2022-04-16 18:36 | NUR ---
MS RN CLOSING NOTE PT AWAKE AND RESTING IN BED. PT IS UNDER CLINICAL TRIAL. PT IS A/OX4, ABLE TO MAKE NEEDS ATTENDED. NO EPISODES OF BEHAVIOR PROBLEM DURING SHIFT. PT IS ON ROOM AIR, TOLERATING WELL. NO SOB NOTED. NOT IN ANY SIGN OF RESPIRATORY DISTRESS. PT HAS NO IV ACCESS. ALL NEEDS ATTENDED. KEPT CLEAN AND COMFORTABLE AT ALL TIMES. SAFETY MEASURES IN PLACE: BED IN LOWEST AND LOCKED POSITION, SIDE RAILS UPX2, AND CALL LIGHT WITHIN REACH. WILL ENDORSE TO TEACHER AIDE CLERICAL NURSE FOR STEVE.
--- NOTE | 2022-04-16 19:30 | NUR ---
MS RN OPENING NOTE RECEIVED PT AWAKE IN BED. A/OX4 AND ABLE TO MAKE NEEDS KNOWN. PT STABLE ON ROOM AIR. NO SOB OR S/S OF RESPIRATORY DISTRESS. BREATHING EVEN AND UNLABORED. NO IV ACCESS DUE TO CLINICAL TRAIL STATUS. SAFETY PRECAUTIONS IN PLACE. BED IN LOWEST LOCKED POSITION, HOB ELEVATED, SIDE RAILS UP X2, AND CALL LIGHT AND TABLE WITHIN REACH. ALL NEEDS MET AT THIS TIME.
[2022-04-16] MEDS: INVEST MED MK-8189-008-02 MISC 1 DOSE PO SCH (20:41)
--- NOTE | 2022-04-17 06:42 | NUR ---
MS RN CLOSING NOTE PT AWAKE IN BED. A/OX4 AND ABLE TO MAKE NEEDS KNOWN. PT STABLE ON ROOM AIR. NO SOB OR S/S OF RESPIRATORY DISTRESS. BREATHING EVEN AND UNLABORED. NO IV ACCESS DUE TO CLINICAL TRAIL STATUS. ALL DUE MEDS GIVEN ORDERED. SAFETY PRECAUTIONS IN PLACE AT ALL TIMES. BED IN LOWEST LOCKED POSITION, HOB ELEVATED, SIDE RAILS UP X2, AND CALL LIGHT AND TABLE WITHIN REACH. ALL NEEDS MET AT THIS TIME AND WILL ENDORSE TO ONCOMING NURSE FOR STEVE.
--- NOTE | 2022-04-17 07:27 | NUR ---
MS RN OPENING NOTE RECEIVED PT AWAKE AND RESTING IN BED. PT IS UNDER CLINICAL TRIAL. PT IS A/OX4, ABLE TO MAKE NEEDS KNOWN. PT IS ON ROOM AIR, TOLERATING WELL. NO SOB NOTED. NOT IN ANY SIGN OF RESPIRATORY DISTRESS. PT HAS NO IV ACCESS. SAFETY MEASURES IN PLACE: BED IN LOWEST AND LOCKED POSITION, SIDE RAILS UPX2, AND CALL LIGHT WITHIN REACH. WILL CONTINUE TO MONITOR PT.
[2022-04-17] MEDS: HYDROCHLOROTHIAZIDE 25 MG PO SCH ×2 (09:24→17:00)
[2022-04-17] MEDS: AMLODIPINE 10 MG PO SCH (09:24)
[2022-04-17 10:36] VITALS: BP 141/43
[2022-04-17] MEDS ORDERED: ZOLPIDEM TARTRATE 10 MG TABLET PO PRN (12:00)
[2022-04-17] MEDS ORDERED: LORAZEPAM 1 MG TABLET FOR AGITATION/ANXIETY PO PRN (12:00)
--- NOTE | 2022-04-17 18:00 | NUR ---
RN NOTE PT'S HOME MEDICATION HYDROCHLOROTHIAZIDE SCHEDULED AT 1700 NOT ADMINISTERED. PT WAS NOT IN HER ROOM OR THE UNIT.
--- NOTE | 2022-04-17 18:37 | NUR ---
MS RN CLOSING NOTE PT AWAKE AND RESTING IN BED. PT IS UNDER CLINICAL TRIAL. PT IS A/OX4, ABLE TO MAKE NEEDS KNOWN. PT IS ON ROOM AIR, TOLERATING WELL. NO SOB NOTED. NOT IN ANY SIGN OF RESPIRATORY DISTRESS. PT HAS NO IV ACCESS. ALL NEEDS ATTENDED. KEPT CLEAN AND COMFORTABLE AT ALL TIMES. SAFETY MEASURES IN PLACE: BED IN LOWEST AND LOCKED POSITION, SIDE RAILS UPX2, AND CALL LIGHT WITHIN REACH. WILL ENDORSE TO LOAN OFFICER NURSE FOR STEVE.
[2022-04-17] MEDS: INVEST MED MK-8189-008-02 MISC 1 DOSE PO SCH (19:58)
[2022-04-17 20:00] VITALS: BP 127/87
[2022-04-18] VITALS: BP 128/87
[2022-04-18 08:24] VITALS: BP 127/70
[2022-04-18] MEDS: HYDROCHLOROTHIAZIDE 25 MG PO SCH ×2 (09:39→16:33)
[2022-04-18] MEDS: AMLODIPINE 10 MG PO SCH (09:39)
[2022-04-18 16:04] VITALS: BP 115/76
--- NOTE | 2022-04-18 18:35 | NUR ---
MS RN CLOSING NOTES PATIENT SITTING IN CHAIR, SLEEPING, NO S/S OF PAIN NOTED AT THIS TIME. ON ROOM AIR, BREATHING EVEN AND UNLABORED. NO DISTRESS OR SHORTNESS OF BREATH NOTED. SAFETY MEASURES IN PLACE: BED IN LOWEST LOCKED POSITION, SIDE RAILS UP X 2, CALL LIGHT WITHIN REACH. ALL NEEDS MET. WILL ENDORSE TO CHIROPRACTIC TEACHER FOR STEVE.
--- NOTE | 2022-04-18 20:00 | NUR ---
MS RN OPENING NOTES PATIENT IS NOT IN THE UNIT AT THIS TIME. FROM DAY SHIFT NURSE PATIENT STEPPED OUT TO SMOKE.
[2022-04-18] MEDS: INVEST MED MK-8189-008-02 MISC 1 DOSE PO SCH (20:40)
--- NOTE | 2022-04-18 20:48 | NUR ---
RN NOTES PATIENT IS BACK IN THE UNIT. INVESTIGATIONAL MEDICATION GIVEN.
--- NOTE | 2022-04-19 06:48 | NUR ---
MS RN CLOSING NOTES PATIENT IN BED SLEEPING. BREATHING EVEN AND UNLABORED. NO DISTRESS OR SHORTNESS OF BREATH NOTED. NO CHANGE OF BEHAVIOR DURING THE SHIFT. SAFETY MEASURES IN PLACE: BED IN LOWEST LOCKED POSITION, SIDE RAILS UP X 2, CALL LIGHT WITHIN REACH. ALL NEEDS MET. WILL ENDORSE TO NEXT SHIFT FOR CONTINUITY OF CARE.
--- NOTE | 2022-04-19 07:10 | NUR ---
MS RN OPENING NOTES RECEIVED PATIENT IN BED AWAKE, ALERT AND ORIENTED. A/O X 4. NO S/S OF PAIN NOTED AT THIS TIME. ON ROOM AIR, BREATHING EVEN AND UNLABORED. NO DISTRESS OR SHORTNESS OF BREATH NOTED. SAFETY MEASURES GIVEN WITH BED ON LOWEST AND LOCKED POSITION. CALL LIGHT AND TRAY WITHIN REACH. WILL CONTINUE TO MONITOR THE PATIENT.
[2022-04-19 08:00] VITALS: BP 137/87
[2022-04-19] MEDS: AMLODIPINE 10 MG PO SCH (09:52)
[2022-04-19] MEDS: HYDROCHLOROTHIAZIDE 25 MG PO SCH ×2 (09:53→16:57)
[2022-04-19 16:00] VITALS: BP 146/88
--- NOTE | 2022-04-19 19:07 | NUR ---
MS RN CLOSING NOTES PATIENT IN BED SLEEPING. BREATHING EVEN AND UNLABORED. NO DISTRESS OR SHORTNESS OF BREATH NOTED. NO CHANGE OF BEHAVIOR DURING THE SHIFT. ALL MEDICATIONS GIVEN PRESCRIBED. SAFETY MEASURES IN PLACE: BED IN LOWEST LOCKED POSITION, SIDE RAILS UP X 2, CALL LIGHT WITHIN REACH. ALL NEEDS MET. WILL ENDORSE TO NEXT SHIFT FOR CONTINUITY OF CARE.
--- NOTE | 2022-04-19 19:15 | NUR ---
MS RN OPENING NOTES RECEIVED PATIENT IN BED AWAKE, ALERT AND ORIENTED. A/O X 4. NO S/S OF PAIN NOTED AT THIS TIME. ON ROOM AIR, BREATHING EVEN AND UNLABORED. NO DISTRESS OR SHORTNESS OF BREATH NOTED. SAFETY MEASURES IN PLACE: BED ON LOW AND LOCKED POSITION, SIDE RAILS UP X2, CALL LIGHT AND TRAY WITHIN REACH. WILL CONTINUE TO MONITOR AND ASSIST.
[2022-04-19 20:00] VITALS: BP 138/68
[2022-04-19] MEDS: INVEST MED MK-8189-008-02 MISC 1 DOSE PO SCH (20:04)
--- NOTE | 2022-04-19 21:20 | NUR ---
RN NOTES PT ARRIVED BACK IN ROOM AT 2119. CLINICAL TRIAL DRUG SCHEDULED FOR 2199 NOW ADMINISTERED.
[2022-04-20 04:00] VITALS: BP 142/79
--- NOTE | 2022-04-20 06:45 | NUR ---
MS RN CLOSING NOTES PATIENT IN BED ASLEEP AT THIS TIME. A/O X 4. STABLE ON ROOM AIR, BREATHING EVEN AND UNLABORED. NO DISTRESS OR SHORTNESS OF BREATH NOTED. NO S/S OF PAIN NOTED AT THIS TIME. ALL CARE PROVIDED AND MEDS TOLERATED WELL. NO BEHAVIORAL CHANGES NOTED. SAFETY MEASURES MAINTAINED: BED ON LOW AND LOCKED POSITION, SIDE RAILS UP X2, CALL LIGHT AND TRAY WITHIN REACH. WILL ENDORSE STEVE TO DAY SHIFT NURSE.
[2022-04-20 07:00] VITALS: BP 146/90
--- NOTE | 2022-04-20 07:08 | NUR ---
MS RN OPENING NOTES RECEIVED PATIENT SLEEPING IN BED, A/Ox4 ABLE TO MAKE NEEDS KNOWN. ON ROOM AIR, NO S/S OF RESPIRATORY DISTRESS. PATIENT IS CT, NO IV ACCESS. HAS BATHROOM PRIVILEGE. SKIN ISSUES: SCAR LOWER LEG. NO C/O OF PAIN OR DISCOMFORT. SAFETY MEASURES IN PLACE: BED LOCKED AND IN LOWEST POSITION, SIDE RAILS UPx2, CALL LIGHT WITHIN REACH. WILL CONTINUE TO MONITOR.
[2022-04-20 08:00] VITALS: BP 146/90
[2022-04-20] MEDS: AMLODIPINE 10 MG PO SCH (09:15)
[2022-04-20] MEDS: HYDROCHLOROTHIAZIDE 25 MG PO SCH ×2 (09:15→17:51)
[2022-04-20 16:00] VITALS: BP 139/92
--- NOTE | 2022-04-20 17:30 | NUR ---
RN NOTES PATIENT OFF UNIT RIGHT NOW, WILL ADMINISTER HOME MEDICATION WHEN PATIENT RETURNS.
--- NOTE | 2022-04-20 18:50 | NUR ---
MS RN CLOSING NOTES PATIENT RESTING IN BED, A/Ox4 ABLE TO MAKE NEEDS KNOWN. STABLE ON ROOM AIR, NO S/S OF RESPIRATORY DISTRESS. PATIENT IS CT, NO IV ACCESS. HAS BATHROOM PRIVILEGE. SKIN ISSUES: SCAR LOWER LEG. NO C/O OF PAIN OR DISCOMFORT. SAFETY MEASURES MAINTAINED: BED LOCKED AND IN LOWEST POSITION, SIDE RAILS UPx2, CALL LIGHT WITHIN REACH. WILL ENDORSE TO NEXT SHIFT ANY STEVE.
--- NOTE | 2022-04-20 19:17 | NUR ---
RN OPENING NOTES RECEIVED PATIENT SLEEPING IN BED, A/Ox4 ABLE TO MAKE NEEDS KNOWN. ON ROOM AIR YG WELL,NO BEHAVIORAL CHANGES AT THIS TIME,SAFETY MEASURES IN PLACE: BED LOCKED AND IN LOWEST POSITION, SIDE RAILS UPx2, CALL LIGHT WITHIN REACH. WILL CONTINUE TO MONITOR.
[2022-04-20] MEDS: INVEST MED MK-8189-008-02 MISC 1 DOSE PO SCH (19:43)
[2022-04-20 20:00] VITALS: BP 132/86
--- NOTE | 2022-04-21 06:15 | NUR ---
RN CLOSING NOTES; PATIENT IN BED AA/Ox4 ABLE TO MAKE NEEDS KNOWN. ON ROOM AIR YG WELL,NO BEHAVIORAL CHANGES DURING SHIFT,DUE MEDS GIVEN ORDER,SAFETY MEASURES IN PLACE: BED LOCKED AND IN LOWEST POSITION, SIDE RAILS UPx2, CALL LIGHT WITHIN REACH. WILL ENDORSED TO NEXT SHIFT.
[2022-04-21 07:00] VITALS: BP 122/85
[2022-04-21] MEDS: HYDROCHLOROTHIAZIDE 25 MG PO SCH ×2 (09:39→18:05)
[2022-04-21] MEDS: AMLODIPINE 10 MG PO SCH (09:39)
--- NOTE | 2022-04-21 09:45 | NUR ---
TOOLROOM CLERK NOTES PATIENT IS WITH ORDER FOR DISCHARGE SHER Davis TO HIS FACILITY IN [facility] , [place] DISCHARGE PAPERS WAS PREPARED AND REPORT WAS GIVEN TO AMBULANCE CREW , PATIENT IS A/0 X 1 AND UNABLE OT MAKE NEEDS KNOWN , BODY ASSESSMENT DONE AND PHOTOS TAKEN ; PERSONAL BELONGINGS WAS SENT WITH AMBULANCE CREW , PATIENT HAS 2 BLANKETS , IV ACCESS WAS REMOVED AND LEFT AROUND 0930, IN A STABLE CONDITION . Addendum: 04/21/22 at 1300 by MARGARITO SCHMIDT RN DISREGARD THIS RN NOTES , WRONG DOCUMENTATION
--- NOTE | 2022-04-21 19:38 | NUR ---
MS RN CLOSING NOTE PATIENT ON BED AWAKE , ALERT AND ORIENTED X4. ABLE TO COMMUNICATE NEEDS. SHE IS ON ROOM AIR, WITH NO SOB OR DISTRESS NOTED . ON CLINICAL TRIAL AND NO UNTOWARD BEHAVIOR OR MEDICAL SYMPTOMS NOTED. ALL DUE MEDS GIVEN , SAFETY MEASURES IN PLACE. KEPT BED IN LOCKED AND IN LOW POSITION. SIDE RAILS UP X2. ENDORSED TO NEXT SHIFT
[2022-04-21] MEDS: INVEST MED MK-8189-008-02 MISC 1 DOSE PO SCH (19:52)
[2022-04-21 20:00] VITALS: BP 132/86
[2022-04-22 08:30] VITALS: BP 137/91
[2022-04-22] MEDS: AMLODIPINE 10 MG PO SCH (08:49)
[2022-04-22] MEDS: HYDROCHLOROTHIAZIDE 25 MG PO SCH ×2 (08:49→17:48)
[2022-04-22 16:00] VITALS: BP 132/95
--- NOTE | 2022-04-22 19:30 | NUR ---
MS RN OPENING NOTE RECEIVED PATIENT FROM AM NURSE; PATIENT IS A/O X 4, ABLE TO CONVERSE AND MAKE NEEDS KNOWN; STABLE ON ROOM AIR, BREATHING EVENLY AND TOLERATING WELL; NO COMPLAINTS OF PAIN AND DISCOMFORT AT THIS TIME; ENCOURAGE VERBALIZATION OF NEEDS; SAFETY PRECAUTIONS IMPLEMENTED, BED IN LOW POSITION, LOCKED, SIDE RAILS UP X 2, CALL LIGHT WITHIN REACH; WILL CONTINUE TO MONITOR THROUGHOUT SHIFT
[2022-04-22 20:00] VITALS: BP 130/86
[2022-04-22] MEDS: INVEST MED MK-8189-008-02 MISC 1 DOSE PO SCH (20:38)
[2022-04-23 04:00] VITALS: BP 121/75
--- NOTE | 2022-04-23 06:52 | NUR ---
MS RN CLOSING NOTE PATIENT IS A/O X 4, ABLE TO CONVERSE AND MAKE NEEDS KNOWN; STABLE ON ROOM AIR, BREATHING EVENLY AND TOLERATING WELL; NO COMPLAINTS OF PAIN AND DISCOMFORT AT THIS TIME; ADMINISTERED MEDICATIONS PRESCRIBED; PATIENT'S NEEDS ATTENDED; SAFETY PRECAUTIONS IMPLEMENTED, BED IN LOW POSITION, LOCKED, SIDE RAILS UP X 2, CALL LIGHT WITHIN REACH; WILL ENDORSE TO NEXT SHIFT NURSE FOR STEVE
--- NOTE | 2022-04-23 07:36 | NUR ---
MS RN OPENING NOTE RECEIVED PATIENT IN BED ASLEEP, BUT AROUSABLE, ALERT AND ORIENTED X 4. ABLE TO COMMUNICATE NEEDS. SHE IS ON ROOM AIR, WITH NO SOB NOR DISTRESS NOTED. ON CLINICAL TRIAL AND NO UNTOWARD BEHAVIOR OR MEDICAL SYMPTOMS NOTED. SAFETY MEASURES IN PLACE. KEPT BED IN LOCKED AND IN LOW POSITION. SIDE RAILS UP X2. WILL CONTINUE TO MONITOR FOR ANY CHANGES OR SYMPTOMS PER MD POC.
[2022-04-23] MEDS: HYDROCHLOROTHIAZIDE 25 MG PO SCH ×2 (09:00→17:00)
[2022-04-23] MEDS: AMLODIPINE 10 MG PO SCH (09:00)
--- NOTE | 2022-04-23 14:00 | NUR ---
MS RN (PATIENT REFUSED MEDICATION) NOTE Patient departed [address] without telling nurse at time of AM anti-hypertensive medications. When nurse offered medications to patient once she had returned to her room, patient refused stating that, "My blood pressure is not that high. I don't need the medication." Despite explaining to patient the importance of regular adherence to medication scheduled, patient refuse to take medications. Will continue to monitor BP and observe patient for any symptoms as ordered by MD HALL.
--- NOTE | 2022-04-23 19:06 | NUR ---
MS RN CLOSING NOTE PATIENT IN BED, AWAKE, ALERT AND ORIENTED X 4. ABLE TO COMMUNICATE NEEDS. SHE IS ON ROOM AIR, WITH NO SOB OR DISTRESS NOTED. ON CLINICAL TRIAL AND NO UNTOWARD BEHAVIOR NOR MEDICAL SYMPTOMS NOTED. REMINDED PATIENT NOT TO EAT NOR DRINK ANYTHING AFTER 22:00 HOURS TONIGHT, THAT SHE CANNOT HAVE ANY AMBIEN OR ATIVAN AFTER 22:00 HRS TONIGHT NOR HER CLINICAL TRIAL MEDICATION TONIGHT. ENDORSED THE SAME RESTRICTIONS SHOWING DR. HERZOG'S ORDERS TO THE NIGHT RNSERGIO. ALSO INFORMED NIGHT NURSE OF PATIENT'S REFUSAL OF ANTI-HYPERTENSIVE MEDICATION. SAFETY MEASURES IN PLACE. KEPT BED IN LOCKED AND IN LOW POSITION. SIDE RAILS UP X2.
--- NOTE | 2022-04-23 19:13 | NUR ---
RN OPENING NOTES RECEIVED PATIENT IN BED AA/Ox4, ABLE TO MAKE NEEDS KNOWN. ON ROOM AIR YG WELL,NO BEHAVIORAL CHANGES AT THIS TIME,SAFETY MEASURES IN PLACE: BED LOCKED AND IN LOWEST POSITION, SIDE RAILS UPx2, CALL LIGHT WITHIN REACH. WILL CONTINUE TO MONITOR.
[2022-04-23] MEDS: INVEST MED MK-8189-008-02 MISC 1 DOSE PO SCH (19:56)
[2022-04-23 20:00] VITALS: BP 137/86
--- NOTE | 2022-04-24 06:34 | NUR ---
RN CLOSING NOTES; PATIENT IN BED AA/Ox4 ABLE TO MAKE NEEDS KNOWN. ON ROOM AIR YG WELL,NO BEHAVIORAL CHANGES DURING SHIFT,DUE MEDS GIVEN ORDER,NPO SINCE MIDNIGHT,SAFETY MEASURES IN PLACE: BED LOCKED AND IN LOWEST POSITION, SIDE RAILS UPx2, CALL LIGHT WITHIN REACH. WILL ENDORSED TO NEXT SHIFT.
[2022-04-24 08:00] VITALS: BP 137/89
[2022-04-24] MEDS: AMLODIPINE 10 MG PO SCH (09:56)
[2022-04-24] MEDS: HYDROCHLOROTHIAZIDE 25 MG PO SCH ×2 (09:57→17:17)
[2022-04-24] MEDS ORDERED: LORAZEPAM 1 MG TABLET FOR AGITATION/ANXIETY PO PRN (12:00)
[2022-04-24] MEDS ORDERED: ZOLPIDEM TARTRATE 10 MG TABLET PO PRN (12:00)
--- NOTE | 2022-04-24 16:45 | NUR ---
MSSN PATIENT A/O X 4 NO S/S OF INFECTION VITAL SIGNS STABLE AMBULATED MULTIPLE TIMES THROUGHOUT THE DAY WITH NO PROBLEM BLOOD DRAW COMPLETED IN THE AM (1100), LAB RESULTS PENDING
[2022-04-24 18:04] VITALS: BP 146/87
--- NOTE | 2022-04-24 19:10 | NUR ---
MS RN OPENING NOTE PATIENT IS EATING IN BED. SHE IS ALERT AND ORIENTED, AO X 4. SHE IS ON CLINICAL TRIAL, NO IV ACCESS. SHE IS ON RA, TOLERATED WELL. NO S/S OF DISTRESS OR SOB. PATIENT IS AMBULATORY WITH WALKER OR SCOOTER. SHE IS CALM AND NO BEHAVIORAL ISSUES. SAFETY MEASURES ARE IN PLACED: BED IN LOWEST AND LOCKED POSITION; SIDE RAILS UP X 2; CALL LIGHT AND TABLE ARE WITHIN EASY REACH. INSTRUCTED TO REPORT ANY BEHAVIORAL CHANGES; PATIENT VERBALIZED UNDERSTANDING. WILL CONTINUE MONITORING THE PATIENT AND PROVIDE THE CARE PATIENT NEEDS.
[2022-04-24] MEDS: INVEST MED MK-8189-008-02 MISC 1 DOSE PO SCH (19:47)
[2022-04-24 20:00] VITALS: BP 136/95
--- NOTE | 2022-04-25 07:24 | NUR ---
MS RN CLOSING NOTE PATIENT IS SLEEPING IN BED, EASILY BEING AROUSED. SHE IS ALERT AND ORIENTED, AO X 4. SHE IS ON RA, TOLERATED WELL. NO S/S OF DISTRESS OR SOB. SHE IS CALM. NO BEHAVIORAL ISSUES / CHANGES THROUGHOUT THE SHIFT. SAFETY MEASURES ARE IN PLACED: BED IN LOWEST AND LOCKED POSITION; SIDE RAILS UP X 2; CALL LIGHT AND TABLE ARE WITHIN EASY REACH. WILL ENDORSE NEXT SHIFT NURSE FOR CONTINUING PATIENT CARE.
--- NOTE | 2022-04-25 07:35 | NUR ---
MSSN- RECEIVED PT ASLEEP. PT IS EASILY AROUSED. PT IS ALERT AND ORIENTED X4. NO S/SX OF RESPIRATORY DISTRESS. CALL LIGHT WITHIN REACH. NO OTHER NEEDS NEEDED AT THE MOMENT.
[2022-04-25] MEDS: HYDROCHLOROTHIAZIDE 25 MG PO SCH ×2 (08:27→18:24)
--- NOTE | 2022-04-25 09:00 | NUR ---
ms mills breakfast served,due meds given,tolerated well.
--- NOTE | 2022-04-25 10:00 | NUR ---
ms rn went down for a walk.
[2022-04-25] MEDS: AMLODIPINE 10 MG PO SCH (10:01)
--- NOTE | 2022-04-25 13:00 | NUR ---
ms gene tang back,no distress noted.
--- NOTE | 2022-04-25 18:31 | NUR ---
ms rn patient is out of the room most of the time, all needs attended.
--- NOTE | 2022-04-25 19:00 | NUR ---
CLINICAL TRIAL ASSEMBLER GOLD FRAME INITIAL NOTES Received report from am nurse and checked pt she's sitting on her scouter going down to smoking area for her smoking time. She's cooperative, pleasant , denies any pain or any discomfort. She told me that she's taking her medication when she come back. will continue monitoring.
[2022-04-25 20:00] VITALS: BP 130/91
[2022-04-25] MEDS: INVEST MED MK-8189-008-02 MISC 1 DOSE PO SCH (20:21)
--- NOTE | 2022-04-25 20:32 | NUR ---
Cripple Cutter notes investigational meds given after patient came back from smoking . will continue monitoring.
--- NOTE | 2022-04-26 06:52 | NUR ---
ham doctor closing notes pt remains sleeping comfortably in bed without any discomfort noted. Stable throughout the night. no signs of any behavioral changes. will continue monitoring.
--- NOTE | 2022-04-26 07:15 | NUR ---
ms rn received on bed, awake,alert,oriented x4,clinical trial of dr. page, not in any form of distress, respirations even and unlabored,no sob noted, patient went down, reminded to come up at 9am for meds.
[2022-04-26] MEDS: HYDROCHLOROTHIAZIDE 25 MG PO SCH ×2 (09:29→17:29)
[2022-04-26] MEDS: AMLODIPINE 10 MG PO SCH (09:29)
--- NOTE | 2022-04-26 09:40 | NUR ---
ms rn refused breakfast here, meds given,tolerated well.
--- NOTE | 2022-04-26 18:30 | NUR ---
ms rn on bed, no distress noted.all needs attended.
--- NOTE | 2022-04-26 19:30 | NUR ---
noc rn note received patient in room watching movie. no s/s of apparent distress. no complaints rn. introduced myself. encouraged to verbalize needs and concerns. patient acknowledged. will continue with patient's plan of care.
[2022-04-26 20:00] VITALS: BP 149/79
[2022-04-26] MEDS: INVEST MED MK-8189-008-02 MISC 1 DOSE PO SCH (20:00)
--- NOTE | 2022-04-27 07:21 | NUR ---
noc rn closing needs attended. no significant change. will endorse to NYLA Yung for continuity of patient care.
--- NOTE | 2022-04-27 07:30 | NUR ---
PT RECEIVED RESTING COMFORTABLY IN BED WITH EYES CLOSED. NO S/S OR C/O PAIN OR DISTRESS NOTED. SIDE RAILS UP X2, CALL LIGHT LEFT WITHIN REACH. WILL CONTINUE PLAN OF CARE.
[2022-04-27] MEDS: AMLODIPINE 10 MG PO SCH (10:29)
[2022-04-27] MEDS: HYDROCHLOROTHIAZIDE 25 MG PO SCH ×2 (10:29→17:47)
[2022-04-27 16:00] VITALS: BP 140/96
--- NOTE | 2022-04-27 18:47 | NUR ---
CHANGE OF SHIFT REPORT PT OFF FLOOR AT THIS TIME. NO S/S OR C/O PAIN OR DISTRESS NOTED. SIDE RAILS UP X2, CALL LIGHT LEFT WITHIN REACH. PT KEPT CLEAN, DRY, AND COMFORTABLE. NO SIGNIFICANT CHANGES SINCE PREVIOUS SHIFT. WILL GIVE REPORT TO TITI REDMOND.
--- NOTE | 2022-04-27 19:30 | NUR ---
noc rn note Patient not in unit during change of shift report.
--- NOTE | 2022-04-27 19:59 | NUR ---
noc rn note patient just returned in unit at this time.
[2022-04-27 20:00] VITALS: BP 117/80
[2022-04-27] MEDS: INVEST MED MK-8189-008-02 MISC 1 DOSE PO SCH (20:01)
--- NOTE | 2022-04-28 07:31 | NUR ---
noc rn closing note Endorsed to NYLA Porter for continuity of patient care.
[2022-04-28 09:06] VITALS: BP 151/90
[2022-04-28] MEDS: HYDROCHLOROTHIAZIDE 25 MG PO SCH ×2 (09:15→18:13)
[2022-04-28] MEDS: AMLODIPINE 10 MG PO SCH (09:15)
[2022-04-28 17:04] VITALS: BP 139/98
--- NOTE | 2022-04-28 19:32 | NUR ---
MS RN CLOSING NOTE RECEIVED PATIENT FROM AM NURSE; PATIENT IS A/O X 4, ABLE TO CONVERSE AND MAKE NEEDS KNOWN; STABLE ON ROOM AIR, BREATHING EVENLY AND TOLERATING WELL; NO COMPLAINTS OF PAIN AND DISCOMFORT AT THIS TIME; ENCOURAGE VERBALIZATION OF NEEDS;ALL DUE MEDS GIVEN ORDERED , SAFETY PRECAUTIONS IMPLEMENTED, BED IN LOW POSITION, LOCKED, SIDE RAILS UP X 2, CALL LIGHT WITHIN REACH; ENDORSED TO NEXT SHIFT
[2022-04-28] MEDS: INVEST MED MK-8189-008-02 MISC 1 DOSE PO SCH (20:08)
--- NOTE | 2022-04-28 20:30 | NUR ---
CT RN OPENING NOTE PATIENT ALERT/ORIENTED X 4, PT ABLE TO MAKE NEEDS KNOWN. PATIENT STABLE ON RA, NO S/S OF DISTRESS OR SOB NOTED, BREATHING EVEN AND UNLABORED. PATIENT TOOK INVESTIGATIONAL MEDS. PATIENT GOING BACK DOWN TO [place] VIA ELECTRICAL WHEELCHAIR. SAFETY MEASURES IN PLACE: CALL LIGHT WITHIN REACH, SIDE RAILS UP X 2, BED LOCKED IN LOWEST POSITION. WILL CONTINUE TO MONITOR PATIENT
--- NOTE | 2022-04-29 06:24 | NUR ---
CT RN CLOSING NOTE PATIENT SLEEPING IN BED, PT ALERT/ORIENTED X 4. PATIENT STABLE ON RA, NO S/S OF DISTRESS OR SOB NOTED, BREATHING EVEN AND UNLABORED. NO SIGNIFICANT CHANGES THIS SHIFT, PATIENT SLEPT WELL THROUGH THE NIGHT. MEDICATIONS GIVEN ORDERED, PT NEEDS MET THROUGHOUT SHIFT. SAFETY MEASURES IN PLACE: CALL LIGHT WITHIN REACH, SIDE RAILS UP X 2, BED LOCKED IN LOWEST POSITION. WILL ENDORSE TO DAYSHIFT RN FOR CONTINUITY OF CARE
--- NOTE | 2022-04-29 08:00 | NUR ---
CT RN OPENING NOTE PATIENT AWAKE IN BED, ALERT/ORIENTED X 4. PATIENT STABLE ON RA, NO S/S OF DISTRESS OR SOB NOTED, BREATHING EVEN AND UNLABORED. SAFETY MEASURES IN PLACE: CALL LIGHT WITHIN REACH, SIDE RAILS UP X 2, BED LOCKED IN LOWEST POSITION. WILL CONTINUE TO MONITOR.
[2022-04-29] MEDS: HYDROCHLOROTHIAZIDE 25 MG PO SCH ×2 (09:55→18:52)
[2022-04-29] MEDS: AMLODIPINE 10 MG PO SCH (09:55)
--- NOTE | 2022-04-29 17:37 | NUR ---
RN NOTES PATIENT NOT IN ROOM AT THIS TIME, INVESTIGATIONAL DRUG NOT GIVEN YET, WILL WAIT FOR THE PATIENT.
--- NOTE | 2022-04-29 18:22 | NUR ---
rn notes Patient still not in her room, will check again
--- NOTE | 2022-04-29 18:56 | NUR ---
CT RN CLOSING NOTE PATIENT AWAKE IN BED, ALERT/ORIENTED X 4. PATIENT STABLE ON RA, NO S/S OF DISTRESS OR SOB NOTED, BREATHING EVEN AND UNLABORED. NO SIGNIFICANT CHANGES THIS SHIFT, NO BEHAVIORAL ISSUES NOTED. MEDICATIONS GIVEN ORDERED, PT NEEDS MET THROUGHOUT THE SHIFT. SAFETY MEASURES IN PLACE: CALL LIGHT WITHIN REACH, SIDE RAILS UP X 2, BED LOCKED IN LOWEST POSITION. WILL ENDORSE TO NIGHTSHIFT RN FOR CONTINUITY OF CARE
--- NOTE | 2022-04-29 19:30 | NUR ---
MS RN OPENING NOTE RECEIVED PATIENT FROM AM NURSE; PATIENT IS ALERT AND ORIENTED X 4, ABLE TO CONVERSE AND MAKE NEEDS KNOWN; STABLE ON ROOM AIR, BREATHING EVENLY AND TOLERATING WELL, NO RESPIRATORY DISTRESS NOTED; DENIES ANY PAIN AND DISCOMFORT AT THIS TIME; ENCOURAGE VERBALIZATION OF NEEDS; SAFETY PRECAUTIONS IMPLEMENTED, BED IN LOW POSITION, LOCKED, SIDE RAILS UP X 2, CALL LIGHT WITHIN REACH; WILL CONTINUE TO MONITOR THROUGHOUT SHIFT
[2022-04-29] MEDS: INVEST MED MK-8189-008-02 MISC 1 DOSE PO SCH (19:55)
[2022-04-29 20:00] VITALS: BP 150/95
[2022-04-29 23:33] VITALS: BP 150/95
--- NOTE | 2022-04-30 06:45 | NUR ---
MS RN CLOSING NOTE PATIENT IS ALERT AND ORIENTED X 4, ABLE TO CONVERSE AND MAKE NEEDS KNOWN; STABLE ON ROOM AIR, BREATHING EVENLY AND TOLERATING WELL WITH NO RESPIRATORY DISTRESS NOTED; DENIES ANY PAIN AND DISCOMFORT AT THIS TIME; ADMINISTERED MEDICATIONS PRESCRIBED; PATIENT'S NEEDS ATTENDED; MONITORED PATIENT ACCORDINGLY; SAFETY PRECAUTIONS IMPLEMENTED, BED IN LOW POSITION, LOCKED, SIDE RAILS UP X 2, CALL LIGHT WITHIN REACH; WILL ENDORSE TO AM NURSE FOR STEVE.
[2022-04-30] MEDS: AMLODIPINE 10 MG PO SCH (10:39)
[2022-04-30] MEDS: HYDROCHLOROTHIAZIDE 25 MG PO SCH ×2 (10:40→17:30)
--- NOTE | 2022-04-30 19:29 | NUR ---
PT COMPLIANT WITH CARE, ;HAD TO EDUCATE REGARDING B/P MEDICATIONS AFTER EXPLAINING COMPLIANT TAKING ALL PO MEDS WHOLE, ABLE TO MAKE ALL NEEDS KNOWN, AMBULATING ON OWN AND NO C/O PAIN OR ANY OTHERS
--- NOTE | 2022-04-30 19:30 | NUR ---
noc rn opening note received patient in bed with eyes closed, easy to arouse. no s/s of apparent distress on room air. no complaints at this time. made aware of ID medication for 1999, patient acknowledged and compliant. encouraged to verbalized needs and concerns. will continue with patient's plan of care.
[2022-04-30 20:00] VITALS: BP 169/82
[2022-04-30] MEDS: INVEST MED MK-8189-008-02 MISC 1 DOSE PO SCH (20:00)
--- NOTE | 2022-05-01 07:25 | NUR ---
MS RN OPENING NOTE- ON CLINICAL TRIAL UNDER DR HERZOG RECEIVED PT IN BED, SLEEPING, EASILY AWAKEN, AOX4, COOPERATIVE, ABLE TO MAKE NEEDS KNOWN. NOT IN ANY FORM OF RESPIRATORY DISTRESS. WILL CONTINUE TO MONITOR FOR BEHAVIORAL CHANGES DURING MY SHIFT.
--- NOTE | 2022-05-01 07:28 | NUR ---
noc rn closing note Patient sleeping at this time. no significant change on my shift. will endorse to NYLA PATTON for continuity of care.
[2022-05-01 08:00] VITALS: BP 145/82
--- NOTE | 2022-05-01 09:15 | NUR ---
RN NOTES - PATIENT NOT IN HER ROOM, MEDS NOT GIVEN YET. WILL CHECK AGAIN WHEN SHE COMES BACK.
[2022-05-01] MEDS: HYDROCHLOROTHIAZIDE 25 MG PO SCH ×2 (11:23→16:53)
[2022-05-01] MEDS: AMLODIPINE 10 MG PO SCH (11:23)
[2022-05-01] MEDS ORDERED: LOPERAMIDE HCL (2 MG CAP) 2 MG CAPSULE PO PRN (12:00)
[2022-05-01] MEDS ORDERED: ZOLPIDEM TARTRATE 10 MG TABLET PO PRN (12:00)
[2022-05-01] MEDS ORDERED: LORAZEPAM 1 MG TABLET FOR AGITATION/ANXIETY PO PRN (12:00)
[2022-05-01 16:00] VITALS: BP 139/75
--- NOTE | 2022-05-01 16:00 | NUR ---
RN NOTES - PATIENT REFUSED VS AT THIS MOMENT - JUST WANTED TO REST.
--- NOTE | 2022-05-01 17:05 | NUR ---
RN NOTES - PT REFUSED HCTZ DESPITE ENCOURAGEMENT
--- NOTE | 2022-05-01 18:53 | NUR ---
MS RN CLOSING NOTES PATIENT SEEN ROAMING AROUND IN [place] HER ELECTRIC BIKE. NOT IN ANY FORM OF DISTRESS. NO CHANGE OF BEHAVIOR DURING THE SHIFT. ALL MEDICATIONS GIVEN PRESCRIBED. SAFETY MEASURES IN PLACE: BED IN LOWEST AND LOCKED POSITION, SIDE RAILS UP X 2, CALL LIGHT WITHIN REACH. ALL NEEDS MET. WILL ENDORSE TO NEXT SHIFT FOR CONTINUITY OF CARE.
--- NOTE | 2022-05-01 19:30 | NUR ---
CLINICAL TRIAL PRIVATE BRANCH EXCHANGE SERVICE ADVISER INITIAL NOTES Received report from am nurse and seen patient just coming out from the elevator from her smoking session. No signs of any discomfort. will continue monitoring. place call light at reach.
[2022-05-01 20:00] VITALS: BP 134/96
[2022-05-01] MEDS: INVEST MED MK-8189-008-02 MISC 1 DOSE PO SCH (20:33)
[2022-05-02 07:00] VITALS: BP 149/95
--- NOTE | 2022-05-02 07:11 | NUR ---
tentering machine feeder closing notes Pt remains sleeping in her bed without any discomfort or any distress noted. Stable throughout the night, no behavioral changes noted. will endorse to am nurse for continuity of care. call light at reach.
[2022-05-02] MEDS: AMLODIPINE 10 MG PO SCH (09:32)
[2022-05-02] MEDS: HYDROCHLOROTHIAZIDE 25 MG PO SCH ×2 (09:32→17:00)
[2022-05-02 16:00] VITALS: BP 144/91
--- NOTE | 2022-05-02 17:10 | NUR ---
RN NOTES - PT REFUSED HCTZ DESPITE ENCOURAGEMENT AND EDUCATION
--- NOTE | 2022-05-02 18:14 | NUR ---
MS RN CLOSING NOTES PATIENT IN HER ROOM, WATCHING TV, AOX4, COOPERATIVE ABLE TO MAKE NEEDS KNOWN. NOT IN ANY FORM OF DISTRESS. NO CHANGE OF BEHAVIOR DURING THE SHIFT. ALL MEDICATIONS GIVEN PRESCRIBED. SAFETY MEASURES IN PLACE: BED IN LOWEST AND LOCKED POSITION, SIDE RAILS UP X 2, CALL LIGHT WITHIN REACH. ALL NEEDS MET. WILL ENDORSE TO NEXT SHIFT FOR CONTINUITY OF CARE.
--- NOTE | 2022-05-02 19:30 | NUR ---
handyperson initial notes seen pt in her room sitting in her bed watching movies on her IPAD , pleasant, cooperative , no signs of any discomfort. will continue monitoring. Place call light at reach.
[2022-05-02] MEDS: INVEST MED MK-8189-008-02 MISC 1 DOSE PO SCH (20:09)
[2022-05-03 06:49] VITALS: BP 140/96
--- NOTE | 2022-05-03 06:54 | NUR ---
CLINICAL TRIAL PARK LANDSCAPE ARCHITECT CLOSING NOTES PATIENT WOKE UP , SLEPT WELL , STABLE ON ROOM AIR, BREATHING EVENLY AND TOLERATING WELL WITH NO RESPIRATORY DISTRESS NOTED; DENIES ANY PAIN AND DISCOMFORT AT THIS TIME; ADMINISTERED MEDICATIONS PRESCRIBED; PATIENT'S NEEDS ATTENDED; MONITORED PATIENT ACCORDINGLY; SAFETY PRECAUTIONS IMPLEMENTED, BED IN LOW POSITION, LOCKED, SIDE RAILS UP X 2, CALL LIGHT WITHIN REACH; WILL ENDORSE TO AM NURSE FOR CONTINUITY OF CARE.
[2022-05-03 07:00] VITALS: BP 147/100
--- NOTE | 2022-05-03 07:00 | NUR ---
MS RN OPENING NOTE RECEIVED PT IN BED, SLEEPING BUT AROUSABLE, AOX4, COOPERATIVE, ABLE TO MAKE NEEDS KNOWN. NOT IN ANY FORM OF RESPIRATORY DISTRESS. WILL CONTINUE TO MONITOR FOR BEHAVIORAL CHANGES DURING MY SHIFT.
[2022-05-03] MEDS: HYDROCHLOROTHIAZIDE 25 MG PO SCH ×2 (09:20→16:00)
[2022-05-03] MEDS: AMLODIPINE 10 MG PO SCH (09:20)
[2022-05-03 16:00] VITALS: BP 150/101
--- NOTE | 2022-05-03 18:25 | NUR ---
MS RN CLOSING NOTES PATIENT IS AWAKE IN HER ROOM, AOX4, COOPERATIVE ABLE TO MAKE NEEDS KNOWN. NOT IN ANY FORM OF DISTRESS. NO CHANGE OF BEHAVIOR DURING THE SHIFT. ALL MEDICATIONS GIVEN PRESCRIBED. SAFETY MEASURES IN PLACE: BED IN LOWEST AND LOCKED POSITION, SIDE RAILS UP X 2, CALL LIGHT WITHIN REACH. ALL NEEDS MET. WILL ENDORSE TO LINDERMAN MACHINE OPERATOR RN FOR CONTINUITY OF CARE.
--- NOTE | 2022-05-03 19:23 | NUR ---
MS RN OPENING NOTE RECEIVED PT AWAKE IN BED. A/O X4 AND ABLE TO MAKE NEEDS KNOWN. PT STABLE ON ROOM AIR. NO SOB OR S/S OF RESPIRATORY DISTRESS. BREATHING EVEN AND UNLABORED. NO IV ACCESS DUE TO CLINICAL TRAIL STATUS. SAFETY PRECAUTIONS IN PLACE. BED IN LOWEST LOCKED POSITION, SIDE RAILS UP X2, AND CALL LIGHT AND TABLE WITHIN REACH. ALL NEEDS MET AT THIS TIME.
[2022-05-03 20:00] VITALS: BP 144/97
[2022-05-03] MEDS: INVEST MED MK-8189-008-02 MISC 1 DOSE PO SCH (20:00)
[2022-05-04 07:00] VITALS: BP 165/114
--- NOTE | 2022-05-04 07:02 | NUR ---
MS RN CLOSING NOTE PT AWAKE IN BED. A/O X4 AND ABLE TO MAKE NEEDS KNOWN. PT STABLE ON ROOM AIR. NO SOB OR S/S OF RESPIRATORY DISTRESS. BREATHING EVEN AND UNLABORED. NO IV ACCESS DUE TO CLINICAL TRAIL STATUS. ALL DUE MEDS GIVEN ORDERED. SAFETY PRECAUTIONS IN PLACE AT ALL TIMES. BED IN LOWEST LOCKED POSITION, SIDE RAILS UP X2, AND CALL LIGHT AND TABLE WITHIN REACH. ALL NEEDS MET AT THIS TIME AND WILL ENDORSE TO ONCOMING NURSE FOR STEVE.
--- NOTE | 2022-05-04 07:04 | NUR ---
MS RN OPENING NOTE RECEIVED PT IN BED, SLEEPING BUT AROUSABLE, AOX4, COOPERATIVE, ABLE TO MAKE NEEDS KNOWN. NOT IN ANY FORM OF RESPIRATORY DISTRESS. WILL CONTINUE TO MONITOR FOR ANY BEHAVIORAL CHANGES DURING MY SHIFT
[2022-05-04] MEDS: AMLODIPINE 10 MG PO SCH (08:18)
[2022-05-04] MEDS: HYDROCHLOROTHIAZIDE 25 MG PO SCH ×2 (08:18→16:32)
[2022-05-04 20:00] VITALS: BP 137/88
[2022-05-04] MEDS: INVEST MED MK-8189-008-02 MISC 1 DOSE PO SCH (20:20)
--- NOTE | 2022-05-05 06:22 | NUR ---
MS RN CLOSING NOTES PATIENT IS ASLEEP IN HER ROOM, EASILY AROUSABLE ON VOICE COMMANDS AND TACTILE STIMULI, AOX4, COOPERATIVE AND ABLE TO MAKE NEEDS KNOWN. NOT IN ANY FORM OF DISTRESS. NO CHANGE OF BEHAVIOR DURING THE SHIFT. ALL MEDICATIONS GIVEN PRESCRIBED. SAFETY MEASURES IN PLACE: BED IN LOWEST AND LOCKED POSITION, SIDE RAILS UP X 2, CALL LIGHT WITHIN REACH. ALL NEEDS MET. WILL ENDORSE TO DAY SHIFT RN FOR CONTINUITY OF CARE.
--- NOTE | 2022-05-05 07:09 | NUR ---
MS RN OPENING NOTES RECEIVED PT ASLEEP IN BED, EASILY AROUSABLE. PT IS A/O X4 AND ABLE TO MAKE NEEDS KNOWN, DENIES PAIN OR ANY DISCOMFORTS THIS TIME. ON ROOM AIR, TOLERATING WELL, BREATHING EVEN AND UNLABORED. NO IV ACCESS PER CLINICAL TRIAL PROTOCOL. SAFETY PRECAUTIONS IN PLACE: BED IN LOWEST LOCKED POSITION, SIDE RAILS UP X2, CALL LIGHT AND TRAY TABLE WITHIN REACH. WILL CONTINUE TO MONITOR PT.
[2022-05-05 08:00] VITALS: BP 158/111
[2022-05-05] MEDS: AMLODIPINE 10 MG PO SCH (08:43)
[2022-05-05] MEDS: HYDROCHLOROTHIAZIDE 25 MG PO SCH ×2 (08:43→17:33)
--- NOTE | 2022-05-05 18:32 | NUR ---
MS RN OPENING NOTES PT IN BED ASLEEP AT THIS TIME, EASILY AROUSABLE TO STIMULI. PT IS A/O X4 AND ABLE TO MAKE NEEDS KNOWN. NO INAPPROPRIATE BEHAVIOR EXHIBITED THIS SHIFT. ON ROOM AIR, TOLERATING WELL, BREATHING EVEN AND UNLABORED. NO IV ACCESS PER CLINICAL TRIAL PROTOCOL. NEEDS ATTENDED WELL. SAFETY PRECAUTIONS IN PLACE: BED IN LOWEST LOCKED POSITION, SIDE RAILS UP X2, CALL LIGHT AND TRAY TABLE WITHIN REACH OF PT. 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
--- NOTE | 2022-05-05 19:30 | NUR ---
MS RN OPENING NOTES RECEIVED PT AWAKE IN ROOM. PT IS A/O X4, ABLE TO MAKE NEEDS KNOWN. DENIES PAIN OR DISCOMFORT AT THIS TIME. ON ROOM AIR, TOLERATING RA WELL. BREATHING EVEN AND UNLABORED. NO IV ACCESS. PT IS ON CLINICAL TRIAL. SAFETY PRECAUTIONS IN PLACE: BED IN LOWEST LOCKED POSITION, SIDE RAILS UP X2, CALL LIGHT AND TRAY TABLE WITHIN REACH. WILL CONTINUE TO MONITOR PT.
[2022-05-05 20:00] VITALS: BP 150/104
[2022-05-05] MEDS: INVEST MED MK-8189-008-02 MISC 1 DOSE PO SCH (20:17)
--- NOTE | 2022-05-06 06:40 | NUR ---
MS RN CLOSING NOTE LEFT PT SLEEPING IN ROOM. PT IS A/O X4, ABLE TO MAKE NEEDS KNOWN. DENIES PAIN OR DISCOMFORT AT THIS TIME. ON ROOM AIR, TOLERATING RA WELL. BREATHING EVEN AND UNLABORED. NO IV ACCESS. PT IS ON CLINICAL TRIAL. SAFETY PRECAUTIONS IN PLACE: BED IN LOWEST LOCKED POSITION, SIDE RAILS UP X2, CALL LIGHT AND TRAY TABLE WITHIN REACH. WILL ENDORSE PT TO AM SHIFT NURSE FOR STEVE..
--- NOTE | 2022-05-06 07:40 | NUR ---
MS RN OPENING NOTES RECEIVED PT AWAKE IN ROOM. PT IS A/O X4, ABLE TO MAKE NEEDS KNOWN. NO C/O OF PAIN OR DISCOMFORT AT THIS TIME. ON ROOM AIR, TOLERATING RA WELL. BREATHING EVEN AND UNLABORED. NO IV ACCESS. PT IS ON CLINICAL TRIAL. SAFETY PRECAUTIONS IN PLACE: BED IN LOWEST LOCKED POSITION, SIDE RAILS UP X2, CALL LIGHT AND TRAY TABLE WITHIN REACH. WILL CONTINUE TO MONITOR PT.
[2022-05-06] MEDS: AMLODIPINE 10 MG PO SCH (08:59)
[2022-05-06] MEDS: HYDROCHLOROTHIAZIDE 25 MG PO SCH ×2 (09:00→16:45)
--- NOTE | 2022-05-06 19:30 | NUR ---
MS RN OPENING NOTE RECEIVED PT AWAKE, AMBULATING WITH WALKER IN ROOM. PT IS A/O X4, ABLE TO MAKE NEEDS KNOWN. DENIES PAIN OR DISCOMFORT AT THIS TIME. ON ROOM AIR, TOLERATING RA WELL. BREATHING EVEN AND UNLABORED. NO IV ACCESS. PT IS ON CLINICAL TRIAL. SAFETY PRECAUTIONS IN PLACE: BED IN LOWEST LOCKED POSITION, SIDE RAILS UP X2, CALL LIGHT AND TRAY TABLE WITHIN REACH. WILL CONTINUE TO MONITOR PT.
--- NOTE | 2022-05-06 19:51 | NUR ---
MS RN CLOSING NOTES PT AWAKE IN ROOM. PT IS A/O X4, ABLE TO MAKE NEEDS KNOWN. DENIES PAIN OR DISCOMFORT AT THIS TIME. ON ROOM AIR, TOLERATING RA WELL. BREATHING EVEN AND UNLABORED. NO IV ACCESS. PT IS ON CLINICAL TRIAL. SAFETY PRECAUTIONS IN PLACE: ALL DUE MEDS ORDERED GIVEN , BED IN LOWEST LOCKED POSITION, SIDE RAILS UP X2, CALL LIGHT AND TRAY TABLE WITHIN REACH. ENDORSED TO NEXT SHIFT
[2022-05-06 20:00] VITALS: BP 130/92
[2022-05-06] MEDS: INVEST MED MK-8189-008-02 MISC 1 DOSE PO SCH (20:27)
--- NOTE | 2022-05-07 07:00 | NUR ---
MS RN CLOSING NOTE LEFT PT SLEEPING IN BED. PT IS A/O X4, ABLE TO MAKE NEEDS KNOWN. DENIES PAIN OR DISCOMFORT AT THIS TIME. ON ROOM AIR, TOLERATING RA WELL. BREATHING EVEN AND UNLABORED. NO IV ACCESS. PT IS ON CLINICAL TRIAL. SAFETY PRECAUTIONS IN PLACE: BED IN LOWEST LOCKED POSITION, SIDE RAILS UP X2, CALL LIGHT AND TRAY TABLE WITHIN REACH. WILL ENDORSE PT TO AM SHIFT NURSE FOR STEVE..
--- NOTE | 2022-05-07 07:50 | NUR ---
RN OPENING NOTE PATIENT AWAKE IN BED RESTING, A/O X 4. NO S/S OF PAIN NOTED AT THIS TIME. ON ROOM AIR, BREATHING EVEN UNLABORED, NO DISTRESS OR SHORTNESS OF BREATH NOTED AT THIS TIME. NO IV ACCESS, CLINICAL TRIAL PATIENT. FALL AND SAFETY MEASURES IN PLACE, BED IN LOW AND LOCK POSITION, CALL LIGHT AND TABLE WITHIN EASY REACH, SIDE RAILS UP X2. WILL CONTINUE TO MONITOR.
[2022-05-07] MEDS: HYDROCHLOROTHIAZIDE 25 MG PO SCH ×2 (09:02→17:28)
[2022-05-07] MEDS: AMLODIPINE 10 MG PO SCH (09:02)
--- NOTE | 2022-05-07 18:54 | NUR ---
RN CLOSING NOTE PATIENT AWAKE IN BED RESTING, A/O X 4. NO S/S OF PAIN NOTED AT THIS TIME. ON ROOM AIR, BREATHING EVEN UNLABORED, NO DISTRESS OR SHORTNESS OF BREATH NOTED AT THIS TIME. NO IV ACCESS, CLINICAL TRIAL PATIENT. SCHEDULE MEDICATIONS ADMINISTERED. FALL AND SAFETY MEASURES IN PLACE, BED IN LOW AND LOCK POSITION, CALL LIGHT AND TABLE WITHIN EASY REACH, SIDE RAILS UP X2. ALL NEEDS ATTENDED AND ANTICIPATED. WILL ENDORSE TO FIELD SERVICES MANAGER NURSE.
[2022-05-07] MEDS: INVEST MED MK-8189-008-02 MISC 1 DOSE PO SCH (19:46)
--- NOTE | 2022-05-07 19:55 | NUR ---
MS RN OPENING NOTES RECEIVED PATIENT WATCHING TV IN BED. AWAKE, ALERT AND ORIENTED. A/Ox4 ABLE TO MAKE NEEDS KNOWN. ON ROOM AIR YG WELL,NO BEHAVIORAL CHANGES AT THIS TIME,SAFETY MEASURES IN PLACE: BED LOCKED AND IN LOWEST POSITION, SIDE RAILS UPx2, CALL LIGHT WITHIN REACH. WILL CONTINUE TO MONITOR.
[2022-05-08 05:15] VITALS: BP 135/100
--- NOTE | 2022-05-08 07:16 | NUR ---
MS RN CLOSING NOTES PATIENT SLEEPING COMFORTABLY IN BED. EASILY AWAKEN BY CALLING NAME. A/Ox4 ABLE TO MAKE NEEDS KNOWN. ON ROOM AIR YG WELL,NO BEHAVIORAL CHANGES AT THIS TIME,SAFETY MEASURES IN PLACE: BED LOCKED AND IN LOWEST POSITION, SIDE RAILS UPx2, CALL LIGHT WITHIN REACH. WILL ENDORSE TO THE NEXT SHIFT.
--- NOTE | 2022-05-08 07:25 | NUR ---
ms rn received on bed, sleeping, clinical trial pt of dr. goldberg, not in any form of distress, respirations even and unlabored,no sob noted,will monitor patient's condition.
--- NOTE | 2022-05-08 08:50 | NUR ---
ms rn patient refused am meds, went to eat breakfast outside,all needs attended.
[2022-05-08] MEDS: AMLODIPINE 10 MG PO SCH ×2 (09:00→09:15)
[2022-05-08] MEDS: HYDROCHLOROTHIAZIDE 25 MG PO SCH ×3 (09:00→17:28)
[2022-05-08] MEDS ORDERED: LORAZEPAM 1 MG TABLET FOR AGITATION/ANXIETY PO PRN (12:00)
--- NOTE | 2022-05-08 17:59 | NUR ---
ms rn on bed, no distress noted,all needs attended, will endorse to night assistant rn.
--- NOTE | 2022-05-08 19:30 | NUR ---
RN opening nurse. Pt is sitting in bed comfortably watching TV. Pt is alert and orientedX4. On room air. No SOB. No S/s of distress noted. Pt is Clinical trial. VS is stable. Safety precautions is maintained. Bed at low position, brakes locked, side raoils upX2, hob elevated and call light is within reach. will continue to monitor.
[2022-05-08] MEDS: INVEST MED MK-8189-008-02 MISC 1 DOSE PO SCH (19:52)
[2022-05-08 20:00] VITALS: BP 141/90
[2022-05-08] MEDS: ZOLPIDEM TARTRATE 10 MG TABLET PO PRN (21:30)
--- NOTE | 2022-05-09 06:30 | NUR ---
RN closing nurse. Pt is resting in bed comfortably. Pt is alert and orientedX4. On room air. No SOB. No S/s of distress noted. Pt is Clinical trial. VS is stable. Routine med was given as ordered. Safety precautions is maintained. Kept Pt clean, dry and comfortable. Bed at low position, brakes locked, side raoils upX2, hob elevated and call light is within reach. Will endorse to am nurse for STEVE.
--- NOTE | 2022-05-09 07:20 | NUR ---
ms rn received on bed, awake,alert, oriented x4, clinical trial of dr. page, not in any form of distress, respirations even and unlabored,no sob noted,denies pain at this time,all needs attended.
[2022-05-09] MEDS: HYDROCHLOROTHIAZIDE 25 MG PO SCH ×2 (09:00→17:00)
[2022-05-09] MEDS: AMLODIPINE 10 MG PO SCH (09:00)
--- NOTE | 2022-05-09 09:34 | NUR ---
ms rn patient refused am meds.
--- NOTE | 2022-05-09 17:19 | NUR ---
ms rn no distress noted,all needs attended.
--- NOTE | 2022-05-09 19:30 | NUR ---
MS [place] CLINICAL TRIALS NOTES IN ROOM TO HER BED,A/O X4,OFFERED DINNER FOOD,VERBALIZED NEEDS,MONITOR BEHAVIOR.CALL LIGHT IN REACH,NEEDS ANTICIPATED.
[2022-05-09 19:55] VITALS: BP 150/96
[2022-05-09 20:00] VITALS: BP 150/96
[2022-05-09] MEDS: INVEST MED MK-8189-008-02 MISC 1 DOSE PO SCH (20:21)
--- NOTE | 2022-05-10 06:55 | NUR ---
MS CLINICAL TRIAL NO SIGNIFICANT CHANGE IN BEHAVIOR,SLEEP WELL
--- NOTE | 2022-05-10 07:40 | NUR ---
RN opening nurse Pt sleeping in bed, easily aroused to verbal stimuli. On room air. No SOB noted. No S/s of distress noted. Pt is Clinical trial. Safety precautions is maintained. Bed at low position, brakes locked, side raoils upX2, hob elevated and call light is within reach. will continue to monitor.
[2022-05-10 08:00] VITALS: BP 180/112
[2022-05-10] MEDS: AMLODIPINE 10 MG PO SCH (08:53)
[2022-05-10] MEDS: HYDROCHLOROTHIAZIDE 25 MG PO SCH ×2 (08:53→16:49)
--- NOTE | 2022-05-10 18:19 | NUR ---
RN closing nurse Pt is resting in bed comfortably, alert and orientedX4. On room air. No SOB. No s/s of distress noted. Pt is Clinical trial. VS is stable. Routine med was given as ordered. No behavioral issues noted. Safety precautions is maintained. Kept Pt clean, dry and comfortable. Bed at low position, brakes locked, side raoils upX2, hob elevated and call light is within reach. Will endorse to night nurse for STEVE.
[2022-05-10 20:00] VITALS: BP 139/89
[2022-05-10] MEDS: INVEST MED MK-8189-008-02 MISC 1 DOSE PO SCH (20:16)
--- NOTE | 2022-05-11 06:31 | NUR ---
END OF SHIFT REPORT Patient in bed, Alert Oriented x4. Compliant with study drug medication, denies SI. No agitated behavior. Patient denies pain. Use Electric scooter to move around. No lab/test today. Stable in RA. Adequate sleep, 6h overnight. Plan for another of week hospitalization under Dr. Will care. Will endorse to oncoming RN.
--- NOTE | 2022-05-11 07:43 | NUR ---
MS RN OPENING NOTE Patient in room, awake. A/O x 4, able to make needs known. On room air, breathing evenly and unlabored. No SOB or s/s of distress noted. No IV access due to clinical trial status. Denies any pain or discomfort at this time. Safety precautions in place: bed in low, locked position; siderails up x 2; call light within reach. Will continue to monitor.
[2022-05-11 08:00] VITALS: BP 133/94
[2022-05-11] MEDS: HYDROCHLOROTHIAZIDE 25 MG PO SCH ×2 (08:49→16:19)
[2022-05-11] MEDS: AMLODIPINE 10 MG PO SCH (08:49)
[2022-05-11 16:00] VITALS: BP 140/103
--- NOTE | 2022-05-11 18:52 | NUR ---
MS RN CLOSING NOTE Patient in room, resting. A/O x 4, able to make needs known. Stable on room air, breathing evenly and unlabored. No SOB or s/s of distress noted. No IV access due to clinical trial status. Denies any pain or discomfort at this time. No adverse reactions to medications noted. Safety precautions in place: bed in low, locked position; siderails up x 2; call light within reach. Will endorse to nightclub manager nurse for STEVE.
--- NOTE | 2022-05-11 19:43 | NUR ---
METAL BENCH PATTERNMAKER INITIAL NOTES Received report from am nurse and seen patient riding on her scooter going down for smoke. she said she will be back. no signs of any discomfort noted. will continue monitoring.
[2022-05-11 20:10] VITALS: BP 141/102
[2022-05-11] MEDS: INVEST MED MK-8189-008-02 MISC 1 DOSE PO SCH (20:35)
--- NOTE | 2022-05-11 22:24 | NUR ---
TEARER NOTES PT SAW HER GOING TO THE ELEVATOR USING HER SCOOTER GOING DOWN FOR SMOKING . SHE SAID SHE WILL BE BACK RIGHT AWAY. WILL CONTINUE MONITORING.
--- NOTE | 2022-05-12 06:53 | NUR ---
MS DOCUMENTATION COORDINATOR CLOSING NOTES PT SLEEPING AT THIS TIME , ALL DUE MEDS GIVEN . NO PRN MEDS GIVEN LAST NIGHT. KEPT HER WARM AND COMFORTABLE AT ALL TIMES. CALL LIGHT AT REACH. WILL ENDORSE TO AM NURSE FOR CONTINUITY OF CARE.
[2022-05-12 07:00] VITALS: BP 150/114
--- NOTE | 2022-05-12 07:44 | NUR ---
MS RN OPENING NOTE Patient in bed, awake. A/O x 4, able to make needs known. On room air, breathing evenly and unlabored. No SOB or s/s of distress noted. No IV access due to clinical trial status. Denies any pain or discomfort at this time. Safety precautions in place: bed in low, locked position; siderails up x 2; call light within reach. Will continue to monitor.
--- NOTE | 2022-05-12 09:00 | NUR ---
RN NOTE Patient is not in her room, will give her home meds when she comes back.
--- NOTE | 2022-05-12 09:44 | NUR ---
RN NOTE Patient still not in her room, will give her home meds when she gets back.
--- NOTE | 2022-05-12 10:27 | NUR ---
RN NOTE Patient still not in her room, will give her home meds when she gets back.
--- NOTE | 2022-05-12 10:40 | NUR ---
RN NOTE Patient still not in her room, called patient to check where she is and that I need to give her medication, patient said she will come back to her room.
[2022-05-12] MEDS: HYDROCHLOROTHIAZIDE 25 MG PO SCH ×2 (10:42→17:40)
[2022-05-12] MEDS: AMLODIPINE 10 MG PO SCH (10:43)
--- NOTE | 2022-05-12 18:49 | NUR ---
MS RN CLOSING NOTE Patient in room, resting. A/O x 4, able to make needs known. Stable on room air, breathing evenly and unlabored. No SOB or s/s of distress noted. No IV access due to clinical trial status. Denies any pain or discomfort at this time. No adverse reactions to medications noted. Safety precautions in place: bed in low, locked position; siderails up x 2; call light within reach. Will endorse to hourly shift manager nurse for STEVE.
[2022-05-12 20:00] VITALS: BP 138/92
--- NOTE | 2022-05-12 20:10 | NUR ---
TRANSIT WORKER INITIAL NOTES RECEIVED PATIENT FROM AM NURSE; PATIENT IS ALERT AND ORIENTED X 4, SEEN IN HER ROOM WATCHING TV , STABLE ON ROOM AIR, BREATHING EVENLY AND TOLERATING WELL, NO RESPIRATORY DISTRESS NOTED; DENIES ANY PAIN AND DISCOMFORT AT THIS TIME; ENCOURAGE VERBALIZATION OF NEEDS; SAFETY PRECAUTIONS IMPLEMENTED, BED IN LOW POSITION, LOCKED, SIDE RAILS UP X 2, CALL LIGHT WITHIN REACH; WILL CONTINUE TO MONITOR THROUGHOUT SHIFT
[2022-05-12] MEDS: INVEST MED MK-8189-008-02 MISC 1 DOSE PO SCH (20:21)
[2022-05-13 07:00] VITALS: BP 132/95
--- NOTE | 2022-05-13 07:26 | NUR ---
MS HAND FLATWORK FINISHER CLOSING NOTES PT STILL IN HER ROOM , SLEEPING AT THIS TIME , ALL DUE MEDS GIVEN . NO PRN MEDS GIVEN LAST NIGHT. KEPT HER WARM AND COMFORTABLE AT ALL TIMES. CALL LIGHT AT REACH. WILL ENDORSE TO AM NURSE FOR CONTINUITY OF CARE.
--- NOTE | 2022-05-13 07:48 | NUR ---
MS RN OPENING NOTES RECEIVED PATIENT IN BED , AWAKE, ALERT AND ORIENTED. A/Ox4 ABLE TO MAKE NEEDS KNOWN. ON ROOM AIR YG WELL,NO BEHAVIORAL CHANGES AT THIS TIME,SAFETY MEASURES IN PLACE: BED LOCKED AND IN LOWEST POSITION, SIDE RAILS UPx2, CALL LIGHT WITHIN REACH. WILL CONTINUE TO MONITOR.
[2022-05-13] MEDS: AMLODIPINE 10 MG PO SCH (08:38)
[2022-05-13] MEDS: HYDROCHLOROTHIAZIDE 25 MG PO SCH ×2 (08:38→16:50)
--- NOTE | 2022-05-13 18:33 | NUR ---
MS RN CLOSING NOTES RECEIVED PATIENT IN BED , AWAKE, ALERT AND ORIENTED. A/Ox4 ABLE TO MAKE NEEDS KNOWN. ON ROOM AIR YG WELL,NO BEHAVIORAL CHANGES AT THIS TIME,SAFETY MEASURES IN PLACE: ALL DUE MEDS GIVEN ORDERED . BED LOCKED AND IN LOWEST POSITION, SIDE RAILS UPx2, CALL LIGHT WITHIN REACH. ENDORSED TO NEXT SHIFT
--- NOTE | 2022-05-13 19:40 | NUR ---
MS RN OPENING NOTES RECEIVED PATIENT IN BED, AWAKE, ALERT AND ORIENTED. A/Ox4 ABLE TO MAKE NEEDS KNOWN. PATIENT IS COOPERATIVE. ON ROOM AIR TOLERATING WELL, SAFETY MEASURES IN PLACE: ALL DUE MEDS GIVEN ORDERED . BED LOCKED AND IN LOWEST POSITION, SIDE RAILS UPx2, CALL LIGHT WITHIN REACH.
[2022-05-13 20:00] VITALS: BP 139/75
[2022-05-13] MEDS: INVEST MED MK-8189-008-02 MISC 1 DOSE PO SCH (20:01)
--- NOTE | 2022-05-13 20:19 | NUR ---
RN NOTES PATIENT WENT OUT OF THE UNIT.
--- NOTE | 2022-05-13 21:15 | NUR ---
RN NOTE PATIENT IS BACK IN THE UNIT.
--- NOTE | 2022-05-14 06:43 | NUR ---
MS RN CLOSING NOTES PATIENT IN BED, AWAKE, ALERT AND ORIENTED. A/Ox4 ABLE TO MAKE NEEDS KNOWN. PATIENT IS COOPERATIVE. ON ROOM AIR TOLERATING WELL, INVESTIGATIVE MEDICATIONS ARE GIVEN ON TIME, ALL NEEDS ARE MET, NO CHANGES IN BEHAVIOR NOTED. SAFETY MEASURES IN PLACE. BED LOCKED AND IN LOWEST POSITION, SIDE RAILS UPx2, CALL LIGHT WITHIN REACH. WILL ENDORSE TO NEXT SHIFT FOR CONTINUITY OF CARE.
[2022-05-14 08:00] VITALS: BP 126/93
--- NOTE | 2022-05-14 09:37 | NUR ---
MS RN OPENING NOTE Patient in bed, awake. A/O x 4, able to make needs known. On room air, breathing evenly and unlabored. No SOB or s/s of distress noted. No IV access due to clinical trial status. Safety precautions in place: bed in low, locked position; siderails up x 2; call light within reach. Will continue to monitor.
[2022-05-14] MEDS: HYDROCHLOROTHIAZIDE 25 MG PO SCH ×2 (10:17→16:59)
[2022-05-14] MEDS: AMLODIPINE 10 MG PO SCH (10:17)
--- NOTE | 2022-05-14 19:25 | NUR ---
MS RN CLOSING NOTE Patient in bed, resting. A/O x 4, able to make needs known. Stable on room air, breathing evenly and unlabored. No SOB or s/s of distress noted. No IV access due to clinical trial status. All needs attended to. No adverse reactions to medication noted. Safety precautions in place: bed in low, locked position; siderails up x 2; call light within reach. Will endorse to hourly shift manager nurse for STEVE.
--- NOTE | 2022-05-14 19:30 | NUR ---
MS RN OPENING NOTE RECEIVED PATIENT SITTING IN BED, AWAKE, ALERT AND ORIENTED X4. ABLE TO MAKE NEEDS KNOWN. AFEBRILE AND NOT IN ANY FORM OF ACUTE DISTRESS. BREATHING EVEN AND NON LABORED. NO C/O PAIN OR DISCOMFORT AT THIS TIME. ON CLINICAL TRIAL, MONITORED FOR ANY BEHAVIORAL CHANGES. SAFETY MEASURES IN PLACE. KEPT BED IN LOCKED AND IN LOW POSITION. SIDE RAILS UP X2. ADVISED TO USE THE CALL LIGHT WHEN IN NEED OF ASSISTANCE.
[2022-05-14] MEDS: INVEST MED MK-8189-008-02 MISC 1 DOSE PO SCH (19:44)
[2022-05-14 20:00] VITALS: BP 118/75
--- NOTE | 2022-05-15 06:20 | NUR ---
MS RN CLOSING NOTE PATIENT IN BED, ASLEEP BUT EASY TO AROUSE AND RESPONSIVE. ABLE TO MAKE NEEDS KNOWN. AFEBRILE AND NOT IN ANY FORM OF ACUTE DISTRESS. BREATHING EVEN AND NON LABORED. NO C/O PAIN OR DISCOMFORT AT THIS TIME. ON CLINICAL TRIAL, MONITORED FOR ANY BEHAVIORAL CHANGES. MEDICATED ORDERED. SAFETY MEASURES IN PLACE. KEPT BED IN LOCKED AND IN LOW POSITION. SIDE RAILS UP X2. ADVISED TO USE THE CALL LIGHT WHEN IN NEED OF ASSISTANCE. ALL NURSING NEEDS ATTENDED. ENDORSED TO INCOMING SHIFT FOR CONTINUITY OF CARE.
--- NOTE | 2022-05-15 07:30 | NUR ---
MS RN OPENING NOTES RECEIVED PATIENT ON BED AWAKE AND A/O X4. ON ROOM AIR TOLERATING WELL. NO SOB NOTED. NOT IN DISTRESS. WITH NO SIGNS AND SYMPTOMS OF UNUSUAL BEHAVIOR. ON CLINICAL TRIAL STATUS. NO IV ACCESS. SAFETY MEASURES IN PLACED. CALL LIGHT WITHIN REACH. BED ON LOWEST LOCKED POSITION, SIDE RAILS UP X2. WILL CONTINUE TO MONITOR.
[2022-05-15] MEDS: HYDROCHLOROTHIAZIDE 25 MG PO SCH ×2 (08:26→16:42)
[2022-05-15] MEDS: AMLODIPINE 10 MG PO SCH (08:26)
--- NOTE | 2022-05-15 19:00 | NUR ---
MS RN CLOSING NOTES PATIENT ON BED AWAKE AND A/O X4. ON ROOM AIR TOLERATING WELL. NO SOB NOTED. NOT IN DISTRESS. WITH NO SIGNS AND SYMPTOMS OF UNUSUAL BEHAVIOR. ON CLINICAL TRIAL STATUS. NO IV ACCESS. DUE MEDS GIVEN. SAFETY MEASURES IN PLACED. CALL LIGHT WITHIN REACH. BED ON LOWEST LOCKED POSITION, SIDE RAILS UP X2. WILL ENDORSE TO NEXT SHIFT FOR STEVE.
--- NOTE | 2022-05-15 19:13 | NUR ---
RN OPENING NOTES PATIENT ON BED AWAKE AND A/O X4. ON ROOM AIR TOLERATING WELL. NO SOB NOTED. NOT IN DISTRESS. ON CLINICAL TRIAL STATUS. NO IV ACCESS. SAFETY MEASURES IN PLACED. CALL LIGHT WITHIN REACH. BED ON LOWEST LOCKED POSITION, SIDE RAILS UP X2.
[2022-05-15 20:00] VITALS: BP 107/68
[2022-05-15] MEDS: INVEST MED MK-8189-008-02 MISC 1 DOSE PO SCH (20:20)
--- NOTE | 2022-05-16 06:47 | NUR ---
MS RN CLOSING NOTES PATIENT ON BED AWAKE AND A/O X4. ON ROOM AIR TOLERATING WELL. NO SOB NOTED. NOT IN DISTRESS. ON CLINICAL TRIAL STATUS. NO IV ACCESS. NO CHANGES OF BEHAVIOR THROUGH OUT THE NIGHT. ALL NEEDS ARE MET. INVESTIGATIVE MEDICATION IS GIVEN. SAFETY MEASURES IN PLACED. CALL LIGHT WITHIN REACH. BED ON LOWEST LOCKED POSITION, SIDE RAILS UP X2. WILL ENDORSE TO NEXT SHIFT FOR CONTINUITY OF CARE.
[2022-05-16] MEDS: AMLODIPINE 10 MG PO SCH (08:17)
[2022-05-16] MEDS: HYDROCHLOROTHIAZIDE 25 MG PO SCH ×2 (08:17→16:10)
--- NOTE | 2022-05-16 18:11 | NUR ---
PATIENT IS A/O X4. AMBULATORY WITH WALKER. USES SCOOTER WELL. ABLE TO MAKE NEEDS KNOWN. INDEPENDENT WITH REPOSITIONING. SAFETY MEASURES MAINTAINED. BED IN LOWEST POSITION, BRAKES LOCKED. SIDE RAILS UP X2. CALL LIGHT WITHIN REACH. WILL ENDORSE CONTINUITY OF CARE TO ONCOMING SHIFT.
--- NOTE | 2022-05-16 19:03 | NUR ---
RN NOTES: RECEIVED AWAKE ON BED WATCHING TV,A/OX4, ABLE TO MAKE NEEDS KNOWN, WITH BRP, AMBULATE USING WALKER, ORIENTED TO UNIT AND STAFF. SAFETY PRECAUTION OBSERVED, KEPT CALL LIGHT WITHIN EASY REACH.
[2022-05-16 20:00] VITALS: BP 138/82
[2022-05-16] MEDS ORDERED: risperiDONE 1 MG TABLET ONE (20:58)
[2022-05-16] MEDS: risperiDONE 1 MG TABLET PO SCH (20:59)
--- NOTE | 2022-05-16 21:00 | NUR ---
RN NOTES: 2051 PATIENT IS DUE FOR RISPERDAL AT 2099, MEDS NOT IN [place], F/U IN PHARMACY SPOKE WITH TAMMY, SHE INSTRUCT IT CAN BE TAKEN FROM [facility], CN NOTIFIED, MEDS TAKEN, THEN GIVEN.
--- NOTE | 2022-05-16 21:20 | NUR ---
RN NOTES: AMBULATING AROUND THE UNIT USING FWW, DUE MEDS GIVEN.
[2022-05-17 07:00] VITALS: BP_SYST 116; BP_SYST 82; BP_DIAS 116; BP_DIAS 82
--- NOTE | 2022-05-17 07:48 | NUR ---
RN NOTES: SLEEP WELL IN THE NIGHT ENDORSED FOR CONTINUITY OF CARE.
--- NOTE | 2022-05-17 07:50 | NUR ---
ms rn received on bed, sleeping,alert,oriented x4,not in any form of distress, respirations even and unlabored,no sob noted.clinical trial of dr. albrecht, all needs attended.
[2022-05-17] MEDS: HYDROCHLOROTHIAZIDE 25 MG PO SCH ×2 (09:47→18:09)
[2022-05-17] MEDS: AMLODIPINE 10 MG PO SCH (09:47)
[2022-05-17 16:45] VITALS: BP 140/92
--- NOTE | 2022-05-17 18:26 | NUR ---
ms rn patient inside room ,no distress noted,all needs attended.
[2022-05-17 20:00] VITALS: BP_SYST 136; BP_DIAS 80; BP_DIAS 86
--- NOTE | 2022-05-17 20:00 | NUR ---
RECEIVED IN BED, ALERT/ORIENTED X4, STABLE ON ROOM AIR, NO COMPLAIN OF PAIN, NO DISTRESS, CLINICAL TRIAL, CALM, VS STABLE, KEPT SAFE, WILL CONTINUE TO MONITOR.
[2022-05-17] MEDS: risperiDONE 1 MG TABLET PO SCH (21:00)
--- NOTE | 2022-05-17 21:45 | NUR ---
RISPERDAL 2 MG, HOME MEDICATION, NOT GIVEN. MEDICATION NOT AVAILABLE.
--- NOTE | 2022-05-18 05:57 | NUR ---
ALERT/ORIENTED X4, ROOM AIR, AMBULATES USING FWW, SMOKER, NO BEHAVIOR CHANGE. WILL FOLLOW UP WITH PATIENT TO PROVIDE RISPERDAL REFILL.
[2022-05-18 07:00] VITALS: BP 136/74
--- NOTE | 2022-05-18 07:11 | NUR ---
MS RN OPENING NOTES RECEIVED PATIENT SLEEPING IN BED, A/O x4, ABLE TO MAKE NEEDS KNOWN. ON ROOM AIR NO S/S OF RESPIRATORY DISTRESS. NO IV ACCESS, PATIENT CLINICAL TRIAL. HAS BATHROOM PRIVILEGE. SKIN ISSUES: R LOWER LEG, R ANKLE HEALED WOUND. NO S/S OF PAIN OR DISCOMFORT NOTED. SAFETY MEASURES IN PLACE: BED LOCKED AND IN LOWEST POSITION, HOB ELEVATED, CALL LIGHT WITHIN REACH, SIDE RAILS UPx2. WILL CONTINUE TO MONITOR.
[2022-05-18] MEDS: AMLODIPINE 10 MG PO SCH (08:26)
[2022-05-18] MEDS: HYDROCHLOROTHIAZIDE 25 MG PO SCH ×2 (08:26→16:42)
[2022-05-18 16:00] VITALS: BP 128/88
--- NOTE | 2022-05-18 18:49 | NUR ---
MS RN CLOSING NOTES PATIENT AWAKE IN BED, A/O x4, ABLE TO MAKE NEEDS KNOWN. STABLE ON ROOM AIR NO S/S OF RESPIRATORY DISTRESS. NO IV ACCESS, PATIENT CLINICAL TRIAL. HAS BATHROOM PRIVILEGE. SKIN ISSUES: R LOWER LEG, R ANKLE HEALED WOUND. NO S/S OF PAIN OR DISCOMFORT NOTED. SAFETY MEASURES MAINTAINED: BED LOCKED AND IN LOWEST POSITION, HOB ELEVATED, CALL LIGHT WITHIN REACH, SIDE RAILS UPx2. WILL ENDORSE TO NEXT SHIFT ANY STEVE.
[2022-05-18] MEDS ORDERED: risperiDONE 1 MG TABLET ONE (21:45)
[2022-05-18] MEDS: risperiDONE 1 MG TABLET PO SCH (21:46)
--- NOTE | 2022-05-19 07:05 | NUR ---
MS RN OPENING NOTES: RECEIVED PATIENT IN BED ASLEEP, EASILY AROUSED WITH STIMULI. PT ALERT AND ORIENTED X 4 AND ABLE TO MAKE NEEDS KNOWN. NO SOB OR CARDIAC DISTRESS NOTED, NO COMPLAIN OF ANY PAIN. NO BEHAVIORAL CHANGES ENDORSED BY MERCHANT MILLERCRYSTAL GROWING TECHNICIAN. SAFETY MEASURES MAINTAINED: BED LOCKED AND IN LOWEST POSITION, SIDE RAILS UP X 2. CALL LIGHT IN EASY REACH. WILL MONITOR ACCORDINGLY.
[2022-05-19 08:00] VITALS: BP 157/100
[2022-05-19] MEDS: AMLODIPINE 10 MG PO SCH (09:13)
[2022-05-19] MEDS: HYDROCHLOROTHIAZIDE 25 MG PO SCH ×2 (09:13→17:21)
[2022-05-19 16:07] VITALS: BP 149/96
--- NOTE | 2022-05-19 18:54 | NUR ---
MS RN CLOSING NOTES: PATIENT IN BED AWAKE. PT ALERT AND ORIENTED X 4 AND ABLE TO MAKE NEEDS KNOWN. NO SOB OR CARDIAC DISTRESS NOTED, NO COMPLAIN OF ANY PAIN. NO BEHAVIORAL CHANGES NOTED IN MORNING SHIFT. SAFETY MEASURES MAINTAINED: BED LOCKED AND IN LOWEST POSITION, SIDE RAILS UP X 2. CALL LIGHT IN EASY REACH. WILL MONITOR ACCORDINGLY. ENDORSED TO UNDERGROUND UTILITY LOCATOR RN FOR STEVE.
--- NOTE | 2022-05-19 19:40 | NUR ---
MS RN OPENING NOTES RECEIVED PATIENT WATCHING TV IN BED. AWAKE, ALERT AND ORIENTED. A/O X 4. ABLE TO MAKE NEEDS KNOWN. ON ROOM AIR, BREATHING EVEN AND UNLABORED. NO BEHAVIORAL CHANGES AT THIS TIME. SAFETY MEASURES IN PLACE BED LOCKED AND IN LOWEST POSITION. SIDE RAILS UPx2. CALL LIGHT AND TRAY WITHIN REACH. WILL CONTINUE TO MONITOR.
[2022-05-19 20:00] VITALS: BP 148/87
[2022-05-19] MEDS ORDERED: risperiDONE 1 MG TABLET ONE (20:16)
[2022-05-19] MEDS ORDERED: ZOLPIDEM TARTRATE 10 MG TABLET ONE (20:17)
[2022-05-19] MEDS: ZOLPIDEM TARTRATE 10 MG TABLET PO PRN (20:25)
[2022-05-19] MEDS: risperiDONE 1 MG TABLET PO SCH (20:25)
--- NOTE | 2022-05-20 07:49 | NUR ---
MS RN CLOSING NOTES PATIENT IN BED AWAKE, ALERT AND ORIENTED. A/O X 4. ABLE TO MAKE NEEDS KNOWN. ON ROOM AIR, BREATHING EVEN AND UNLABORED. NO BEHAVIORAL CHANGES AT THIS TIME. SAFETY MEASURES IN PLACE BED LOCKED AND IN LOWEST POSITION. SIDE RAILS UPx2. CALL LIGHT AND TRAY WITHIN REACH. WILL ENDORSE TO THE NEXT SHIFT.
--- NOTE | 2022-05-20 07:53 | NUR ---
RN OPENING NOTE- PATIENT ASLEEP, EASILY AWAKENED, ALERT AND ORIENTED. A/O X 4. ABLE TO MAKE NEEDS KNOWN. ON ROOM AIR, BREATHING EVEN AND UNLABORED. NO BEHAVIORAL CHANGES AT THIS TIME. DENIES SI HI VH, NO EPS NOTED, SAFETY MEASURES IN PLACE BED LOCKED AND IN LOWEST POSITION. SIDE RAILS UP. CALL LIGHT AND TRAY WITHIN REACH. MONITOR / ASSIST
[2022-05-20 08:00] VITALS: BP 151/100
[2022-05-20] MEDS: AMLODIPINE 10 MG PO SCH (08:20)
[2022-05-20] MEDS: HYDROCHLOROTHIAZIDE 25 MG PO SCH (08:20)
--- NOTE | 2022-05-20 11:16 | NUR ---
RN DC NOTE- PT DC HOME AT THIS TIME W DR JOINER STAFF ASSISTANCE. VS STABLE. DENIES SI HI AH VH. NO EPS. NO BEHAVIORAL ISSUES. ESCORTED OFF UNIT W POSSESSIONS .
== END 2022-05-20 11:00 | DRG 940 ==
LOC: GPS 14:54 → GPSOV 04-12 23:13 → MED 04-14 10:48
PROVIDERS: ADMIT Psychiatry & Neurology Psychiatry; ATTEND Psychiatry & Neurology Psychiatry
PROC: 0JBQ0ZZ Excision of Right Foot Subcutaneous Tissue and Fascia, Open Approach (ICD-10-PCS; principal; 2022-03-26)
DX: Z00.6 Encounter for examination for normal comparison and control in clinical research program (principal); F20.0 Paranoid schizophrenia; Z68.41 Body mass index [BMI] 40.0-44.9, adult; T81.31XA Disruption of external operation (surgical) wound, not elsewhere classified, initial encounter; F41.9 Anxiety disorder, unspecified; Z20.822 Contact with and (suspected) exposure to COVID-19; Z79.899 Other long term (current) drug therapy; F19.11 Other psychoactive substance abuse, in remission; I10 Essential (primary) hypertension; Z96.653 Presence of artificial knee joint, bilateral; G89.29 Other chronic pain; G47.00 Insomnia, unspecified; E66.9 Obesity, unspecified; J45.909 Unspecified asthma, uncomplicated; L60.3 Nail dystrophy; Z87.81 Personal history of (healed) traumatic fracture; Y83.8 Other surgical procedures as the cause of abnormal reaction of the patient, or of later complication, without mention of misadventure at the time of the procedure; Y92.049 Unspecified place in boarding-house as the place of occurrence of the external cause
CPT/HCPCS: 73610-TC; G0378

== ENCOUNTER 2022-09-15 10:00 | Inpatient (IN) | payer OTHER ==
[~2022-09-15] VITALS: Ht 167.6 cm; Wt 120.2 kg
[2022-09-16] MEDS ORDERED: LORAZEPAM 1 MG TABLET FOR AGITATION/ANXIETY PO PRN (16:00)
[2022-09-16] MEDS ORDERED: IBUPROFEN 200 MG TABLET PO PRN (16:00)
[2022-09-16] MEDS ORDERED: ACETAMINOPHEN ES 500 MG TABLET PO PRN (16:00)
[2022-09-16] MEDS ORDERED: MAG HYDROX/AL HYDROX/SIMETH 30 ML UDC PO PRN (16:00)
[2022-09-16] MEDS ORDERED: MAGNESIUM HYDROXIDE 30 ML UDC PO PRN (16:00)
[2022-09-16] MEDS ORDERED: ZOLPIDEM TARTRATE 10 MG TABLET PO PRN (16:00)
[2022-09-16] MEDS: HCTZ 25 MG PO SCH (17:28)
[2022-09-17 07:00] VITALS: BP 147/87; TEMP 98; O2SAT 99
[2022-09-17] MEDS: HCTZ 25 MG PO SCH ×3 (08:53→16:31)
[2022-09-17] MEDS: HOME MED MISC AMLODIPINE 10MG PO SCH ×2 (08:53→09:00)
[2022-09-17 16:00] VITALS: BP 134/63; TEMP 98.6; O2SAT 98
[2022-09-17 19:10] VITALS: BP 140/90; TEMP 98.1; O2SAT 99
[2022-09-18] MEDS: HCTZ 25 MG PO SCH ×2 (10:00→18:00)
[2022-09-18] MEDS: HOME MED MISC AMLODIPINE 10MG PO SCH (10:00)
[2022-09-18 20:00] VITALS: BP_SYST 118; BP_SYST 124; BP_DIAS 78; BP_DIAS 88; TEMP 98.2; O2SAT 97
[2022-09-19 08:00] VITALS: BP 150/92; TEMP 97.7; O2SAT 95
[2022-09-19] MEDS: HCTZ 25 MG PO SCH ×2 (08:37→17:09)
[2022-09-19] MEDS: HOME MED MISC AMLODIPINE 10MG PO SCH (08:38)
[2022-09-19 16:00] VITALS: BP 124/87; TEMP 98.6; O2SAT 98
[2022-09-20] MEDS: HOME MED MISC AMLODIPINE 10MG PO SCH (09:06)
[2022-09-20] MEDS: HCTZ 25 MG PO SCH ×2 (09:06→17:59)
[2022-09-20 16:00] VITALS: BP 144/87; TEMP 98.9; O2SAT 100
[2022-09-20 20:00] VITALS: BP 125/85; TEMP 98.2; O2SAT 97
[2022-09-21 07:00] VITALS: BP 127/92; TEMP 98; O2SAT 97
[2022-09-21] MEDS: HCTZ 25 MG PO SCH ×2 (08:42→17:44)
[2022-09-21] MEDS: HOME MED MISC AMLODIPINE 10MG PO SCH (08:42)
[2022-09-21 16:11] VITALS: BP 131/75; TEMP 98; O2SAT 98
[2022-09-21 19:20] VITALS: BP 137/92; TEMP 98.1; O2SAT 98
[2022-09-22 08:00] VITALS: BP 155/93; TEMP 97.8; O2SAT 98
[2022-09-22] MEDS: HCTZ 25 MG PO SCH ×2 (08:56→17:49)
[2022-09-22] MEDS: HOME MED MISC AMLODIPINE 10MG PO SCH (08:56)
[2022-09-22 20:00] VITALS: BP 117/77; TEMP 98.7; O2SAT 97
[2022-09-22 20:30] VITALS: BP 117/77; TEMP 98.7; O2SAT 97
[2022-09-23 08:00] VITALS: BP 141/93; TEMP 97.6; O2SAT 99
[2022-09-23] MEDS: HCTZ 25 MG PO SCH ×2 (09:47→19:19)
[2022-09-23] MEDS: HOME MED MISC AMLODIPINE 10MG PO SCH (09:47)
[2022-09-23] MEDS ORDERED: ZOLPIDEM TARTRATE 10 MG TABLET PO PRN (13:00)
[2022-09-23] MEDS ORDERED: LORAZEPAM 1 MG TABLET FOR AGITATION/ANXIETY PO PRN ×2 (13:00→16:00)
[2022-09-24] MEDS: HOME MED MISC AMLODIPINE 10MG PO SCH (08:46)
[2022-09-24] MEDS: HCTZ 25 MG PO SCH ×2 (08:46→17:05)
[2022-09-25] MEDS: HOME MED MISC AMLODIPINE 10MG PO SCH (08:47)
[2022-09-25] MEDS: HCTZ 25 MG PO SCH ×2 (08:48→18:22)
[2022-09-25 16:00] VITALS: BP 107/77; TEMP 96.2; O2SAT 100
[2022-09-25 20:00] VITALS: BP 116/80; TEMP 98.5; O2SAT 95
[2022-09-26 07:00] VITALS: BP 130/101; TEMP 98.1; O2SAT 96
[2022-09-26] MEDS: HCTZ 25 MG PO SCH ×2 (09:38→18:14)
[2022-09-26] MEDS: HOME MED MISC AMLODIPINE 10MG PO SCH (09:39)
[2022-09-26 20:00] VITALS: BP 149/84; TEMP 97.7; O2SAT 91
[2022-09-27] MEDS: HCTZ 25 MG PO SCH ×2 (07:45→17:00)
[2022-09-27] MEDS: HOME MED MISC AMLODIPINE 10MG PO SCH (07:45)
[2022-09-27 08:00] VITALS: BP 138/76; TEMP 98.5; O2SAT 98
[2022-09-27 20:00] VITALS: BP 138/77; TEMP 98.2; O2SAT 96
[2022-09-28] MEDS: HOME MED MISC AMLODIPINE 10MG PO SCH (09:10)
[2022-09-28] MEDS: HCTZ 25 MG PO SCH ×2 (09:10→16:12)
[2022-09-28 20:00] VITALS: BP 123/80; TEMP 97.9; O2SAT 95
[2022-09-29 08:00] VITALS: BP 138/95; TEMP 98.4; O2SAT 100
[2022-09-29] MEDS: HOME MED MISC AMLODIPINE 10MG PO SCH (10:22)
[2022-09-29] MEDS: HCTZ 25 MG PO SCH ×2 (10:23→17:23)
[2022-09-30] MEDS: HOME MED MISC AMLODIPINE 10MG PO SCH (09:00)
[2022-09-30] MEDS: HCTZ 25 MG PO SCH ×2 (09:00→16:52)
[2022-09-30] MEDS ORDERED: LORAZEPAM 1 MG TABLET FOR AGITATION/ANXIETY PO PRN (13:00)
[2022-09-30] MEDS ORDERED: ZOLPIDEM TARTRATE 10 MG TABLET PO PRN (13:00)
[2022-09-30 19:00] VITALS: BP 102/69; TEMP 98.2; O2SAT 97
[2022-10-01 08:00] VITALS: BP 138/102; TEMP 97.6; O2SAT 97
[2022-10-01] MEDS: HCTZ 25 MG PO SCH ×2 (09:08→19:01)
[2022-10-01] MEDS: HOME MED MISC AMLODIPINE 10MG PO SCH (09:08)
[2022-10-01 16:00] VITALS: BP 153/100; TEMP 98.1; O2SAT 95
[2022-10-01 20:00] VITALS: BP 116/68; TEMP 97.8; O2SAT 95
[2022-10-02 08:00] VITALS: BP 145/91; TEMP 98; O2SAT 96
[2022-10-02] MEDS: HCTZ 25 MG PO SCH ×2 (09:25→16:18)
[2022-10-02] MEDS: HOME MED MISC AMLODIPINE 10MG PO SCH (09:25)
[2022-10-02 20:56] VITALS: BP 131/94; TEMP 98.8; O2SAT 98
[2022-10-03 07:00] VITALS: BP 147/106; TEMP 98; O2SAT 98
[2022-10-03] MEDS: HCTZ 25 MG PO SCH ×2 (09:29→17:00)
[2022-10-03] MEDS: HOME MED MISC AMLODIPINE 10MG PO SCH (09:29)
[2022-10-03 16:00] VITALS: BP 128/83; TEMP 98; O2SAT 99
[2022-10-03 20:00] VITALS: BP 127/85; TEMP 98.3; O2SAT 97
[2022-10-04] MEDS: HCTZ 25 MG PO SCH ×3 (09:05→17:50)
[2022-10-04] MEDS: HOME MED MISC AMLODIPINE 10MG PO SCH ×2 (09:05→09:53)
[2022-10-04 20:00] VITALS: BP 116/81; TEMP 98.1; O2SAT 96
[2022-10-05 07:00] VITALS: BP 130/97; TEMP 98; O2SAT 98
[2022-10-05] MEDS: HCTZ 25 MG PO SCH ×2 (08:48→17:34)
[2022-10-05] MEDS: HOME MED MISC AMLODIPINE 10MG PO SCH (08:48)
[2022-10-05 20:00] VITALS: BP 102/55; TEMP 98.2; O2SAT 98
[2022-10-06 08:00] VITALS: BP 111/72; TEMP 97.7; O2SAT 100
[2022-10-06] MEDS: HCTZ 25 MG PO SCH ×2 (08:04→18:20)
[2022-10-06] MEDS: HOME MED MISC AMLODIPINE 10MG PO SCH (08:04)
[2022-10-07] MEDS: HCTZ 25 MG PO SCH ×2 (09:00→17:08)
[2022-10-07] MEDS: HOME MED MISC AMLODIPINE 10MG PO SCH (09:00)
[2022-10-07] MEDS ORDERED: LORAZEPAM 1 MG TABLET FOR AGITATION/ANXIETY PO PRN (13:00)
[2022-10-07] MEDS ORDERED: ZOLPIDEM TARTRATE 10 MG TABLET PO PRN (13:00)
[2022-10-07 20:00] VITALS: BP 125/79; TEMP 97.8; O2SAT 95
[2022-10-08 09:00] VITALS: BP 140/112; TEMP 98.2; O2SAT 96
[2022-10-08] MEDS: HOME MED MISC AMLODIPINE 10MG PO SCH (09:01)
[2022-10-08] MEDS: HCTZ 25 MG PO SCH ×2 (09:01→17:25)
[2022-10-08 16:06] VITALS: BP 135/77; TEMP 98.3; O2SAT 96
[2022-10-08 20:00] VITALS: BP 138/98; TEMP 98.6; O2SAT 96
[2022-10-09 08:00] VITALS: BP 168/109; TEMP 97.6; O2SAT 100
[2022-10-09] MEDS: HCTZ 25 MG PO SCH ×2 (08:41→17:33)
[2022-10-09] MEDS: HOME MED MISC AMLODIPINE 10MG PO SCH (08:41)
[2022-10-09 21:08] VITALS: BP 148/95; TEMP 98; O2SAT 98
[2022-10-10] VITALS: BP 138/81; TEMP 98.9; O2SAT 96
[2022-10-10 07:00] VITALS: BP 140/110; TEMP 98.1; O2SAT 98
[2022-10-10] MEDS: HCTZ 25 MG PO SCH ×2 (08:44→17:21)
[2022-10-10] MEDS: HOME MED MISC AMLODIPINE 10MG PO SCH (08:44)
[2022-10-10 16:00] VITALS: BP 116/70; TEMP 99.8; O2SAT 98
[2022-10-10 19:00] VITALS: BP 123/92; TEMP 99.1; O2SAT 97
[2022-10-11 08:00] VITALS: BP 132/89; TEMP 98; O2SAT 98
[2022-10-11] MEDS: HCTZ 25 MG PO SCH ×2 (08:04→17:23)
[2022-10-11] MEDS: HOME MED MISC AMLODIPINE 10MG PO SCH (08:05)
[2022-10-11 20:00] VITALS: BP 128/97; TEMP 97.8; O2SAT 98
[2022-10-12 07:00] VITALS: BP 115/82; TEMP 98.8; O2SAT 94
[2022-10-12] MEDS: HCTZ 25 MG PO SCH ×2 (08:46→17:25)
[2022-10-12] MEDS: HOME MED MISC AMLODIPINE 10MG PO SCH (08:46)
[2022-10-12 20:00] VITALS: BP 144/91; TEMP 98.1; O2SAT 97
[2022-10-13 04:00] VITALS: BP 114/75; TEMP 98.5; O2SAT 96
[2022-10-13] MEDS: HCTZ 25 MG PO SCH ×2 (09:18→17:23)
[2022-10-13] MEDS: HOME MED MISC AMLODIPINE 10MG PO SCH (09:18)
[2022-10-13 10:54] VITALS: BP 123/78; TEMP 98.4
[2022-10-13 20:00] VITALS: BP 112/64; TEMP 98.4; O2SAT 97
[2022-10-14 08:00] VITALS: BP 132/90; TEMP 97; O2SAT 100
[2022-10-14] MEDS: HOME MED MISC AMLODIPINE 10MG PO SCH (08:36)
[2022-10-14] MEDS: HCTZ 25 MG PO SCH ×2 (08:36→18:16)
[2022-10-14] MEDS ORDERED: LORAZEPAM 1 MG TABLET PO PRN (13:00)
[2022-10-14] MEDS ORDERED: ZOLPIDEM TARTRATE 10 MG TABLET PO PRN (13:00)
[2022-10-14 16:00] VITALS: BP 134/81; TEMP 97.8; O2SAT 96
[2022-10-14 20:00] VITALS: BP 120/81; TEMP 97.4; O2SAT 94
[2022-10-15 07:00] VITALS: BP 134/93; TEMP 97.8; O2SAT 92
[2022-10-15] MEDS: HCTZ 25 MG PO SCH ×2 (08:28→16:48)
[2022-10-15] MEDS: HOME MED MISC AMLODIPINE 10MG PO SCH (08:28)
[2022-10-15 20:00] VITALS: BP 117/78; TEMP 98.4; O2SAT 96
[2022-10-16 07:00] VITALS: BP 133/98; TEMP 97.8; O2SAT 97
[2022-10-16] MEDS: HCTZ 25 MG PO SCH ×2 (08:11→16:41)
[2022-10-16] MEDS: HOME MED MISC AMLODIPINE 10MG PO SCH (08:11)
[2022-10-16 16:00] VITALS: BP 98/73; TEMP 98.7; O2SAT 99
[2022-10-17 04:00] VITALS: BP 115/75; TEMP 97.7; O2SAT 95
[2022-10-17 08:00] VITALS: BP 132/86; TEMP 98.7; O2SAT 95
[2022-10-17] MEDS: HOME MED MISC AMLODIPINE 10MG PO SCH (08:17)
[2022-10-17] MEDS: HCTZ 25 MG PO SCH ×2 (08:18→17:23)
[2022-10-17 21:51] VITALS: BP 149/97; TEMP 98.6; O2SAT 98
[2022-10-18 08:00] VITALS: BP 136/90; TEMP 98.6; O2SAT 96
[2022-10-18] MEDS: HCTZ 25 MG PO SCH ×2 (08:25→17:21)
[2022-10-18] MEDS: HOME MED MISC AMLODIPINE 10MG PO SCH (08:25)
[2022-10-18 10:13] VITALS: BP 136/90; TEMP 97.6
[2022-10-18 20:00] VITALS: BP 142/84; TEMP 98.1; O2SAT 96
[2022-10-19 07:00] VITALS: BP 152/85; TEMP 97.6; O2SAT 98
[2022-10-19] MEDS: HCTZ 25 MG PO SCH ×2 (09:58→17:21)
[2022-10-19] MEDS: HOME MED MISC AMLODIPINE 10MG PO SCH (09:59)
[2022-10-19 16:00] VITALS: BP 120/83; TEMP 98; O2SAT 94
[2022-10-20] MEDS: HOME MED MISC AMLODIPINE 10MG PO SCH (08:45)
[2022-10-20] MEDS: HCTZ 25 MG PO SCH ×2 (08:45→17:52)
[2022-10-20 22:45] VITALS: BP 127/88; TEMP 97.4; O2SAT 96
[2022-10-20 22:50] VITALS: BP 127/88; TEMP 97.4; O2SAT 96
[2022-10-21 08:00] VITALS: BP 140/90; TEMP 98.2; O2SAT 95
[2022-10-21] MEDS: HOME MED MISC AMLODIPINE 10MG PO SCH (09:00)
[2022-10-21] MEDS: HCTZ 25 MG PO SCH ×2 (09:00→17:53)
[2022-10-21] MEDS ORDERED: LORAZEPAM 1 MG TABLET PO PRN (13:00)
[2022-10-21] MEDS ORDERED: ZOLPIDEM TARTRATE 10 MG TABLET PO PRN (13:00)
[2022-10-21 17:50] VITALS: BP 128/97; TEMP 97.4; O2SAT 97
[2022-10-21 20:00] VITALS: BP 116/75; TEMP 98.6; O2SAT 95
[2022-10-22 08:00] VITALS: BP 122/75; TEMP 97.6
[2022-10-22] MEDS: HOME MED MISC AMLODIPINE 10MG PO SCH ×2 (09:00→09:31)
[2022-10-22] MEDS: HCTZ 25 MG PO SCH ×2 (09:31→17:00)
[2022-10-22 17:15] VITALS: BP 99/72; TEMP 96.6; O2SAT 100
[2022-10-22 20:00] VITALS: BP 112/80; TEMP 98.1; O2SAT 94
[2022-10-23 07:00] VITALS: BP 120/85; TEMP 97.1; O2SAT 98
[2022-10-23] MEDS: HCTZ 25 MG PO SCH ×2 (08:12→17:22)
[2022-10-23] MEDS: HOME MED MISC AMLODIPINE 10MG PO SCH (08:12)
[2022-10-23 16:00] VITALS: BP 118/79; TEMP 98.7; O2SAT 97
[2022-10-23 20:00] VITALS: BP 129/89; TEMP 97.7; O2SAT 97
[2022-10-24] MEDS: HCTZ 25 MG PO SCH ×2 (09:11→17:00)
[2022-10-24] MEDS: HOME MED MISC AMLODIPINE 10MG PO SCH (09:11)
[2022-10-24 16:00] VITALS: BP_SYST 124; BP_SYST 135; BP_DIAS 71; BP_DIAS 87; TEMP 97.9; TEMP 98.3; O2SAT 96
[2022-10-24 20:00] VITALS: BP 128/92; TEMP 98; O2SAT 97
[2022-10-25 08:00] VITALS: BP 134/95; TEMP 97.6; O2SAT 97
[2022-10-25] MEDS: HOME MED MISC AMLODIPINE 10MG PO SCH (09:10)
[2022-10-25] MEDS: HCTZ 25 MG PO SCH ×2 (09:11→21:03)
[2022-10-25 16:00] VITALS: BP 124/88; TEMP 98; O2SAT 96
[2022-10-25 20:00] VITALS: BP 113/77; TEMP 98; O2SAT 97
[2022-10-26 07:00] VITALS: BP 111/87; TEMP 97.5; O2SAT 96
[2022-10-26] MEDS: HCTZ 25 MG PO SCH ×2 (10:10→17:33)
[2022-10-26] MEDS: HOME MED MISC AMLODIPINE 10MG PO SCH (10:10)
[2022-10-26 16:00] VITALS: BP 126/88; TEMP 97.7; O2SAT 97
[2022-10-26 20:00] VITALS: BP 118/85; TEMP 98.1; O2SAT 95
[2022-10-27] MEDS: HCTZ 25 MG PO SCH ×3 (08:25→17:46)
[2022-10-27] MEDS: HOME MED MISC AMLODIPINE 10MG PO SCH (08:25)
[2022-10-27 20:00] VITALS: BP 106/68; TEMP 98.2; O2SAT 96
[2022-10-28] MEDS: HOME MED MISC AMLODIPINE 10MG PO SCH (09:01)
[2022-10-28] MEDS: HCTZ 25 MG PO SCH ×2 (09:01→17:00)
[2022-10-28] MEDS ORDERED: LORAZEPAM 1 MG TABLET FOR AGITATION/ANXIETY PO PRN (13:00)
[2022-10-28] MEDS ORDERED: LORAZEPAM 1 MG TABLET FOR AGITATION PO PRN (13:00)
[2022-10-28] MEDS ORDERED: ZOLPIDEM TARTRATE 10 MG TABLET PO PRN (13:00)
[2022-10-28 20:00] VITALS: BP 108/66; TEMP 98; O2SAT 98
[2022-10-29 07:00] VITALS: BP 127/57; TEMP 97.5; O2SAT 96
[2022-10-29] MEDS: HCTZ 25 MG PO SCH ×2 (09:00→17:00)
[2022-10-29] MEDS: HOME MED MISC AMLODIPINE 10MG PO SCH (09:00)
[2022-10-29 22:45] VITALS: BP 108/67; TEMP 97.8; O2SAT 100
[2022-10-30 07:00] VITALS: BP 110/63; TEMP 97.5; O2SAT 93
[2022-10-30] MEDS: HCTZ 25 MG PO SCH ×2 (08:42→16:41)
[2022-10-30] MEDS: HOME MED MISC AMLODIPINE 10MG PO SCH (09:16)
[2022-10-30 20:00] VITALS: BP 102/65; TEMP 98.1; O2SAT 98
[2022-10-31 07:30] VITALS: BP 102/66; TEMP 98.1; O2SAT 96
[2022-10-31] MEDS: HOME MED MISC AMLODIPINE 10MG PO SCH (08:07)
[2022-10-31] MEDS: HCTZ 25 MG PO SCH ×2 (08:07→21:25)
[2022-10-31 21:24] VITALS: BP 105/65; TEMP 98.7; O2SAT 96
[2022-11-01 04:00] VITALS: BP 117/77; TEMP 99.3; O2SAT 98
[2022-11-01 08:00] VITALS: BP 126/86; TEMP 98.1; O2SAT 97; O2SAT 98
[2022-11-01] MEDS: HCTZ 25 MG PO SCH ×2 (09:00→17:53)
[2022-11-01] MEDS: HOME MED MISC AMLODIPINE 10MG PO SCH (09:00)
[2022-11-02 04:00] VITALS: BP 144/100; TEMP 98.5; O2SAT 98
[2022-11-02 08:00] VITALS: BP 147/74; TEMP 98.2; O2SAT 96
[2022-11-02] MEDS: HCTZ 25 MG PO SCH ×3 (09:00→16:44)
[2022-11-02] MEDS: HOME MED MISC AMLODIPINE 10MG PO SCH ×2 (09:00→09:16)
[2022-11-02 20:00] VITALS: BP 118/86; TEMP 98.4; O2SAT 97
[2022-11-03 08:06] VITALS: BP 114/69; TEMP 98; O2SAT 98
[2022-11-03] MEDS: HOME MED MISC AMLODIPINE 10MG PO SCH (08:58)
[2022-11-03] MEDS: HCTZ 25 MG PO SCH ×2 (08:58→17:23)
[2022-11-03 21:00] VITALS: BP 139/88; TEMP 98.1; O2SAT 99
[2022-11-04 08:00] VITALS: BP 141/77; TEMP 97.8; O2SAT 94
[2022-11-04] MEDS: HCTZ 25 MG PO SCH ×2 (10:20→17:00)
[2022-11-04] MEDS: HOME MED MISC AMLODIPINE 10MG PO SCH (10:20)
[2022-11-04] MEDS ORDERED: ZOLPIDEM TARTRATE 10 MG TABLET PO PRN (13:00)
[2022-11-04] MEDS ORDERED: LORAZEPAM 1 MG TABLET FOR AGITATION PO PRN (13:00)
[2022-11-05 08:00] VITALS: BP 165/75; TEMP 97.5; O2SAT 94
[2022-11-05] MEDS: HCTZ 25 MG PO SCH ×2 (09:00→17:00)
[2022-11-05] MEDS: HOME MED MISC AMLODIPINE 10MG PO SCH (09:00)
[2022-11-06] MEDS: HOME MED MISC AMLODIPINE 10MG PO SCH (10:07)
[2022-11-06] MEDS: HCTZ 25 MG PO SCH ×2 (10:07→17:00)
[2022-11-06 20:00] VITALS: BP 123/82; TEMP 98.2; O2SAT 98
[2022-11-06 21:32] VITALS: BP 123/82; TEMP 98.2; O2SAT 98
[2022-11-07 07:30] VITALS: BP 118/62; TEMP 98.1; O2SAT 96
[2022-11-07] MEDS: HOME MED MISC AMLODIPINE 10MG PO SCH (08:26)
[2022-11-07] MEDS: HCTZ 25 MG PO SCH ×2 (08:26→17:00)
[2022-11-07 20:00] VITALS: BP 124/88; TEMP 98.8; O2SAT 92
[2022-11-08] MEDS: HOME MED MISC AMLODIPINE 10MG PO SCH (09:06)
[2022-11-08] MEDS: HCTZ 25 MG PO SCH ×2 (09:06→17:00)
[2022-11-08 20:00] VITALS: BP 108/97; TEMP 97.8; O2SAT 100
[2022-11-09 07:30] VITALS: BP 142/74; TEMP 98.7; O2SAT 99
[2022-11-09] MEDS: HOME MED MISC AMLODIPINE 10MG PO SCH (08:39)
[2022-11-09] MEDS: HCTZ 25 MG PO SCH ×2 (08:39→17:00)
[2022-11-09 20:00] VITALS: BP 119/89; TEMP 98.2; O2SAT 98
[2022-11-10 07:00] VITALS: BP 132/93; TEMP 97.7; O2SAT 98
[2022-11-10] MEDS: HCTZ 25 MG PO SCH ×2 (08:34→18:44)
[2022-11-10] MEDS: HOME MED MISC AMLODIPINE 10MG PO SCH (08:35)
[2022-11-10 22:00] VITALS: BP 128/87; TEMP 98.1; O2SAT 98
[2022-11-11 08:00] VITALS: BP 155/110; TEMP 98.1; O2SAT 96
[2022-11-11] MEDS: HCTZ 25 MG PO SCH ×2 (09:00→17:00)
[2022-11-11] MEDS: HOME MED MISC AMLODIPINE 10MG PO SCH (09:00)
[2022-11-11 20:30] VITALS: BP 128/82; TEMP 98.4; O2SAT 97
[2022-11-12 07:30] VITALS: BP 138/71; TEMP 98.1; O2SAT 100
[2022-11-12] MEDS: HOME MED MISC AMLODIPINE 10MG PO SCH ×2 (09:00→09:02)
[2022-11-12] MEDS: HCTZ 25 MG PO SCH ×3 (09:00→17:00)
[2022-11-12 22:02] VITALS: BP 114/80; TEMP 97.5; O2SAT 96
[2022-11-13] MEDS: HCTZ 25 MG PO SCH ×2 (08:24→17:05)
[2022-11-13] MEDS: HOME MED MISC AMLODIPINE 10MG PO SCH (08:24)
[2022-11-13 20:00] VITALS: BP 115/83; TEMP 98.4; O2SAT 93
[2022-11-14] MEDS: HCTZ 25 MG PO SCH ×2 (08:56→17:00)
[2022-11-14] MEDS: HOME MED MISC AMLODIPINE 10MG PO SCH (08:56)
[2022-11-14 19:00] VITALS: BP 112/75; TEMP 97.9; O2SAT 96
[2022-11-15] MEDS: HOME MED MISC AMLODIPINE 10MG PO SCH (13:15)
[2022-11-15] MEDS: HCTZ 25 MG PO SCH ×2 (13:15→18:50)
[2022-11-15 20:00] VITALS: BP 124/82; TEMP 98.4; O2SAT 95
[2022-11-16] MEDS: HOME MED MISC AMLODIPINE 10MG PO SCH (09:23)
[2022-11-16] MEDS: HCTZ 25 MG PO SCH ×2 (09:23→17:00)
[2022-11-16 21:41] VITALS: BP 116/83; TEMP 97.9; O2SAT 98
[2022-11-17] MEDS: HCTZ 25 MG PO SCH ×2 (09:00→17:00)
[2022-11-17] MEDS: HOME MED MISC AMLODIPINE 10MG PO SCH (09:00)
[2022-11-17 20:00] VITALS: BP 127/82; TEMP 98.6; O2SAT 96
[2022-11-18 07:30] VITALS: BP 133/106; TEMP 98.2; O2SAT 100
[2022-11-18] MEDS: HOME MED MISC AMLODIPINE 10MG PO SCH (08:29)
[2022-11-18] MEDS: HCTZ 25 MG PO SCH ×2 (08:29→18:06)
[2022-11-19] MEDS: HCTZ 25 MG PO SCH ×2 (10:05→17:00)
[2022-11-19] MEDS: HOME MED MISC AMLODIPINE 10MG PO SCH (10:05)
[2022-11-19 19:00] VITALS: BP 167/83; TEMP 98.9; O2SAT 95
[2022-11-19 20:30] VITALS: BP 113/73; TEMP 98.1; O2SAT 97
[2022-11-19 22:00] VITALS: BP 113/73; TEMP 98.1
[2022-11-20] MEDS: HOME MED MISC AMLODIPINE 10MG PO SCH (08:08)
[2022-11-20] MEDS: HCTZ 25 MG PO SCH ×2 (08:08→17:00)
[2022-11-20 23:24] VITALS: BP 130/87; TEMP 98.6; O2SAT 99
[2022-11-20 23:46] VITALS: BP 130/87; TEMP 98.6; O2SAT 99
[2022-11-21] MEDS: HCTZ 25 MG PO SCH ×2 (08:41→17:00)
[2022-11-21] MEDS: HOME MED MISC AMLODIPINE 10MG PO SCH (08:41)
[2022-11-21 09:00] VITALS: BP 141/92; TEMP 97.9; O2SAT 100
[2022-11-21 20:30] VITALS: BP 126/88; TEMP 98; O2SAT 98
[2022-11-22 08:00] VITALS: BP 119/89; TEMP 98.6; O2SAT 99
[2022-11-22] MEDS: HOME MED MISC AMLODIPINE 10MG PO SCH (08:28)
[2022-11-22] MEDS: HCTZ 25 MG PO SCH ×2 (08:28→18:12)
[2022-11-22 21:00] VITALS: BP 123/72; TEMP 97.9; O2SAT 98
[2022-11-23] MEDS: HCTZ 25 MG PO SCH ×2 (08:48→17:48)
[2022-11-23] MEDS: HOME MED MISC AMLODIPINE 10MG PO SCH (08:48)
[2022-11-23 16:30] VITALS: BP 141/97; TEMP 98.4; O2SAT 100
[2022-11-23 23:00] VITALS: BP 139/89; TEMP 97.8; O2SAT 100
[2022-11-24 08:34] VITALS: BP 132/92; TEMP 98.6; O2SAT 100
[2022-11-24] MEDS: HCTZ 25 MG PO SCH ×2 (09:00→17:00)
[2022-11-24] MEDS: HOME MED MISC AMLODIPINE 10MG PO SCH (09:00)
[2022-11-24 20:00] VITALS: BP 124/83; TEMP 97.7; O2SAT 98
[2022-11-25 07:00] VITALS: BP 149/89; TEMP 97.8; O2SAT 96
[2022-11-25] MEDS: HOME MED MISC AMLODIPINE 10MG PO SCH (09:00)
[2022-11-25] MEDS: HCTZ 25 MG PO SCH ×2 (09:00→17:00)
[2022-11-25 20:00] VITALS: BP 143/89; TEMP 99.5; O2SAT 97
[2022-11-26] MEDS: HCTZ 25 MG PO SCH ×2 (08:47→17:00)
[2022-11-26] MEDS: HOME MED MISC AMLODIPINE 10MG PO SCH (08:47)
[2022-11-26 16:00] VITALS: BP 123/78; TEMP 98; O2SAT 98
[2022-11-26 20:00] VITALS: BP 108/77; TEMP 98.1; O2SAT 96
[2022-11-27 07:00] VITALS: BP 143/99; TEMP 98.6; O2SAT 94
[2022-11-27] MEDS: HOME MED MISC AMLODIPINE 10MG PO SCH (08:29)
[2022-11-27] MEDS: HCTZ 25 MG PO SCH ×2 (08:29→16:09)
[2022-11-27 20:00] VITALS: BP 107/76; TEMP 98.1; O2SAT 98
[2022-11-28 08:00] VITALS: BP 145/108; TEMP 97.9; O2SAT 100
[2022-11-28] MEDS: HOME MED MISC AMLODIPINE 10MG PO SCH (08:04)
[2022-11-28] MEDS: HCTZ 25 MG PO SCH ×2 (08:05→17:00)
[2022-11-28 20:00] VITALS: BP 143/90; TEMP 98; O2SAT 93
[2022-11-29 08:00] VITALS: BP 117/93; TEMP 97.5; O2SAT 97
[2022-11-29] MEDS: HOME MED MISC AMLODIPINE 10MG PO SCH (08:16)
[2022-11-29] MEDS: HCTZ 25 MG PO SCH ×2 (08:16→17:00)
[2022-11-29 21:00] VITALS: BP 100/70; TEMP 98; O2SAT 96
[2022-11-30 07:00] VITALS: BP 127/78; TEMP 98; O2SAT 99
[2022-11-30] MEDS: HOME MED MISC AMLODIPINE 10MG PO SCH (09:00)
[2022-11-30] MEDS: HCTZ 25 MG PO SCH ×2 (09:00→17:00)
[2022-11-30 16:00] VITALS: BP 118/75; TEMP 98; O2SAT 99
[2022-11-30 20:00] VITALS: BP 105/70; TEMP 97.9; O2SAT 97
[2022-12-01] MEDS: HOME MED MISC AMLODIPINE 10MG PO SCH (09:00)
[2022-12-01] MEDS: HCTZ 25 MG PO SCH ×2 (09:00→17:00)
[2022-12-01 20:00] VITALS: BP 107/77; TEMP 98.6; O2SAT 96
[2022-12-01] MEDS ORDERED: ZOLPIDEM TARTRATE 10 MG TABLET PO PRN (21:00)
[2022-12-01] MEDS ORDERED: LORAZEPAM 1 MG TABLET PO PRN (21:00)
[2022-12-01] MEDS ORDERED: ZOLPIDEM TARTRATE 10 MG TABLET ONE (21:30)
[2022-12-02 07:30] VITALS: BP 141/101; TEMP 97.9; O2SAT 92
[2022-12-02] MEDS: HCTZ 25 MG PO SCH ×2 (09:31→17:00)
[2022-12-02] MEDS: HOME MED MISC AMLODIPINE 10MG PO SCH (09:31)
[2022-12-02 20:00] VITALS: BP 124/92; TEMP 99; O2SAT 96
[2022-12-02 20:45] VITALS: BP 124/92; TEMP 99; O2SAT 96
[2022-12-03] MEDS: HCTZ 25 MG PO SCH ×2 (10:10→18:01)
[2022-12-03] MEDS: HOME MED MISC AMLODIPINE 10MG PO SCH (10:10)
[2022-12-03] MEDS ORDERED: risperiDONE 1 MG TABLET PO ONE (22:00)
[2022-12-04 07:30] VITALS: BP 144/111; TEMP 97.5; O2SAT 95
[2022-12-04] MEDS: HOME MED MISC AMLODIPINE 10MG PO SCH (08:36)
[2022-12-04] MEDS: HCTZ 25 MG PO SCH ×2 (08:36→16:50)
[2022-12-04 20:00] VITALS: BP 141/105; TEMP 98.6; O2SAT 98
[2022-12-04] MEDS ORDERED: risperiDONE 1 MG TABLET PO SCH (22:00)
[2022-12-05 07:00] VITALS: BP 131/76; TEMP 98; O2SAT 99
[2022-12-05] MEDS: HOME MED MISC AMLODIPINE 10MG PO SCH (09:01)
[2022-12-05] MEDS: HCTZ 25 MG PO SCH (09:01)
== END 2022-12-05 13:50 | disposition home or self-care (01) | DRG 951 ==
LOC: UNDOADMIN 10:00 → MED 10:00 → UNDODISIN 22:00 → UNDOADMIN 09-16 09:38 → MED 09-16 09:38
PROVIDERS: ADMIT Psychiatry & Neurology Psychiatry; ATTEND Psychiatry & Neurology Psychiatry
DX: Z00.6 Encounter for examination for normal comparison and control in clinical research program (principal); F20.0 Paranoid schizophrenia; I10 Essential (primary) hypertension
CPT/HCPCS: G0378

== ENCOUNTER 2024-09-08 10:59 | Inpatient (IN) | payer OTHER ==
[~2024-09-08] VITALS: Ht 167.6 cm; Wt 83.2 kg
[~2024-09-08 10:59] MED LIST changes: -LORA-259 PO; -ZOLP5TAB8 PO
[2024-09-08] MEDS ORDERED: ACETAMINOPHEN ES 500 MG TABLET PO PRN (15:30)
[2024-09-08] MEDS ORDERED: MAGNESIUM HYDROXIDE 30 ML UDC PO PRN (15:30)
[2024-09-08] MEDS ORDERED: ZOLPIDEM TARTRATE 10 MG TABLET PO PRN ×7 (15:30→22:00)
[2024-09-08] MEDS ORDERED: MAG HYDROX/AL HYDROX/SIMETH 30 ML UDC PO PRN (15:30)
[2024-09-08] MEDS ORDERED: IBUPROFEN 200 MG TABLET PO PRN (15:30)
[2024-09-08] MEDS ORDERED: ONDANSETRON 4 MG TAB.RAPDIS PO PRN (15:30)
[2024-09-08 20:00] VITALS: BP 147/99; TEMP 98.2; O2SAT 97
[2024-09-08] MEDS: LURASIDONE 80 MG PO SCH (21:09)
[2024-09-08] MEDS ORDERED: LORAZEPAM 1 MG TABLET FOR AGITATION PO PRN ×5 (22:00)
[2024-09-08] MEDS ORDERED: LORAZEPAM 1 MG TABLET FOR AGITATION/ANXIETY PO PRN ×3 (22:00)
[2024-09-09] MEDS: ROSUVASTATIN 5 MG PO SCH (08:32)
[2024-09-09] MEDS: HCTZ 12.5 MG PO SCH (08:32)
[2024-09-09] MEDS: AMLODIPINE 10 MG PO SCH (08:32)
[2024-09-09 16:15] VITALS: BP 116/77; TEMP 98; O2SAT 97
[2024-09-09 20:00] VITALS: BP 125/76; TEMP 98.1; O2SAT 99
[2024-09-10 20:00] VITALS: BP_SYST 114; BP_SYST 125; BP_DIAS 74; BP_DIAS 76; TEMP 97.7; TEMP 98.1; O2SAT 100; O2SAT 99
[2024-09-10] MEDS: LURASIDONE 40 MG PO SCH (22:08)
[2024-09-11 08:00] VITALS: BP 143/105; TEMP 98.1; O2SAT 95
[2024-09-11 20:00] VITALS: BP 110/73; TEMP 98.4; O2SAT 95
[2024-09-11 21:36] VITALS: BP 110/73; TEMP 98.4; O2SAT 95
[2024-09-12 09:00] VITALS: BP 124/90; TEMP 97.7; O2SAT 100
[2024-09-12 16:00] VITALS: BP 121/76; TEMP 98.8; O2SAT 98
[2024-09-12 20:00] VITALS: BP 125/80; TEMP 98.6; O2SAT 97
[2024-09-12 23:45] VITALS: BP 125/80; TEMP 98.6; O2SAT 97
[2024-09-13 07:30] VITALS: BP 127/97; TEMP 97.7; O2SAT 99
[2024-09-13 20:00] VITALS: BP 112/79; TEMP 98.6; O2SAT 98; O2SAT 99
[2024-09-14 08:00] VITALS: BP 153/109; TEMP 98.1; O2SAT 96
[2024-09-14 20:00] VITALS: BP 116/79; TEMP 97.5; O2SAT 100
[2024-09-15 08:00] VITALS: BP 148/101; TEMP 97.7; O2SAT 94
[2024-09-15 16:00] VITALS: BP 135/94; TEMP 98.2; O2SAT 97
[2024-09-15 20:00] VITALS: BP 115/75; TEMP 97.7; O2SAT 95
[2024-09-16 08:00] VITALS: BP 125/89; TEMP 98.1; O2SAT 100
[2024-09-16 20:41] VITALS: BP 115/72; TEMP 98; O2SAT 99
[2024-09-16 20:51] VITALS: BP 114/70; TEMP 97.5; O2SAT 98
[2024-09-16] MEDS: ZOLPIDEM TARTRATE 10 MG TABLET PO PRN (23:43)
[2024-09-17 08:00] VITALS: BP 131/80; TEMP 98.1; O2SAT 94
[2024-09-17] MEDS: LURASIDONE 40 MG PO SCH (08:52)
[2024-09-17 16:00] VITALS: BP 139/76; TEMP 97.9; O2SAT 99
[2024-09-17 20:00] VITALS: BP 113/77; TEMP 97.5; O2SAT 97
[2024-09-18 07:00] VITALS: BP 124/88; TEMP 97.9; O2SAT 100
[2024-09-18 08:00] VITALS: BP 124/88; TEMP 97.9; O2SAT 100
[2024-09-18 20:00] VITALS: BP 134/92; TEMP 97.7; O2SAT 98
[2024-09-18 20:09] VITALS: BP 134/92; TEMP 97.7; O2SAT 98
[2024-09-19 08:00] VITALS: BP 128/93; TEMP 97.7; O2SAT 97
[2024-09-19] MEDS: LURASIDONE 80 MG PO SCH (09:10)
[2024-09-19 20:00] VITALS: BP 124/86; TEMP 98.1; O2SAT 97
[2024-09-20] MEDS ORDERED: LORAZEPAM 1 MG TABLET FOR AGITATION PO PRN (13:00)
[2024-09-20] MEDS ORDERED: ZOLPIDEM TARTRATE 10 MG TABLET PO PRN (13:00)
[2024-09-20 16:00] VITALS: BP 109/74; TEMP 98; O2SAT 96
[2024-09-20] MEDS: INVEST MED ML-007C-A-211 1TAB EA BOTTLE PM PO SCH (18:30)
[2024-09-20 20:46] VITALS: BP 124/65; TEMP 97.9; O2SAT 97
[2024-09-21] MEDS ORDERED: [UNRECOGNIZED DRUG - OTHER] PO SCH (06:30)
[2024-09-21] MEDS ORDERED: INVEST MED ML-007C-A-211 1 TAB EA BOTTLE AM PO SCH (06:30)
[2024-09-21] MEDS ORDERED: [UNRECOGNIZED DRUG - OTHER] PO SCH (06:30)
[2024-09-21] MEDS: LURASIDONE 40 MG PO SCH (09:00)
[2024-09-21] MEDS ORDERED: INVEST MED ML-007C-A-211 1TAB EA BOTTLE PM PO SCH (18:30)
[2024-09-22 07:30] VITALS: BP 121/78; TEMP 97.7; O2SAT 99
[2024-09-26] MEDS ORDERED: ZOLPIDEM TARTRATE 10 MG TABLET PO PRN (13:00)
[2024-09-26] MEDS ORDERED: LORAZEPAM 1 MG TABLET FOR AGITATION PO PRN (13:00)
[2024-10-03] MEDS ORDERED: LORAZEPAM 1 MG TABLET FOR AGITATION PO PRN (13:00)
[2024-10-03] MEDS ORDERED: ZOLPIDEM TARTRATE 10 MG TABLET PO PRN (13:00)
[2024-10-10] MEDS ORDERED: LORAZEPAM 1 MG TABLET FOR AGITATION/ANXIETY PO PRN (13:00)
[2024-10-17] MEDS ORDERED: ZOLPIDEM TARTRATE 10 MG TABLET PO PRN (13:00)
[2024-10-17] MEDS ORDERED: LORAZEPAM 1 MG TABLET FOR AGITATION/ANXIETY PO PRN (13:00)
[2024-10-24] MEDS ORDERED: LORAZEPAM 1 MG TABLET FOR AGITATION PO PRN (13:00)
[2024-10-24] MEDS ORDERED: ZOLPIDEM TARTRATE 10 MG TABLET PO PRN (13:00)
== END 2024-09-22 12:11 | disposition home or self-care (01) | DRG 951 ==
LOC: MED 14:32
PROVIDERS: ADMIT Psychiatry & Neurology Psychiatry; ATTEND Psychiatry & Neurology Psychiatry
DX: Z00.6 Encounter for examination for normal comparison and control in clinical research program (principal); F20.0 Paranoid schizophrenia; Z79.899 Other long term (current) drug therapy; E78.00 Pure hypercholesterolemia, unspecified; I10 Essential (primary) hypertension; G89.29 Other chronic pain
CPT/HCPCS: 87081-TC; G0378

== ENCOUNTER 2024-09-28 10:41 | Inpatient (IN) | payer OTHER ==
[~2024-09-28] VITALS: Ht 167.6 cm; Wt 83.0 kg
[2024-09-28] MEDS ORDERED: ZOLPIDEM TARTRATE 10 MG TABLET PO PRN ×8 (13:00→16:00)
[2024-09-28] MEDS ORDERED: LORAZEPAM 1 MG TABLET FOR AGITATION PO PRN ×9 (13:00→16:00)
[2024-09-28] MEDS ORDERED: ACETAMINOPHEN ES 500 MG TABLET PO PRN (16:00)
[2024-09-28] MEDS ORDERED: MAG HYDROX/AL HYDROX/SIMETH 30 ML UDC PO PRN (16:00)
[2024-09-28] MEDS ORDERED: MAGNESIUM HYDROXIDE 30 ML UDC PO PRN (16:00)
[2024-09-28] MEDS ORDERED: IBUPROFEN 200 MG TABLET PO PRN (16:00)
[2024-09-28 20:00] VITALS: BP 137/88; TEMP 98; O2SAT 97
[2024-09-28] MEDS ORDERED: INVEST MED OTSUKA 382-201-00035 PO SCH (20:00)
[2024-09-28] MEDS: LATUDA 80 MG PO SCH (21:53)
[2024-09-29 07:30] VITALS: BP 163/115; TEMP 97.3; O2SAT 100
[2024-09-29] MEDS: HCTZ 12.5 MG PO SCH (08:11)
[2024-09-29] MEDS: AMLODIPINE 10 MG PO SCH (08:12)
[2024-09-29] MEDS: ROSUVASTATIN 5 MG PO SCH (08:12)
[2024-09-29] MEDS ORDERED: [UNRECOGNIZED DRUG - OTHER] PO SCH (10:00)
[2024-09-29] MEDS ORDERED: LURA40TA PO (10:57)
[2024-09-29 21:00] VITALS: BP 113/71; TEMP 97.8; O2SAT 100
[2024-09-30 12:30] VITALS: BP 123/77; TEMP 97.9; O2SAT 98
[2024-09-30] MEDS: LATUDA 40 MG PO SCH (21:05)
[2024-10-01 03:25] VITALS: BP 120/78; TEMP 97.7; O2SAT 97
[2024-10-01 08:00] VITALS: BP 128/94; TEMP 97.3; O2SAT 99
[2024-10-01 20:00] VITALS: BP 124/78; TEMP 98.1; O2SAT 97
[2024-10-02 07:30] VITALS: BP 127/91; TEMP 97.5; O2SAT 97
[2024-10-03 00:08] VITALS: BP 114/67; TEMP 98.1; O2SAT 98
[2024-10-03 07:30] VITALS: BP 125/107; TEMP 97.7; O2SAT 98
[2024-10-03 21:30] VITALS: BP 130/76; TEMP 97.5; O2SAT 98
[2024-10-04 08:00] VITALS: BP 147/84; TEMP 98.2; O2SAT 99
[2024-10-04 20:37] VITALS: BP 112/64; TEMP 98.1; O2SAT 96
[2024-10-05 07:00] VITALS: BP 131/94; TEMP 97.7; O2SAT 100
[2024-10-05 12:00] VITALS: BP 131/94; TEMP 97.7; O2SAT 100
[2024-10-05 20:00] VITALS: BP 156/71; TEMP 98.2; O2SAT 99
[2024-10-06 07:00] VITALS: BP 129/86; TEMP 97.9; O2SAT 100
[2024-10-06 22:32] VITALS: BP 133/70; TEMP 97.6; O2SAT 98
[2024-10-07 08:00] VITALS: BP 121/82; TEMP 97.5; O2SAT 99
[2024-10-07 20:00] VITALS: BP 110/68; TEMP 97.5; O2SAT 99
[2024-10-08 20:00] VITALS: BP 118/77; TEMP 98.2; O2SAT 97
[2024-10-09 07:30] VITALS: BP 134/92; TEMP 97.9; O2SAT 98
[2024-10-09 20:00] VITALS: BP 102/71; TEMP 98.1; O2SAT 97
[2024-10-10 07:30] VITALS: BP 125/89; TEMP 97.5; O2SAT 100
[2024-10-10] MEDS ORDERED: LORAZEPAM 1 MG TABLET FOR AGITATION PO PRN (13:00)
[2024-10-10] MEDS ORDERED: ZOLPIDEM TARTRATE 10 MG TABLET PO PRN (13:00)
[2024-10-10 21:35] VITALS: BP 118/68; TEMP 97.5; O2SAT 99
[2024-10-10 23:43] VITALS: BP 118/68; TEMP 97.5; O2SAT 99
[2024-10-11 08:00] VITALS: BP 119/78; TEMP 98.2; O2SAT 98
[2024-10-11] MEDS ORDERED: INVEST MED OTSUKA 382-201-00035 PO SCH (10:00)
[2024-10-11 16:07] VITALS: BP 121/77; TEMP 99; O2SAT 96
[2024-10-11 20:00] VITALS: BP 114/73; TEMP 97.9; O2SAT 96
[2024-10-12] MEDS: [UNRECOGNIZED DRUG - OTHER] PO SCH (09:26)
[2024-10-12] MEDS ORDERED: [UNRECOGNIZED DRUG - OTHER] PO SCH (10:00)
[2024-10-12 16:00] VITALS: BP 107/71; TEMP 98.6; O2SAT 96
[2024-10-12 20:00] VITALS: BP 116/79; TEMP 98.1; O2SAT 98
[2024-10-13 08:00] VITALS: BP 124/83; TEMP 97.7; O2SAT 99
[2024-10-13 08:30] VITALS: BP 124/83; TEMP 97.7; O2SAT 99
[2024-10-13 20:00] VITALS: BP 107/59; TEMP 97.9; O2SAT 95
[2024-10-14 08:00] VITALS: BP 129/95; TEMP 97.7; O2SAT 98
[2024-10-14 20:00] VITALS: BP 95/54; TEMP 98.1; O2SAT 96
[2024-10-14 21:52] VITALS: BP 95/54; TEMP 98.1; O2SAT 96
[2024-10-16 20:04] VITALS: BP 118/75; TEMP 97.9; O2SAT 97
[2024-10-17 08:58] VITALS: BP 124/86; TEMP 97.5; O2SAT 96
[2024-10-17 20:00] VITALS: BP 119/85; TEMP 97.5; O2SAT 95
[2024-10-18] MEDS ORDERED: ZOLPIDEM TARTRATE 10 MG TABLET PO PRN (13:00)
[2024-10-18] MEDS ORDERED: LORAZEPAM 1 MG TABLET FOR AGITATION PO PRN (13:00)
[2024-10-18 20:00] VITALS: BP 110/63; TEMP 97.7; O2SAT 98
[2024-10-19 08:00] VITALS: BP 133/91; TEMP 98.1; O2SAT 96
[2024-10-19 20:00] VITALS: BP 121/80; TEMP 97.3; O2SAT 96
[2024-10-20 21:30] VITALS: BP 101/65; TEMP 97.7; O2SAT 97
[2024-10-20 21:39] VITALS: BP 101/65; TEMP 97.7; O2SAT 96
[2024-10-21 03:44] VITALS: BP 101/65; TEMP 97.7; O2SAT 96
[2024-10-21 08:00] VITALS: BP 133/86; TEMP 97.7; O2SAT 100
[2024-10-21 20:00] VITALS: BP 114/71; TEMP 98.1; O2SAT 97
[2024-10-21 20:29] VITALS: BP 114/71; TEMP 98.1; O2SAT 97
[2024-10-22 20:00] VITALS: BP 131/86; TEMP 97.7; O2SAT 99
[2024-10-23 08:00] VITALS: BP 120/85; TEMP 97.9; O2SAT 100
[2024-10-23 22:53] VITALS: BP 98/70; TEMP 98.1; O2SAT 96
[2024-10-24 10:18] VITALS: BP 115/80; TEMP 98.2; O2SAT 100
[2024-10-24 20:00] VITALS: BP 102/71; TEMP 97.9; O2SAT 94
[2024-10-25] MEDS ORDERED: LORAZEPAM 1 MG TABLET FOR AGITATION PO PRN (13:00)
[2024-10-25 20:00] VITALS: BP 116/77; TEMP 97.7; O2SAT 99
[2024-10-26 08:00] VITALS: BP 127/94; TEMP 97.9; O2SAT 100
[2024-10-26 20:00] VITALS: BP 126/83; TEMP 98.1; O2SAT 97
[2024-10-26] MEDS: ZOLPIDEM TARTRATE 10 MG TABLET PO PRN (23:43)
[2024-10-27 08:00] VITALS: BP 130/90; TEMP 97.9; O2SAT 97
[2024-10-27 20:00] VITALS: BP 118/86; TEMP 97.7; O2SAT 97
[2024-10-28 20:00] VITALS: BP 111/77; TEMP 98.1; O2SAT 95
[2024-10-28 20:21] VITALS: BP 111/77; TEMP 98.1; O2SAT 95
[2024-10-29 08:00] VITALS: BP 121/81; TEMP 98.1; O2SAT 97
[2024-10-29 16:00] VITALS: BP 104/61; TEMP 98.6; O2SAT 99
[2024-10-29 20:00] VITALS: BP 127/86; TEMP 98.1; O2SAT 99
[2024-10-30 07:00] VITALS: BP 114/78; TEMP 97.7; O2SAT 100
[2024-10-30 16:00] VITALS: BP 117/71; TEMP 97.2; O2SAT 96
[2024-10-30 20:00] VITALS: BP 107/70; TEMP 98.2; O2SAT 96
[2024-10-31 09:54] VITALS: BP 107/77; TEMP 98.1; O2SAT 100
[2024-10-31 10:53] VITALS: BP 140/87; TEMP 97.5; O2SAT 99
[2024-10-31 20:00] VITALS: BP 122/78; TEMP 98.1; O2SAT 98
[2024-11-01] MEDS ORDERED: LORAZEPAM 1 MG TABLET FOR AGITATION PO PRN (13:00)
[2024-11-01] MEDS ORDERED: ZOLPIDEM TARTRATE 10 MG TABLET PO PRN (13:00)
[2024-11-01 20:00] VITALS: BP 102/69; TEMP 97.9; O2SAT 95
[2024-11-02 20:00] VITALS: BP 111/75; TEMP 97.7; O2SAT 100
[2024-11-03 07:30] VITALS: BP 146/95; TEMP 98.1; O2SAT 98
[2024-11-03 20:00] VITALS: BP 111/52; TEMP 97.5; O2SAT 100
[2024-11-04 08:00] VITALS: BP 113/84; TEMP 97.9; O2SAT 99
[2024-11-04 20:00] VITALS: BP 133/82; TEMP 97.7; O2SAT 100
[2024-11-06 16:00] VITALS: BP 113/73; TEMP 98.4; O2SAT 95
[2024-11-07 16:00] VITALS: BP 116/77; TEMP 97.8; O2SAT 96
[2024-11-07 21:30] VITALS: BP 123/82; TEMP 97.9; O2SAT 96
[2024-11-08 10:00] VITALS: BP 120/93; TEMP 98.2; O2SAT 96
[2024-11-08] MEDS ORDERED: LORAZEPAM 1 MG TABLET FOR AGITATION PO PRN (13:00)
[2024-11-08] MEDS ORDERED: ZOLPIDEM TARTRATE 10 MG TABLET PO PRN (13:00)
[2024-11-09 20:00] VITALS: BP 148/92; TEMP 98.1; O2SAT 98
[2024-11-10 20:00] VITALS: BP 130/94; TEMP 98.1; O2SAT 100
[2024-11-10 20:40] VITALS: BP 130/94; TEMP 98.2; O2SAT 100
[2024-11-15] MEDS ORDERED: ZOLPIDEM TARTRATE 10 MG TABLET PO PRN (13:00)
[2024-11-15] MEDS ORDERED: LORAZEPAM 1 MG TABLET FOR AGITATION PO PRN (13:00)
== END 2024-11-11 12:00 | disposition home or self-care (01) | DRG 951 ==
LOC: MED 14:48
PROVIDERS: ADMIT Psychiatry & Neurology Psychiatry; ATTEND Psychiatry & Neurology Psychiatry
DX: Z00.6 Encounter for examination for normal comparison and control in clinical research program (principal); F20.0 Paranoid schizophrenia; Z81.8 Family history of other mental and behavioral disorders; Z82.49 Family history of ischemic heart disease and other diseases of the circulatory system
CPT/HCPCS: 87081-TC; G0378